=== PATIENT | male | born 1960 | race Caucasian/White ===

== ENCOUNTER → 2016-11-21 | Outpatient (CLI) | payer OTHER ==
[~2016-11-21] MED LIST: EMPA1TAB3 PO; FLV1 PO; GLC500 PO; INSDGIPEN SC; LEVO200T6 PO; LISI-526 PO; LSNP/30 PO; METF1000 PO; MISCCAP80 PO; MULT-506 PO; OMEG10007 PO; ONDA8TAB12 PO; PROM25TA10 PO
== END | disposition home or self-care (01) ==
LOC: C.LAB 16:42
PROVIDERS: ATTEND Internal Medicine Hematology
DX: C91.10 Chronic lymphocytic leukemia of B-cell type not having achieved remission (principal)

== ENCOUNTER 2017-02-02 09:23 | Inpatient (IN) | payer OTHER ==
[2017-02-02] VITALS (16 sets, daily range): BP systolic 101–135; BP diastolic 61–82; PULSE 84–113; TEMP 36.3–38.5; O2SAT 96–100; BMI 39.1
[~2017-02-02] VITALS: Ht 175.3 cm; Wt 121.8 kg
[~2017-02-02 09:23] MED LIST changes: -EMPA1TAB3 PO; -FLV1 PO; -GLC500 PO; -INSDGIPEN SC; -LEVO200T6 PO; -LSNP/30 PO; -MISCCAP80 PO; -MULT-506 PO; -OMEG10007 PO; -ONDA8TAB12 PO; -PROM25TA10 PO
[2017-02-02] MEDS ORDERED: EMPA1TAB3 PO (09:30)
[2017-02-02 10:24] LABS: PROTHROMBIN TIME (PATIENT) 10.2 SECONDS (9.0-12.0)
[2017-02-02] MEDS ORDERED: SODIUM CHLORIDE 0.9% 1000ML 1,000 ML IV STA (10:29)
--- NOTE | 2017-02-02 11:09 | DIAGNOSTIC IMAGING REPORT ---
CHEST ONE VIEW PORTABLE CLINICAL HISTORY: Weakness. Patient on chemotherapy COMPARISON STUDY: 07/13/2016 FINDINGS: The cardiac and mediastinal contours are normal. There is no evidence of focal pulmonary consolidation. There is no evidence of failure. No pleural effusions are visualized.[ IMPRESSION: No active disease in the chest. Electronically signed by: Kael Jameson M.D. 02/02/2017 11:08 AM Dictated Date/Time: 02/02/2017 11:07 AM
[2017-02-02 11:20] LABS: HEMATOCRIT 16.9 % (42-52); MEAN CORPUSCULAR HEMOGLOBIN 28.2 pg (25-34); MEAN CORPUSCULAR HGB CONC 34.3 g/dl (32-36); MEAN PLATELET VOLUME 10.4 fL (7.4-10.4); PLATELET COUNT 64 K/uL (130-400); RED BLOOD COUNT 2.06 M/uL (4.7-6.1); WHITE BLOOD COUNT 0.45 K/uL (4.8-10.8)
[2017-02-02 11:22] LABS: URINE APPEARANCE CLEAR (CLEAR); URINE BILIRUBIN NEG (NEG); URINE COLOR YELLOW; URINE NITRITE NEG (NEG); URINE SPECIFIC GRAVITY 1.032 (1.000-1.030); UROBILINOGEN NEG (NEG)
[2017-02-02 11:30] LABS: BUN/CREATININE RATIO 24.1 (10-20); CALCIUM 8.2 mg/dl (8.5-10.1); CREATININE 1.2 mg/dl (0.60-1.40); POTASSIUM 4.2 mmol/L (3.5-5.1)
[2017-02-02 11:31] LABS: MANUAL MICROSCOPIC REQUIRED? NO; REVIEW REQ? YES
[2017-02-02 11:45] LABS: URINE EPITHELIAL CELL AUTO 0-5 /lpf (0-5)
[2017-02-02 11:46] LABS: BETA-HYDROXYBUTYRATE 18.81 mg/dL (0.2-2.81)
[2017-02-02 11:47] LABS: DOHLE BODIES 1+; MICROCYTOSIS PRESENT; PLT ESTIMATE DECREASED; TOXIC GRANULATION 1+
[2017-02-02 11:49] LABS: ZZUR CULT IF INDIC CLEAN CATCH NO
[2017-02-02 11:51] LABS: COMPLETE YES; LYMPH ABS # 0.15 K/uL (1.2-3.4); LYMPHOCYTE % 32.3 %; NEUTROPHILS % 64.6 %
[2017-02-02] MEDS ORDERED: NovoLIN-R INSULIN PER UNIT CHARGE SC STA (11:56)
--- NOTE | 2017-02-02 12:12 | EMERGENCY ROOM VISIT NOTE ---
History Report prepared by Leana: Stormy Yusuf Under the Supervision of: Dr. Mushtaq Alejandra D.O. First contact with patient: 09:47 Chief Complaint: WEAKNESS Stated Complaint: WEAK-CHEMO PAT., V, FREQ. URINE, HALLUCINATIONS History of Present Illness The patient is a 56 year old male who presents to the Emergency Room with complaints of worsening weakness for the past 6 days. The patient is currently receiving chemotherapy for CLL. He had blood work done as an outpatient 6 days ago and his hemoglobin was 7.4. He has chronic anemia, but was told if he felt like he needed another transfusion to come to the ED. His last blood transfusion was 6 days ago. He received 2 units of blood at that time, and his hemoglobin was 6.4 before that transfusion. The patient is currently feeling lethargic, weak, and tired. He is also experiencing nausea, vomiting, and lack of appetite. Per sister, the patient has been extremely ill for the past few days since his most recent chemotherapy treatments. She also notes that the chemo has been making his BSG run higher. He has been experiencing increased thirst and increased urinary frequency. He was sent to the ED by his oncologist for further evaluation. Source of History: patient, family (sister) Onset: 6 days ago Position: other (global) Symptom Intensity: hemoglobin 7.4 Quality: other (weakness) Timing: worsening Modifying Factors (Worsening): other (chemotherapy for CLL) Associated Symptoms: + nausea, + vomiting, + urinary symptoms (increased frequency), + fatigue Review of Systems See HPI for pertinent positives & negatives. A total of 10 systems reviewed and were otherwise negative. Past Medical & Surgical Medical Problems: (1) Anemia (2) CLL (chronic lymphocytic leukemia) (3) Diabetes (4) HTN (hypertension) Family History Cancer Diabetes mellitus Gallbladder disease Heart disease Hypertension Kidney disease MOTHER Kidney stones Social History Smoking Status: Former Smoker Alcohol Use: none Drug Use: none Marital Status: single Housing Status: lives alone Occupation Status: employed Current/Historical Medications Scheduled Empagliflozin (Jardiance), 25 MG PO DAILY Levothyroxine Sodium (Levothyroxine Sodium), 200 MCG PO DAILY Lisinopril (Prinivil), 30 MG PO QAM Metformin Hcl (Glucophage), 1,000 MG PO BID Allergies Coded Allergies: No Known Allergies (Unverified , 02/02/17) Physical Exam Vital Signs Date Time Temp Pulse Resp B/P (MAP) Pulse Ox O2 Delivery O2 Flow Rate FiO2 02/02/17 11:01 81 16 118/63 98 Room Air 02/02/17 09:30 36.5 93 18 113/74 98 Room Air Physical Exam CONSTITUTIONAL/VITAL SIGNS: Reviewed / noted above. GENERAL: Non-toxic in appearance. INTEGUMENTARY: Warm, dry, and pale in appearance. HEAD: Normocephalic. EYES: without scleral icterus or trauma. ENT/OROPHARYNX: clear and moist. LYMPHADENOPATHY/NECK: Is supple without lymphadenopathy or meningismus. RESPIRATORY: Lungs clear and equal. CARDIOVASCULAR: Regular rate and rhythm. GI/ABDOMEN: Soft and nontender. No organomegaly or pulsatile mass. No rebound or guarding. Normal bowel sounds. EXTREMITIES: Warm and well perfused. BACK: No CVA tenderness. NEUROLOGICAL: Intact without focal deficits. PSYCHIATRIC: normal affect. MUSCULOSKELETAL: Normally developed with good muscle tone. Medical Decision & Procedures ER Provider Diagnostic Interpretation: Radiology results as stated below per my review and radiologist interpretation: CHEST ONE VIEW PORTABLE CLINICAL HISTORY: Weakness. Patient on chemotherapy COMPARISON STUDY: 07/13/2016 FINDINGS: The cardiac and mediastinal contours are normal. There is no evidence of focal pulmonary consolidation. There is no evidence of failure. No pleural effusions are visualized.[ IMPRESSION: No active disease in the chest. Electronically signed by: Kael Jameson M.D. 02/02/2017 11:08 AM Dictated Date/Time: 02/02/2017 11:07 AM Laboratory Results 02/02/17 10:43 Red Blood Count 2.06, Mean Corpuscular Volume 82.0, Mean Corpuscular Hemoglobin 28.2, Mean Corpuscular Hemoglobin Concent 34.3, Mean Platelet Volume 10.4 02/02/17 10:43 Test 02/02/17 00:00 02/02/17 10:00 02/02/17 10:43 Urine Color YELLOW Urine Appearance CLEAR (CLEAR) Urine pH 5.0 (4.5-7.5) Urine Specific [place] 1.032 (1.000-1.030) Urine Protein NEG (NEG) Urine Glucose (UA) 3+ (NEG) Urine Ketones 1+ (NEG) Urine Occult Blood NEG (NEG) Urine Nitrite NEG (NEG) Urine Bilirubin NEG (NEG) Urine Urobilinogen NEG (NEG) Urine Leukocyte Esterase NEG (NEG) Urine WBC (Auto) 0 /hpf (0-5) Urine RBC (Auto) 0-4 /hpf (0-4) Urine Hyaline Casts (Auto) /lpf (0-5) Urine Epithelial Cells (Auto) 0-5 /lpf (0-5) Urine Bacteria (Auto) NEG (NEG) Urine Yeast (Auto) (NONE PRSENT) Prothrombin Time 10.2 SECONDS (9.0-12.0) Prothromb Time International Ratio 1.0 (0.9-1.1) Activated Partial Thromboplast Time 26.4 SECONDS (21.0-31.0) Partial Thromboplastin Ratio 1.0 White Blood Count 0.45 K/uL (4.8-10.8) Red Blood Count 2.06 M/uL (4.7-6.1) Hemoglobin 5.8 g/dL (14.0-18.0) Hematocrit 16.9 % (42-52) Mean Corpuscular Volume 82.0 fL (80-100) Mean Corpuscular Hemoglobin 28.2 pg (25-34) Mean Corpuscular Hemoglobin Concent 34.3 g/dl (32-36) Platelet Count 64 K/uL (130-400) Mean Platelet Volume 10.4 fL (7.4-10.4) RDW Standard Deviation 46.0 fL (36.4-46.3) RDW Coefficient of Variation 15.5 % (11.5-14.5) Nucleated RBC Absolute Count (auto) 0.02 K/uL (0-0) Neutrophils % (Manual) 64.6 % Lymphocytes % (Manual) 32.3 % Monocytes % (Manual) 3.1 % Nucleated Red Blood Cells % 4.2 % Neutrophils # (Manual) 0.29 K/uL (1.4-6.5) Total Absolute Neutrophils 0.29 K/uL (1.4-6.5) Lymphocytes # (Manual) 0.15 K/uL (1.2-3.4) Total Absolute Lymphocytes 0.15 K/uL (1.2-3.4) Monocytes # (Manual) 0.01 K/uL (0.11-0.59) Toxic Granulation 1+ Dohle Bodies 1+ Platelet Estimate DECREASED Microcytosis PRESENT Anion Gap 13.0 mmol/L (3-11) Est Creatinine Clear Calc Drug Dose 88.0 ml/min Estimated GFR () 77.9 Estimated GFR (Non- 67.2 BUN/Creatinine Ratio 24.1 (10-20) Calcium Level 8.2 mg/dl (8.5-10.1) Beta-Hydroxybutyric Acid 18.81 mg/dL (0.2-2.81) Laboratory results as stated above per my review. Medications Administered Medications (Trade) Dose Ordered Sig/Alesha Route Start Time Stop Time Status Last Admin Dose Admin Sodium Chloride 1,000 ml @ 999 mls/hr Q1H1M STAT IV 02/02/17 10:29 02/02/17 11:29 DC 02/02/17 11:00 999 MLS/HR ED Course 09: Previous medical records were reviewed. The patient was evaluated in room B3B. A complete history and physical examination was performed. 1029: NSS 1000 ml @ 999 mls/hr IV 1156: Insulin Human Regular 10 units SC 1157: I spoke with Radha Rouse PA-C. We discussed the patient's results and treatment plan. [facility] 1200: I reassessed the patient at this time. He is resting comfortably. I discussed the results and treatment plan with the patient and his sister. I answered all pertaining questions that they had. They expressed understanding and verbalized agreement. Medical Decision Differential includes acute coronary syndrome, myocardial infarction, CVA, TIA, anemia, infection, pneumonia, UTI, pyelonephritis, poor nutrition, dehydration, electrolyte disturbance, hypoglycemia. This is a 56-year-old male who presents to the ED with a chief complaint of generalized weakness. The patient states that his hemoglobin was 7.4 last Monday. He received his third chemotherapy treatment on . His sister states that he had a rough weekend with nausea and vomiting and weakness and overall not feeling well. The patient did have a blood transfusion 6 days ago. He states that he received 2 units at that time. He states that he has been having frequent urination and thirst over the weekend. He states that his blood sugars have been running high. He is on metformin for diabetes. The patient's sister states that he was hallucinating some [id number] weekend as well. His vital signs are normal. His physical exam reveals paleness of the skin but otherwise no significant findings. His hemoglobin today is 5.8. White blood cell count was 0.45. Glucose is 400. BUN is 29 with 1+ ketones in the urine. The patient received IV fluids normal saline. He received a blood transfusion of 1 unit and also subcutaneous insulin 10 units. The patient will be seen by the hospitalist for further inpatient evaluation and care as well as additional blood administration and hyperglycemia management as necessary. Consults Time Called: 1155 Consulting Physician: Radha Rouse PA-C Returned Call: 1157 I spoke with Radha Rouse PA-C. We discussed the patient's results and treatment plan. The patient will be evaluated by the [facility] for further management. Impression Primary Impression: Anemia Additional Impressions: Hyperglycemia Dehydration Weakness Scribe Attestation The scribe's documentation has been prepared under my direction and personally reviewed by me in its entirety. I confirm that the note above accurately reflects all work, treatment, procedures, and medical decision making performed by me. Departure Information Dispostion Being Evaluated By Hospitalist Referrals Divya Diaz D.O. (PCP) Patient Instructions My [facility] Problem Qualifiers Primary Impression: Anemia Anemia type: unspecified type Qualified Codes: D64.9 - Anemia, unspecified
[2017-02-02] MEDS ORDERED: PHARMACY GLYCEMIC MGMT CONSULT PRN (12:45)
[2017-02-02] MEDS ORDERED: PIPERACILL/TAZOBAC CONSULT ACTIVE PRN (12:47)
[2017-02-02] MEDS ORDERED: PROM25TA10 PO (12:56)
[2017-02-02] MEDS ORDERED: ONDA8TAB12 PO (12:56)
[2017-02-02] MEDS ORDERED: MISCCAP80 PO (12:56)
[2017-02-02] MEDS ORDERED: ONDANSETRON INJ 2 MG/ML 2 ML VIAL IV PRN (13:00)
[2017-02-02] MEDS ORDERED: INSULIN IV INFUSION PROTOCOL STA (13:13)
[2017-02-02] MEDS ORDERED: HHS GOAL RANGE 250-350 mg/dl SCH (13:15)
--- NOTE | 2017-02-02 13:19 | Progress Note ---
Progress Note Date of Service Feb 02, 2017. Progress Note ATTENDING ADDENDUM care coordinated with SAYRA Rouse please refer to her notes for full details, I agree with her notes patient seen and examined, records reviewed by myself as well on exam, patient seen with family at bedside states he feels somewhat better since being admitted noted to have subjective feeling of warmth this morning, diaphoretic has been progressively weak since chemo last week with nausea and vomiting occasional confusion episodes at night denies cough, headache, abdominal pain, dysuria, diarrhea, bleeding no other symptoms VS noted and reviewed oriented x 3 , not in distress, speaks in sentences with no effort nor accessory muscle use normal rate, regular rhythm, no murmurs clear breath sounds bilaterally, no rales/wheezes non distended, soft, nontender no bipedal edema, erythema, warmth no neuro deficits WBC 0.45 Hg 5.8 Plt 64 BSG 392 ASSESSMENT/PLAN> 56 year old male with history of CLL with severe anemia, on Fludarabine, Cyclophosphamide, PRN pRBC transfusion, DM 2, HTN presenting with weakness, nausea/vomiting x few days. WEAKNESS SECONDARY TO SEVERE ANEMIA, DEHYDRATION, HYPERGLYCEMIA -- likely secondary to Chemotherapy -- for severe anemia discussed with Dr. Kinney transfuse 4 units PRBC repeat H&H today after 4th unit, then daily if stable -- for dehydration, likely secondary to nausea/vomiting, poor intake IV fluids PRN Antiemetics -- for Hyperglycemia r/o HHS, history of DM 2 likely from underlying stress, r/o Infection on Metformin, and Jardiance-- hold for now check plasma osm start IV insulin for now PRP q6h Pharmacy consulted PACYTOPENIA secondary to Chemo, CLL -- NEUTROPENIA discussed with Dr. Kinney start Neupogen Neutropenic precautions ff up cultures hold off antibiotics for now, unless patient is febrile -- ANEMIA management of anemia as noted above -- THROMBOCYTOPENIA no signs of bleeding no monitor for now EPISODES OF CONFUSION -- noticed at night within the past week -- likely metabolic encephalopathy -- check CT head to r/o CVA awaiting Dr. Kinney's call back to discuss case other diagnoses and plan of care as per SAYRA Rouse's notes Daniel Rosales MD
[2017-02-02] MEDS ORDERED: MODERATE STRESS LEVEL SCH (13:30)
[2017-02-02] MEDS ORDERED: PIPERACILLIN/TAZOBACTAM 4.5 GM/100ML D5W IV SCH (13:30)
[2017-02-02 13:35] LABS: MAGNESIUM 2.8 mg/dl (1.8-2.4); PHOSPHORUS 3.3 mg/dl (2.5-4.9)
[2017-02-02] MEDS: SODIUM CHLORIDE 0.9% 1000ML 1,000 ML IV SCH ×2 (13:44→19:51)
[2017-02-02] MEDS ORDERED: GLUCOSE 40% GEL 15 GM TUBE PO PRN (13:45)
[2017-02-02] MEDS ORDERED: INSULIN HUMAN REGULAR IV BOLUS 3 UNIT in SYRINGE 0 ML IV SCH (13:45)
[2017-02-02] MEDS ORDERED: GLUCOSE 10 TABS/TUBE PO PRN (13:45)
[2017-02-02] MEDS ORDERED: GLUCAGON FOR INJ 1 MG VIAL SQ PRN (13:45)
[2017-02-02] MEDS ORDERED: DEXTROSE 50% 50 ML SYR IV PRN (13:45)
--- NOTE | 2017-02-02 14:13 | History and Physical ---
History & Physical Date & Time of Service: Feb 02, 2017 at 13:19 Chief Complaint: Weak-Chemo Pat., V, Freq. Urine, Hallucinations Primary Care Physician: Divya Diaz D.O. History of Present Illness Source: patient, clinic records This is a 56 y/o male with PMH of CLL on chemo, chronic anemia, DM type 2, hypertension, and other problems listed below who presents to the ED for fatigue and N/V. Pt follows with Dr. Kinney for oncology. Patient's last chemo ended 1 week ago on 01/26 and he received a blood transfusion on Saturday 01/27. He states since that time has felt generalized weakness, fatigue, N/V, poor food intake. He was able to take some liquids and his meds at home. Was vomiting until last night. Nausea is now resolved. In the ER was able to tolerate a diabetic meal without issues. Patient's sister who was not in the room during my exam told the admitting hospitalist physician that patient was feeling hot and diaphoretic this morning. She additionally noted episodes of confusion occurring at night for past few days. Pt states urinary frequency is increased for past 1 week after starting Jardiance. Pt states home blood sugars were running up to 400s associated with the chemo and improved to 200s after Jardiance was started. Patient denies any fever, chills, BRODY, dizziness, URI symptoms, cough, SOB, chest pain, abdominal pain, diarrhea, dysuria, rash, wounds, abnormal bleeding. No sick contact. 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 Status: Chronic (2) Chemotherapy induced neutropenia Status: Chronic (3) CLL (chronic lymphocytic leukemia) Status: Chronic (4) DM type 2 (diabetes mellitus, type 2) Status: Chronic (5) Dyslipidemia Status: Chronic (6) HTN (hypertension) Status: Chronic (7) Hypothyroidism Status: Chronic (8) Obesity (BMI 30-39.9) Status: Chronic Surgical Problems: (1) H/O colonoscopy with polypectomy Status: Chronic (2) S/p bone marrow aspiration Status: Chronic Family History Cancer Diabetes mellitus Gallbladder disease Heart disease Hypertension Kidney disease MOTHER Kidney stones Social History Smoking Status: Former Smoker Alcohol Use: none Marital Status: single Housing status: lives alone Immunizations History of Influenza Vaccine: No History of Tetanus Vaccine?: No History of Pneumococcal: No History of Hepatitis B Vaccine: No Allergies Coded Allergies: No Known Allergies (Unverified , 02/02/17) Home Medications Scheduled Empagliflozin (Jardiance), 25 MG PO DAILY Fish Oil ([place]-3), 1 CAP PO DAILY Insulin Glargine (Lantus Solostar), 10 UNIT SC HS Levothyroxine Sodium (Levothyroxine Sodium), 200 MCG PO DAILY Lisinopril (Prinivil), 30 MG PO QAM Metformin Hcl (Glucophage), 1,000 MG PO BIDM Multivitamin (Multivitamin), 1 TAB PO DAILY Probiotic Product (Probiotic), 1 CAP PO TIDM Scheduled PRN Ondansetron Hcl (Zofran), 8 MG PO Q8 PRN for Nausea Promethazine HCl (Promethazine HCl), 25 MG PO Q4 PRN for Nausea Review of Systems Ten systems reviewed and negative except as noted in HPI. Physical Exam Vital Signs Date Time Temp Pulse Resp B/P (MAP) Pulse Ox O2 Delivery O2 Flow Rate FiO2 02/02/17 12:55 36.9 89 16 117/69 99 02/02/17 12:45 86 16 118/63 99 Room Air 02/02/17 12:41 36.5 86 16 127/81 99 02/02/17 12:25 36.6 88 16 103/67 98 02/02/17 11:01 81 16 118/63 98 Room Air 02/02/17 09:30 36.5 93 18 113/74 98 Room Air General Appearance: WD/WN, no apparent distress, + pertinent finding (alert 56 year old male, lying in bed, appears comfortable) Head: normocephalic, atraumatic Eyes: normal inspection, PERRL, sclerae normal ENT: hearing grossly normal, pharynx normal Neck: supple, trachea midline Respiratory/Chest: lungs clear, normal breath sounds, no respiratory distress, no accessory muscle use Cardiovascular: regular rate, rhythm, no murmur, normal peripheral pulses Abdomen/GI: normal bowel sounds, non tender, soft Extremities/Musculoskelatal: no calf tenderness, no pedal edema Neurologic/Psych: alert, normal mood/affect, oriented x 3, + pertinent finding (no focal deficit on gross examination) Skin: warm/dry, + pallor Diagnostics Laboratory Results Results Past 24 Hours Test 02/02/17 00:00 02/02/17 10:00 02/02/17 10:43 02/02/17 13:00 Range/Units Urine Color YELLOW Urine Appearance CLEAR CLEAR Urine pH 5.0 4.5-7.5 Urine Specific [place] 1.032 1.000-1.030 Urine Protein NEG NEG Urine Glucose (UA) 3+ NEG Urine Ketones 1+ NEG Urine Occult Blood NEG NEG Urine Nitrite NEG NEG Urine Bilirubin NEG NEG Urine Urobilinogen NEG NEG Urine Leukocyte Esterase NEG NEG Urine WBC (Auto) 0 0-5 /hpf Urine RBC (Auto) 0-4 0-4 /hpf Urine Hyaline Casts (Auto) 0-5 /lpf Urine Epithelial Cells (Auto) 0-5 0-5 /lpf Urine Bacteria (Auto) NEG NEG Urine Yeast (Auto) NONE PRSENT Prothrombin Time 10.2 9.0-12.0 SECONDS Prothromb Time International Ratio 1.0 0.9-1.1 Activated Partial Thromboplast Time 26.4 21.0-31.0 SECONDS Partial Thromboplastin Ratio 1.0 White Blood Count 0.45 4.8-10.8 K/uL Red Blood Count 2.06 4.7-6.1 M/uL Hemoglobin 5.8 14.0-18.0 g/dL Hematocrit 16.9 42-52 % Mean Corpuscular Volume 82.0 80-100 fL Mean Corpuscular Hemoglobin 28.2 25-34 pg Mean Corpuscular Hemoglobin Concent 34.3 32-36 g/dl Platelet Count 64 130-400 K/uL Mean Platelet Volume 10.4 7.4-10.4 fL RDW Standard Deviation 46.0 36.4-46.3 fL RDW Coefficient of Variation 15.5 11.5-14.5 % Nucleated RBC Absolute Count (auto) 0.02 0-0 K/uL Neutrophils % (Manual) 64.6 % Lymphocytes % (Manual) 32.3 % Monocytes % (Manual) 3.1 % Nucleated Red Blood Cells % 4.2 % Neutrophils # (Manual) 0.29 1.4-6.5 K/uL Total Absolute Neutrophils 0.29 1.4-6.5 K/uL Lymphocytes # (Manual) 0.15 1.2-3.4 K/uL Total Absolute Lymphocytes 0.15 1.2-3.4 K/uL Monocytes # (Manual) 0.01 0.11-0.59 K/uL Toxic Granulation 1+ Dohle Bodies 1+ Platelet Estimate DECREASED Microcytosis PRESENT Sodium Level 132 136-145 mmol/L Potassium Level 4.2 3.5-5.1 mmol/L Chloride Level 98 98-107 mmol/L Carbon Dioxide Level 21 21-32 mmol/L Anion Gap 13.0 3-11 mmol/L Blood Urea Nitrogen 29 7-18 mg/dl Creatinine 1.20 0.60-1.40 mg/dl Est Creatinine Clear Calc Drug Dose 88.0 ml/min Estimated GFR () 77.9 Estimated GFR (Non- 67.2 BUN/Creatinine Ratio 24.1 10-20 Random Glucose 400 70-99 mg/dl Calcium Level 8.2 8.5-10.1 mg/dl Beta-Hydroxybutyric Acid 18.81 0.2-2.81 mg/dL Test 02/02/17 13:12 Range/Units Microbiology Results 02/02/17 Blood Culture, Received Pending 02/02/17 Blood Culture, Received Pending Diagnostic Radiology CHEST ONE VIEW PORTABLE CLINICAL HISTORY: Weakness. Patient on chemotherapy COMPARISON STUDY: 07/13/2016 FINDINGS: The cardiac and mediastinal contours are normal. There is no evidence of focal pulmonary consolidation. There is no evidence of failure. No pleural effusions are visualized.[ IMPRESSION: No active disease in the chest. Impression Assessment and Plan SEVERE SYMPTOMATIC ANEMIA, ACUTE ON CHRONIC Has underlying chronic anemia due to CLL, likely worsened due to chemo Hg is 5.8 Transfuse 4 units pRBC Recheck H/H at 6 pm Monitor daily H/H DEHYDRATION Due to N/V and poor PO intake- improved, tolerating diabetic diet in ER IV fluids PRN Zofran PANCYTOPENIA NEUTROPENIA Likely due to chemo and CLL Rule out infection- CXR neg, check blood cultures and urine culture Empiric dose of Zosyn given- will hold off on further antibiotic and f/u culture results Neutropenic precautions No sign of bleeding Monitor CBC Consult hem/ onc- case d/w Dr. Kinney by admitting physician Start Neupogen per Dr. Kinney HYPERGLYCEMIA, POSSIBLE HHS, UNDERLYING DM 2 BSG 400, AG 13, 1+ ketones in urine Possibly due to stress, r/o infection- CXR neg, check blood cultures and urine culture Received 10 units IV insulin in ER- BSG remained high 300s Check serum osmolality Hold metformin and Jardiance Start insulin drip IVFs at 150 mL/ hour Monitor electrolytes Consult pharmacy, appreciate input EPISODIC CONFUSION Sister reported night time episodic confusion past several days Likely due to metabolic encephalopathy Check CT head to r/o intracranial pathology HYPERTENSION BP is stable 100s-120s Continue lisinopril with parameters HYPOTHYROIDISM Continue levothyroxine DVT PROPHYLAXIS SCD's due to severe anemia, thrombocytopenia DISPOSITION Follows with Dr. Diaz for primary care Patient seen in collaboration with Dr. Rosales. Please see his addendum. VTE Prophylaxis VTE Risk Assessment Done? Y/N: Yes Risk Level: High
--- NOTE | 2017-02-02 14:13 | DIAGNOSTIC IMAGING REPORT ---
CT HEAD WITHOUT CONTRAST (CT) CLINICAL HISTORY: confusion WEAKNESS COMPARISON STUDY: No previous studies for comparison. TECHNIQUE: Axial CT of the brain is performed from the vertex to the skull base. IV contrast was not administered for this examination. CT DOSE: 537.48 mGy.cm FINDINGS: No intra or extra-axial mass lesions are visualized. There is no CT evidence of acute cortical infarction. There is no evidence of midline shift. There is no acute hemorrhage. No calvarial fractures are visualized. 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 There is no evidence of pathologic ventricular dilatation. There is a giant cisterna magna There is no evidence of acute sinusitis IMPRESSION: 1. 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 Given the history of a primary malignancy however one might consider an MRI in follow-up to exclude an underlying lesion. Electronically signed by: Kael Jameson M.D. 02/02/2017 2:11 PM Dictated Date/Time: 02/02/2017 2:09 PM
[2017-02-02] MEDS: INSULIN REGULAR 250 UNITS in SODIUM CHLORIDE 0.9% 250ML 250 ML IV SCH (14:23)
--- NOTE | 2017-02-02 14:33 | Pharmacy Progress Note ---
Glycemic Control Intl Consult Date of Service Feb 02, 2017. Scope Glycemic Pharmacist consulted by Miriam Rouse on 02/02/17 for glycemic control and to write orders per [facility] inpatient glycemic control protocol Objective Weight (Kilograms): 120.10 Accuchecks BSG (last 24hrs): Test 02/02/17 10:43 02/02/17 12:54 Random Glucose 400 mg/dl (70-99) Bedside Glucose 392 mg/dl (70-99) Laboratory Data (last 24hrs) Test 02/02/17 10:43 02/02/17 13:23 Anion Gap 13.0 mmol/L BUN/Creatinine Ratio 24.1 Blood Urea Nitrogen 29 mg/dl Creatinine 1.20 mg/dl Potassium Level 4.2 mmol/L Sodium Level 132 mmol/L White Blood Count 0.45 K/uL Red Blood Count 2.06 M/uL Hemoglobin 5.8 g/dL Hematocrit 16.9 % Mean Corpuscular Volume 82.0 fL Mean Corpuscular Hemoglobin 28.2 pg Mean Corpuscular Hemoglobin Concent 34.3 g/dl Platelet Count 64 K/uL Mean Platelet Volume 10.4 fL Recent Pertinent Medications Outpatient Anti-diabetic Regimen: * Jaridance 25 mg po daily + metformin 1000 mg PO BID Risk Factors for Insulin Resistance: * Infection: possible, patient has pancytopenia * Diet: type 2 diabetic diet Assessment & Plan ASSESSMENT: * ADA & AACE recommend a goal blood sugar range 140-180 mg/dl for the majority of critically ill & non-critically ill patients. However, more stringent targets may be selected in individual cases. However, this patient is on an insulin gtt for possible HHS therefore a broader goal fo 250 -350 mg/dL will be selected. Hydration is the mainstay of therapy for this disease state. * Mr Valentin is a 56 y/o M admitted on 02/02/17 with dizziness and weakness. 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 His blood sugars have been elevated since starting chemotherapy, but Jardiance was able to decrease them from 400s to 200s. He has had increased urination since starting Jardiance. Today he presented with fatigue and was diagnosed with anemia and pancytopenia. His blood sugar was also elevated at 400 mg/dL. * Due to the patient's dehydration and elevated blood sugars, an insulin gtt was initiated with moderate intensity and goal fo 250-350 mg/dL. The patient will be monitored closely. PLAN FOR INPATIENT GLYCEMIC CONTROL: * Starting IV insulin infusion per moderate stress protocol * Goal Range 250 - 350 mg/dl * In the critical care setting, continuous IV insulin infusion has been shown to be the best method for achieving glycemic targets. * Holding outpatient oral diabetes medications * Please note that the plan above was derived based on current level of insulin resistance and hospital stress. These recommendations are appropriate for inpatient admission only. Plan of care upon discharge will need to be reassessed to avoid potential outpatient hypo/hyperglycemia. Thank you.
[2017-02-02] MEDS: FILGRASTIM 300 MCG/ML 1 ML VIAL SQ SCH (16:26)
[2017-02-02] MEDS ORDERED: NURSING VERBAL MED ORDER ONE (16:30)
[2017-02-02] MEDS: INSULIN ASPART 100 UNITS/ML 3 ML PEN SC SCH ×2 (17:49→21:00)
[2017-02-02 18:54] LABS: HEMATOCRIT 24.8 % (42-52); MEAN CELL VOLUME 83.5 fL (80-100); MEAN CORPUSCULAR HEMOGLOBIN 27.3 pg (25-34); MEAN CORPUSCULAR HGB CONC 32.7 g/dl (32-36); MEAN PLATELET VOLUME 10.4 fL (7.4-10.4); PLATELET COUNT 69 K/uL (130-400); RED BLOOD COUNT 2.97 M/uL (4.7-6.1); WHITE BLOOD COUNT 0.64 K/uL (4.8-10.8)
[2017-02-02 19:02] LABS: BUN/CREATININE RATIO 21.4 (10-20); CALCIUM 8.1 mg/dl (8.5-10.1); CREATININE 1.2 mg/dl (0.60-1.40); MAGNESIUM 2.7 mg/dl (1.8-2.4); PHOSPHORUS 2.8 mg/dl (2.5-4.9)
[2017-02-02 19:11] LABS: LARGE PLATELETS 1+; PLT ESTIMATE DECREASED
[2017-02-02 19:14] LABS: COMPLETE YES; LYMPH ABS # 0.16 K/uL (1.2-3.4); NEUTROPHILS % 46.6 %; VARIANT LYM ABS # 0.17 K/uL; VARIANT LYMPHOCYTE % 26.7 %
[2017-02-02] MEDS ORDERED: PIPERACILL/TAZOBAC IV 4.5 GM in DEXTROSE 5% 100ML 100 ML IV SCH (20:00)
[2017-02-02] MEDS ORDERED: [UNRECOGNIZED DRUG - OTHER] PRN (22:26)
[2017-02-02] MEDS: PIPERACILL/TAZOBAC IV 4.5 GM in DEXTROSE 5% 100ML 100 ML IV SCH (23:28)
[2017-02-03] VITALS (13 sets, daily range): BP systolic 103–147; BP diastolic 67–83; PULSE 72–93; TEMP 36.3–38.4; O2SAT 94–100; BMI 39.1
[2017-02-03] MEDS: ACETAMINOPHEN 325 MG TAB PO PRN ×2 (00:01→19:49)
[2017-02-03] MEDS: SODIUM CHLORIDE 0.9% 1000ML 1,000 ML IV SCH ×4 (02:17→20:54)
[2017-02-03] MEDS: LEVOTHYROXINE 200 MCG TAB PO SCH (06:36)
[2017-02-03] MEDS: PIPERACILL/TAZOBAC IV 4.5 GM in DEXTROSE 5% 100ML 100 ML IV SCH ×3 (06:36→21:55)
[2017-02-03 06:38] LABS: HEMATOCRIT 25.9 % (42-52); MEAN CELL VOLUME 84.1 fL (80-100); MEAN CORPUSCULAR HEMOGLOBIN 28.2 pg (25-34); MEAN CORPUSCULAR HGB CONC 33.6 g/dl (32-36); MEAN PLATELET VOLUME 10.6 fL (7.4-10.4); PLATELET COUNT 49 K/uL (130-400); RED BLOOD COUNT 3.08 M/uL (4.7-6.1); WHITE BLOOD COUNT 0.75 K/uL (4.8-10.8)
[2017-02-03 06:58] LABS: BUN/CREATININE RATIO 19.1 (10-20); CALCIUM 8.1 mg/dl (8.5-10.1); MAGNESIUM 2.5 mg/dl (1.8-2.4); PHOSPHORUS 3.3 mg/dl (2.5-4.9); POTASSIUM 3.8 mmol/L (3.5-5.1)
[2017-02-03 07:10] LABS: ECHINOCYTES 1+; LARGE PLATELETS 1+; PLT ESTIMATE DECREASED
[2017-02-03 07:13] LABS: COMPLETE YES; LYMPH ABS # 0.36 K/uL (1.2-3.4); LYMPHOCYTE % 48.6 %
[2017-02-03 07:16] LABS: DOHLE BODIES 1+; TOXIC GRANULATION 1+
[2017-02-03] MEDS: LISINOPRIL 10 MG TAB PO SCH (08:09)
[2017-02-03] MEDS: INSULIN ASPART 100 UNITS/ML 3 ML PEN SC SCH ×4 (08:25→21:07)
[2017-02-03] MEDS ORDERED: INSULIN GLARGINE SOLOSTAR 100 UNITS/ML 3 ML PEN SC ONE (10:00)
--- NOTE | 2017-02-03 10:58 | Pharmacy Progress Note ---
Glycemic Control: Progress Nt Date of Service Feb 03, 2017. Scope Glycemic Pharmacist consulted by Miriam Rouse on 02/02/2017 for glycemic control and to write orders per [facility] inpatient glycemic control protocol. Objective Accuchecks BSG (last 24hrs): Test 02/02/17 12:54 02/02/17 15:07 02/02/17 16:27 02/02/17 17:29 Bedside Glucose 392 mg/dl (70-99) 286 mg/dl (70-99) 241 mg/dl (70-99) 248 mg/dl (70-99) Test 02/02/17 18:26 02/02/17 18:35 02/02/17 19:25 02/02/17 20:39 Bedside Glucose 250 mg/dl (70-99) 249 mg/dl (70-99) 209 mg/dl (70-99) Random Glucose 236 mg/dl (70-99) Test 02/02/17 21:40 02/02/17 22:37 02/02/17 23:33 02/03/17 00:27 Bedside Glucose 225 mg/dl (70-99) 208 mg/dl (70-99) 194 mg/dl (70-99) 223 mg/dl (70-99) Test 02/03/17 01:39 02/03/17 02:34 02/03/17 03:38 02/03/17 04:31 Bedside Glucose 228 mg/dl (70-99) 258 mg/dl (70-99) 234 mg/dl (70-99) 224 mg/dl (70-99) Test 02/03/17 05:51 02/03/17 05:52 02/03/17 06:45 02/03/17 08:33 Bedside Glucose 201 mg/dl (70-99) 191 mg/dl (70-99) 268 mg/dl (70-99) Random Glucose 201 mg/dl (70-99) Laboratory Data (last 24hrs) Test 02/02/17 18:35 02/03/17 05:52 Anion Gap 10.0 mmol/L 10.0 mmol/L BUN/Creatinine Ratio 21.4 19.1 Blood Urea Nitrogen 26 mg/dl 19 mg/dl Creatinine 1.20 mg/dl 1.00 mg/dl Potassium Level 4.0 mmol/L 3.8 mmol/L Sodium Level 137 mmol/L 138 mmol/L White Blood Count 0.64 K/uL 0.75 K/uL Red Blood Count 2.97 M/uL 3.08 M/uL Hemoglobin 8.1 g/dL 8.7 g/dL Hematocrit 24.8 % 25.9 % Mean Corpuscular Volume 83.5 fL 84.1 fL Mean Corpuscular Hemoglobin 27.3 pg 28.2 pg Mean Corpuscular Hemoglobin Concent 32.7 g/dl 33.6 g/dl Platelet Count 69 K/uL 49 K/uL Mean Platelet Volume 10.4 fL 10.6 fL Recent Pertinent Medications Outpatient Anti-diabetic Regimen: * Jaridance 25 mg po daily + metformin 1000 mg PO BID Risk Factors for Insulin Resistance: * Infection: possible, patient has pancytopenia * Diet: type 2 diabetic diet Assessment & Plan ASSESSMENT: * ADA & AACE recommend a goal blood sugar range 140-180 mg/dl for the majority of critically ill & non-critically ill patients. However, more stringent targets may be selected in individual cases. Will utilize more stringent goal of 110-140mg/dl based on patient age & comorbidities. Additionally, tighter glycemic control is warranted to facilitate wound/infection healing. * Mr Valentin is a 56 y/o M admitted on 02/02/17 with dizziness and weakness. 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 His blood sugars have been elevated since starting chemotherapy, but Jardiance was able to decrease them from 400s to 200s. He has had increased urination since starting Jardiance. Today he presented with fatigue and was diagnosed with anemia and pancytopenia. His blood sugar was also elevated at 400 mg/dL. He was started on an insulin drip. * The patient's blood sugars decreased well overnight and his goal range was changed to 140-180 mg/dL. This morning his anion gap and bicarbonate were normalized. He was eating. The patient appeared to use approximately 1 unit/hr so his total insulin use would be ~24 units/day. Weight based stress of 2 showed that 20 units of Lantus twice daily is appropriate. Therefore a one time dose of Lantus 20 units (slightly less than the insulin drip) will be given then Lantus 10 units twice daily. Correctional Novolog will be starting based on weight based stress of 2. Overnight Accuchecks will be added to ensure 24 hour coverage. PLAN FOR INPATIENT GLYCEMIC CONTROL: * Lantus 20 units SQ x 1 then Lantus 10 units twice daily starting tomorrow * Novolog correctional insulin ACHS * correction factor 1 unit for every 20 mg/dL above goal * carbohydrate ratio is 1 units for every 6 carbohydrates consumed. * Holding outpatient oral diabetes medications * Please note that the plan above was derived based on current level of insulin resistance and hospital stress. These recommendations are appropriate for inpatient admission only. Plan of care upon discharge will need to be reassessed to avoid potential outpatient hypo/hyperglycemia. Thank you.
--- NOTE | 2017-02-03 11:23 | Progress Note ---
Internal Med Progress Note Date of Service: Feb 03, 2017. Provider Documentation: SUBJECTIVE: The patient was seen and examined Feels a lot better following Blood transfusion Denies any Fever,chills No CP,Palpitation,SOB No abdominal pain,nausea and or vomiting OBJECTIVE: Vital Signs-as noted below Exam: General-no distress at rest Eyes-normal ENT-normal Neck-supple Lungs-clear to ausucltate bilaterally Heart-Regular Abdomen-Benign,no masses,bowel sound present Extremities-NO edema Neuro-AAox3 Lab data as noted below. ASSESSMENT & PLAN: WEAKNESS SECONDARY TO SEVERE ANEMIA, DEHYDRATION Secondary to Chemotherapy The case was discussed with Dr. Kinney by admitting physician Received 4 units PRBC Monitor [id number] on 02/03/17 IV fluids and PRN Antiemetics Hyperglycemia r/o HHS, history of DM 2 Likely from underlying stress, r/o Infection On Metformin, and Jardiance-- hold for now Has been on IV Insulin and Pharmacy managing PANCYTOPENIA secondary to Chemo for CLL NEUTROPENIA and Thrombocytopenia Started on Neupogen Neutropenic precautions Follow up cultures Has been on Zosyn ID Consulted ANEMIA Management of anemia as noted above Received 4 units of PRBC EPISODES OF CONFUSION -- noticed at night within the past week -- likely metabolic encephalopathy -- check CT head to r/o CVA DVT PROPHYLAXIS SCDs-has Thrombocytopenia DISPOSITION Awaited Vital Signs: Date Time Temp Pulse Resp B/P (MAP) Pulse Ox O2 Delivery O2 Flow Rate FiO2 02/03/17 16:00 Room Air 02/03/17 15:25 37.3 84 20 110/67 (81) 100 Room Air 02/03/17 12:00 Room Air 02/03/17 11:28 36.6 81 18 126/76 (93) 98 Room Air 02/03/17 08:00 Room Air 02/03/17 07:36 36.9 93 16 147/83 (104) 94 Room Air 02/03/17 04:48 36.5 72 20 103/72 97 02/03/17 04:00 Room Air 02/03/17 03:48 36.3 78 20 115/76 98 02/03/17 02:48 36.7 82 18 114/74 98 02/03/17 02:18 37.1 88 18 114/78 97 02/03/17 02:03 37.2 88 18 114/74 (87) 97 Room Air 02/03/17 01:19 37.1 02/02/17 23:59 Room Air 02/02/17 23:40 38.5 101 20 115/76 (89) 96 Room Air 02/02/17 22:05 37.8 98 18 126/78 98 02/02/17 21:05 38.2 106 18 115/72 99 02/02/17 20:35 38.2 113 18 133/72 97 02/02/17 20:18 38.2 107 18 123/76 (92) 97 Room Air 02/02/17 20:00 Room Air 02/02/17 19:22 37.3 98 20 122/76 (91) 98 Room Air Lab Results: Results Past 24 Hours Test 02/02/17 18:26 02/02/17 18:35 02/02/17 19:25 02/02/17 20:39 Range/Units Bedside Glucose 250 249 209 70-99 mg/dl White Blood Count 0.64 4.8-10.8 K/uL Red Blood Count 2.97 4.7-6.1 M/uL Hemoglobin 8.1 14.0-18.0 g/dL Hematocrit 24.8 42-52 % Mean Corpuscular Volume 83.5 80-100 fL Mean Corpuscular Hemoglobin 27.3 25-34 pg Mean Corpuscular Hemoglobin Concent 32.7 32-36 g/dl Platelet Count 69 130-400 K/uL Mean Platelet Volume 10.4 7.4-10.4 fL RDW Standard Deviation 45.3 36.4-46.3 fL RDW Coefficient of Variation 15.1 11.5-14.5 % Nucleated RBC Absolute Count (auto) 0.02 0-0 K/uL Neutrophils % (Manual) 46.6 % Lymphocytes % (Manual) 25.0 % Variant Lymphocytes % (manual) 26.7 % Monocytes % (Manual) 1.7 % Nucleated Red Blood Cells % 3.6 % Neutrophils # (Manual) 0.30 1.4-6.5 K/uL Total Absolute Neutrophils 0.30 1.4-6.5 K/uL Lymphocytes # (Manual) 0.16 1.2-3.4 K/uL Absolute Variant Lymphocytes 0.17 K/uL Total Absolute Lymphocytes 0.33 1.2-3.4 K/uL Monocytes # (Manual) 0.01 0.11-0.59 K/uL Platelet Estimate DECREASED Large Platelets 1+ Venous Blood pH 7.39 7.36-7.41 Sodium Level 137 136-145 mmol/L Potassium Level 4.0 3.5-5.1 mmol/L Chloride Level 102 98-107 mmol/L Carbon Dioxide Level 25 21-32 mmol/L Anion Gap 10.0 3-11 mmol/L Blood Urea Nitrogen 26 7-18 mg/dl Creatinine 1.20 0.60-1.40 mg/dl Est Creatinine Clear Calc Drug Dose 88.0 ml/min Estimated GFR () 77.9 Estimated GFR (Non- 67.2 BUN/Creatinine Ratio 21.4 10-20 Random Glucose 236 70-99 mg/dl Calcium Level 8.1 8.5-10.1 mg/dl Phosphorus Level 2.8 2.5-4.9 mg/dl Magnesium Level 2.7 1.8-2.4 mg/dl Test 02/02/17 21:40 02/02/17 22:37 02/02/17 23:33 02/03/17 00:27 Range/Units Bedside Glucose 225 208 194 223 70-99 mg/dl Test 02/03/17 01:39 02/03/17 02:34 02/03/17 03:38 02/03/17 04:31 Range/Units Bedside Glucose 228 258 234 224 70-99 mg/dl Test 02/03/17 05:51 02/03/17 05:52 02/03/17 06:45 02/03/17 08:33 Range/Units Bedside Glucose 201 191 268 70-99 mg/dl White Blood Count 0.75 4.8-10.8 K/uL Red Blood Count 3.08 4.7-6.1 M/uL Hemoglobin 8.7 14.0-18.0 g/dL Hematocrit 25.9 42-52 % Mean Corpuscular Volume 84.1 80-100 fL Mean Corpuscular Hemoglobin 28.2 25-34 pg Mean Corpuscular Hemoglobin Concent 33.6 32-36 g/dl Platelet Count 49 130-400 K/uL Mean Platelet Volume 10.6 7.4-10.4 fL RDW Standard Deviation 45.7 36.4-46.3 fL RDW Coefficient of Variation 15.0 11.5-14.5 % Nucleated RBC Absolute Count (auto) 0.02 0-0 K/uL Neutrophils % (Manual) 48.0 % Lymphocytes % (Manual) 48.6 % Monocytes % (Manual) 3.4 % Nucleated Red Blood Cells % 2.2 % Neutrophils # (Manual) 0.36 1.4-6.5 K/uL Total Absolute Neutrophils 0.36 1.4-6.5 K/uL Lymphocytes # (Manual) 0.36 1.2-3.4 K/uL Total Absolute Lymphocytes 0.36 1.2-3.4 K/uL Monocytes # (Manual) 0.03 0.11-0.59 K/uL Toxic Granulation 1+ Dohle Bodies 1+ Platelet Estimate DECREASED Large Platelets 1+ Echinocytes 1+ Sodium Level 138 136-145 mmol/L Potassium Level 3.8 3.5-5.1 mmol/L Chloride Level 104 98-107 mmol/L Carbon Dioxide Level 24 21-32 mmol/L Anion Gap 10.0 3-11 mmol/L Blood Urea Nitrogen 19 7-18 mg/dl Creatinine 1.00 0.60-1.40 mg/dl Est Creatinine Clear Calc Drug Dose 105.5 ml/min Estimated GFR () 97.1 Estimated GFR (Non- 83.8 BUN/Creatinine Ratio 19.1 10-20 Random Glucose 201 70-99 mg/dl Calcium Level 8.1 8.5-10.1 mg/dl Phosphorus Level 3.3 2.5-4.9 mg/dl Magnesium Level 2.5 1.8-2.4 mg/dl Test 02/03/17 11:22 02/03/17 12:42 02/03/17 16:14 Range/Units Bedside Glucose 299 192 70-99 mg/dl Erythrocyte Sedimentation Rate 43 0-14 mm/hr C-Reactive Protein 15.20 0-0.29 mg/dl Procalcitonin 1.49 0-0.5 ng/ml
[2017-02-03] MEDS: INSULIN REGULAR 250 UNITS in SODIUM CHLORIDE 0.9% 250ML 250 ML IV SCH (11:30)
--- NOTE | 2017-02-03 11:43 | Medical Consult ---
Consultation Date of Consultation: Feb 03, 2017. Attending Physician: Alcon Angelo M.D. Reason for Consultation: neutropenic fever History of Present Illness Patient is a 56 yo male with CLL who recently has been receiving chemotherapy treatments who presented to the ED with worsening weakness. He states that he called his PCP regarding his symptoms and was told to go to the ED for likely blood transfusion. The patient's Hgb on admission was 5.8. He does have chronic anemia, but this was worse than his norm. He had been experiencing nausea, vomiting, and lack of appetite after his chemotherapy treatment, but those symptoms have resolved. He has also been experiencing urinary frequency, but he started a new "diabetic drug" which has caused him to have increased thirst and urinary frequency. He denies fever at home, sweats, dysuria, SOB, cough, chest pain, or diarrhea. WBC count was 0.45 on admission with neutrophil could of 0.29. Creatinine on admission was 1.20. Glucose was elevated to 400. He has noted his glucose has been elevated as outpatient recently. Blood and urine cultures are pending. MRSA nasal swab was negative. UA was negative. CXR was unremarkable. CT of head showed focal hypodensity, likely old infarct but recommended MRI follow up. He is currently on IV Zosyn and feeling great. He states that he feels like he could "run a marathon". He denies exposure to HIV, Hep C, or sick contacts. He does have 2 cats at home but has not traveled recently. He stays indoors a large majority of the time. Past Medical/Surgical History Medical Problems: (1) Anemia (2) Benign neoplasm of colon (3) Chemotherapy induced neutropenia (4) CLL (chronic lymphocytic leukemia) (5) DM type 2 (diabetes mellitus, type 2) (6) Dyslipidemia (7) HTN (hypertension) (8) Hypothyroidism (9) Obesity (BMI 30-39.9) (10) Pancytopenia Surgical Problems: (1) H/O colonoscopy with polypectomy (2) S/p bone marrow aspiration Medical Problems: (1) Dehydration Status: Acute (2) Dyspnea on exertion Status: Acute (3) Hyperglycemia Status: Acute (4) Weakness Status: Acute Family History Cancer Diabetes mellitus Gallbladder disease Heart disease Hypertension Kidney disease MOTHER Kidney stones Noncontributory Social History Smoking Status: Former Smoker Alcohol Use: none Marital Status: single Housing Status: lives alone Allergies Coded Allergies: No Known Allergies (Unverified , 02/02/17) Home Medications Reported Home Medications Medications Dose Route/Sig Max Daily Dose Days Date Category Probiotic (Probiotic Product) 1 Cap Cap 1 Cap PO TIDM 02/02/17 Reported Promethazine HCl 25 Mg Tab 25 Mg PO Q4 PRN 02/02/17 Reported Zofran (Ondansetron Hcl) 8 Mg Tab 8 Mg PO Q8 PRN 02/02/17 Reported [place]-3 (Fish Oil) 1 Ea Cap 1 Cap PO DAILY 02/02/17 Reported Multivitamin (Multivitamins) Tab 1 Tab PO DAILY 02/02/17 Reported Jardiance (Empagliflozin) 25 Mg Tab 25 Mg PO DAILY 02/02/17 Reported Prinivil (Lisinopril) 30 Mg Tab 30 Mg PO QAM 07/29/16 Reported Glucophage (Metformin Hcl) 1,000 Mg Tab 1,000 Mg PO BIDM 05/12/15 Reported Levothyroxine Sodium 200 Mcg Tab 200 Mcg PO DAILY 08/16/14 Reported Current Inpatient Medications Current Inpatient Medications Medications (Trade) Dose Ordered Sig/Alesha Route Start Time Stop Time Status Last Admin Dose Admin Miscellaneous Information (Consult Glycemic Management Pharmacy) 1 ea UD PRN N/A 02/02/17 12:45 03/04/17 12:44 Acetaminophen (Tylenol Tab) 650 mg Q4H PRN PO 02/02/17 13:00 03/04/17 12:59 02/03/17 00:01 650 MG Ondansetron HCl (Zofran Inj) 4 mg Q6H PRN IV 02/02/17 13:00 03/04/17 12:59 Sodium Chloride 1,000 ml @ 150 mls/hr Q6H40M IV 02/02/17 13:00 03/04/17 12:59 02/03/17 08:26 150 MLS/HR Levothyroxine Sodium (Synthroid Tab) 200 mcg DAILYBB PO 02/03/17 06:00 03/05/17 06:59 02/03/17 06:36 200 MCG Lisinopril (Zestril Tab) 30 mg QAM PO 02/03/17 09:00 03/05/17 08:59 02/03/17 08:09 30 MG Filgrastim (Neupogen Sq) 300 mcg Q24H SQ 02/02/17 16:00 03/04/17 15:59 02/02/17 16:26 300 MCG Insulin Human Regular 250 units/ Sodium Chloride 252.5 ml @ 0 mls/hr DAILY@1130 IV 02/02/17 13:45 02/03/17 14:00 02/02/17 14:23 3 MLS/HR Glucose (Glucose 40% Gel) UD PRN PO 02/02/17 13:45 03/04/17 13:44 Glucose (Glucose Chew Tab) 1 tabs UD PRN PO 02/02/17 13:45 03/04/17 13:44 Dextrose (Dextrose 50% 50ML Syringe) 50 ml UD PRN IV 02/02/17 13:45 03/04/17 13:44 Glucagon (Glucagon Inj) 1 mg UD PRN SQ 02/02/17 13:45 03/04/17 13:44 Miscellaneous Information (Pharmacy Consult) 1 ea UD PRN N/A 02/02/17 22:26 03/04/17 22:25 Piperacillin Sod/ Tazobactam Sod 4.5 gm/Dextrose 120 ml @ 30 mls/hr Q8H IV 02/02/17 22:00 02/04/17 21:59 02/03/17 06:36 30 MLS/HR Miscellaneous Information (Dc Iv Insulin Infusion) 1 ea ONE ONCE N/A 02/03/17 14:00 02/03/17 14:01 Insulin Glargine (Lantus Solostar Pen) 10 unit Q12 SC 02/03/17 21:00 03/05/17 20:59 Insulin Aspart (novoLOG ASPART) ACHS SC 02/03/17 11:00 03/05/17 10:59 Review of Systems Constitutional: + 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, + 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), No fever, No sweats Eyes: No worsening of vision ENT: No hearing loss Respiratory: No cough, No shortness of breath Cardiovascular: No chest pain, No palpitations Abdomen: + 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)), + vomiting, No pain Musculoskeletal: No joint pain, No muscle pain Genitourinary - Male: + urinary frequency (from new DM drug), No hematuria, No dysuria, No urinary urgency Integumentary: No rash, No itch, No new/changing skin lesions, No color change Physical Exam Date Time Temp Pulse Resp B/P (MAP) Pulse Ox O2 Delivery O2 Flow Rate FiO2 02/03/17 11:28 36.6 81 18 126/76 (93) 98 Room Air 02/03/17 07:36 36.9 93 16 147/83 (104) 94 Room Air 02/03/17 04:48 36.5 72 20 103/72 97 02/03/17 04:00 Room Air 02/03/17 03:48 36.3 78 20 115/76 98 02/03/17 02:48 36.7 82 18 114/74 98 02/03/17 02:18 37.1 88 18 114/78 97 02/03/17 02:03 37.2 88 18 114/74 (87) 97 Room Air 02/03/17 01:19 37.1 02/02/17 23:59 Room Air 02/02/17 23:40 38.5 101 20 115/76 (89) 96 Room Air 02/02/17 22:05 37.8 98 18 126/78 98 02/02/17 21:05 38.2 106 18 115/72 99 02/02/17 20:35 38.2 113 18 133/72 97 02/02/17 20:18 38.2 107 18 123/76 (92) 97 Room Air 02/02/17 20:00 Room Air 02/02/17 19:22 37.3 98 20 122/76 (91) 98 Room Air 02/02/17 16:00 37.0 84 18 110/73 99 02/02/17 16:00 Room Air 02/02/17 15:00 37.0 94 20 135/82 100 02/02/17 14:45 36.4 85 17 108/62 99 Room Air 02/02/17 14:44 36.4 85 17 108/62 99 02/02/17 14:30 36.4 88 16 116/67 100 02/02/17 14:15 36.4 87 16 118/63 97 Room Air 02/02/17 14:15 36.4 87 16 103/61 97 02/02/17 14:15 36.3 87 16 103/61 96 02/02/17 13:10 36.8 89 16 101/68 98 02/02/17 13:04 Room Air 02/02/17 12:55 36.9 89 16 117/69 99 02/02/17 12:45 86 16 118/63 99 Room Air 02/02/17 12:41 36.5 86 16 127/81 99 02/02/17 12:40 36.6 87 16 127/81 99 02/02/17 12:25 36.6 88 16 103/67 98 General Appearance: no apparent distress, + obese Head: normocephalic, atraumatic Eyes: normal inspection, sclerae normal ENT: hearing grossly normal Neck: supple, trachea midline Respiratory/Chest: chest non-tender, lungs clear, normal breath sounds, no respiratory distress, no accessory muscle use Cardiovascular: regular rate, rhythm, no murmur Abdomen/GI: normal bowel sounds, non tender, soft Back: normal inspection Extremities/Musculoskelatal: normal inspection, normal range of motion Neurologic/Psych: alert, normal mood/affect Skin: normal color, warm/dry, no rash Laboratory Results CHEST ONE VIEW PORTABLE CLINICAL HISTORY: Weakness. Patient on chemotherapy COMPARISON STUDY: 07/13/2016 FINDINGS: The cardiac and mediastinal contours are normal. There is no evidence of focal pulmonary consolidation. There is no evidence of failure. No pleural effusions are visualized.[ IMPRESSION: No active disease in the chest. CT HEAD WITHOUT CONTRAST (CT) CLINICAL HISTORY: confusion WEAKNESS COMPARISON STUDY: No previous studies for comparison. TECHNIQUE: Axial CT of the brain is performed from the vertex to the skull base. IV contrast was not administered for this examination. CT DOSE: 537.48 mGy.cm FINDINGS: No intra or extra-axial mass lesions are visualized. There is no CT evidence of acute cortical infarction. There is no evidence of midline shift. There is no acute hemorrhage. No calvarial fractures are visualized. 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 There is no evidence of pathologic ventricular dilatation. There is a giant cisterna magna There is no evidence of acute sinusitis IMPRESSION: 1. 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 Given the history of a primary malignancy however one might consider an MRI in follow-up to exclude an underlying lesion. Item Value Date Time MRSA DNA Surveillance Screen - Final Complete 02/02/17 1500 Nasal Specimen Negative for MRSA by DNA Probe Blood Culture Received 02/02/17 1312 Blood Pending Blood Culture Received 02/02/17 1042 Blood Pending Urine Culture Received 02/02/17 0000 Urine , Clean Catch Pending Last 24 Hours Test 02/02/17 12:54 02/02/17 13:12 02/02/17 15:07 02/02/17 16:27 Bedside Glucose 392 mg/dl 286 mg/dl 241 mg/dl Osmolality 294 mOsm/kg Test 02/02/17 17:29 02/02/17 18:26 02/02/17 18:35 02/02/17 19:25 Bedside Glucose 248 mg/dl 250 mg/dl 249 mg/dl White Blood Count 0.64 K/uL Red Blood Count 2.97 M/uL Hemoglobin 8.1 g/dL Hematocrit 24.8 % Mean Corpuscular Volume 83.5 fL Mean Corpuscular Hemoglobin 27.3 pg Mean Corpuscular Hemoglobin Concent 32.7 g/dl Platelet Count 69 K/uL Mean Platelet Volume 10.4 fL RDW Standard Deviation 45.3 fL RDW Coefficient of Variation 15.1 % Nucleated RBC Absolute Count (auto) 0.02 K/uL Neutrophils % (Manual) 46.6 % Lymphocytes % (Manual) 25.0 % Variant Lymphocytes % (manual) 26.7 % Monocytes % (Manual) 1.7 % Nucleated Red Blood Cells % 3.6 % Neutrophils # (Manual) 0.30 K/uL Total Absolute Neutrophils 0.30 K/uL Lymphocytes # (Manual) 0.16 K/uL Absolute Variant Lymphocytes 0.17 K/uL Total Absolute Lymphocytes 0.33 K/uL Monocytes # (Manual) 0.01 K/uL Platelet Estimate DECREASED Large Platelets 1+ Venous Blood pH 7.39 Sodium Level 137 mmol/L Potassium Level 4.0 mmol/L Chloride Level 102 mmol/L Carbon Dioxide Level 25 mmol/L Anion Gap 10.0 mmol/L Blood Urea Nitrogen 26 mg/dl Creatinine 1.20 mg/dl Est Creatinine Clear Calc Drug Dose 88.0 ml/min Estimated GFR () 77.9 Estimated GFR (Non- 67.2 BUN/Creatinine Ratio 21.4 Random Glucose 236 mg/dl Calcium Level 8.1 mg/dl Phosphorus Level 2.8 mg/dl Magnesium Level 2.7 mg/dl Test 02/02/17 20:39 02/02/17 21:40 02/02/17 22:37 02/02/17 23:33 Bedside Glucose 209 mg/dl 225 mg/dl 208 mg/dl 194 mg/dl Test 02/03/17 00:27 02/03/17 01:39 02/03/17 02:34 02/03/17 03:38 Bedside Glucose 223 mg/dl 228 mg/dl 258 mg/dl 234 mg/dl Test 02/03/17 04:31 02/03/17 05:51 02/03/17 05:52 02/03/17 06:45 Bedside Glucose 224 mg/dl 201 mg/dl 191 mg/dl White Blood Count 0.75 K/uL Red Blood Count 3.08 M/uL Hemoglobin 8.7 g/dL Hematocrit 25.9 % Mean Corpuscular Volume 84.1 fL Mean Corpuscular Hemoglobin 28.2 pg Mean Corpuscular Hemoglobin Concent 33.6 g/dl Platelet Count 49 K/uL Mean Platelet Volume 10.6 fL RDW Standard Deviation 45.7 fL RDW Coefficient of Variation 15.0 % Nucleated RBC Absolute Count (auto) 0.02 K/uL Neutrophils % (Manual) 48.0 % Lymphocytes % (Manual) 48.6 % Monocytes % (Manual) 3.4 % Nucleated Red Blood Cells % 2.2 % Neutrophils # (Manual) 0.36 K/uL Total Absolute Neutrophils 0.36 K/uL Lymphocytes # (Manual) 0.36 K/uL Total Absolute Lymphocytes 0.36 K/uL Monocytes # (Manual) 0.03 K/uL Toxic Granulation 1+ Dohle Bodies 1+ Platelet Estimate DECREASED Large Platelets 1+ Echinocytes 1+ Sodium Level 138 mmol/L Potassium Level 3.8 mmol/L Chloride Level 104 mmol/L Carbon Dioxide Level 24 mmol/L Anion Gap 10.0 mmol/L Blood Urea Nitrogen 19 mg/dl Creatinine 1.00 mg/dl Est Creatinine Clear Calc Drug Dose 105.5 ml/min Estimated GFR () 97.1 Estimated GFR (Non- 83.8 BUN/Creatinine Ratio 19.1 Random Glucose 201 mg/dl Calcium Level 8.1 mg/dl Phosphorus Level 3.3 mg/dl Magnesium Level 2.5 mg/dl Test 02/03/17 08:33 02/03/17 11:22 Bedside Glucose 268 mg/dl 299 mg/dl Assessment & Plan Patient with Pancytopenia, Neutropenia, and fever in the setting of CLL and recent chemotherapy. Feel that likely most of his symptoms and fever are chemotherapy related, but recommend continuing IV Zosyn pending urine and blood cultures results. If cultures are negative, feel that very likely this patient can discontinue abx therapy. We will follow. Will also check ESR, CRP, and Procalcitonin. Case reviewed and agree with above assessment.
[2017-02-03] MEDS ORDERED: DC IV INSULIN INFUSION ONE (14:00)
[2017-02-03] MEDS: FILGRASTIM 300 MCG/ML 1 ML VIAL SQ SCH (15:41)
[2017-02-03] MEDS ORDERED: INSULIN GLARGINE SOLOSTAR 100 UNITS/ML 3 ML PEN SC SCH (21:00)
[2017-02-04] VITALS (7 sets, daily range): BP systolic 103–130; BP diastolic 60–78; PULSE 65–78; TEMP 36.5–37; O2SAT 96–100
[2017-02-04] MEDS: INSULIN ASPART 100 UNITS/ML 3 ML PEN SC SCH ×6 (00:30→20:41)
[2017-02-04] MEDS: SODIUM CHLORIDE 0.9% 1000ML 1,000 ML IV SCH ×3 (03:52→17:01)
[2017-02-04] MEDS: PIPERACILL/TAZOBAC IV 4.5 GM in DEXTROSE 5% 100ML 100 ML IV SCH ×3 (05:30→22:08)
[2017-02-04] MEDS: LEVOTHYROXINE 200 MCG TAB PO SCH (05:30)
[2017-02-04 06:15] LABS: BUN/CREATININE RATIO 15.1 (10-20); CALCIUM 7.5 mg/dl (8.5-10.1); CREATININE 0.91 mg/dl (0.60-1.40); MAGNESIUM 2.4 mg/dl (1.8-2.4); PHOSPHORUS 3.2 mg/dl (2.5-4.9); POTASSIUM 3.9 mmol/L (3.5-5.1)
[2017-02-04 06:18] LABS: HEMATOCRIT 24.2 % (42-52); MEAN CELL VOLUME 84.9 fL (80-100); MEAN CORPUSCULAR HEMOGLOBIN 28.4 pg (25-34); MEAN CORPUSCULAR HGB CONC 33.5 g/dl (32-36); MEAN PLATELET VOLUME 10.3 fL (7.4-10.4); PLATELET COUNT 33 K/uL (130-400); RED BLOOD COUNT 2.85 M/uL (4.7-6.1); WHITE BLOOD COUNT 0.94 K/uL (4.8-10.8)
[2017-02-04 06:21] LABS: LARGE PLATELETS 2+
[2017-02-04 06:50] LABS: ESTIMATED AVERAGE GLUCOSE 203 mg/dl; HA1C FLAG Normal (Normal)
[2017-02-04 06:52] LABS: COMPLETE YES; LYMPH ABS # 0.66 K/uL (1.2-3.4); LYMPHOCYTE % 70.5 %
[2017-02-04] MEDS: INSULIN GLARGINE SOLOSTAR 100 UNITS/ML 3 ML PEN SC SCH ×2 (08:47→20:42)
[2017-02-04] MEDS: LISINOPRIL 10 MG TAB PO SCH (08:49)
--- NOTE | 2017-02-04 11:37 | Progress Note ---
Internal Med Progress Note Date of Service: Feb 04, 2017. Provider Documentation: SUBJECTIVE: The patient was seen and examined Feels a lot better following Blood transfusion Has had Fever of 38.4 last night No more recurrence since then No CP,Palpitation,SOB No abdominal pain,nausea and or vomiting OBJECTIVE: Vital Signs-as noted below Exam: General-no distress at rest Eyes-normal ENT-normal Neck-supple Lungs-clear to ausucltate bilaterally Heart-Regular Abdomen-Benign,no masses,bowel sound present Extremities-NO edema Neuro-AAox3 Lab data as noted below. ASSESSMENT & PLAN: WEAKNESS SECONDARY TO SEVERE ANEMIA, DEHYDRATION Secondary to Chemotherapy The case was discussed with Dr. Kinney by admitting physician Received 4 units PRBC Monitor H/H-8 .7 on 02/03/17 IV fluids and PRN Antiemetics Hb remains stable Hyperglycemia r/o HHS, history of DM 2 Likely from underlying stress, r/o Infection On Metformin, and Jardiance-- hold for now Has been on IV Insulin and Pharmacy managing PANCYTOPENIA secondary to Chemo for CLL NEUTROPENIA and Thrombocytopenia Started on Neupogen Neutropenic precautions Follow up cultures-negative Has been on Zosyn ID Consulted-appreciate input If cultures are negative ,antibiotic can safely be discontinued Numbers are gradually improving ANEMIA Management of anemia as noted above Received 4 units of PRBC Hb 8.1 on 02/04/17 EPISODES OF CONFUSION -- noticed at night within the past week -- likely metabolic encephalopathy -- check CT head to r/o CVA -no more episode DVT PROPHYLAXIS SCDs-has Thrombocytopenia DISPOSITION Awaited Vital Signs: Date Time Temp Pulse Resp B/P (MAP) Pulse Ox O2 Delivery O2 Flow Rate FiO2 02/04/17 11:18 36.5 75 19 118/78 (91) 96 Room Air 02/04/17 08:00 Room Air 02/04/17 07:24 36.5 73 20 111/72 (85) 98 Room Air 02/04/17 04:00 100 Room Air 02/04/17 03:45 37.0 65 20 111/64 (80) 100 Room Air 02/03/17 23:59 99 Room Air 02/03/17 23:25 36.6 83 18 113/72 (86) 99 Room Air 02/03/17 21:32 36.7 02/03/17 20:00 Room Air 02/03/17 19:39 38.4 93 23 121/72 (88) 98 Room Air 02/03/17 16:00 Room Air 02/03/17 15:25 37.3 84 20 110/67 (81) 100 Room Air 02/03/17 12:00 Room Air Lab Results: Results Past 24 Hours Test 02/03/17 12:42 02/03/17 16:14 02/03/17 20:24 02/04/17 00:04 Range/Units Erythrocyte Sedimentation Rate 43 0-14 mm/hr C-Reactive Protein 15.20 0-0.29 mg/dl Procalcitonin 1.49 0-0.5 ng/ml Bedside Glucose 192 258 194 70-99 mg/dl Test 02/04/17 03:48 02/04/17 05:25 02/04/17 06:26 02/04/17 11:01 Range/Units Bedside Glucose 179 179 247 70-99 mg/dl White Blood Count 0.94 4.8-10.8 K/uL Red Blood Count 2.85 4.7-6.1 M/uL Hemoglobin 8.1 14.0-18.0 g/dL Hematocrit 24.2 42-52 % Mean Corpuscular Volume 84.9 80-100 fL Mean Corpuscular Hemoglobin 28.4 25-34 pg Mean Corpuscular Hemoglobin Concent 33.5 32-36 g/dl Platelet Count 33 130-400 K/uL Mean Platelet Volume 10.3 7.4-10.4 fL RDW Standard Deviation 47.7 36.4-46.3 fL RDW Coefficient of Variation 15.3 11.5-14.5 % Neutrophils % (Manual) 22.0 % Lymphocytes % (Manual) 70.5 % Monocytes % (Manual) 7.5 % Neutrophils # (Manual) 0.21 1.4-6.5 K/uL Total Absolute Neutrophils 0.21 1.4-6.5 K/uL Lymphocytes # (Manual) 0.66 1.2-3.4 K/uL Total Absolute Lymphocytes 0.66 1.2-3.4 K/uL Monocytes # (Manual) 0.07 0.11-0.59 K/uL Large Platelets 2+ Sodium Level 141 136-145 mmol/L Potassium Level 3.9 3.5-5.1 mmol/L Chloride Level 108 98-107 mmol/L Carbon Dioxide Level 25 21-32 mmol/L Anion Gap 8.0 3-11 mmol/L Blood Urea Nitrogen 14 7-18 mg/dl Creatinine 0.91 0.60-1.40 mg/dl Est Creatinine Clear Calc Drug Dose 115.4 ml/min Estimated GFR () 108.8 Estimated GFR (Non- 93.9 BUN/Creatinine Ratio 15.1 10-20 Random Glucose 167 70-99 mg/dl Estimated Average Glucose 203 mg/dl Hemoglobin A1c 8.7 4.5-5.6 % Calcium Level 7.5 8.5-10.1 mg/dl Phosphorus Level 3.2 2.5-4.9 mg/dl Magnesium Level 2.4 1.8-2.4 mg/dl
--- NOTE | 2017-02-04 12:23 | Pharmacy Progress Note ---
Glycemic Control: Progress Nt Date of Service Feb 04, 2017. Scope Glycemic Pharmacist consulted by Richard Rouse on 02/02/17 for glycemic control and to write orders per [facility] inpatient glycemic control protocol. Objective Accuchecks BSG (last 24hrs): Test 02/03/17 16:14 02/03/17 20:24 02/04/17 00:04 02/04/17 03:48 Bedside Glucose 192 mg/dl (70-99) 258 mg/dl (70-99) 194 mg/dl (70-99) 179 mg/dl (70-99) Test 02/04/17 05:25 02/04/17 06:26 02/04/17 11:01 Random Glucose 167 mg/dl (70-99) Bedside Glucose 179 mg/dl (70-99) 247 mg/dl (70-99) Laboratory Data (last 24hrs) Test 02/04/17 05:25 Anion Gap 8.0 mmol/L BUN/Creatinine Ratio 15.1 Blood Urea Nitrogen 14 mg/dl Creatinine 0.91 mg/dl Hemoglobin A1c 8.7 % Potassium Level 3.9 mmol/L Sodium Level 141 mmol/L White Blood Count 0.94 K/uL Red Blood Count 2.85 M/uL Hemoglobin 8.1 g/dL Hematocrit 24.2 % Mean Corpuscular Volume 84.9 fL Mean Corpuscular Hemoglobin 28.4 pg Mean Corpuscular Hemoglobin Concent 33.5 g/dl Platelet Count 33 K/uL Mean Platelet Volume 10.3 fL HbA1c: Test 02/04/17 05:25 Hemoglobin A1c 8.7 % (4.5-5.6) H Recent Pertinent Medications Outpatient Anti-diabetic Regimen: * Jaridance 25 mg po daily + metformin 1000 mg PO BID * A1c = 8.7 % from 02/04/17; This value may be inaccurate. Pt received 4 blood transfusions during admission prior to the A1c being drawn. Risk Factors for Insulin Resistance: * Infection: possible, patient has pancytopenia; Pt receiving Zosyn * Diet: type 2 diabetic diet Assessment & Plan ASSESSMENT: * ADA & AACE recommend a goal blood sugar range 140-180 mg/dl for the majority of critically ill & non-critically ill patients. However, more stringent targets may be selected in individual cases. * 56 yo male admitted with pancytopenia. * Based upon yesterday's TDD of insulin I suspect an increase in Lantus is necessary. * Increase Lantus 12% * Continue current Novolog parameters at this time. PLAN FOR INPATIENT GLYCEMIC CONTROL: * Increase Lantus to 17 units SQ BID * Novolog ACHS * Continue correction factor of 20 mg/dl/unit * Continue carb ratio of 1 unit per 6 grams CHO consumed * Continue goal range Low 110 mg/dL - High 140 mg/dL * Please note that the plan above was derived based on current level of insulin resistance and hospital stress. These recommendations are appropriate for inpatient admission only. Plan of care upon discharge will need to be reassessed to avoid potential outpatient hypo/hyperglycemia. Thank you.
[2017-02-04] MEDS: FILGRASTIM 300 MCG/ML 1 ML VIAL SQ SCH (16:22)
[2017-02-04] MEDS ORDERED: NURSING VERBAL MED ORDER ONE (18:15)
[2017-02-05] VITALS (8 sets, daily range): BP systolic 104–141; BP diastolic 69–84; PULSE 69–88; TEMP 36.4–36.9; O2SAT 97–100
[2017-02-05] MEDS: LEVOTHYROXINE 200 MCG TAB PO SCH (06:13)
[2017-02-05] MEDS: PIPERACILL/TAZOBAC IV 4.5 GM in DEXTROSE 5% 100ML 100 ML IV SCH (06:13)
[2017-02-05 07:24] LABS: PLATELET COUNT 28 K/uL (130-400)
[2017-02-05 07:25] LABS: HEMATOCRIT 25.1 % (42-52); MEAN CELL VOLUME 86.3 fL (80-100); MEAN CORPUSCULAR HEMOGLOBIN 28.9 pg (25-34); MEAN CORPUSCULAR HGB CONC 33.5 g/dl (32-36); MEAN PLATELET VOLUME 11.3 fL (7.4-10.4); RED BLOOD COUNT 2.91 M/uL (4.7-6.1)
[2017-02-05 07:43] LABS: BASO % 1.3 %; BASO ABS # 0.01 K/uL (0-0.2); COMPLETE YES; EOS % 1.3 %; GIANT PLATELETS 2+; LYMPH % 78.8 %; LYMPH ABS # 0.63 K/uL (1.2-3.4); NEUT % 13.6 %
[2017-02-05 07:44] LABS: BUN/CREATININE RATIO 13.2 (10-20); CALCIUM 7.9 mg/dl (8.5-10.1); CREATININE 0.81 mg/dl (0.60-1.40); PHOSPHORUS 3.3 mg/dl (2.5-4.9); POTASSIUM 3.8 mmol/L (3.5-5.1)
[2017-02-05] MEDS: LISINOPRIL 10 MG TAB PO SCH (08:21)
[2017-02-05] MEDS: INSULIN ASPART 100 UNITS/ML 3 ML PEN SC SCH ×4 (08:24→20:33)
[2017-02-05] MEDS: INSULIN GLARGINE SOLOSTAR 100 UNITS/ML 3 ML PEN SC SCH ×2 (08:25→20:32)
--- NOTE | 2017-02-05 12:36 | Pharmacy Progress Note ---
Glycemic Control: Progress Nt Date of Service Feb 05, 2017. Scope Glycemic Pharmacist consulted by Richard Sidhu on 02/02/17 for glycemic control and to write orders per [facility] inpatient glycemic control protocol. Objective Accuchecks BSG (last 24hrs): Test 02/04/17 16:04 02/04/17 20:08 02/05/17 06:43 02/05/17 06:52 Bedside Glucose 186 mg/dl (70-99) 167 mg/dl (70-99) 264 mg/dl (70-99) Random Glucose 258 mg/dl (70-99) Test 02/05/17 10:59 Bedside Glucose 283 mg/dl (70-99) Laboratory Data (last 24hrs) Test 02/05/17 06:52 Anion Gap 9.0 mmol/L BUN/Creatinine Ratio 13.2 Blood Urea Nitrogen 11 mg/dl Creatinine 0.81 mg/dl Potassium Level 3.8 mmol/L Sodium Level 142 mmol/L White Blood Count 0.80 K/uL Red Blood Count 2.91 M/uL Hemoglobin 8.4 g/dL Hematocrit 25.1 % Mean Corpuscular Volume 86.3 fL Mean Corpuscular Hemoglobin 28.9 pg Mean Corpuscular Hemoglobin Concent 33.5 g/dl Platelet Count 28 K/uL Mean Platelet Volume 11.3 fL Neutrophils (%) (Auto) 13.6 % Lymphocytes (%) (Auto) 78.8 % Monocytes (%) (Auto) 5.0 % Eosinophils (%) (Auto) 1.3 % Basophils (%) (Auto) 1.3 % Neutrophils # (Auto) 0.11 K/uL Lymphocytes # (Auto) 0.63 K/uL Monocytes # (Auto) 0.04 K/uL Eosinophils # (Auto) 0.01 K/uL Basophils # (Auto) 0.01 K/uL HbA1c: Test 02/04/17 05:25 Hemoglobin A1c 8.7 % (4.5-5.6) H Recent Pertinent Medications Outpatient Anti-diabetic Regimen: * Jaridance 25 mg po daily + metformin 1000 mg PO BID * A1c = 8.7 % from 02/04/17; This value may be inaccurate. Pt received 4 blood transfusions during admission prior to the A1c being drawn. Risk Factors for Insulin Resistance: * Infection: Zosyn stopped * Diet: type 2 diabetic diet Assessment & Plan ASSESSMENT: * ADA & AACE recommend a goal blood sugar range 140-180 mg/dl for the majority of critically ill & non-critically ill patients. However, more stringent targets may be selected in individual cases. 02/04/17 * 56 yo male admitted with pancytopenia. * Based upon yesterday's TDD of insulin I suspect an increase in Lantus is necessary. * Increase Lantus 12% * Continue current Novolog parameters at this time. 02/05/17 * BSG control has worsened today. FBG this morning was 264 mg/dl. Uncertain provoking factor other than stress from illness alone. * Lantus increased 15%. * Novolog parameters tightened. * Will add overnight Novolog check to improve BSG control. PLAN FOR INPATIENT GLYCEMIC CONTROL: * Increase Lantus to 20 units SQ BID * Novolog ACHS + 02 * Continue correction factor of 15 mg/dl/unit * Continue carb ratio of 1 unit per 5 grams CHO consumed * Continue goal range Low 110 mg/dL - High 140 mg/dL * Please note that the plan above was derived based on current level of insulin resistance and hospital stress. These recommendations are appropriate for inpatient admission only. Plan of care upon discharge will need to be reassessed to avoid potential outpatient hypo/hyperglycemia. Thank you.
--- NOTE | 2017-02-05 15:37 | Progress Note ---
Internal Med Progress Note Date of Service: Feb 05, 2017. Provider Documentation: SUBJECTIVE: The patient was seen and examined Feels a lot better following Blood transfusion Has had Fever of 38.4 last night No more recurrence since then No symptoms reported OBJECTIVE: Vital Signs-as noted below Exam: General-no distress at rest Eyes-normal ENT-normal Neck-supple Lungs-clear to ausucltate bilaterally Heart-Regular Abdomen-Benign,no masses,bowel sound present Extremities-NO edema Neuro-AAox3 Lab data as noted below. ASSESSMENT & PLAN: WEAKNESS SECONDARY TO SEVERE ANEMIA, DEHYDRATION Secondary to Chemotherapy The case was discussed with Dr. Kinney by admitting physician Received 4 units PRBC Monitor H/H-8 .7 on 02/03/17 IV fluids and PRN Antiemetics Hb remains stable Ambulating reasonably Hyperglycemia r/o HHS, history of DM 2 Likely from underlying stress, r/o Infection On Metformin, and Jardiance-- hold for now Has been on IV Insulin and Pharmacy managing PANCYTOPENIA secondary to Chemo for CLL NEUTROPENIA and Thrombocytopenia Started on Neupogen Neutropenic precautions Follow up cultures-negative Has been on Zosyn ID Consulted-appreciate input If cultures are negative ,antibiotic can safely be discontinued Pancytopenis is worse today D/C Antibiotic Recheck in AM ANEMIA Management of anemia as noted above Received 4 units of PRBC Hb 8.1 on 02/04/17 EPISODES OF CONFUSION -- noticed at night within the past week -- likely metabolic encephalopathy -- check CT head to r/o CVA -no more episode DVT PROPHYLAXIS SCDs-has Thrombocytopenia DISPOSITION Likely discharge tomorrow Vital Signs: Date Time Temp Pulse Resp B/P (MAP) Pulse Ox O2 Delivery O2 Flow Rate FiO2 02/05/17 14:20 36.6 76 18 127/84 (98) 98 Room Air 02/05/17 13:48 36.6 70 18 97 02/05/17 12:00 Room Air 02/05/17 11:45 36.6 70 18 104/69 (81) 97 Room Air 02/05/17 08:00 Room Air 02/05/17 07:23 36.6 69 18 105/71 (82) 99 Room Air 02/05/17 04:00 Room Air 02/05/17 03:29 36.9 79 20 128/76 (93) 99 Room Air 02/05/17 00:02 Room Air 02/04/17 23:37 36.6 78 20 103/60 (74) 96 Room Air 02/04/17 20:00 Room Air 02/04/17 19:19 36.8 78 18 123/70 (87) 99 Room Air 02/04/17 16:00 Room Air Lab Results: Results Past 24 Hours Test 02/04/17 16:04 02/04/17 20:08 02/05/17 06:43 02/05/17 06:52 Range/Units Bedside Glucose 186 167 264 70-99 mg/dl White Blood Count 0.80 4.8-10.8 K/uL Red Blood Count 2.91 4.7-6.1 M/uL Hemoglobin 8.4 14.0-18.0 g/dL Hematocrit 25.1 42-52 % Mean Corpuscular Volume 86.3 80-100 fL Mean Corpuscular Hemoglobin 28.9 25-34 pg Mean Corpuscular Hemoglobin Concent 33.5 32-36 g/dl Platelet Count 28 130-400 K/uL Mean Platelet Volume 11.3 7.4-10.4 fL Neutrophils (%) (Auto) 13.6 % Lymphocytes (%) (Auto) 78.8 % Monocytes (%) (Auto) 5.0 % Eosinophils (%) (Auto) 1.3 % Basophils (%) (Auto) 1.3 % Neutrophils # (Auto) 0.11 1.4-6.5 K/uL Lymphocytes # (Auto) 0.63 1.2-3.4 K/uL Monocytes # (Auto) 0.04 0.11-0.59 K/uL Eosinophils # (Auto) 0.01 0-0.5 K/uL Basophils # (Auto) 0.01 0-0.2 K/uL RDW Standard Deviation 48.8 36.4-46.3 fL RDW Coefficient of Variation 15.6 11.5-14.5 % Immature Granulocyte % (Auto) 0.0 % Immature Granulocyte # (Auto) 0.00 0.00-0.02 K/uL Giant Platelets 2+ Sodium Level 142 136-145 mmol/L Potassium Level 3.8 3.5-5.1 mmol/L Chloride Level 106 98-107 mmol/L Carbon Dioxide Level 27 21-32 mmol/L Anion Gap 9.0 3-11 mmol/L Blood Urea Nitrogen 11 7-18 mg/dl Creatinine 0.81 0.60-1.40 mg/dl Est Creatinine Clear Calc Drug Dose 129.7 ml/min Estimated GFR () 115.1 Estimated GFR (Non- 99.4 BUN/Creatinine Ratio 13.2 10-20 Random Glucose 258 70-99 mg/dl Calcium Level 7.9 8.5-10.1 mg/dl Phosphorus Level 3.3 2.5-4.9 mg/dl Magnesium Level 2.0 1.8-2.4 mg/dl Test 02/05/17 10:59 Range/Units Bedside Glucose 283 70-99 mg/dl
[2017-02-05] MEDS: FILGRASTIM 300 MCG/ML 1 ML VIAL SQ SCH (16:12)
[2017-02-06] MEDS ORDERED: INSULIN ASPART 100 UNITS/ML 3 ML PEN SC SCH (02:00)
[2017-02-06 04:31] VITALS: BP 119/78; PULSE 82; TEMP 36.5; O2SAT 100
[2017-02-06] MEDS: LEVOTHYROXINE 200 MCG TAB PO SCH (06:05)
[2017-02-06 06:47] LABS: HEMATOCRIT 26.5 % (42-52); MEAN CELL VOLUME 86.9 fL (80-100); MEAN CORPUSCULAR HEMOGLOBIN 29.5 pg (25-34); PLATELET COUNT 31 K/uL (130-400); RED BLOOD COUNT 3.05 M/uL (4.7-6.1); WHITE BLOOD COUNT 0.87 K/uL (4.8-10.8)
[2017-02-06 07:15] LABS: BUN/CREATININE RATIO 12.1 (10-20); CREATININE 0.9 mg/dl (0.60-1.40); MAGNESIUM 2.1 mg/dl (1.8-2.4); PHOSPHORUS 3.6 mg/dl (2.5-4.9); POTASSIUM 3.9 mmol/L (3.5-5.1)
[2017-02-06 07:35] LABS: BASO ABS # 0.01 K/uL (0-0.2); BASOPHIL % 1.1 % (0-2); DOHLE BODIES 2+; GIANT PLATELETS 3+; LYMPHOCYTE % 80.4 %; TOXIC GRANULATION 1+
[2017-02-06 07:51] VITALS: BP 127/80; PULSE 76; TEMP 36.4; O2SAT 95
[2017-02-06] MEDS: INSULIN ASPART 100 UNITS/ML 3 ML PEN SC SCH ×2 (08:03→13:15)
[2017-02-06] MEDS: INSULIN GLARGINE SOLOSTAR 100 UNITS/ML 3 ML PEN SC SCH (08:03)
[2017-02-06] MEDS: LISINOPRIL 10 MG TAB PO SCH (08:50)
[2017-02-06 09:52] LABS: COMPLETE YES
--- NOTE | 2017-02-06 10:24 | Pharmacy Progress Note ---
Glycemic Control: Progress Nt Date of Service Feb 06, 2017. Scope Glycemic Pharmacist consulted by GUIDO Bowser on 02/02/17 for glycemic control and to write orders per [facility] inpatient glycemic control protocol. Objective Accuchecks BSG (last 24hrs): Test 02/05/17 10:59 02/05/17 16:45 02/05/17 20:07 02/06/17 02:00 Bedside Glucose 283 mg/dl (70-99) 195 mg/dl (70-99) 173 mg/dl (70-99) 103 mg/dl (70-99) Test 02/06/17 06:09 02/06/17 07:46 Random Glucose 275 mg/dl (70-99) Bedside Glucose 257 mg/dl (70-99) Laboratory Data (last 24hrs) Test 02/06/17 06:09 Anion Gap 5.0 mmol/L BUN/Creatinine Ratio 12.1 Blood Urea Nitrogen 11 mg/dl Creatinine 0.90 mg/dl Potassium Level 3.9 mmol/L Sodium Level 140 mmol/L White Blood Count 0.87 K/uL Red Blood Count 3.05 M/uL Hemoglobin 9.0 g/dL Hematocrit 26.5 % Mean Corpuscular Volume 86.9 fL Mean Corpuscular Hemoglobin 29.5 pg Mean Corpuscular Hemoglobin Concent 34.0 g/dl Platelet Count 31 K/uL Mean Platelet Volume 12.0 fL HbA1c: Test 02/04/17 05:25 Hemoglobin A1c 8.7 % (4.5-5.6) H Recent Pertinent Medications Outpatient Anti-diabetic Regimen: * Jardiance 25 mg po daily + metformin 1000 mg PO BID * A1c = 8.7 % from 02/04/17; This value may be inaccurate. Pt received 4 blood transfusions during admission prior to the A1c being drawn. The patient is currently receiving: * Basal insulin: Lantus 20 units every 12 hours * Correctional Insulin: Novolog Correction per scale ACHS + 0200 Goal Range: Low 110 mg/dL - High 140 mg/dL Correction Factor: 15 mg/dL/unit * Prandial insulin: Per carb ratio of 1 unit per 5 grams CHO consumed * Oral Agents: None at this time Risk Factors for Insulin Resistance: * Diet: type 2 diabetes - ave of 50 gm CHO with each meal Assessment & Plan ASSESSMENT: 02/04/17 * 56 yo male admitted with pancytopenia. * Based upon yesterday's TDD of insulin I suspect an increase in Lantus is necessary. * Increase Lantus 12% * Continue current Novolog parameters at this time. 02/05/17 * BSG control has worsened today. FBG this morning was 264 mg/dl. Uncertain provoking factor other than stress from illness alone. * Lantus increased 15%. * Novolog parameters tightened. * Will add overnight Novolog check to improve BSG control. 02/06/17 * Patient is currently receiving an average of 100 units of insulin per day * 40 units of basal insulin * ~60 units of prandial/correctional insulin * BSGs ranging 103-275 over the past 24hrs * It would appear that patient needs more basal insulin, based on fasting BSG; however, I'm cautious about increasing because of the 103 on the 0200 accucheck. The overnight accucheck was added to provide additional coverage but it appears that he goes lower overnight, then experiences yola phenomenon in the AM. * Since the basal was just recently increased, I would like to continue with the current dose and see what BSGs look like today and tomorrow * More prandial can be provided since he has elevated BSGs throughout the day PLAN FOR INPATIENT GLYCEMIC CONTROL: * Continue Lantus 20 units SQ BID * Continue correction factor of 15 mg/dl/unit * Change carb ratio to 1 unit per 4 grams CHO consumed * Continue goal range of Low 110 mg/dL - High 140 mg/dL RECOMMENDATIONS FOR DISCHARGE: * ADD Lantus 10 units once daily at bedtime - per CDE note from 02/03, patient is aware that he may need insulin and was okay with adding basal (prefers the pens); need to confirm with CDE today that this is still the case and patient has been educated on self-administration * Continue metformin 1 gm BID * Continue Jardiance 25 mg daily Thank you.
[2017-02-06 11:32] VITALS: BP 151/88; PULSE 79; TEMP 36.8; O2SAT 99
--- NOTE | 2017-02-06 12:11 | Progress Note ---
Internal Med Progress Note Date of Service: Feb 06, 2017. Provider Documentation: SUBJECTIVE: The patient was seen and examined Feels a lot better following Blood transfusion No more fever ,chills No symptoms reported Ambulating well OBJECTIVE: Vital Signs-as noted below Exam: General-no distress at rest Eyes-normal ENT-normal Neck-supple Lungs-clear to ausucltate bilaterally Heart-Regular Abdomen-Benign,no masses,bowel sound present Extremities-NO edema Neuro-AAox3 Lab data as noted below. ASSESSMENT & PLAN: WEAKNESS SECONDARY TO SEVERE ANEMIA, DEHYDRATION Secondary to Chemotherapy The case was discussed with Dr. Kinney by admitting physician Received 4 units PRBC Monitor H/H-8 .7 on 02/03/17 IV fluids and PRN Antiemetics Hb remains stable and >9,.0 Ambulating reasonably Will discharge home today Hyperglycemia r/o HHS, history of DM 2 Likely from underlying stress, r/o Infection On Metformin, and Jardiance-- hold for now Has been on IV Insulin and Pharmacy managing Will need Insulin to control diabetes PANCYTOPENIA secondary to Chemo for CLL NEUTROPENIA and Thrombocytopenia Started on Neupogen Neutropenic precautions Follow up cultures-negative Has been on Zosyn ID Consulted-appreciate input If cultures are negative ,antibiotic can safely be discontinued Pancytopenis is worse today D/C Antibiotic Continue Neupogen Discussed with Dr Baron ,can be discharged and clinic appointment tomorrow ANEMIA Management of anemia as noted above Received 4 units of PRBC Hb 8.1 on 02/04/17 Hb 9.0 as of 02/06/17 EPISODES OF CONFUSION -- noticed at night within the past week -- likely metabolic encephalopathy -- check CT head to r/o CVA -no more episode DVT PROPHYLAXIS SCDs-has Thrombocytopenia DISPOSITION Discharge today Vital Signs: Date Time Temp Pulse Resp B/P (MAP) Pulse Ox O2 Delivery O2 Flow Rate FiO2 02/06/17 11:32 36.8 79 18 151/88 (109) 99 Room Air 02/06/17 08:00 Room Air 02/06/17 07:51 36.4 76 22 127/80 (96) 95 Room Air 02/06/17 04:31 36.5 82 18 119/78 (92) 100 Room Air 02/06/17 00:10 Room Air 02/05/17 23:33 36.4 73 18 131/82 (98) 98 Room Air 02/05/17 20:15 Room Air 02/05/17 19:22 36.7 88 20 141/84 (103) 99 Room Air 02/05/17 15:48 36.9 79 20 135/84 (101) 100 Room Air 02/05/17 15:36 Room Air 02/05/17 14:20 36.6 76 18 127/84 (98) 98 Room Air 02/05/17 13:48 36.6 70 18 97 Lab Results: Results Past 24 Hours Test 02/05/17 16:45 02/05/17 20:07 02/06/17 02:00 02/06/17 06:09 Range/Units Bedside Glucose 195 173 103 70-99 mg/dl White Blood Count 0.87 4.8-10.8 K/uL Red Blood Count 3.05 4.7-6.1 M/uL Hemoglobin 9.0 14.0-18.0 g/dL Hematocrit 26.5 42-52 % Mean Corpuscular Volume 86.9 80-100 fL Mean Corpuscular Hemoglobin 29.5 25-34 pg Mean Corpuscular Hemoglobin Concent 34.0 32-36 g/dl Platelet Count 31 130-400 K/uL Mean Platelet Volume 12.0 7.4-10.4 fL RDW Standard Deviation 50.2 36.4-46.3 fL RDW Coefficient of Variation 15.6 11.5-14.5 % Neutrophils % (Manual) 12.0 % Lymphocytes % (Manual) 80.4 % Monocytes % (Manual) 6.5 % Basophils % (Manual) 1.1 0-2 % Neutrophils # (Manual) 0.10 1.4-6.5 K/uL Total Absolute Neutrophils 0.10 1.4-6.5 K/uL Lymphocytes # (Manual) 0.70 1.2-3.4 K/uL Total Absolute Lymphocytes 0.70 1.2-3.4 K/uL Monocytes # (Manual) 0.06 0.11-0.59 K/uL Basophils # (Manual) 0.01 0-0.2 K/uL Toxic Granulation 1+ Dohle Bodies 2+ Giant Platelets 3+ Sodium Level 140 136-145 mmol/L Potassium Level 3.9 3.5-5.1 mmol/L Chloride Level 104 98-107 mmol/L Carbon Dioxide Level 31 21-32 mmol/L Anion Gap 5.0 3-11 mmol/L Blood Urea Nitrogen 11 7-18 mg/dl Creatinine 0.90 0.60-1.40 mg/dl Est Creatinine Clear Calc Drug Dose 116.7 ml/min Estimated GFR () 110.3 Estimated GFR (Non- 95.1 BUN/Creatinine Ratio 12.1 10-20 Random Glucose 275 70-99 mg/dl Calcium Level 8.0 8.5-10.1 mg/dl Phosphorus Level 3.6 2.5-4.9 mg/dl Magnesium Level 2.1 1.8-2.4 mg/dl Test 02/06/17 07:46 02/06/17 11:32 Range/Units Bedside Glucose 257 280 70-99 mg/dl
[2017-02-06] MEDS ORDERED: INSDGIPEN SC (12:13)
--- NOTE | 2017-02-06 12:20 | Discharge Instructions ---
Discharge Instructions Date of Service Feb 06, 2017. Admission Reason for Admission: Anemia, Pancytopenia Discharge Discharge Diagnosis / Problem: Pancytopenia,CLL ongoing Chemo Discharge Goals Goal(s): Prevent Disease Progression Activity Recommendations Activity Limitations: resume your previous activity . Instructions / Follow-Up Instructions / Follow-Up Dr Diaz on 02/10/17 at 11:15 AM.Please keep appointment with Oncologist Current Hospital Diet Patient's current hospital diet: Diabetes Type 2 Diet Discharge Diet Recommended Diet: Diabetes Type 2 Diet Pending Studies Studies pending at discharge: no Laboratory Results Hemoglobin A1c Test 02/04/17 05:25 Range/Units Estimated Average Glucose 203 mg/dl Hemoglobin A1c 8.7 H 4.5-5.6 % Medical Emergencies . Who to Call and When: Medical Emergencies: If at any time you feel your situation is an emergency, please call 911 immediately. . Non-Emergent Contact Non-Emergency issues call your: Primary Care Provider . Past History Medical & Surgical History: (1) CLL (chronic lymphocytic leukemia) (2) Pancytopenia (3) Hyperglycemia (4) Chemotherapy induced neutropenia (5) Hypothyroidism (6) S/p bone marrow aspiration (7) H/O colonoscopy with polypectomy . "Provider Documentation" section prepared by Alcon Angelo. . VTE Core Measure Inpt VTE Proph given/why not?: SCD's
[2017-02-06 12:50] VITALS: Ht 175.3 cm; Wt 121.8 kg
[2017-02-06 13:07] VITALS: BP 151/88; PULSE 79; TEMP 36.8; O2SAT 99
--- NOTE | 2017-02-07 09:49 | Discharge Summary ---
Discharge Summary Date of Service Feb 07, 2017. Discharge Summary Admission Date: Feb 02, 2017 at 12:08 Discharge Date: Feb 06, 2017 Principal Diagnosis: Pancytopenia,CLL ongoing Chemo.Diabetes on Insulin Secondary Diagnoses/Problems: Please see H&P and Hospital Progress note Consultations: ID Medication Reconciliation New Medications: Insulin Glargine (Lantus Solostar) 100 Unit/Ml Inj 10 UNIT SC HS for 30 Days, #1 PEN Continued Medications: Empagliflozin (Jardiance) 25 Mg Tab 25 MG PO DAILY, #30 Fish Oil ([place]-3) 1 Ea Cap 1 CAP PO DAILY, CAP Levothyroxine Sodium (Levothyroxine Sodium) 200 Mcg Tab 200 MCG PO DAILY, #30 Lisinopril (Prinivil) 30 Mg Tab 30 MG PO QAM, TAB Metformin Hcl (Glucophage) 1,000 Mg Tab 1000 MG PO BIDM, TAB Multivitamin (Multivitamin) Tab 1 TAB PO DAILY, TAB Ondansetron Hcl (Zofran) 8 Mg Tab 8 MG PO Q8 PRN for Nausea, TAB Probiotic Product (Probiotic) 1 Cap Cap 1 CAP PO TIDM Promethazine HCl (Promethazine HCl) 25 Mg Tab 25 MG PO Q4 PRN for Nausea Admission Information HPI (per Admitting provider): This is a 56 y/o male with PMH of CLL on chemo, chronic anemia, DM type 2, hypertension, and other problems listed below who presents to the ED for fatigue and N/V. Pt follows with Dr. Kinney for oncology. Patient's last chemo ended 1 week ago on 01/26 and he received a blood transfusion on Saturday 01/27. He states since that time has felt generalized weakness, fatigue, N/V, poor food intake. He was able to take some liquids and his meds at home. Was vomiting until last night. Nausea is now resolved. In the ER was able to tolerate a diabetic meal without issues. Patient's sister who was not in the room during my exam told the admitting hospitalist physician that patient was feeling hot and diaphoretic this morning. She additionally noted episodes of confusion occurring at night for past few days. Pt states urinary frequency is increased for past 1 week after starting Jardiance. Pt states home blood sugars were running up to 400s associated with the chemo and improved to 200s after Jardiance was started. Patient denies any fever, chills, BRODY, dizziness, URI symptoms, cough, SOB, chest pain, abdominal pain, diarrhea, dysuria, rash, wounds, abnormal bleeding. No sick contact. 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 Status: Chronic (2) Chemotherapy induced neutropenia Status: Chronic (3) CLL (chronic lymphocytic leukemia) Status: Chronic (4) DM type 2 (diabetes mellitus, type 2) Status: Chronic (5) Dyslipidemia Status: Chronic (6) HTN (hypertension) Status: Chronic (7) Hypothyroidism Status: Chronic (8) Obesity (BMI 30-39.9) Status: Chronic Surgical Problems: (1) H/O colonoscopy with polypectomy Status: Chronic (2) S/p bone marrow aspiration Status: Chronic Family History Cancer Diabetes mellitus Gallbladder disease Heart disease Hypertension Kidney disease MOTHER Kidney stones Social History Smoking Status: Former Smoker Alcohol Use: none Marital Status: single Housing status: lives alone Immunizations History of Influenza Vaccine: No History of Tetanus Vaccine?: No History of Pneumococcal: No History of Hepatitis B Vaccine: No Allergies Coded Allergies: No Known Allergies (Unverified , 02/02/17) Home Medications Scheduled Empagliflozin (Jardiance), 25 MG PO DAILY Fish Oil ([place]spire-3), 1 CAP PO DAILY Levothyroxine Sodium (Levothyroxine Sodium), 200 MCG PO DAILY Lisinopril (Prinivil), 30 MG PO QAM Metformin Hcl (Glucophage), 1,000 MG PO BIDM Multivitamin (Multivitamin), 1 TAB PO DAILY Probiotic Product (Probiotic), 1 CAP PO TIDM Scheduled PRN Ondansetron Hcl (Zofran), 8 MG PO Q8 PRN for Nausea Promethazine HCl (Promethazine HCl), 25 MG PO Q4 PRN for Nausea Review of Systems Ten systems reviewed and negative except as noted in HPI. Physical Ex - H&P Physical Exam Vital Signs Date Time Temp Pulse Resp B/P (MAP) Pulse Ox O2 Delivery O2 Flow Rate FiO2 02/02/17 12:55 36.9 89 16 117/69 99 02/02/17 12:45 86 16 118/63 99 Room Air 02/02/17 12:41 36.5 86 16 127/81 99 02/02/17 12:25 36.6 88 16 103/67 98 02/02/17 11:01 81 16 118/63 98 Room Air 02/02/17 09:30 36.5 93 18 113/74 98 Room Air General Appearance: WD/WN, no apparent distress, + pertinent finding (alert 56 year old male, lying in bed, appears comfortable) Head: normocephalic, atraumatic Eyes: normal inspection, PERRL, sclerae normal ENT: hearing grossly normal, pharynx normal Neck: supple, trachea midline Respiratory/Chest: lungs clear, normal breath sounds, no respiratory distress, no accessory muscle use Cardiovascular: regular rate, rhythm, no murmur, normal peripheral pulses Abdomen/GI: normal bowel sounds, non tender, soft Extremities/Musculoskelatal: no calf tenderness, no pedal edema Neurologic/Psych: alert, normal mood/affect, oriented x 3, + pertinent finding (no focal deficit on gross examination) Skin: warm/dry, + pallor Diagnostics - H&P Diagnostics Laboratory Results Results Past 24 Hours Test 02/02/17 00:00 02/02/17 10:00 02/02/17 10:43 02/02/17 13:00 Range/Units Urine Color YELLOW Urine Appearance CLEAR CLEAR Urine pH 5.0 4.5-7.5 Urine Specific Berry 1.032 1.000-1.030 Urine Protein NEG NEG Urine Glucose (UA) 3+ NEG Urine Ketones 1+ NEG Urine Occult Blood NEG NEG Urine Nitrite NEG NEG Urine Bilirubin NEG NEG Urine Urobilinogen NEG NEG Urine Leukocyte Esterase NEG NEG Urine WBC (Auto) 0 0-5 /hpf Urine RBC (Auto) 0-4 0-4 /hpf Urine Hyaline Casts (Auto) 0-5 /lpf Urine Epithelial Cells (Auto) 0-5 0-5 /lpf Urine Bacteria (Auto) NEG NEG Urine Yeast (Auto) NONE PRSENT Prothrombin Time 10.2 9.0-12.0 SECONDS Prothromb Time International Ratio 1.0 0.9-1.1 Activated Partial Thromboplast Time 26.4 21.0-31.0 SECONDS Partial Thromboplastin Ratio 1.0 White Blood Count 0.45 4.8-10.8 K/uL Red Blood Count 2.06 4.7-6.1 M/uL Hemoglobin 5.8 14.0-18.0 g/dL Hematocrit 16.9 42-52 % Mean Corpuscular Volume 82.0 80-100 fL Mean Corpuscular Hemoglobin 28.2 25-34 pg Mean Corpuscular Hemoglobin Concent 34.3 32-36 g/dl Platelet Count 64 130-400 K/uL Mean Platelet Volume 10.4 7.4-10.4 fL RDW Standard Deviation 46.0 36.4-46.3 fL RDW Coefficient of Variation 15.5 11.5-14.5 % Nucleated RBC Absolute Count (auto) 0.02 0-0 K/uL Neutrophils % (Manual) 64.6 % Lymphocytes % (Manual) 32.3 % Monocytes % (Manual) 3.1 % Nucleated Red Blood Cells % 4.2 % Neutrophils # (Manual) 0.29 1.4-6.5 K/uL Total Absolute Neutrophils 0.29 1.4-6.5 K/uL Lymphocytes # (Manual) 0.15 1.2-3.4 K/uL Total Absolute Lymphocytes 0.15 1.2-3.4 K/uL Monocytes # (Manual) 0.01 0.11-0.59 K/uL Toxic Granulation 1+ Dohle Bodies 1+ Platelet Estimate DECREASED Microcytosis PRESENT Sodium Level 132 136-145 mmol/L Potassium Level 4.2 3.5-5.1 mmol/L Chloride Level 98 98-107 mmol/L Carbon Dioxide Level 21 21-32 mmol/L Anion Gap 13.0 3-11 mmol/L Blood Urea Nitrogen 29 7-18 mg/dl Creatinine 1.20 0.60-1.40 mg/dl Est Creatinine Clear Calc Drug Dose 88.0 ml/min Estimated GFR () 77.9 Estimated GFR (Non- 67.2 BUN/Creatinine Ratio 24.1 10-20 Random Glucose 400 70-99 mg/dl Calcium Level 8.2 8.5-10.1 mg/dl Beta-Hydroxybutyric Acid 18.81 0.2-2.81 mg/dL Test 02/02/17 13:12 Range/Units Microbiology Results 02/02/17 Blood Culture, Received Pending 02/02/17 Blood Culture, Received Pending Diagnostic Radiology CHEST ONE VIEW PORTABLE CLINICAL HISTORY: Weakness. Patient on chemotherapy COMPARISON STUDY: 07/13/2016 FINDINGS: The cardiac and mediastinal contours are normal. There is no evidence of focal pulmonary consolidation. There is no evidence of failure. No pleural effusions are visualized.[ IMPRESSION: No active disease in the chest. Impression - H&P Impression Assessment and Plan SEVERE SYMPTOMATIC ANEMIA, ACUTE ON CHRONIC Has underlying chronic anemia due to CLL, likely worsened due to chemo Hg is 5.8 Transfuse 4 units pRBC Recheck H/H at 6 pm Monitor daily H/H DEHYDRATION Due to N/V and poor PO intake- improved, tolerating diabetic diet in ER IV fluids PRN Zofran PANCYTOPENIA NEUTROPENIA Likely due to chemo and CLL Rule out infection- CXR neg, check blood cultures and urine culture Empiric dose of Zosyn given- will hold off on further antibiotic and f/u culture results Neutropenic precautions No sign of bleeding Monitor CBC Consult hem/ onc- case d/w Dr. Kinney by admitting physician Start Neupogen per Dr. Kinney HYPERGLYCEMIA, POSSIBLE HHS, UNDERLYING DM 2 BSG 400, AG 13, 1+ ketones in urine Possibly due to stress, r/o infection- CXR neg, check blood cultures and urine culture Received 10 units IV insulin in ER- BSG remained high 300s Check serum osmolality Hold metformin and Jardiance Start insulin drip IVFs at 150 mL/ hour Monitor electrolytes Consult pharmacy, appreciate input EPISODIC CONFUSION Sister reported night time episodic confusion past several days Likely due to metabolic encephalopathy Check CT head to r/o intracranial pathology HYPERTENSION BP is stable 100s-120s Continue lisinopril with parameters HYPOTHYROIDISM Continue levothyroxine DVT PROPHYLAXIS SCD's due to severe anemia, thrombocytopenia DISPOSITION Follows with Dr. Diaz for primary care Patient seen in collaboration with Dr. Rosales. Please see his addendum. VTE Prophylaxis VTE Risk Assessment Done? Y/N: Yes Risk Level: High Physical Exam (per Admitting): General Appearance: WD/WN, no apparent distress, + pertinent finding (alert 56 year old male, lying in bed, appears comfortable) Head: normocephalic, atraumatic Eyes: normal inspection, PERRL, sclerae normal ENT: hearing grossly normal, pharynx normal Neck: supple, trachea midline Respiratory/Chest: lungs clear, normal breath sounds, no respiratory distress, no accessory muscle use Cardiovascular: regular rate, rhythm, no murmur, normal peripheral pulses Abdomen/GI: normal bowel sounds, non tender, soft Extremities/Musculoskelatal: no calf tenderness, no pedal edema Neurologic/Psych: alert, normal mood/affect, oriented x 3, + pertinent finding (no focal deficit on gross examination) Skin: warm/dry, + pallor Hospital Course WEAKNESS SECONDARY TO SEVERE ANEMIA, DEHYDRATION Secondary to Chemotherapy The case was discussed with Dr. Kinney by admitting physician Received 4 units PRBC Monitor H/H-8 .7 on 02/03/17 IV fluids and PRN Antiemetics Hb remains stable and >9,.0 Ambulating reasonably Will discharge home today Hyperglycemia r/o HHS, history of DM 2 Likely from underlying stress, r/o Infection On Metformin, and Jardiance-- hold for now Has been on IV Insulin and Pharmacy managing Will need Insulin to control diabetes PANCYTOPENIA secondary to Chemo for CLL NEUTROPENIA and Thrombocytopenia Started on Neupogen Neutropenic precautions Follow up cultures-negative Has been on Zosyn ID Consulted-appreciate input If cultures are negative ,antibiotic can safely be discontinued Pancytopenis is worse today D/C Antibiotic Continue Neupogen Discussed with Dr Baron ,can be discharged and clinic appointment tomorrow ANEMIA Management of anemia as noted above Received 4 units of PRBC Hb 8.1 on 02/04/17 Hb 9.0 as of 02/06/17 EPISODES OF CONFUSION -- noticed at night within the past week -- likely metabolic encephalopathy -- check CT head to r/o CVA -no more episode DVT PROPHYLAXIS SCDs-has Thrombocytopenia DISPOSITION Discharge today Total time spent on discharge = 35 minutes This includes examination of the patient, discharge planning, medication reconciliation, and communication with other providers. Discharge Instructions Date of Service Feb 06, 2017. Admission Reason for Admission: Anemia, Pancytopenia Discharge Discharge Diagnosis / Problem: Pancytopenia,CLL ongoing Chemo Discharge Goals Goal(s): Prevent Disease Progression Activity Recommendations Activity Limitations: resume your previous activity . Instructions / Follow-Up Instructions / Follow-Up Dr Diaz on 02/10/17 at 11:15 AM.Please keep appointment with Oncologist Current Hospital Diet Patient's current hospital diet: Diabetes Type 2 Diet Discharge Diet Recommended Diet: Diabetes Type 2 Diet Pending Studies Studies pending at discharge: no Laboratory Results Hemoglobin A1c Test 02/04/17 05:25 Range/Units Estimated Average Glucose 203 mg/dl Hemoglobin A1c 8.7 H 4.5-5.6 % Medical Emergencies . Who to Call and When: Medical Emergencies: If at any time you feel your situation is an emergency, please call 911 immediately. . Non-Emergent Contact Non-Emergency issues call your: Primary Care Provider . Past History Medical & Surgical History: (1) CLL (chronic lymphocytic leukemia) (2) Pancytopenia (3) Hyperglycemia (4) Chemotherapy induced neutropenia (5) Hypothyroidism (6) S/p bone marrow aspiration (7) H/O colonoscopy with polypectomy . "Provider Documentation" section prepared by Alcon Angelo. . VTE Core Measure Inpt VTE Proph given/why not?: SCD's <Electronically signed by Alcon Angelo M.D.> Additional Copies To Divya Diaz D.O.
[2017-07-10] MEDS ORDERED: LEVO200T6 PO (02:35)
[2017-07-10] MEDS ORDERED: OMEG10007 PO (12:56)
[2017-07-10] MEDS ORDERED: MULT-506 PO (12:56)
[2017-07-10] MEDS ORDERED: GLC500 PO (17:14)
[2017-07-10] MEDS ORDERED: INSDGIPEN SC (17:14)
[2017-07-10] MEDS ORDERED: LSNP/30 PO (17:14)
== END 2017-02-06 13:40 | disposition home or self-care (01) | DRG 808 ==
LOC: C.EDB 09:24 → C.2T 12:08 → ENRESERV 12:48 → C.4E 02-05 14:16
PROVIDERS: ADMIT Internal Medicine; ATTEND Internal Medicine
DX: D61.810 Antineoplastic chemotherapy induced pancytopenia (principal); G93.41 Metabolic encephalopathy; C91.10 Chronic lymphocytic leukemia of B-cell type not having achieved remission; I10 Essential (primary) hypertension; E11.65 Type 2 diabetes mellitus with hyperglycemia; E86.0 Dehydration; D63.0 Anemia in neoplastic disease; E03.9 Hypothyroidism, unspecified; R50.9 Fever, unspecified; T45.1X5A Adverse effect of antineoplastic and immunosuppressive drugs, initial encounter; Z79.84 Long term (current) use of oral hypoglycemic drugs; Z79.899 Other long term (current) drug therapy; Z87.891 Personal history of nicotine dependence

== ENCOUNTER 2017-07-05 16:24 | Inpatient (IN) | payer OTHER ==
[~2017-07-05] VITALS: Ht 175.3 cm; Wt 113.4 kg
[2017-07-05] VITALS (10 sets, daily range): BP systolic 121–147; BP diastolic 66–77; PULSE 68–92; TEMP 36.6–36.7; O2SAT 91–100; Ht 175.3 cm; Wt 113.4 kg
[~2017-07-05 16:24] MED LIST changes: +EMPA1TAB3 PO; +INSDGIPEN SC; +MISCCAP80 PO; +ONDA8TAB12 PO; +PROM25TA10 PO
[2017-07-05] MEDS ORDERED: SODIUM CHLORIDE 0.9% 1000ML 1,000 ML IV STA (16:43)
--- NOTE | 2017-07-05 17:00 | EMERGENCY ROOM VISIT NOTE ---
History First contact with patient: 16:31 Chief Complaint: ABNORMAL LABS Stated Complaint: LOW HEMOGLOBIN- PHYSICIAN REFERRED History of Present Illness The patient is a 56 year old male who presents to the Emergency Room with complaints of abnormal labs. Patient was sent here from his oncologist office with concern for hemoglobin of 5.4, he was previously 10.8 a few weeks ago. Patient has CLL, and states he has been fairly stable for several months, his last transfusion was March of this year. Patient states that he just got back from a trip to [place], states he has been having some cold symptoms for the past 3-4 days, cough and congestion, mild shortness of breath, and feeling a little more tired and run down than usual. He states "I'm feeling pretty good overall." He denies any chest pain, dizziness or passing out, fevers or chills , nausea, vomiting, diarrhea, blood in the stool or black stools, urinary symptoms, or rash. He denies any unusual bleeding or bruising. Review of Systems A complete 10 point review of systems was reviewed with the patient with pertinent positives and negatives as per history of present illness. All else were negative. Past Medical/Surgical History Medical Problems: (1) Anemia (2) Anemia (3) Benign neoplasm of colon (4) Chemotherapy induced neutropenia (5) CLL (chronic lymphocytic leukemia) (6) DM type 2 (diabetes mellitus, type 2) (7) Dyslipidemia (8) HTN (hypertension) (9) Hypothyroidism (10) Obesity (BMI 30-39.9) (11) Pancytopenia Surgical Problems: (1) H/O colonoscopy with polypectomy (2) S/p bone marrow aspiration Family History Cancer Diabetes mellitus Gallbladder disease Heart disease Hypertension Kidney disease MOTHER Kidney stones Social History Smoking Status: Never Smoker Alcohol Use: none Drug Use: none Marital Status: single Housing Status: lives alone Occupation Status: employed Current/Historical Medications Scheduled Fish Oil ([place]-3), 1 CAP PO DAILY Insulin Glargine (Lantus Solostar), 20 UNITS SC QAM Levothyroxine Sodium (Levothyroxine Sodium), 200 MCG PO DAILY Lisinopril (Zestril), 30 MG PO QAM Metformin HCl (Metformin HCl), 1,000 MG PO BID Multivitamin (Multivitamin), 1 TAB PO DAILY Allergies NKA Physical Exam Vital Signs Date Time Temp Pulse Resp B/P (MAP) Pulse Ox O2 Delivery O2 Flow Rate FiO2 07/05/17 17:30 127/69 07/05/17 17:24 91 18 98 07/05/17 17:00 111/73 07/05/17 16:55 119/76 07/05/17 16:54 98 07/05/17 16:54 96 26 98 07/05/17 16:54 97 18 119/76 98 Room Air 07/05/17 16:51 119/76 07/05/17 16:48 98 Room Air 07/05/17 16:27 36.8 101 18 148/78 98 Room Air Physical Exam CONSTITUTIONAL: No acute distress. Pale. Mildly dehydrated, but otherwise well appearing and well nourished. Alert and oriented X 4 with normal affect. HEENT: Normocephalic, atraumatic. Pupils equal, round and reactive to light, EOMI. Pale conjunctiva. TMs normal. Pharynx normal. Tacky mucous membranes. NECK: Supple, full active range of motion without discomfort. RESPIRATORY: Clear to auscultation bilaterally with no wheezing, crackles, rhonchi or stridor. Equal expansion bilaterally. CARDIOVASCULAR: Regular rate and rhythm with no murmurs, rubs or gallops. Normal peripheral perfusion. 1+ pedal edema. GASTROINTESTINAL: Soft, nontender, nondistended, obese. Bowel sounds present in all quadrants. MUSCULOSKELETAL: Full range of motion of all joints without discomfort. INTEGUMENTARY: No rash or other significant dermatologic conditions noted. NEUROLOGIC: Cranial nerves II-XII grossly intact. No focal neurologic deficits noted. Normal strength, normal sensation, normal speech, normal coordination, normal gait. Medical Decision & Procedures ER Provider Diagnostic Interpretation: CHEST 2 VIEWS ROUTINE HISTORY: 56 years-old Male SOB, cough/congestion, r/o pna acute cough with shortness of breath COMPARISON: Chest radiograph 02/02/2017 TECHNIQUE: PA and lateral views of the chest FINDINGS: Cardiomediastinal and hilar silhouettes are within normal limits. There is no pneumothorax, pleural effusion, focal airspace consolidation or overt pulmonary edema. Multilevel endplate spurring of the spine. IMPRESSION: No acute cardiopulmonary process. Laboratory Results Test 07/05/17 16:35 Immature Granulocyte % (Auto) 2.6 % White Blood Count 3.89 K/uL (4.8-10.8) Red Blood Count 1.48 M/uL (4.7-6.1) Hemoglobin 5.6 g/dL (14.0-18.0) Hematocrit 16.9 % (42-52) Mean Corpuscular Volume 114.2 fL (80-100) Mean Corpuscular Hemoglobin 37.8 pg (25-34) Mean Corpuscular Hemoglobin Concent 33.1 g/dl (32-36) Platelet Count 64 K/uL (130-400) Mean Platelet Volume 11.8 fL (7.4-10.4) Neutrophils (%) (Auto) 27.0 % Lymphocytes (%) (Auto) 42.9 % Monocytes (%) (Auto) 27.5 % Eosinophils (%) (Auto) 0.0 % Basophils (%) (Auto) 0.0 % Neutrophils # (Auto) 1.05 K/uL (1.4-6.5) Lymphocytes # (Auto) 1.67 K/uL (1.2-3.4) Monocytes # (Auto) 1.07 K/uL (0.11-0.59) Eosinophils # (Auto) 0.00 K/uL (0-0.5) Basophils # (Auto) 0.00 K/uL (0-0.2) Immature Granulocyte # (Auto) 0.10 K/uL (0.00-0.02) Platelet Estimate DECREASED Polychromasia 1+ Magnesium Level 2.1 mg/dl (1.8-2.4) Total Bilirubin 1.3 mg/dl (0.2-1) Direct Bilirubin 0.3 mg/dl (0-0.2) Aspartate Amino Transf (AST/SGOT) 75 U/L (15-37) Alanine Aminotransferase (ALT/SGPT) 85 U/L (12-78) Alkaline Phosphatase 100 U/L (45-117) Total Protein 6.7 gm/dl (6.4-8.2) Albumin 3.8 gm/dl (3.4-5.0) Medications Administered Medications (Trade) Dose Ordered Sig/Alesha Route Start Time Stop Time Status Last Admin Dose Admin Sodium Chloride 1,000 ml @ 999 mls/hr Q1H1M STAT IV 07/05/17 16:43 07/05/17 17:43 DC 07/05/17 17:04 999 MLS/HR ECG Indication: SOB/dyspnea, weakness Rate (beats per minute): 95 Rhythm: normal sinus Findings: no acute ischemic change, no ectopy Change: no significant change (when compared to previous EKG from 07/13/2016) Medical Decision CC: Patient presenting with complaint of anemia Interpretation of Labs: Leukopenia and neutropenia (at baseline for patient), significant anemia, thrombocytopenia (at baseline for patient), no significant electrolyte abnormalities, normal renal function, normal liver enzymes. Differential Diagnosis: Includes, but not limited to anemia of chronic disease, pneumonia, bronchitis, viral URI, GI bleed, dehydration, among others. Medication Reconciliation: I attest that I have personally reviewed the patient' s current medication list. Vital signs review: I reviewed the patient's vital signs and interpret them as follows: T: Afebrile; BP: Hypertensive; HR: Tachycardic; RR: Within normal limits; Pulse Ox: Within normal limits on room air. Blood pressure screening: The patient was found to have an elevated blood pressure, this was resolved on subsequent checks and was felt to be situational. Summary: Patient was evaluated at bedside, history and physical exam performed. Patient is alert and in no acute distress, nontoxic-appearing, resting comfortably in the stretcher. He does appear mildly dehydrated and pale. Patient denies any history of rectal bleeding, maroon or dark colored stools, or vomiting of blood. I believe his anemia is more likely related to his CLL, as he has history of anemia from this, and also would avoid performing unnecessary rectal exam on immunocompromised patient. Orders were placed at bedside for labs, Type and Crossmatch with plans for possible transfusion, EKG, CXR to evaluate for pneumonia. He does appear mildly dehydrated, IV fluids ordered for hydration. Patient discussed with Dr. Crocker, who agrees with my assessment and plan. Labs reviewed as above, concerning for significant anemia. Type and Cross pending, blood consent being done by Dr. Crocker. EKG shows NSR with no acute changes. CXR is clear. I spoke with Dr. Sandoval, hospitalist, who agrees to admit the patient for blood transfusion. Patient reassessed multiple times throughout ED stay, he remains stable and in no acute distress. He was agreeable to admission. Patient stable at time of admission. Head Trauma GCS Score: 15 Medication Reconcilliation Current Medication List: was personally reviewed by me Impression Primary Impression: Severe anemia Additional Impression: CLL (chronic lymphocytic leukemia) Departure Information Dispostion Admitted as an inpatient Condition FAIR Referrals Divya Diaz D.OMichelle (PCP) Patient Instructions [facility] Problem Qualifiers
--- NOTE | 2017-07-05 17:19 | DIAGNOSTIC IMAGING REPORT ---
CHEST 2 VIEWS ROUTINE HISTORY: 56 years-old Male SOB, cough/congestion, r/o pna acute cough with shortness of breath COMPARISON: Chest radiograph 02/02/2017 TECHNIQUE: PA and lateral views of the chest FINDINGS: Cardiomediastinal and hilar silhouettes are within normal limits. There is no pneumothorax, pleural effusion, focal airspace consolidation or overt pulmonary edema. Multilevel endplate spurring of the spine. IMPRESSION: No acute cardiopulmonary process. The above report was generated using voice recognition software. It may contain grammatical, syntax or spelling errors. Electronically signed by: Joe Galvin M.D. 07/05/2017 5:18 PM Dictated Date/Time: 07/05/2017 5:17 PM
[2017-07-05 17:22] LABS: CALCIUM 8.5 mg/dl (8.5-10.1); CREATININE 0.98 mg/dl (0.60-1.40); MAGNESIUM 2.1 mg/dl (1.8-2.4); POTASSIUM 4.2 mmol/L (3.5-5.1)
[2017-07-05 17:31] LABS: ANISOCYTOSIS PRESENT; COMPLETE YES; DOHLE BODIES 1+; HEMATOCRIT 16.9 % (42-52); IG% 2.6 %; LYMPH % 42.9 %; LYMPH ABS # 1.67 K/uL (1.2-3.4); MEAN CELL VOLUME 114.2 fL (80-100); MEAN CORPUSCULAR HEMOGLOBIN 37.8 pg (25-34); MEAN CORPUSCULAR HGB CONC 33.1 g/dl (32-36); MEAN PLATELET VOLUME 11.8 fL (7.4-10.4); MONO % 27.5 %; PLATELET COUNT 64 K/uL (130-400); PLT ESTIMATE DECREASED; POLYCHROMASIA 1+; RED BLOOD COUNT 1.48 M/uL (4.7-6.1); WHITE BLOOD COUNT 3.89 K/uL (4.8-10.8)
[2017-07-05] MEDS ORDERED: ACETAMINOPHEN 325 MG TAB PO PRN (18:00)
[2017-07-05] MEDS ORDERED: GLUCAGON FOR INJ 1 MG VIAL SQ PRN (18:00)
[2017-07-05] MEDS ORDERED: DEXTROSE 50% 50 ML SYR IV PRN (18:00)
[2017-07-05] MEDS ORDERED: GLUCOSE 10 TABS/TUBE PO PRN (18:00)
[2017-07-05] MEDS ORDERED: GLUCOSE 40% GEL 15 GM TUBE PO PRN (18:00)
[2017-07-05] MEDS ORDERED: ALUMINUM/MAGNESIUM/SIMETH (MAALOX MAX) 30 ML UDC PO PRN (18:00)
[2017-07-05] MEDS ORDERED: MAGNESIUM HYDROXIDE SUSP 30 ML UDC PO PRN (18:00)
--- NOTE | 2017-07-05 18:18 | History and Physical ---
History & Physical Date & Time of Service: Jul 05, 2017 at 18:04 Chief Complaint: Low Hemoglobin- Physician Referred Primary Care Physician: Divya Diaz D.O. History of Present Illness Source: patient, family, clinic records, hospital records This is a 56 year old male with a PMH of CLL (last chemotherapy in February), hx. of chemo-induced neutropenia, HTN, DM2, hypothyroidism, hx. of benign villous adenoma of colon - presents after being sent by Dr. Kinney for anemia. As per patient, he had been doing very well - his numbers were looking good since March - his last blood transfusion was in March. He recently went on a trip to [place] and was doing fine - when he flew back, he started feeling upper respiratory symptoms, nasal congestion, runny nose, etc. He also felt weak and his hands felt pale and cool like when he needed transfusions in the past. Otherwise, no shortness of breath/chest pain/palpitations/nausea/vomiting/ diarrhea/fevers/chills. He saw Dr. Kinney in the office and Hgb noted to be 5.4 and he was sent for blood transfusions. 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 Status: Chronic (2) Chemotherapy induced neutropenia Status: Chronic (3) CLL (chronic lymphocytic leukemia) Status: Chronic (4) DM type 2 (diabetes mellitus, type 2) Status: Chronic (5) Dyslipidemia Status: Chronic (6) HTN (hypertension) Status: Chronic (7) Hypothyroidism Status: Chronic (8) Obesity (BMI 30-39.9) Status: Chronic Surgical Problems: (1) H/O colonoscopy with polypectomy Status: Chronic (2) S/p bone marrow aspiration Status: Chronic Family History Cancer Diabetes mellitus Gallbladder disease Heart disease Hypertension Kidney disease MOTHER Kidney stones Social History Smoking Status: Never Smoker Drug Use: none Marital Status: single Housing status: lives alone Occupational Status: employed Immunizations History of Influenza Vaccine: No History of Tetanus Vaccine?: No History of Pneumococcal: No History of Hepatitis B Vaccine: No Allergies Coded Allergies: No Known Allergies (Unverified , 04/12/17) Home Medications Scheduled Fish Oil ([place]-3), 1 CAP PO DAILY Insulin Glargine (Lantus Solostar), 20 UNITS SC QAM Levothyroxine Sodium (Levothyroxine Sodium), 200 MCG PO DAILY Lisinopril (Zestril), 30 MG PO QAM Metformin HCl (Metformin HCl), 1,000 MG PO BID Multivitamin (Multivitamin), 1 TAB PO DAILY Review of Systems Constitutional: + weakness, + fatigue, No fever, No chills, No sweats ENT: + nasal symptoms Respiratory: No cough, No sputum, No wheezing, No shortness of breath Cardiovascular: No chest pain, No orthopnea, No edema, No palpitations Abdomen: No pain, No nausea, No vomiting, No diarrhea, No constipation, No GI bleeding Musculoskeletal: No joint pain, No muscle pain Genitourinary - Male: No hematuria, No dysuria, No urinary frequency, No urinary urgency Neurologic: No memory loss Psychiatric: No depression symptoms Endocrine: No fatigue Hematologic / Lymphatic: No abnormal bleeding/bruising Integumentary: No rash Allergic / Immunologic: No environmental allergies, No seasonal allergies Physical Exam Vital Signs Date Time Temp Pulse Resp B/P (MAP) Pulse Ox O2 Delivery O2 Flow Rate FiO2 07/05/17 17:30 127/69 07/05/17 17:24 91 18 98 07/05/17 17:00 111/73 07/05/17 16:55 119/76 07/05/17 16:54 98 07/05/17 16:54 96 26 98 07/05/17 16:54 97 18 119/76 98 Room Air 07/05/17 16:51 119/76 07/05/17 16:48 98 Room Air 07/05/17 16:27 36.8 101 18 148/78 98 Room Air General Appearance: no apparent distress, + obese Head: normocephalic, atraumatic ENT: hearing grossly normal Neck: supple Respiratory/Chest: chest non-tender, lungs clear, normal breath sounds, no respiratory distress, no accessory muscle use Cardiovascular: regular rate, rhythm, no edema, no gallop, no JVD, no murmur, normal peripheral pulses Abdomen/GI: normal bowel sounds, non tender, soft Back: no CVA tenderness, no muscle spasm Extremities/Musculoskelatal: normal inspection, no calf tenderness, normal capillary refill, no pedal edema, normal range of motion Neurologic/Psych: manager public II-XII nml as tested, no motor/sensory deficits, alert, normal mood/affect, oriented x 3 Skin: + pertinent finding (cool, pale hands/extremities) Lymphatic: no adenopathy Diagnostics Laboratory Results Results Past 24 Hours Test 07/05/17 16:35 Range/Units White Blood Count 3.89 4.8-10.8 K/uL Red Blood Count 1.48 4.7-6.1 M/uL Hemoglobin 5.6 14.0-18.0 g/dL Hematocrit 16.9 42-52 % Mean Corpuscular Volume 114.2 80-100 fL Mean Corpuscular Hemoglobin 37.8 25-34 pg Mean Corpuscular Hemoglobin Concent 33.1 32-36 g/dl Platelet Count 64 130-400 K/uL Mean Platelet Volume 11.8 7.4-10.4 fL Neutrophils (%) (Auto) 27.0 % Lymphocytes (%) (Auto) 42.9 % Monocytes (%) (Auto) 27.5 % Eosinophils (%) (Auto) 0.0 % Basophils (%) (Auto) 0.0 % Neutrophils # (Auto) 1.05 1.4-6.5 K/uL Lymphocytes # (Auto) 1.67 1.2-3.4 K/uL Monocytes # (Auto) 1.07 0.11-0.59 K/uL Eosinophils # (Auto) 0.00 0-0.5 K/uL Basophils # (Auto) 0.00 0-0.2 K/uL RDW Standard Deviation 80.3 36.4-46.3 fL RDW Coefficient of Variation 19.4 11.5-14.5 % Immature Granulocyte % (Auto) 2.6 % Immature Granulocyte # (Auto) 0.10 0.00-0.02 K/uL Dohle Bodies 1+ Platelet Estimate DECREASED Polychromasia 1+ Anisocytosis PRESENT Macrocytosis PRESENT Sodium Level 136 136-145 mmol/L Potassium Level 4.2 3.5-5.1 mmol/L Chloride Level 101 98-107 mmol/L Carbon Dioxide Level 27 21-32 mmol/L Anion Gap 8.0 3-11 mmol/L Blood Urea Nitrogen 21 7-18 mg/dl Creatinine 0.98 0.60-1.40 mg/dl Est Creatinine Clear Calc Drug Dose 105.3 ml/min Estimated GFR () 99.5 Estimated GFR (Non- 85.8 BUN/Creatinine Ratio 21.0 10-20 Random Glucose 140 70-99 mg/dl Calcium Level 8.5 8.5-10.1 mg/dl Magnesium Level 2.1 1.8-2.4 mg/dl Total Bilirubin 1.3 0.2-1 mg/dl Direct Bilirubin 0.3 0-0.2 mg/dl Aspartate Amino Transf (AST/SGOT) 75 15-37 U/L Alanine Aminotransferase (ALT/SGPT) 85 12-78 U/L Alkaline Phosphatase 100 45-117 U/L Total Protein 6.7 6.4-8.2 gm/dl Albumin 3.8 3.4-5.0 gm/dl Diagnostic Radiology CHEST 2 VIEWS ROUTINE HISTORY: 56 years-old Male SOB, cough/congestion, r/o pna acute cough with shortness of breath COMPARISON: Chest radiograph 02/02/2017 TECHNIQUE: PA and lateral views of the chest FINDINGS: Cardiomediastinal and hilar silhouettes are within normal limits. There is no pneumothorax, pleural effusion, focal airspace consolidation or overt pulmonary edema. Multilevel endplate spurring of the spine. IMPRESSION: No acute cardiopulmonary process. EKG Normal sinus rhythm Low voltage QRS Borderline ECG Impression Assessment and Plan This is a 56 year old male with a PMH of CLL (last chemotherapy in February), hx. of chemo-induced neutropenia, HTN, DM2, hypothyroidism, hx. of benign villous adenoma of colon - presents after being sent by Dr. Kinney for anemia. Anemia in the setting of CLL patient sent from hem/onc office presented with weakness, nasal congestion, URI symptoms Hgb noted to be 5.6 on arrival two units of pRBCs type and crossed and we will transfuse recheck H/H in AM Hem/onc consulted hold fish oils patient is also due for a colonoscopy and should get this done as an outpatient Pancytopenia chronic pancytopenia in the setting of CLL WBC, platelets stable - monitor in AM HTN continue Lisinopril DM2 check Ha1c in AM hold metformin Lantus 10 units BID sliding scale HLD hold fish oils, restart on discharge Hypothyroidism continue Synthroid DVT ppx SCDs FULL CODE VTE Prophylaxis VTE Risk Assessment Done? Y/N: Yes Risk Level: Moderate
[2017-07-05] MEDS: SODIUM CHLORIDE 0.9% 1000ML 1,000 ML IV SCH (19:48)
[2017-07-05] MEDS: INSULIN ASPART 100 UNITS/ML 3 ML PEN SC SCH (20:24)
[2017-07-05] MEDS: INSULIN GLARGINE SOLOSTAR 100 UNITS/ML 3 ML PEN SC SCH (22:10)
[2017-07-06] VITALS (20 sets, daily range): BP systolic 110–144; BP diastolic 66–84; PULSE 72–93; TEMP 36.6–37.2; O2SAT 94–99
[2017-07-06] MEDS ORDERED: LEVOTHYROXINE 200 MCG TAB PO SCH (06:00)
[2017-07-06 08:09] LABS: HEMATOCRIT 19.7 % (42-52); MEAN CORPUSCULAR HEMOGLOBIN 35.4 pg (25-34); MEAN PLATELET VOLUME 11.6 fL (7.4-10.4); PLATELET COUNT 51 K/uL (130-400); RED BLOOD COUNT 1.95 M/uL (4.7-6.1); WHITE BLOOD COUNT 2.59 K/uL (4.8-10.8)
[2017-07-06 08:16] LABS: ANISOCYTOSIS PRESENT; COMPLETE YES; DOHLE BODIES 1+; HYPERSEGMENTED POLYS 1+; LYMPH ABS # 0.84 K/uL (1.2-3.4); LYMPHOCYTE % 32.5 %; NEUTROPHILS % 48.2 %
[2017-07-06 08:17] LABS: BUN/CREATININE RATIO 19.9 (10-20); CALCIUM 8.4 mg/dl (8.5-10.1); CREATININE 0.89 mg/dl (0.60-1.40); POTASSIUM 4.4 mmol/L (3.5-5.1)
[2017-07-06 08:41] LABS: ESTIMATED AVERAGE GLUCOSE 120 mg/dl; HA1C FLAG Normal (Normal)
[2017-07-06] MEDS ORDERED: LISINOPRIL 20 MG TAB PO SCH (09:00)
[2017-07-06] MEDS ORDERED: MULTIVITAMIN TAB PO SCH (09:00)
[2017-07-06] MEDS: INSULIN ASPART 100 UNITS/ML 3 ML PEN SC SCH ×3 (09:37→17:45)
[2017-07-06] MEDS: INSULIN GLARGINE SOLOSTAR 100 UNITS/ML 3 ML PEN SC SCH (09:37)
--- NOTE | 2017-07-06 10:53 | Progress Note ---
Subjective Date of Service: Jul 06, 2017. Subjective Pt evaluation today including: conversation w/ patient, physical exam, lab review, review of studies, review of inpatient medication list Saw/examined the patient in room 219 No problems/issues to note today Seated in a chair, denies chest pain/shortness of breath Denies weakness Problem List Medical Problems: (1) CLL (chronic lymphocytic leukemia) Status: Chronic (2) Dehydration Status: Acute (3) Dyspnea on exertion Status: Acute (4) Hyperglycemia Status: Acute (5) Severe anemia Status: Acute (6) Weakness Status: Acute Review of Systems Constitutional: No weakness Respiratory: No cough, No sputum, No wheezing, No shortness of breath, No dyspnea on exertion Cardiac: No chest pain, No edema, No palpitations Medications Current Inpatient Medications Medications (Trade) Dose Ordered Sig/Alesha Route Start Time Stop Time Status Last Admin Dose Admin Sodium Chloride 1,000 ml @ 80 mls/hr [id number] IV 07/05/17 19:30 08/04/17 19:29 07/05/17 19:48 80 MLS/HR Acetaminophen (Tylenol Tab) 650 mg Q4H PRN PO 07/05/17 18:00 08/04/17 17:59 Al Hydrox/Mg Hydrox/Simethicone (Maalox Max Susp) 15 ml Q4H PRN PO 07/05/17 18:00 08/04/17 17:59 Magnesium Hydroxide (Milk Of Magnesia Susp) 30 ml Q12H PRN PO 07/05/17 18:00 08/04/17 17:59 Insulin Glargine (Lantus Solostar Pen) 10 units Q12 SC 07/05/17 21:00 08/04/17 20:59 07/06/17 09:37 10 UNITS Insulin Aspart (novoLOG ASPART) SLIDING SCALE If C... ACHS SC 07/05/17 21:00 08/04/17 20:59 07/06/17 09:37 5 UNITS Glucose (Glucose 40% Gel) 15-30 GRAMS 15 GRAMS... UD PRN PO 07/05/17 18:00 08/04/17 17:59 Glucose (Glucose Chew Tab) 4-8 Tablets 4 Tabl... UD PRN PO 07/05/17 18:00 12/15/17 17:59 Dextrose (Dextrose 50% 50ML Syringe) 25-50ML OF 50% DW IV FOR... UD PRN IV 07/05/17 18:00 08/04/17 17:59 Glucagon (Glucagon Inj) 1 mg UD PRN SQ 07/05/17 18:00 08/04/17 17:59 Levothyroxine Sodium (Synthroid Tab) 200 mcg DAILYBB PO 07/06/17 06:00 08/05/17 06:59 07/06/17 05:58 200 MCG Lisinopril (Zestril Tab) 30 mg QAM PO 07/06/17 09:00 08/05/17 08:59 07/06/17 09:33 30 MG Multivitamins (Multivitamin Tab) 1 tab DAILY PO 07/06/17 09:00 08/05/17 08:59 07/06/17 09:32 1 TAB Objective Vital Signs Date Time Temp Pulse Resp B/P (MAP) Pulse Ox O2 Delivery O2 Flow Rate FiO2 07/06/17 10:42 36.8 76 18 144/84 96 07/06/17 09:18 Room Air 07/06/17 08:33 37.2 89 15 115/71 (86) 95 07/06/17 08:00 Room Air 07/06/17 04:21 37.0 80 20 128/81 (97) 98 CPAP 07/06/17 04:00 Room Air 07/06/17 03:05 36.6 88 18 117/77 07/06/17 02:05 36.7 93 18 116/68 95 07/06/17 01:05 36.6 88 18 128/80 96 07/06/17 00:35 36.8 86 18 126/74 95 07/06/17 00:13 36.8 85 18 112/70 95 07/06/17 00:00 Room Air 07/05/17 23:54 36.7 89 18 123/77 96 07/05/17 23:17 36.6 68 18 147/76 (99) 97 Room Air 07/05/17 22:54 36.6 68 18 147/76 97 07/05/17 22:11 36.7 92 20 121/66 (84) 98 Room Air 07/05/17 21:54 36.7 92 20 124/66 100 07/05/17 21:21 36.7 92 18 121/67 100 07/05/17 21:06 36.7 91 16 121/74 91 07/05/17 20:00 100 Room Air 07/05/17 19:14 36.6 83 18 122/76 100 Room Air 07/05/17 19:11 36.6 83 18 122/76 (91) 100 Room Air 07/05/17 18:35 36.8 92 17 130/79 98 07/05/17 18:05 92 17 98 07/05/17 18:00 130/79 07/05/17 17:30 127/69 07/05/17 17:24 91 18 98 07/05/17 17:00 111/73 07/05/17 16:55 119/76 07/05/17 16:54 98 07/05/17 16:54 96 26 98 07/05/17 16:54 97 18 119/76 98 Room Air 07/05/17 16:51 119/76 07/05/17 16:48 98 Room Air 07/05/17 16:27 36.8 101 18 148/78 98 Room Air Physical Exam General Appearance: no apparent distress Respiratory/Chest: chest non-tender, lungs clear, normal breath sounds, no respiratory distress, no accessory muscle use Cardiovascular: regular rate, rhythm, no edema, no gallop, no JVD, no murmur Extremities: normal inspection, no pedal edema Neurologic/Psychiatric: no motor/sensory deficits, alert, normal mood/affect Laboratory Results Last 24 Hours Test 07/05/17 16:35 07/05/17 19:59 07/06/17 07:00 07/06/17 07:10 White Blood Count 3.89 K/uL 2.59 K/uL Red Blood Count 1.48 M/uL 1.95 M/uL Hemoglobin 5.6 g/dL 6.9 g/dL Hematocrit 16.9 % 19.7 % Mean Corpuscular Volume 114.2 fL 101.0 fL Mean Corpuscular Hemoglobin 37.8 pg 35.4 pg Mean Corpuscular Hemoglobin Concent 33.1 g/dl 35.0 g/dl Platelet Count 64 K/uL 51 K/uL Mean Platelet Volume 11.8 fL 11.6 fL Neutrophils (%) (Auto) 27.0 % Lymphocytes (%) (Auto) 42.9 % Monocytes (%) (Auto) 27.5 % Eosinophils (%) (Auto) 0.0 % Basophils (%) (Auto) 0.0 % Neutrophils # (Auto) 1.05 K/uL Lymphocytes # (Auto) 1.67 K/uL Monocytes # (Auto) 1.07 K/uL Eosinophils # (Auto) 0.00 K/uL Basophils # (Auto) 0.00 K/uL RDW Standard Deviation 80.3 fL 88.3 fL RDW Coefficient of Variation 19.4 % 25.3 % Immature Granulocyte % (Auto) 2.6 % Immature Granulocyte # (Auto) 0.10 K/uL Dohle Bodies 1+ 1+ Platelet Estimate DECREASED Polychromasia 1+ Anisocytosis PRESENT PRESENT Macrocytosis PRESENT PRESENT Sodium Level 136 mmol/L 138 mmol/L Potassium Level 4.2 mmol/L 4.4 mmol/L Chloride Level 101 mmol/L 103 mmol/L Carbon Dioxide Level 27 mmol/L 28 mmol/L Anion Gap 8.0 mmol/L 7.0 mmol/L Blood Urea Nitrogen 21 mg/dl 18 mg/dl Creatinine 0.98 mg/dl 0.89 mg/dl Est Creatinine Clear Calc Drug Dose 105.3 ml/min 115.1 ml/min Estimated GFR () 99.5 110.8 Estimated GFR (Non- 85.8 95.6 BUN/Creatinine Ratio 21.0 19.9 Random Glucose 140 mg/dl 163 mg/dl Calcium Level 8.5 mg/dl 8.4 mg/dl Magnesium Level 2.1 mg/dl Total Bilirubin 1.3 mg/dl Direct Bilirubin 0.3 mg/dl Aspartate Amino Transf (AST/SGOT) 75 U/L Alanine Aminotransferase (ALT/SGPT) 85 U/L Alkaline Phosphatase 100 U/L Total Protein 6.7 gm/dl Albumin 3.8 gm/dl Bedside Glucose 171 mg/dl 183 mg/dl Neutrophils % (Manual) 48.2 % Lymphocytes % (Manual) 32.5 % Monocytes % (Manual) 19.3 % Neutrophils # (Manual) 1.25 K/uL Total Absolute Neutrophils 1.25 K/uL Lymphocytes # (Manual) 0.84 K/uL Total Absolute Lymphocytes 0.84 K/uL Monocytes # (Manual) 0.50 K/uL Hypersegmented Polys 1+ Estimated Average Glucose 120 mg/dl Hemoglobin A1c 5.8 % Assessment and Plan This is a 56 year old male with a PMH of CLL (last chemotherapy in February), hx. of chemo-induced neutropenia, HTN, DM2, hypothyroidism, hx. of benign villous adenoma of colon - presents after being sent by Dr. Kinney for anemia. Anemia in the setting of CLL 07/06 s/p two units pRBCs Hgb up to 6.9 will transfuse two more units check H/H four hours after transfusion hem/onc consulted for further input 07/05 patient sent from hem/onc office presented with weakness, nasal congestion, URI symptoms Hgb noted to be 5.6 on arrival two units of pRBCs type and crossed and we will transfuse recheck H/H in AM Hem/onc consulted hold fish oils patient is also due for a colonoscopy and should get this done as an outpatient Pancytopenia chronic pancytopenia in the setting of CLL WBC, platelets stable - monitor in AM HTN continue Lisinopril DM2 Ha1c = 5.8% hold metformin Lantus 10 units BID sliding scale HLD hold fish oils, restart on discharge Hypothyroidism continue Synthroid DVT ppx SCDs FULL CODE
[2017-07-06 17:31] LABS: HEMATOCRIT 23.8 % (42-52)
[2017-07-06] MEDS: SODIUM CHLORIDE 0.9% 1000ML 1,000 ML IV SCH (17:42)
--- NOTE | 2017-07-06 17:58 | Discharge Instructions ---
Discharge Instructions Date of Service Jul 06, 2017. Admission Reason for Admission: Anemia Discharge Discharge Diagnosis / Problem: CLL, anemia Discharge Goals Goal(s): Decrease discomfort, Improve function, Diagnostic testing, Therapeutic intervention Activity Recommendations Activity Limitations: resume your previous activity . Instructions / Follow-Up Instructions / Follow-Up Please follow-up with Dr. Kinney, oncology, in 2-3 days Current Hospital Diet Patient's current hospital diet: Diabetes Type 2 Diet Discharge Diet Recommended Diet: Diabetes Type 2 Diet Pending Studies Studies pending at discharge: no Laboratory Results Hemoglobin A1c Test 07/06/17 07:10 Range/Units Estimated Average Glucose 120 mg/dl Hemoglobin A1c 5.8 H 4.5-5.6 % Medical Emergencies . Who to Call and When: Medical Emergencies: If at any time you feel your situation is an emergency, please call 911 immediately. . Non-Emergent Contact Non-Emergency issues call your: Primary Care Provider, Oncologist . . "Provider Documentation" section prepared by Wan Sandoval. . VTE Core Measure Inpt VTE Proph given/why not?: SCD's
--- NOTE | 2017-07-06 18:00 | Discharge Summary ---
Discharge Summary Date of Service Jul 06, 2017. Discharge Summary Admission Date: Jul 05, 2017 at 17:56 Discharge Date: Jul 06, 2017 Discharge Disposition: Home Principal Diagnosis: CLL Anemia Pancytopenia HTN DM2 Medication Reconciliation Continued Medications: Fish Oil ([place]-3) 1 Ea Cap 1 CAP PO DAILY, CAP Insulin Glargine (Lantus Solostar) 100 Unit/Ml Inj 20 UNITS SC QAM, PEN Levothyroxine Sodium (Levothyroxine Sodium) 200 Mcg Tab 200 MCG PO DAILY Lisinopril (Zestril) 30 Mg Tab 30 MG PO QAM Metformin HCl (Metformin HCl) 500 Mg Tab 1000 MG PO BID Multivitamin (Multivitamin) Tab 1 TAB PO DAILY, TAB Admission Information HPI (per Admitting provider): This is a 56 year old male with a PMH of CLL (last chemotherapy in February), hx. of chemo-induced neutropenia, HTN, DM2, hypothyroidism, hx. of benign villous adenoma of colon - presents after being sent by Dr. Kinney for anemia. As per patient, he had been doing very well - his numbers were looking good since March - his last blood transfusion was in March. He recently went on a trip to [place] and was doing fine - when he flew back, he started feeling upper respiratory symptoms, nasal congestion, runny nose, etc. He also felt weak and his hands felt pale and cool like when he needed transfusions in the past. Otherwise, no shortness of breath/chest pain/palpitations/nausea/vomiting/ diarrhea/fevers/chills. He saw Dr. Kinney in the office and Hgb noted to be 5.4 and he was sent for blood transfusions. Physical Exam (per Admitting): General Appearance: no apparent distress, + obese Head: normocephalic, atraumatic ENT: hearing grossly normal Neck: supple Respiratory/Chest: chest non-tender, lungs clear, normal breath sounds, no respiratory distress, no accessory muscle use Cardiovascular: regular rate, rhythm, no edema, no gallop, no JVD, no murmur , normal peripheral pulses Abdomen/GI: normal bowel sounds, non tender, soft Back: no CVA tenderness, no muscle spasm Extremities/Musculoskelatal: normal inspection, no calf tenderness, normal capillary refill, no pedal edema, normal range of motion Neurologic/Psych: automatic seamer II-XII nml as tested, no motor/sensory deficits, alert , normal mood/affect, oriented x 3 Skin: + pertinent finding (cool, pale hands/extremities) Lymphatic: no adenopathy Hospital Course This is a 56 year old male with a PMH of CLL (last chemotherapy in February), hx. of chemo-induced neutropenia, HTN, DM2, hypothyroidism, hx. of benign villous adenoma of colon - presents after being sent by Dr. Kinney for anemia. Anemia in the setting of CLL 07/06 s/p two units pRBCs Hgb up to 6.9 will transfuse two more units check H/H four hours after transfusion hem/onc consulted for further input 07/05 patient sent from hem/onc office presented with weakness, nasal congestion, URI symptoms Hgb noted to be 5.6 on arrival two units of pRBCs type and crossed and we will transfuse recheck H/H in AM Hem/onc consulted hold fish oils patient is also due for a colonoscopy and should get this done as an outpatient Pancytopenia chronic pancytopenia in the setting of CLL WBC, platelets stable - monitor in AM HTN continue Lisinopril DM2 Ha1c = 5.8% hold metformin Lantus 10 units BID sliding scale HLD hold fish oils, restart on discharge Hypothyroidism continue Synthroid DVT ppx SCDs FULL CODE Total time spent on discharge = 20 minutes This includes examination of the patient, discharge planning, medication reconciliation, and communication with other providers. Discharge Instructions Please follow-up with Dr. Kinney, oncology, in 2-3 days
--- NOTE | 2017-07-06 19:00 | Medical Consult ---
Consultation Note Date of Service Jul 06, 2017. Consultation Note I came to see patient for heme consult - 56 year old male with CLL, with pancytopenia, admitted for severe anemia Patient in his room resting in bed, he states he feels better after blood transfusion He refused heme consult at this time - states he plans to follow up with Dr Kinney in the office I discussed with him that we can check some additional labs such as direct bill haptoglobin and retic count b12 folate ldh smear but he states that he refuses any further blood test at this time and that he feels better and plans to follow up in the office with Dr Kinney regarding his CLL and pancytopenia I paged Dr Sandoval but no answer so I sent him a tiger text that patient refuses heme consult Dr Sandoval answered back tiger text and is aware that patient refuse consult and plans to follow up with Dr Kinney Recommend patient that he have patient follow up with Dr Kinney sooner to have further evaluation regarding CLL and pancytopenia
[2017-07-10] MEDS ORDERED: LEVO200T6 PO (02:35)
[2017-07-10] MEDS ORDERED: OMEG10007 PO (12:56)
[2017-07-10] MEDS ORDERED: MULT-506 PO (12:56)
[2017-07-10] MEDS ORDERED: GLC500 PO (17:14)
[2017-07-10] MEDS ORDERED: INSDGIPEN SC (17:14)
[2017-07-10] MEDS ORDERED: LSNP/30 PO (17:14)
== END 2017-07-06 19:00 | disposition home or self-care (01) | DRG 841 ==
LOC: C.EDB 16:26 → C.2T 17:56 → ENRESERV 18:10
PROVIDERS: ADMIT Family Medicine; ATTEND Family Medicine
DX: C91.10 Chronic lymphocytic leukemia of B-cell type not having achieved remission (principal); D61.818 Other pancytopenia; E78.5 Hyperlipidemia, unspecified; E03.9 Hypothyroidism, unspecified; I10 Essential (primary) hypertension; E11.9 Type 2 diabetes mellitus without complications; E66.9 Obesity, unspecified; Z79.899 Other long term (current) drug therapy; Z79.4 Long term (current) use of insulin; Z92.21 Personal history of antineoplastic chemotherapy; Z68.36 Body mass index [BMI] 36.0-36.9, adult; Z83.3 Family history of diabetes mellitus; Z82.49 Family history of ischemic heart disease and other diseases of the circulatory system; Z84.1 Family history of disorders of kidney and ureter

== ENCOUNTER 2017-07-10 19:08 | Observation (INO) | payer OTHER ==
[~2017-07-10] VITALS: Ht 175.3 cm; Wt 113.9 kg
[~2017-07-10 19:08] MED LIST changes: -EMPA1TAB3 PO; +GLC500 PO; +LEVO200T6 PO; -LISI-526 PO; +LSNP/30 PO; -METF1000 PO; -MISCCAP80 PO; +MULT-506 PO; +OMEG10007 PO; -ONDA8TAB12 PO; -PROM25TA10 PO
--- NOTE | 2017-07-10 19:32 | EMERGENCY ROOM VISIT NOTE ---
History Report prepared by Leana: Surjit Zavala Under the Supervision of: Dr. Luis Alberto Crocker M.D. First contact with patient: 19:15 Chief Complaint: ABNORMAL LABS Stated Complaint: BLOOD-REFERRED History of Present Illness The patient is a 56 year old male who presents to the Emergency Room with complaints of abnormal laboratory results that were recorded today. He has a past medical history of leukemia. He states that he only received partial treatment for the leukemia but stopped because his levels had normalized. He was treated at our facility on the through the for a low hemoglobin. He received 4 units of irradiated blood and was discharged afterward. While receiving his routine blood work at his PCP's office today, they found his hemoglobin level was 6.3 and his ANC level was 0.9. They referred him to the ER to receive blood. The patient states that he is currently asymptomatic. He states that when his levels drop lower than they are currently, his legs get weak. He denies any fevers, chills, chest pain, shortness of breath, lightheadedness, dizziness, nausea, vomiting, hematochezia, melena, weakness, or numbness. He is not on any blood thinners. Source of History: patient Onset: recorded recently Position: other (Global) Symptom Intensity: Hemoglobin of 6.3 Quality: other (Low hemoglobin) Timing: constant Associated Symptoms: No fevers, No chills, No chest pain, No SOB, No nausea , No vomiting, No melena, No hematochezia, No weakness, No numbness Note: His ANC level is 0.9. Review of Systems See HPI for pertinent positives & negatives. A total of 10 systems reviewed and were otherwise negative. Past Medical & Surgical Medical Problems: (1) Anemia (2) Anemia (3) Benign neoplasm of colon (4) Chemotherapy induced neutropenia (5) CLL (chronic lymphocytic leukemia) (6) DM type 2 (diabetes mellitus, type 2) (7) Dyslipidemia (8) HTN (hypertension) (9) Hypothyroidism (10) Obesity (BMI 30-39.9) (11) Pancytopenia Surgical Problems: (1) H/O colonoscopy with polypectomy (2) S/p bone marrow aspiration Family History Cancer Diabetes mellitus Gallbladder disease Heart disease Hypertension Kidney disease MOTHER Kidney stones Social History Smoking Status: Former Smoker Alcohol Use: none Drug Use: none Marital Status: single Housing Status: lives alone Occupation Status: employed Current/Historical Medications Scheduled Fish Oil ([place]-3), 1 CAP PO DAILY Insulin Glargine (Lantus Solostar), 20 UNITS SC QAM Levothyroxine Sodium (Levothyroxine Sodium), 200 MCG PO DAILY Lisinopril (Zestril), 30 MG PO QAM Metformin HCl (Metformin HCl), 1,000 MG PO BID Multivitamin (Multivitamin), 1 TAB PO DAILY Allergies Coded Allergies: No Known Allergies (Unverified , 04/12/17) Physical Exam Vital Signs Date Time Temp Pulse Resp B/P (MAP) Pulse Ox O2 Delivery O2 Flow Rate FiO2 07/10/17 19:11 36.9 101 18 131/70 97 Room Air Physical Exam GENERAL: Patient is in no acute distress. HEENT: No acute trauma, normocephalic atraumatic, mucous membranes moist, no nasal congestion, no scleral icterus. NECK: No stridor, no adenopathy, no meningismus, trachea is midline. LUNGS: Clear to auscultation bilaterally, no wheeze, no rhonchi, breath sounds equal. HEART: There is a 2/6 systolic murmur with a regular rate and rhythm. ABDOMEN: Soft, nontender, bowel sounds positive, no hernias, no peritonitis. EXTREMITIES: No cyanosis or edema, full range of motion of all the joints without pain or difficulty, no signs for acute trauma. NEUROLOGIC: Oriented x 3, no acute motor or sensory deficits, no focal weakness. SKIN: Pale. No rash, no jaundice, no diaphoresis. Medical Decision & Procedures Laboratory Results 07/10/17 19:51 Red Blood Count 1.68, Mean Corpuscular Volume 103.0, Mean Corpuscular Hemoglobin 34.5, Mean Corpuscular Hemoglobin Concent 33.5, Mean Platelet Volume 11.3 07/10/17 19:51 Test 07/10/17 19:51 White Blood Count 2.57 K/uL (4.8-10.8) Red Blood Count 1.68 M/uL (4.7-6.1) Hemoglobin 5.8 g/dL (14.0-18.0) Hematocrit 17.3 % (42-52) Mean Corpuscular Volume 103.0 fL (80-100) Mean Corpuscular Hemoglobin 34.5 pg (25-34) Mean Corpuscular Hemoglobin Concent 33.5 g/dl (32-36) Platelet Count 42 K/uL (130-400) Mean Platelet Volume 11.3 fL (7.4-10.4) RDW Standard Deviation 79.6 fL (36.4-46.3) RDW Coefficient of Variation 21.6 % (11.5-14.5) Neutrophils % (Manual) 47.3 % Lymphocytes % (Manual) 39.5 % Monocytes % (Manual) 13.2 % Neutrophils # (Manual) 1.22 K/uL (1.4-6.5) Total Absolute Neutrophils 1.22 K/uL (1.4-6.5) Lymphocytes # (Manual) 1.02 K/uL (1.2-3.4) Total Absolute Lymphocytes 1.02 K/uL (1.2-3.4) Monocytes # (Manual) 0.34 K/uL (0.11-0.59) Platelet Estimate DECREASED Anisocytosis PRESENT Tear Drop Cells OCCASIONAL Anion Gap 8.0 mmol/L (3-11) Est Creatinine Clear Calc Drug Dose 93.0 ml/min Estimated GFR () 85.6 Estimated GFR (Non- 73.8 BUN/Creatinine Ratio 22.2 (10-20) Calcium Level 8.3 mg/dl (8.5-10.1) Total Bilirubin 1.2 mg/dl (0.2-1) Aspartate Amino Transf (AST/SGOT) 58 U/L (15-37) Alanine Aminotransferase (ALT/SGPT) 73 U/L (12-78) Alkaline Phosphatase 97 U/L (45-117) Total Protein 5.5 gm/dl (6.4-8.2) Albumin 3.2 gm/dl (3.4-5.0) Globulin 2.3 gm/dl (2.5-4.0) Albumin/Globulin Ratio 1.4 (0.9-2) Laboratory results reviewed by me. ED Course 191: The patient was evaluated in room C8. A complete history and physical exam was performed. 193: Upon reexamination the patient is resting. I discussed results and treatment plan with the patient. He verbalizes agreement and understanding. I [place] [facility] discussed the patient's results and findings. The patient will be evaluated by him for further management. 2004: Upon reevaluation, the patient is signing his blood consent forms. He will be taken upstairs soon. Medical Decision Differential diagnosis includes but is not limited to anemia, leukemia, thrombocytopenia, neutropenia, coagulopathy, and bleeding. The patient's white count, hemoglobin and platelet count are all low. Hemoglobin is 5.8. No significant electrolyte abnormality requiring correction. There were a few scattered liver enzyme elevations. On exam, the patient looked pale, he was not short of breath, he had no complaints really. He was not toxic or febrile. The patient presents for a low hemoglobin. The low hemoglobin value was confirmed. He was ordered for blood for transfusion, the consent was signed. The blood is not yet ready to be given. The patient will be hospitalized for his transfusions. I spoke to the patient and the complex case manager. The on-call hospitalist was consulted. Medication Reconcilliation Current Medication List: was personally reviewed by me Blood Pressure Screening Patient's blood pressure: Elevated blood pressure Blood pressure disposition: Elevated BP felt to be situational Consults Time Called: 1929 Consulting Physician: Dr. Jaime Pineda [facility] Returned Call: 1932 Discussed the patient's case. The patient will be evaluated for further management. Impression Primary Impression: Anemia Additional Impression: CLL (chronic lymphocytic leukemia) Scribe Attestation The scribe's documentation has been prepared under my direction and personally reviewed by me in its entirety. I confirm that the note above accurately reflects all work, treatment, procedures, and medical decision making performed by me. Departure Information Dispostion Being Evaluated By Hospitalist Referrals Divya Diaz D.O. (PCP) Patient Instructions [facility] Problem Qualifiers Primary Impression: Anemia
[2017-07-10] MEDS: SODIUM CHLORIDE 0.9% 1000ML 1,000 ML IV SCH (19:44)
[2017-07-10] MEDS ORDERED: GLUCAGON FOR INJ 1 MG VIAL SQ PRN (19:45)
[2017-07-10] MEDS ORDERED: ONDANSETRON INJ 2 MG/ML 2 ML VIAL IV PRN (19:45)
[2017-07-10] MEDS ORDERED: DEXTROSE 50% 50 ML SYR IV PRN (19:45)
[2017-07-10] MEDS ORDERED: GLUCOSE 40% GEL 15 GM TUBE PO PRN (19:45)
[2017-07-10] MEDS ORDERED: GLUCOSE 10 TABS/TUBE PO PRN (19:45)
[2017-07-10 20:30] VITALS: BP 148/76; PULSE 96; TEMP 36.6; O2SAT 97; Ht 175.3 cm; Wt 113.9 kg
[2017-07-10 20:34] LABS: HEMATOCRIT 17.3 % (42-52); MEAN CORPUSCULAR HEMOGLOBIN 34.5 pg (25-34); MEAN CORPUSCULAR HGB CONC 33.5 g/dl (32-36); RED BLOOD COUNT 1.68 M/uL (4.7-6.1); WHITE BLOOD COUNT 2.57 K/uL (4.8-10.8)
[2017-07-10 20:36] LABS: ALB/GLOB RATIO 1.4 (0.9-2); BUN/CREATININE RATIO 22.2 (10-20); CALCIUM 8.3 mg/dl (8.5-10.1); CREATININE 1.11 mg/dl (0.60-1.40); POTASSIUM 4.5 mmol/L (3.5-5.1)
[2017-07-10 20:38] LABS: ANISOCYTOSIS PRESENT; COMPLETE YES; LYMPH ABS # 1.02 K/uL (1.2-3.4); LYMPHOCYTE % 39.5 %; MEAN PLATELET VOLUME 11.3 fL (7.4-10.4); NEUTROPHILS % 47.3 %; PLATELET COUNT 42 K/uL (130-400); PLT ESTIMATE DECREASED; TEAR DROP CELLS OCCASIONAL
--- NOTE | 2017-07-10 21:01 | History and Physical ---
History & Physical Date & Time of Service: Jul 10, 2017 at 19:41 Chief Complaint: Blood-Referred Primary Care Physician: Divya Diaz D.O. History of Present Illness Source: patient, clinic records, hospital records This is a 56 year old male with a PMH of CLL (last chemotherapy in February), hx. of chemo-induced neutropenia, HTN, DM2, hypothyroidism, hx. of benign villous adenoma of colon - recently admitted for blood transfusion and received 4 units of PRBCs and discharged on 07/06 - returned due to outpatient Hgb being 6.3. Denies any symptoms. No chest pain/no shortness of breath, no weakness, no illness. Denies any bleeding, no hematuria, no melena or hematochezia. No bruising. 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 Status: Chronic (2) Chemotherapy induced neutropenia Status: Chronic (3) CLL (chronic lymphocytic leukemia) Status: Chronic (4) DM type 2 (diabetes mellitus, type 2) Status: Chronic (5) Dyslipidemia Status: Chronic (6) HTN (hypertension) Status: Chronic (7) Hypothyroidism Status: Chronic (8) Obesity (BMI 30-39.9) Status: Chronic Surgical Problems: (1) H/O colonoscopy with polypectomy Status: Chronic (2) S/p bone marrow aspiration Status: Chronic Family History Cancer Diabetes mellitus Gallbladder disease Heart disease Hypertension Kidney disease MOTHER Kidney stones Social History Smoking Status: Former Smoker Drug Use: none Marital Status: single Housing status: lives alone Occupational Status: employed Immunizations History of Influenza Vaccine: No History of Tetanus Vaccine?: No History of Pneumococcal: No History of Hepatitis B Vaccine: No Allergies Coded Allergies: No Known Allergies (Unverified , 04/12/17) Home Medications Scheduled Fish Oil ([place]-3), 1 CAP PO DAILY Insulin Glargine (Lantus Solostar), 20 UNITS SC QAM Levothyroxine Sodium (Levothyroxine Sodium), 200 MCG PO DAILY Lisinopril (Zestril), 30 MG PO QAM Metformin HCl (Metformin HCl), 1,000 MG PO BID Multivitamin (Multivitamin), 1 TAB PO DAILY Review of Systems Constitutional: No fever, No chills, No sweats, No weight loss, No weakness, No fatigue Eyes: No worsening of vision Respiratory: No cough, No sputum, No wheezing, No shortness of breath, No dyspnea on exertion Abdomen: No pain, No nausea, No vomiting, No diarrhea, No constipation, No GI bleeding Musculoskeletal: No joint pain, No muscle pain Genitourinary - Male: No hematuria, No dysuria, No urinary frequency, No urinary urgency Neurologic: No weakness, No numbness/tingling, No vertigo, No balance problems Psychiatric: No depression symptoms, No anxiety, No insomnia Endocrine: No fatigue Hematologic / Lymphatic: No abnormal bleeding/bruising, No swollen lymph nodes Integumentary: No rash Allergic / Immunologic: No environmental allergies, No seasonal allergies Physical Exam Vital Signs Date Time Temp Pulse Resp B/P (MAP) Pulse Ox O2 Delivery O2 Flow Rate FiO2 07/10/17 19:11 36.9 101 18 131/70 97 Room Air General Appearance: no apparent distress, + obese Head: normocephalic, atraumatic Eyes: normal inspection Respiratory/Chest: chest non-tender, lungs clear, normal breath sounds, no respiratory distress, no accessory muscle use Cardiovascular: regular rate, rhythm, no edema, no murmur Abdomen/GI: normal bowel sounds, non tender, soft Extremities/Musculoskelatal: normal inspection, no calf tenderness, normal capillary refill, no pedal edema, normal range of motion Neurologic/Psych: district resource officer II-XII nml as tested, no motor/sensory deficits, alert, normal mood/affect, oriented x 3 Skin: normal color Lymphatic: no adenopathy Diagnostics Laboratory Results Results Past 24 Hours Test 07/10/17 19:20 Range/Units Impression Assessment and Plan This is a 56 year old male with a PMH of CLL (last chemotherapy in February), hx. of chemo-induced neutropenia, HTN, DM2, hypothyroidism, hx. of benign villous adenoma of colon - recently admitted for blood transfusion and received 4 units of PRBCs and discharged on 07/06 - returned due to outpatient Hgb being 6.3 Anemia in the setting of CLL patient sent from outpatient due to low Hgb (6.3 as outpatient); 5.8 on inpatient labs no clinical symptoms three units of pRBCs type and crossed and we will transfuse recheck H/H in AM Hem/onc consulted hold fish oils patient is also due for a colonoscopy and should get this done as an outpatient Pancytopenia chronic pancytopenia in the setting of CLL WBC, platelets are trending slightly down from previous admission, but stable hem/onc consulted for further input HTN continue Lisinopril DM2 Ha1c = 5.8% hold metformin Lantus 10 units BID sliding scale HLD hold fish oils, restart on discharge Hypothyroidism continue Synthroid DVT ppx SCDs FULL CODE
[2017-07-10] MEDS ORDERED: IV FLUIDS COMPLETED PRN (21:30)
[2017-07-10] MEDS: INSULIN GLARGINE SOLOSTAR 100 UNITS/ML 3 ML PEN SC SCH (21:36)
[2017-07-10] MEDS: INSULIN ASPART 100 UNITS/ML 3 ML PEN SC SCH (21:37)
[2017-07-10 21:56] VITALS: BP 103/66; PULSE 85; TEMP 36.8; O2SAT 97
[2017-07-10 22:16] VITALS: BP_SYST 102; BP_SYST 110; BP_DIAS 67; PULSE 86; PULSE 88; TEMP 36.7; O2SAT 97; O2SAT 98
[2017-07-10 23:03] VITALS: BP 104/68; PULSE 90; TEMP 37; O2SAT 99
[2017-07-11] VITALS (15 sets, daily range): BP systolic 94–146; BP diastolic 55–84; PULSE 72–87; TEMP 36.7–37.1; O2SAT 95–100
[2017-07-11] MEDS ORDERED: LEVOTHYROXINE 200 MCG TAB PO SCH (06:00)
[2017-07-11] MEDS: SODIUM CHLORIDE 0.9% 1000ML 1,000 ML IV SCH (06:40)
[2017-07-11 07:15] LABS: BUN/CREATININE RATIO 21.1 (10-20); CALCIUM 8.2 mg/dl (8.5-10.1); CREATININE 0.95 mg/dl (0.60-1.40); POTASSIUM 4.3 mmol/L (3.5-5.1)
[2017-07-11 07:44] LABS: ANISOCYTOSIS PRESENT; COMPLETE YES; DOHLE BODIES 2+; HEMATOCRIT 24.5 % (42-52); LARGE PLATELETS 2+; LYMPH ABS # 1.37 K/uL (1.2-3.4); LYMPHOCYTE % 41.2 %; MEAN CELL VOLUME 97.2 fL (80-100); MEAN CORPUSCULAR HEMOGLOBIN 33.3 pg (25-34); MEAN CORPUSCULAR HGB CONC 34.3 g/dl (32-36); MEAN PLATELET VOLUME 11.4 fL (7.4-10.4); NEUTROPHILS % 45.6 %; PLATELET COUNT 41 K/uL (130-400); POIKILOCYTOSIS PRESENT; RED BLOOD COUNT 2.52 M/uL (4.7-6.1); WHITE BLOOD COUNT 3.32 K/uL (4.8-10.8)
[2017-07-11] MEDS: INSULIN ASPART 100 UNITS/ML 3 ML PEN SC SCH ×3 (08:07→16:59)
[2017-07-11] MEDS: INSULIN GLARGINE SOLOSTAR 100 UNITS/ML 3 ML PEN SC SCH (08:08)
[2017-07-11] MEDS ORDERED: LISINOPRIL 10 MG TAB PO SCH (09:00)
[2017-07-11] MEDS ORDERED: MULTIVITAMIN TAB PO SCH (09:00)
--- NOTE | 2017-07-11 09:52 | Medical Consult ---
Consultation Date of Consultation: Jul 11, 2017. Attending Physician: Uyen Capellan M.D. 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 PREVIOUS TREATMENT: - Rituxan weekly x 4 between 07/28/2016-08/18/2016. - FCR x3 between 11/29/2016-January,. Last dose of fludarabine received on 01/26. DIAGNOSTIC WORKUP: - At the time of the diagnosis of B-cell CLL in July,, white blood cell count was around 13,000, H&H of 11.7/38, Platelet count of 229,000. -In June, white blood cell count increased to around 40,000-50,000, absolute lymphocyte count was around 35,000-48,000. Hemoglobin level dropped down to around 6.2 g/dL, platelet count has remained in the normal range around 160,000-200,000. He received blood transfusion support. Since early 2016 his hemoglobin level has remained quite low, received several units of PRBC. He had significant reticulocytopenia. He received Rituxan every weekly between 07/28/2016-08/18/2016 x4. With Rituxan chemotherapy, white blood cell count dropped down to the normal range, hemoglobin level stayed on the lower side, platelet count also stayed in the normal range. Received FCR (fludarabine, cyclophosphamide, Rituxan) x3 between November,- January,, following that chemotherapy, his white blood cell count dropped down significantlt between [id number], hemoglobin stayed quite low between 6.5- 10 g/dL requiring blood transfusion support, platelet count also dropped down to around 13,000 in February and so decided not to continue with any kind of chemotherapy at that time. Blood transfusion history: * 06/25-07/06/2017--> 4 units. * 03/2017--> 4 units * Before March, in 2017--> 35 units. * In 2016 (June,-July,)--> 8 units . PATHOLOGY: Bone marrow exam done on 10/27/2016--> B-cell CLL. Hyper cellular bone marrow, > 90%. Sheets of atypical small lymphocytes diffusely replace the marrow with interstitial and solid patterns. In a relatively uninvolved area, normal trilineage hematopoiesis is present. CLL FISH: POSITIVE FOR DELETION OF 13q14 Normal results seen for the 6, 11, 11;14, 12, 13q34 and 17 probes. OTHER IMPORTANT HISTORY: -diabetes mellitus. Obesity. Hyperlipidemia Medications: Please review his chart for detailed list of medications. INTERVAL HISTORY: Now once again he is admitted at [facility] for symptomatic anemia, recently he received 4 units of PRBC about 4 days back and now once again he has persistent anemia, now he has in fact pancytopenia. No new infectious complications. Last 24 hour he received total 3 units of PRBC. He denies any leg swelling, no increasing nausea or vomiting. No fever, no increasing night sweats. REVIEW OF SYSTEMS: Constitutional: weight loss present, his weight was around 285 earlier this year, current weight is around 255 lb feeling weak and tired which has improved after the blood transfusion, no fever, no chills. Head: No new headache, no dizziness Eyes: no recent change in the vision, no diplopia ENT: no hearing loss, no earache.No epistaxis, No nasal discharge or stuffiness Resp: No cough, No shortness of breath, no hemoptysis, no chest pain, No wheezing. Cardiac: no anginal chest pain, no dyspnea on exertion and no edema GI: no abdominal pain, no heartburn, no diarrhea, no constipation, no blood/ melena, no nausea, no vomiting Musculoskeletal: no significant joint or muscle pain and no swelling : no nocturia and no frequency, no hematuria. Neuro: no memory loss, no weakness, no falling, no numbness or tingling and no vertigo Psych: Spirits good. No depression. No anxiety. No psychosis Heme: No bleeding, no swollen nodes Endo: no thyroid disease; Skin: No rash, no itching. no bruising. Legs: no leg edema. On exam: - Alert and oriented x3, well built slightly obese man, not in any distress. - HEENT: no icterus, pallor present, Throat: Normal. - Neck: No palpable cervical lymphadenopathy. - Chest: clear to auscultation. - Abdomen: soft, nontender, no hepatomegaly, no splenomegaly. - No focal neuro deficit. - Extremities: no finger clubbing, no leg edema. - No palpable lymphadenopathy noted in the neck or in the axilla. IMAGING: - MRI of the abdomen done on 07/02/2015 at 611--> mild splenomegaly measuring 19.7 cm. Mildly enlarged liver measuring 17.9 cm. Intra-abdominal lymphadenopathy involving the celiac region, portacaval, finesse hepatis, left para-aortic region. -CT scan of the chest, abdomen pelvis done on 09/05/2016--> intra-abdominal and pelvic lymphadenopathy, splenomegaly measuring about 17.9 cm. -CT scan of the chest, abdomen pelvis done on 03/28/2017--> no lymphadenopathy noted in the chest, some patchy airspace changes noted in the right upper lobe dot [id number] splenomegaly measuring about 17 cm. Interval decrease in the intra-abdominal lymphadenopathy noted. No bone lesions noted. LABORATORY DATA: -Absolute reticulocyte count--> 10,800 (September,) -LDH--> 181 (September,). -Uric acid--> 7.8 (04/04/2017) -BUN/Creat: 23/1.1, calcium 9.2, AST 58, ALT 181, Total bilirubin: 0.3, alkaline phosphatase 106 (04/11/2017) Blood workup done on 07/05/2017: -WBC 3800, H&H of 5.4/16.8, MCV 119, Platelet count of 55,000. ANC 1000. (He received 4 units of PRBC) Blood workup done on 07/10/2017: -WBC 2800, H&H of 6.3/19, MCV 106, Platelet count of 42,000, ANC 0.9. -Absolute reticulocyte count--> 9700 which is significantly on the lower side. -Haptoglobin--> less than 10 -Direct Judit test--> negative. -LDH 1597 ASSESSMENT AND PLAN: 56-year-old male, a case of B-cell CLL diagnosed in late 2014, he had splenomegaly and intra-abdominal lymphadenopathy at that time the diagnosis, he remained under observation for about 1 year or so he but then had significant anemia in late 2015, also noticed to have significant reticulocytopenia, Judit test was negative at that time, at the same time noticed to have increasing lymphocyte count, he received 4 cycles of weekly Rituxan in July, with improvement of the white blood cell count and lymphocyte count but his hemoglobin level has remained quite low, in the last 1 year he received approximately 54 units of PRBC. He also received 3 cycles of chemotherapy with FCR between November, - early January,. His treatment was complicated by significant pancytopenia and so decided to discontinue chemotherapy. Earlier he was treated and followed by Dr. Kinney. I am covering Dr. Kinney this week. I saw him in the hospital. Now once again he is admitted at [facility] for symptomatic anemia, I reviewed his blood workup. Once again direct Judit test is negative , he had a normal LDH earlier in September,, now LDH is around 1500. Persistent reticulocytopenia noted. Last imaging study done in March, showed some partial response following FCR chemotherapy, has persistent splenomegaly measuring about 17 cm. He denies any bleeding from in the sites. 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 He will need a bone marrow for further evaluation. Hemolysis would be possible but direct and indirect Judit test is negative. Splenomegaly may be causing further drop in the blood count in his case. I would consider for transfer at [facility] for further evaluation management. Meanwhile will continue supportive treatment with blood transfusion as needed. Thanks for the consultation. Dr. Ephraim Baron Hem/Onc (This note was completed using the dictation program Fluency Direct. As such, there may be misspellings, word substitutions, or other variations that should not change the essence of the clinical content of this encounter note. If there is need for further clarification, please direct questions to the provider listed above.) Past Medical/Surgical History Medical Problems: (1) CLL (chronic lymphocytic leukemia) Status: Chronic (2) Dehydration Status: Acute (3) Dyspnea on exertion Status: Acute (4) Hyperglycemia Status: Acute (5) Weakness Status: Acute Family History Cancer Diabetes mellitus Gallbladder disease Heart disease Hypertension Kidney disease MOTHER Kidney stones Social History Smoking Status: Former Smoker Drug Use: none Marital Status: single Housing Status: lives alone Occupation Status: employed Allergies Coded Allergies: No Known Allergies (Unverified , 04/12/17) Current Inpatient Medications Current Inpatient Medications Medications (Trade) Dose Ordered Sig/Alesha Route Start Time Stop Time Status Last Admin Dose Admin Sodium Chloride 1,000 ml @ 80 mls/hr [id number] IV 07/10/17 19:44 08/09/17 19:43 07/11/17 06:40 80 MLS/HR Ondansetron HCl (Zofran Inj) 4 mg Q6H PRN IV 07/10/17 19:45 08/09/17 19:44 Insulin Glargine (Lantus Solostar Pen) 10 units Q12 SC 07/10/17 21:00 08/09/17 20:59 07/11/17 08:08 10 UNITS Insulin Aspart (novoLOG ASPART) SLIDING SCALE If C... ACHS SC 07/10/17 21:00 08/09/17 20:59 07/11/17 08:07 5 UNITS Glucose (Glucose 40% Gel) 15-30 GRAMS 15 GRAMS... UD PRN PO 07/10/17 19:45 08/09/17 19:44 Glucose (Glucose Chew Tab) 4-8 Tablets 4 Tabl... UD PRN PO 07/10/17 19:45 08/09/17 19:44 Dextrose (Dextrose 50% 50ML Syringe) 25-50ML OF 50% DW IV FOR... UD PRN IV 07/10/17 19:45 08/09/17 19:44 Glucagon (Glucagon Inj) 1 mg UD PRN SQ 07/10/17 19:45 08/09/17 19:44 Levothyroxine Sodium (Synthroid Tab) 200 mcg DAILYBB PO 07/11/17 06:00 08/10/17 05:59 07/11/17 05:52 200 MCG Lisinopril (Zestril Tab) 30 mg QAM PO 07/11/17 09:00 08/10/17 08:59 07/11/17 08:08 30 MG Multivitamins (Multivitamin Tab) 1 tab DAILY PO 07/11/17 09:00 08/10/17 08:59 07/11/17 08:09 1 TAB Miscellaneous (Iv Fluids Completed) 1 ea PRN PRN N/A 07/10/17 21:30 07/10/18 21:29 Physical Exam Date Time Temp Pulse Resp B/P (MAP) Pulse Ox O2 Delivery O2 Flow Rate FiO2 11/21/17 08:00 Room Air 07/11/17 07:11 36.7 77 20 115/74 (88) 97 Room Air 07/11/17 05:02 37.1 80 20 105/68 97 07/11/17 04:22 37.1 79 18 112/69 97 07/11/17 04:05 37.0 85 97/63 95 07/11/17 04:02 Room Air 07/11/17 03:50 36.9 81 20 101/66 96 07/11/17 02:45 36.9 83 18 116/74 99 07/11/17 01:43 36.9 79 19 109/64 100 07/11/17 01:17 37.0 87 18 94/55 98 07/11/17 00:09 36.9 86 19 123/83 98 07/11/17 00:00 Room Air 07/10/17 23:03 37.0 90 18 104/68 99 07/10/17 22:16 36.7 86 20 110/67 98 07/10/17 22:16 36.7 88 20 102/67 97 07/10/17 21:56 36.8 85 18 103/66 97 07/10/17 20:30 Room Air 07/10/17 20:30 93 18 122/63 97 07/10/17 20:30 36.6 96 20 148/76 97 Room Air 07/10/17 19:11 36.9 101 18 131/70 97 Room Air Laboratory Results Last 24 Hours Test 07/10/17 19:51 07/10/17 21:31 07/11/17 06:22 07/11/17 06:37 White Blood Count 2.57 K/uL 3.32 K/uL Red Blood Count 1.68 M/uL 2.52 M/uL Hemoglobin 5.8 g/dL 8.4 g/dL Hematocrit 17.3 % 24.5 % Mean Corpuscular Volume 103.0 fL 97.2 fL Mean Corpuscular Hemoglobin 34.5 pg 33.3 pg Mean Corpuscular Hemoglobin Concent 33.5 g/dl 34.3 g/dl Platelet Count 42 K/uL 41 K/uL Mean Platelet Volume 11.3 fL 11.4 fL RDW Standard Deviation 79.6 fL 68.3 fL RDW Coefficient of Variation 21.6 % 19.7 % Neutrophils % (Manual) 47.3 % 45.6 % Lymphocytes % (Manual) 39.5 % 41.2 % Monocytes % (Manual) 13.2 % 13.2 % Neutrophils # (Manual) 1.22 K/uL 1.51 K/uL Total Absolute Neutrophils 1.22 K/uL 1.51 K/uL Lymphocytes # (Manual) 1.02 K/uL 1.37 K/uL Total Absolute Lymphocytes 1.02 K/uL 1.37 K/uL Monocytes # (Manual) 0.34 K/uL 0.44 K/uL Platelet Estimate DECREASED Anisocytosis PRESENT PRESENT Tear Drop Cells OCCASIONAL Sodium Level 138 mmol/L 139 mmol/L Potassium Level 4.5 mmol/L 4.3 mmol/L Chloride Level 102 mmol/L 103 mmol/L Carbon Dioxide Level 28 mmol/L 28 mmol/L Anion Gap 8.0 mmol/L 8.0 mmol/L Blood Urea Nitrogen 25 mg/dl 20 mg/dl Creatinine 1.11 mg/dl 0.95 mg/dl Est Creatinine Clear Calc Drug Dose 93.0 ml/min 108.1 ml/min Estimated GFR () 85.6 103.3 Estimated GFR (Non- 73.8 89.1 BUN/Creatinine Ratio 22.2 21.1 Random Glucose 199 mg/dl 151 mg/dl Calcium Level 8.3 mg/dl 8.2 mg/dl Total Bilirubin 1.2 mg/dl Aspartate Amino Transf (AST/SGOT) 58 U/L Alanine Aminotransferase (ALT/SGPT) 73 U/L Alkaline Phosphatase 97 U/L Total Protein 5.5 gm/dl Albumin 3.2 gm/dl Globulin 2.3 gm/dl Albumin/Globulin Ratio 1.4 Bedside Glucose 237 mg/dl 160 mg/dl Dohle Bodies 2+ Large Platelets 2+ Poikilocytosis PRESENT
--- NOTE | 2017-07-11 12:15 | Progress Note ---
Medicine Progress Note Date & Time of Visit: Jul 11, 2017 at 11:58. Subjective Pt was seen and examined Sitting in bed with no distress Pt said that he feels fine I talked to oncology dr. Baron that recommended to transfer pt to [facility] for bone marrow biopsy He would like to be discharged and his sister will drive him to [facility] Pt is concerned about the insurance will not cover for the transport Pt denies any chest pain palpitation, dizziness and SOB Objective Last 8 Hrs Date Time Temp Pulse Resp B/P (MAP) Pulse Ox O2 Delivery O2 Flow Rate FiO2 07/11/17 08:00 Room Air 07/11/17 07:11 36.7 77 20 115/74 (88) 97 Room Air 07/11/17 05:02 37.1 80 20 105/68 97 07/11/17 04:22 37.1 79 18 112/69 97 07/11/17 04:05 37.0 85 97/63 95 07/11/17 04:02 Room Air Physical Exam: General- No acute distress Head- atraumatic Eyes- PERRL, EOMI ENT- oropharynx clear Neck- supple, no JVD Lungs- clear to auscultation Heart- regular rhythm; no murmur Abdomen- normal bowel sounds, soft, nontender Extremities- no calf tenderness Neuro- alert, oriented x 3; PERRL, EOMI; no facial palsy Skin- warm & dry Laboratory Results: Last 24 Hours Test 07/10/17 19:51 07/10/17 21:31 07/11/17 06:22 07/11/17 06:37 White Blood Count 2.57 K/uL 3.32 K/uL Red Blood Count 1.68 M/uL 2.52 M/uL Hemoglobin 5.8 g/dL 8.4 g/dL Hematocrit 17.3 % 24.5 % Mean Corpuscular Volume 103.0 fL 97.2 fL Mean Corpuscular Hemoglobin 34.5 pg 33.3 pg Mean Corpuscular Hemoglobin Concent 33.5 g/dl 34.3 g/dl Platelet Count 42 K/uL 41 K/uL Mean Platelet Volume 11.3 fL 11.4 fL RDW Standard Deviation 79.6 fL 68.3 fL RDW Coefficient of Variation 21.6 % 19.7 % Neutrophils % (Manual) 47.3 % 45.6 % Lymphocytes % (Manual) 39.5 % 41.2 % Monocytes % (Manual) 13.2 % 13.2 % Neutrophils # (Manual) 1.22 K/uL 1.51 K/uL Total Absolute Neutrophils 1.22 K/uL 1.51 K/uL Lymphocytes # (Manual) 1.02 K/uL 1.37 K/uL Total Absolute Lymphocytes 1.02 K/uL 1.37 K/uL Monocytes # (Manual) 0.34 K/uL 0.44 K/uL Platelet Estimate DECREASED Anisocytosis PRESENT PRESENT Tear Drop Cells OCCASIONAL Sodium Level 138 mmol/L 139 mmol/L Potassium Level 4.5 mmol/L 4.3 mmol/L Chloride Level 102 mmol/L 103 mmol/L Carbon Dioxide Level 28 mmol/L 28 mmol/L Anion Gap 8.0 mmol/L 8.0 mmol/L Blood Urea Nitrogen 25 mg/dl 20 mg/dl Creatinine 1.11 mg/dl 0.95 mg/dl Est Creatinine Clear Calc Drug Dose 93.0 ml/min 108.1 ml/min Estimated GFR () 85.6 103.3 Estimated GFR (Non- 73.8 89.1 BUN/Creatinine Ratio 22.2 21.1 Random Glucose 199 mg/dl 151 mg/dl Calcium Level 8.3 mg/dl 8.2 mg/dl Total Bilirubin 1.2 mg/dl Aspartate Amino Transf (AST/SGOT) 58 U/L Alanine Aminotransferase (ALT/SGPT) 73 U/L Alkaline Phosphatase 97 U/L Total Protein 5.5 gm/dl Albumin 3.2 gm/dl Globulin 2.3 gm/dl Albumin/Globulin Ratio 1.4 Bedside Glucose 237 mg/dl 160 mg/dl Dohle Bodies 2+ Large Platelets 2+ Poikilocytosis PRESENT Assessment & Plan Anemia in the setting of CLL Was sent from clinic for low hgb Received 4 units PRBC on 07/06 Asymptomatic Hbg on admission 5.8 Received 3 units PRBC during this hospitalization so far Hbg today 8.4 Direct Judit test is negative No active bleeding Case discussed with Dr. Baron recommended to transfer pt to [place] for bone marrow Continue monitor H/H, and transfuse if H/H drops below 7 Blood transfusion history: * 06/25-07/06/2017--> 4 units. * 03/2017--> 4 units * Before March, in 2017--> 35 units. * In 2016 (June,-July,)--> 8 units . 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 - FCR x3 between 11/29/2016-January,. Last dose of fludarabine received on 01/26. Has been required blood transfusion Case discussed with Dr. 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 Case discussed with Hematology Dr. Elliott that accepted the patient Pancytopenia chronic pancytopenia in the setting of CLL plt 41, wbc 3.3 stable HTN continue Lisinopril BP stable DM2 Ha1c = 5.8% hold metformin Lantus 10 units BID sliding scale HLD hold fish oils, restart on discharge Hypothyroidism continue Synthroid DVT ppx SCDs FULL CODE DISPOSITION Will transfer to [facility] Dr. Elliott Hematology accepted the patient Continue monitor CBC Consultants: Hem/Oncology Current Inpatient Medications: Current Inpatient Medications Medications (Trade) Dose Ordered Sig/Alesha Route Start Time Stop Time Status Last Admin Dose Admin Sodium Chloride 1,000 ml @ 80 mls/hr [id number] IV 07/10/17 19:44 08/09/17 19:43 07/11/17 06:40 80 MLS/HR Ondansetron HCl (Zofran Inj) 4 mg Q6H PRN IV 07/10/17 19:45 08/09/17 19:44 Insulin Glargine (Lantus Solostar Pen) 10 units Q12 SC 07/10/17 21:00 08/09/17 20:59 07/11/17 08:08 10 UNITS Insulin Aspart (novoLOG ASPART) SLIDING SCALE If C... ACHS SC 07/10/17 21:00 08/09/17 20:59 07/11/17 08:07 5 UNITS Glucose (Glucose 40% Gel) 15-30 GRAMS 15 GRAMS... UD PRN PO 07/10/17 19:45 08/09/17 19:44 Glucose (Glucose Chew Tab) 4-8 Tablets 4 Tabl... UD PRN PO 07/10/17 19:45 08/09/17 19:44 Dextrose (Dextrose 50% 50ML Syringe) 25-50ML OF 50% DW IV FOR... UD PRN IV 07/10/17 19:45 08/09/17 19:44 Glucagon (Glucagon Inj) 1 mg UD PRN SQ 07/10/17 19:45 08/09/17 19:44 Levothyroxine Sodium (Synthroid Tab) 200 mcg DAILYBB PO 07/11/17 06:00 08/10/17 05:59 07/11/17 05:52 200 MCG Lisinopril (Zestril Tab) 30 mg QAM PO 07/11/17 09:00 08/10/17 08:59 07/11/17 08:08 30 MG Multivitamins (Multivitamin Tab) 1 tab DAILY PO 07/11/17 09:00 08/10/17 08:59 07/11/17 08:09 1 TAB Miscellaneous (Iv Fluids Completed) 1 ea PRN PRN N/A 07/10/17 21:30 07/10/18 21:29
[2017-07-11] MEDS ORDERED: NURSING DECISION MEDICATION ORDER SCH (15:00)
[2017-07-11] MEDS ORDERED: NURSING VERBAL MED ORDER ONE (15:15)
--- NOTE | 2017-07-11 15:47 | Discharge Instructions ---
Discharge Instructions Date of Service Jul 11, 2017. Admission Reason for Admission: Anemia, Cll Discharge Discharge Diagnosis / Problem: Anemia, CLL Discharge Goals Goal(s): Decrease discomfort, Improve function, Improve disease control Activity Recommendations Activity Limitations: resume your previous activity (as tolerated) . Instructions / Follow-Up Instructions / Follow-Up Pt will be transferred to [facility] Dr. Elliott hematology accepted the patient Continue monitor H/H Current Hospital Diet Patient's current hospital diet: Diabetes Type 2 Diet Discharge Diet Recommended Diet: Diabetes Type 2 Diet Pending Studies Studies pending at discharge: no Laboratory Results Hemoglobin A1c Test 07/06/17 07:10 Range/Units Estimated Average Glucose 120 mg/dl Hemoglobin A1c 5.8 H 4.5-5.6 % Medical Emergencies . Who to Call and When: Medical Emergencies: If at any time you feel your situation is an emergency, please call 911 immediately. . Non-Emergent Contact Non-Emergency issues call your: Primary Care Provider Call Non-Emergent contact if: you have any medication questions . . "Provider Documentation" section prepared by Uyen Capellan. . VTE Core Measure Inpt VTE Proph given/why not?: SCD's
--- NOTE | 2017-07-11 15:52 | Discharge Summary ---
Discharge Summary Date of Service Jul 11, 2017. Discharge Summary Admission Date: Jul 10, 2017 at 19:56 Discharge Date: Jul 11, 2017 Discharge Disposition: Acute care facility Principal Diagnosis: Anemia Secondary Diagnoses/Problems: CLL DM type 2 Pancytopenia HTN Consultations: Hem/Oncology Medication Reconciliation Continued Medications: Fish Oil ([place]-3) 1 Ea Cap 1 CAP PO DAILY, CAP Insulin Glargine (Lantus Solostar) 100 Unit/Ml Inj 20 UNITS SC QAM, PEN Levothyroxine Sodium (Levothyroxine Sodium) 200 Mcg Tab 200 MCG PO DAILY Lisinopril (Zestril) 30 Mg Tab 30 MG PO QAM Metformin HCl (Metformin HCl) 500 Mg Tab 1000 MG PO BID Multivitamin (Multivitamin) Tab 1 TAB PO DAILY, TAB Admission Information HPI (per Admitting provider): This is a 56 year old male with a PMH of CLL (last chemotherapy in February), hx. of chemo-induced neutropenia, HTN, DM2, hypothyroidism, hx. of benign villous adenoma of colon - recently admitted for blood transfusion and received 4 units of PRBCs and discharged on 07/06 - returned due to outpatient Hgb being 6.3. Denies any symptoms. No chest pain/no shortness of breath, no weakness, no illness. Denies any bleeding, no hematuria, no melena or hematochezia. No bruising. Physical Exam (per Admitting): General Appearance: no apparent distress, + obese Head: normocephalic, atraumatic Eyes: normal inspection Respiratory/Chest: chest non-tender, lungs clear, normal breath sounds, no respiratory distress, no accessory muscle use Cardiovascular: regular rate, rhythm, no edema, no murmur Abdomen/GI: normal bowel sounds, non tender, soft Extremities/Musculoskelatal: normal inspection, no calf tenderness, normal capillary refill, no pedal edema, normal range of motion Neurologic/Psych: bag valver II-XII nml as tested, no motor/sensory deficits, alert , normal mood/affect, oriented x 3 Skin: normal color Lymphatic: no adenopathy Hospital Course Anemia in the setting of CLL Was sent from clinic for low hgb Received 4 units PRBC on 07/06 Asymptomatic Hbg on admission 5.8 Received 3 units PRBC during this hospitalization so far Hbg today 8.4 Direct Judit test is negative No active bleeding Case discussed with Dr. Baron recommended to transfer pt to [place] for bone marrow Continue monitor H/H, and transfuse if H/H drops below 7 Blood transfusion history: * 06/25-07/06/2017--> 4 units. * 03/2017--> 4 units * Before March, in 2017--> 35 units. * In 2016 (June,-July,)--> 8 units . 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 - FCR x3 between 11/29/2016-January,. Last dose of fludarabine received on 01/26. Has been required blood transfusion Case discussed with Dr. 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 Case discussed with Hematology Dr. Elliott that accepted the patient Pancytopenia chronic pancytopenia in the setting of CLL plt 41, wbc 3.3 stable HTN continue Lisinopril BP stable DM2 Ha1c = 5.8% hold metformin Lantus 10 units BID sliding scale HLD hold fish oils, restart on discharge Hypothyroidism continue Synthroid DVT ppx SCDs FULL CODE DISPOSITION Will transfer to [facility] Dr. Elliott Hematology accepted the patient Continue monitor CBC Total time spent on discharge = 45 minutes This includes examination of the patient, discharge planning, medication reconciliation, and communication with other providers. Discharge Instructions Transferred to [facility] Accepting physician waitstaff Dr. Elliott Continue monitor H/H
== END 2017-07-11 21:12 | disposition short-term general hospital (02) ==
LOC: C.EDB 19:09 → C.2T 19:56 → ENRESERV 20:04
PROVIDERS: ADMIT Family Medicine; ATTEND Internal Medicine
DX: D64.9 Anemia, unspecified (principal); C91.10 Chronic lymphocytic leukemia of B-cell type not having achieved remission; D70.1 Agranulocytosis secondary to cancer chemotherapy; I10 Essential (primary) hypertension; E78.5 Hyperlipidemia, unspecified; E11.9 Type 2 diabetes mellitus without complications; E03.9 Hypothyroidism, unspecified; D61.818 Other pancytopenia; E66.9 Obesity, unspecified; Z87.891 Personal history of nicotine dependence; Z79.4 Long term (current) use of insulin; Z79.899 Other long term (current) drug therapy

== ENCOUNTER 2017-07-22 00:02 | Emergency (ER) | payer OTHER ==
[~2017-07-22] VITALS: Ht 175.3 cm; Wt 116.8 kg
[~2017-07-22 00:02] MED LIST changes: -OMEG10007 PO
[2017-07-22 00:11] VITALS: TEMP 36.9; Ht 175.3 cm; Wt 116.8 kg
--- NOTE | 2017-07-22 00:48 | EMERGENCY ROOM VISIT NOTE ---
History Report prepared by Leana: Shital Sanabria Under the Supervision of: Dr. Vitor Ambriz D.O. First contact with patient: 00:25 Chief Complaint: REFERRED BY DOCTOR Stated Complaint: DOC REFER History of Present Illness The patient is a 56 year old male who presents to the Emergency Room with complaints of an episode of abnormal lab work today. The patient received a message on his phone from his doctor telling him that his blood work today was critical and that he needed to go to the ED. The message did not mention which lab was critical. He is unsure why he is being sent to the ED. The patient has a history of CLL. He is scheduled for a splenectomy in 2 days. The patient's hemoglobin typically has been running low. His hemoglobin today was 6.7. He states this is improved from before. He states that he is feeling relatively well today. He notes that he has not had this much color in recent days. He does not have any complaints. He is here only because he was told to come. Source of History: patient, family Onset: today Position: other (global) Quality: other (abnormal lab work) Timing: other (episodic) Note: Pt has no complaints. Review of Systems See HPI for pertinent positives and negatives. A total of ten systems were reviewed and were otherwise negative. Past Medical & Surgical Medical Problems: (1) Anemia (2) Anemia (3) Benign neoplasm of colon (4) Chemotherapy induced neutropenia (5) CLL (chronic lymphocytic leukemia) (6) DM type 2 (diabetes mellitus, type 2) (7) Dyslipidemia (8) HTN (hypertension) (9) Hypothyroidism (10) Obesity (BMI 30-39.9) (11) Pancytopenia Surgical Problems: (1) H/O colonoscopy with polypectomy (2) S/p bone marrow aspiration Family History Cancer Diabetes mellitus Gallbladder disease Heart disease Hypertension Kidney disease MOTHER Kidney stones Social History Smoking Status: Never Smoker Alcohol Use: none Drug Use: none Marital Status: single Housing Status: lives alone Occupation Status: employed Current/Historical Medications Scheduled Folic Acid (Folic Acid), 2 MG PO DAILY Insulin Glargine (Lantus Solostar), 20 UNITS SC QAM Levothyroxine Sodium (Levothyroxine Sodium), 200 MCG PO DAILY Lisinopril (Zestril), 30 MG PO QAM Metformin HCl (Metformin HCl), 1,000 MG PO BID Multivitamin (Multivitamin), 1 TAB PO DAILY Allergies Coded Allergies: No Known Allergies (Unverified , 07/22/17) Physical Exam Vital Signs Date Time Temp Pulse Resp B/P (MAP) Pulse Ox O2 Delivery O2 Flow Rate FiO2 07/22/17 02:10 87 22 98 07/22/17 02:00 119/66 07/22/17 01:10 83 19 98 07/22/17 01:07 85 18 102/61 98 Room Air 07/22/17 01:06 98 Room Air 07/22/17 01:04 86 07/22/17 00:11 36.9 86 18 125/76 99 Room Air Physical Exam GENERAL: Awake, alert, well-appearing, in no distress HENT: Normocephalic, atraumatic. Oropharynx unremarkable. EYES: Normal conjunctiva. Sclera non-icteric. NECK: Supple. No nuchal rigidity. FROM. No JVD. RESPIRATORY: Clear to auscultation. CARDIAC: Regular rate, normal rhythm. Extremities warm and well perfused. Pulses equal. ABDOMEN: Soft, non-distended. No tenderness to palpation. No rebound or guarding. No masses. RECTAL: Deferred. MUSCULOSKELETAL: Chest examination reveals no tenderness. The back is symmetrical on inspection without obvious abnormality. There is no CVA tenderness to palpation. No joint edema. LOWER EXTREMITIES: Calves are equal size bilaterally and non-tender. No edema. No discoloration. NEURO: Normal sensorium. No sensory or motor deficits noted. SKIN: Pale. Bruising all over body. Medical Decision & Procedures Laboratory Results 07/22/17 01:03 Red Blood Count 2.13, Mean Corpuscular Volume 94.4, Mean Corpuscular Hemoglobin 31.9, Mean Corpuscular Hemoglobin Concent 33.8, Mean Platelet Volume 12.4 Test 07/22/17 01:03 White Blood Count 1.53 K/uL (4.8-10.8) Red Blood Count 2.13 M/uL (4.7-6.1) Hemoglobin 6.8 g/dL (14.0-18.0) Hematocrit 20.1 % (42-52) Mean Corpuscular Volume 94.4 fL (80-100) Mean Corpuscular Hemoglobin 31.9 pg (25-34) Mean Corpuscular Hemoglobin Concent 33.8 g/dl (32-36) Platelet Count 35 K/uL (130-400) Mean Platelet Volume 12.4 fL (7.4-10.4) RDW Standard Deviation 65.9 fL (36.4-46.3) RDW Coefficient of Variation 19.0 % (11.5-14.5) Neutrophils % (Manual) 51.3 % Lymphocytes % (Manual) 35.7 % Monocytes % (Manual) 13.0 % Neutrophils # (Manual) 0.78 K/uL (1.4-6.5) Total Absolute Neutrophils 0.78 K/uL (1.4-6.5) Lymphocytes # (Manual) 0.55 K/uL (1.2-3.4) Total Absolute Lymphocytes 0.55 K/uL (1.2-3.4) Monocytes # (Manual) 0.20 K/uL (0.11-0.59) Hyposegmented Neutrophils 1+ Dohle Bodies 1+ Laboratory results reviewed by me ED Course 0029: The patient was evaluated in room A9B. A complete history and physical exam was performed. 0228: I reevaluated the patient. Discussed results and discharge instructions: He verbalized understanding and agreement. The patient is ready for discharge. Medical Decision Differential diagnoses include but are not limited to; anemia, leukocytosis, thrombocytopenia. Patient is scheduled for splenectomy on Monday. Patient's hemoglobin is typically around 6.7. Patient has no complaints of fever or infection. Patient actually states that he feels much improved today. Patient's hemoglobin this evening was 6.8 with a platelet count of 35 which she states typically his platelets around 30. Patient does have a low white blood cell count but no clinical evidence currently of severe infection or neutropenic fever; I discussed evaluation with the patient patient's family he will follow- up on Monday for splenectomy Medication Reconcilliation Current Medication List: was personally reviewed by me Blood Pressure Screening Patient's blood pressure: Normal blood pressure Blood pressure disposition: Did not require urgent referral Impression Primary Impression: Severe anemia Additional Impression: Pancytopenia Scribe Attestation The scribe's documentation has been prepared under my direction and personally reviewed by me in its entirety. I confirm that the note above accurately reflects all work, treatment, procedures, and medical decision making performed by me. Departure Information Dispostion Home / Self-Care Referrals Divya Diaz D.O. (PCP) Patient Instructions Anemia, My [facility] Additional Instructions Follow-up with your surgeon as scheduled on Monday. Return for any further symptoms fever or any concerns Problem Qualifiers
[2017-07-22 01:06] VITALS: O2SAT 98
[2017-07-22] MEDS ORDERED: FLV1 PO (01:38)
[2017-07-22 02:11] LABS: HEMATOCRIT 20.1 % (42-52); MEAN CELL VOLUME 94.4 fL (80-100); MEAN CORPUSCULAR HEMOGLOBIN 31.9 pg (25-34); MEAN CORPUSCULAR HGB CONC 33.8 g/dl (32-36); MEAN PLATELET VOLUME 12.4 fL (7.4-10.4); PLATELET COUNT 35 K/uL (130-400); RED BLOOD COUNT 2.13 M/uL (4.7-6.1); WHITE BLOOD COUNT 1.53 K/uL (4.8-10.8)
[2017-07-22 02:24] LABS: DOHLE BODIES 1+; HYPOSEGMENTED POLYS 1+
[2017-07-22 02:25] LABS: COMPLETE YES; LYMPH ABS # 0.55 K/uL (1.2-3.4); LYMPHOCYTE % 35.7 %; NEUTROPHILS % 51.3 %
[2017-07-22 02:45] VITALS: BP 106/67; PULSE 82; O2SAT 97
== END 2017-07-22 02:50 | disposition home or self-care (01) ==
LOC: C.EDB 00:04 → C.EDA 02:50
DX: D64.9 Anemia, unspecified (principal); D61.818 Other pancytopenia; I10 Essential (primary) hypertension; E78.5 Hyperlipidemia, unspecified; E11.9 Type 2 diabetes mellitus without complications; E03.9 Hypothyroidism, unspecified; Z85.6 Personal history of leukemia; Z86.010 Personal history of colon polyps; Z79.4 Long term (current) use of insulin; Z79.84 Long term (current) use of oral hypoglycemic drugs; Z79.899 Other long term (current) drug therapy; Z80.9 Family history of malignant neoplasm, unspecified; Z83.3 Family history of diabetes mellitus; Z83.79 Family history of other diseases of the digestive system; Z82.49 Family history of ischemic heart disease and other diseases of the circulatory system; Z84.1 Family history of disorders of kidney and ureter

== ENCOUNTER 2017-07-23 21:09 | Emergency (ER) | payer OTHER ==
[~2017-07-23] VITALS: Ht 175.3 cm; Wt 117.0 kg
[~2017-07-23 21:09] MED LIST changes: +FLV1 PO
[2017-07-23 21:12] VITALS: Ht 175.3 cm; Wt 117.0 kg
[2017-07-23] MEDS ORDERED: SODIUM CHLORIDE 0.9% 1000ML 1,000 ML IV STA (21:27)
--- NOTE | 2017-07-23 21:52 | EMERGENCY ROOM VISIT NOTE ---
History First contact with patient: 21:19 Chief Complaint: WEAKNESS Stated Complaint: PALE,WEAK,ANEMIC Nursing Triage Summary: just here monday has chronic low h and h. to have a spleenectomy at [facility] tomorrow. feels weak. states "i think i might just be anxious." History of Present Illness The patient is a 56 year old male who presents to the Emergency Room with complaints of feeling weak, fatigued, and anxious. He also states some slight shortness of breath. Patient states that he has chronic anemia, and was just seen here Monday night for low hemoglobin, but did not have a transfusion at that time and was discharged home feeling well. Patient states that he has a history of CLL, however he states this is fully in remission. He does report that he has a problem with his spleen that causes his anemia and need for transfusions, and states he is scheduled to have a splenectomy to manage this problem tomorrow in [place] at [facility] by Dr. Diggs (surg-onc). He states that he has been worried about this surgery, and feels that his symptoms may just be from anxiety, but he wanted to make sure that his hemoglobin was not worsening and he did not need to have a transfusion. His family members with him state that he looks more pale than usual today. He denies any symptoms of confusion, dizziness, syncope, palpitations, fevers or chills, chest pain, abdominal pain, back pain, blood in his stool, urinary symptoms, or rash. He denies any unusual bruising or bleeding. He states his hemoglobin on Monday was 6.8, and he states his last transfusion was 4 days ago, he received 2 units of packed red blood cells at that time. Review of Systems A complete 10 point review of systems was reviewed with the patient with pertinent positives and negatives as per history of present illness. All else were negative. Past Medical/Surgical History Medical Problems: (1) Anemia (2) Anemia (3) Benign neoplasm of colon (4) Chemotherapy induced neutropenia (5) CLL (chronic lymphocytic leukemia) (6) DM type 2 (diabetes mellitus, type 2) (7) Dyslipidemia (8) HTN (hypertension) (9) Hypothyroidism (10) Obesity (BMI 30-39.9) (11) Pancytopenia Surgical Problems: (1) H/O colonoscopy with polypectomy (2) S/p bone marrow aspiration Family History Cancer Diabetes mellitus Gallbladder disease Heart disease Hypertension Kidney disease MOTHER Kidney stones Social History Smoking Status: Former Smoker Alcohol Use: none Drug Use: none Marital Status: single Housing Status: lives alone Occupation Status: employed Current/Historical Medications Scheduled Folic Acid (Folic Acid), 2 MG PO DAILY Insulin Glargine (Lantus Solostar), 20 UNITS SC QAM Levothyroxine Sodium (Levothyroxine Sodium), 200 MCG PO DAILY Lisinopril (Zestril), 30 MG PO QAM Metformin HCl (Metformin HCl), 1,000 MG PO BID Multivitamin (Multivitamin), 1 TAB PO DAILY Allergies NKA Physical Exam Vital Signs Date Time Temp Pulse Resp B/P (MAP) Pulse Ox O2 Delivery O2 Flow Rate FiO2 07/23/17 22:41 94 18 118/66 99 Room Air 07/23/17 21:53 88 07/23/17 21:40 98 Room Air 07/23/17 21:40 90 20 120/72 99 Room Air 07/23/17 21:12 36.6 107 20 131/82 97 Room Air Physical Exam CONSTITUTIONAL: No acute distress, nontoxic appearing. Pale and mildly dehydrated. Alert and oriented X 4. Anxious. HEENT: Normocephalic, atraumatic. Pupils equal, round and reactive to light, EOMI, pale conjunctiva. TMs normal. Pharynx normal. Tacky mucous membranes. NECK: Supple, full active range of motion without discomfort. RESPIRATORY: Clear to auscultation bilaterally with no wheezing, crackles, rhonchi or stridor. Equal expansion bilaterally. CARDIOVASCULAR: Regular rate and rhythm with no murmurs, rubs or gallops. Normal peripheral perfusion. No edema. GASTROINTESTINAL: Soft, nontender, nondistended. Bowel sounds present in all quadrants. MUSCULOSKELETAL: Full range of motion of all joints without discomfort. INTEGUMENTARY: No rash or other significant dermatologic conditions noted. NEUROLOGIC: Cranial nerves II-XII grossly intact. No focal neurologic deficits noted. Normal strength and sensation in all 4 extremities, normal gait, normal balance, normal speech. Medical Decision & Procedures Laboratory Results 07/23/17 21:42 Red Blood Count 1.69, Mean Corpuscular Volume 94.7, Mean Corpuscular Hemoglobin 32.0, Mean Corpuscular Hemoglobin Concent 33.8, Mean Platelet Volume 11.4 07/23/17 21:42 Test 07/23/17 21:42 White Blood Count 1.65 K/uL (4.8-10.8) Red Blood Count 1.69 M/uL (4.7-6.1) Hemoglobin 5.4 g/dL (14.0-18.0) Hematocrit 16.0 % (42-52) Mean Corpuscular Volume 94.7 fL (80-100) Mean Corpuscular Hemoglobin 32.0 pg (25-34) Mean Corpuscular Hemoglobin Concent 33.8 g/dl (32-36) Platelet Count 39 K/uL (130-400) Mean Platelet Volume 11.4 fL (7.4-10.4) RDW Standard Deviation 63.8 fL (36.4-46.3) RDW Coefficient of Variation 18.4 % (11.5-14.5) Prothrombin Time 10.7 SECONDS (9.0-12.0) Prothromb Time International Ratio 1.0 (0.9-1.1) Activated Partial Thromboplast Time 28.7 SECONDS (21.0-31.0) Partial Thromboplastin Ratio 1.1 Anion Gap 6.0 mmol/L (3-11) Est Creatinine Clear Calc Drug Dose 80.1 ml/min Estimated GFR () 70.7 Estimated GFR (Non- 61.0 BUN/Creatinine Ratio 16.4 (10-20) Calcium Level 8.2 mg/dl (8.5-10.1) Total Bilirubin 0.5 mg/dl (0.2-1) Direct Bilirubin 0.2 mg/dl (0-0.2) Aspartate Amino Transf (AST/SGOT) 31 U/L (15-37) Alanine Aminotransferase (ALT/SGPT) 89 U/L (12-78) Alkaline Phosphatase 117 U/L (45-117) Total Protein 5.6 gm/dl (6.4-8.2) Albumin 3.4 gm/dl (3.4-5.0) Medications Administered Medications (Trade) Dose Ordered Sig/Alesha Route Start Time Stop Time Status Last Admin Dose Admin Sodium Chloride 1,000 ml @ 999 mls/hr Q1H1M STAT IV 07/23/17 21:27 07/23/17 22:27 DC 07/23/17 21:27 999 MLS/HR Acetaminophen (Tylenol Tab) 650 mg NOW ONCE PO 07/23/17 22:30 07/23/17 22:36 DC 07/23/17 22:45 650 MG ECG Indication: weakness Rate (beats per minute): 92 Rhythm: normal sinus Findings: no acute ischemic change, no ectopy Change: no significant change (when compared to EKG from 07/11/2017) Medical Decision CC: Patient presenting with complaint of weakness, fatigue Interpretation of Labs: Leukopenia with neutropenia (relatively unchanged from baseline), significant anemia (down 1.4 points from 2 days ago), thrombocytopenia (unchanged from baseline), hyperglycemia, no other significant electrolyte abnormalities, renal function upper limits of normal (not significantly changed from baseline), normal liver enzymes. Coagulation factors within normal limits. Differential Diagnosis: Includes, but not limited to anemia, dehydration, electrolyte abnormality, anxiety, among others. Medication Reconciliation: I attest that I have personally reviewed the patient' s current medication list. Vital signs review: I reviewed the patient's vital signs and interpret them as follows: T: Afebrile; BP: Normotensive; HR: Tachycardic; RR: Within normal limits; Pulse Ox: Within normal limits on room air. Blood pressure screening: The patient was found to have normal blood pressure on screening and does not require follow-up for repeat blood pressure check. Summary: Patient was evaluated at bedside, history and physical exam performed. Patient is alert and oriented, in no acute distress but does seem somewhat anxious, resting in the stretcher. He does appear to be pale on exam. Orders were placed at bedside for labs, type and screen, IV fluids, EKG to evaluate for tachycardia. Patient declined chest x-ray, stating he had a chest CT done one week ago and does not want more radiation. Patient discussed with Dr. Quiroga, who agrees with my assessment and plan. EKG shows NSR with no acute changes. Labs reviewed as above, concerning for significant drop in hemoglobin when compared to labs from 2 days ago, otherwise no acute abnormalities. I spoke on the phone with Dr. Araiza, surgical oncology at [facility] , I discussed the patient's labs and plan for transfusion here in the ED. She was agreeable with this plan and patient will remain scheduled for his surgery tomorrow. Patient reassessed multiple times throughout ED stay, he remained stable. His tachycardia is improving. The patient was consented for blood transfusion by Dr. Quiroga, and 2 units of irradiated packed red blood cells were ordered. Patient was signed out to Keon Tavares PA-C, at change of shift, with the plan for blood transfusion and probably discharge the patient home in the morning. Patient was stable at time of sign out. Head Trauma GCS Score: 15 Medication Reconcilliation Current Medication List: was personally reviewed by me Blood Pressure Screening Patient's blood pressure: Normal blood pressure Impression Primary Impression: Severe anemia Departure Information Dispostion Still a Patient Condition GOOD Referrals Divya Diaz D.O. (PCP) Patient Instructions My [facility]
[2017-07-23 22:13] LABS: PARTIAL THROMBOPLASTIN RATIO 1.1; PROTHROMBIN TIME (PATIENT) 10.7 SECONDS (9.0-12.0)
[2017-07-23 22:16] LABS: MEAN CELL VOLUME 94.7 fL (80-100); MEAN CORPUSCULAR HGB CONC 33.8 g/dl (32-36); MEAN PLATELET VOLUME 11.4 fL (7.4-10.4); PLATELET COUNT 39 K/uL (130-400); RED BLOOD COUNT 1.69 M/uL (4.7-6.1); WHITE BLOOD COUNT 1.65 K/uL (4.8-10.8)
[2017-07-23 22:20] LABS: BUN/CREATININE RATIO 16.4 (10-20); CALCIUM 8.2 mg/dl (8.5-10.1); CREATININE 1.3 mg/dl (0.60-1.40); POTASSIUM 4.2 mmol/L (3.5-5.1)
[2017-07-23] MEDS ORDERED: ACETAMINOPHEN 325 MG TAB PO ONE (22:30)
[2017-07-23 22:51] LABS: ANISOCYTOSIS PRESENT
[2017-07-23 22:54] LABS: COMPLETE YES; LYMPH ABS # 0.67 K/uL (1.2-3.4); LYMPHOCYTE % 40.9 %; NEUTROPHILS % 47.8 %
[2017-07-24] VITALS (15 sets, daily range): BP systolic 93–130; BP diastolic 47–83; PULSE 64–97; TEMP 36.5–37; O2SAT 97–100
[2017-07-24 06:30] LABS: HEMATOCRIT 18.4 % (42-52)
--- NOTE | 2017-07-24 06:39 | EMERGENCY ROOM VISIT NOTE ---
ED Visit Note First contact with patient: 23:51 Patient care was assumed from Sheri Cruz PA-C, at the time of shift change. Please see Ms Anthony dictation for full history of present illness and Emergency Department course outside of this note. In short, the patient has profound anemia that is felt to be from splenic sequestration. He was found to be anemic at 5.4, and has an appointment at [facility] [address] in [place] around 6 hours from now for splenectomy. The patient was transfused 2 units, and this did increase his hemoglobin to 6.1. Clinically the patient felt better, and seems well for discharge. He seems safe for personal vehicle transport. The patient was invited back to the ER with any worsening symptoms, and was given discharge instructions as below. Problem List Medical Problems: (1) Benign neoplasm of colon Permanent Comment: villous Status: Chronic (2) Chemotherapy induced neutropenia Status: Chronic (3) CLL (chronic lymphocytic leukemia) Status: Chronic (4) DM type 2 (diabetes mellitus, type 2) Status: Chronic (5) Dyslipidemia Status: Chronic (6) HTN (hypertension) Status: Chronic (7) Hypothyroidism Status: Chronic (8) Obesity (BMI 30-39.9) Status: Chronic Surgical Problems: (1) H/O colonoscopy with polypectomy Status: Chronic (2) S/p bone marrow aspiration Status: Chronic Current/Historical Medications Scheduled Folic Acid (Folic Acid), 2 MG PO DAILY Insulin Glargine (Lantus Solostar), 20 UNITS SC QAM Levothyroxine Sodium (Levothyroxine Sodium), 200 MCG PO DAILY Lisinopril (Zestril), 30 MG PO QAM Metformin HCl (Metformin HCl), 1,000 MG PO BID Multivitamin (Multivitamin), 1 TAB PO DAILY Allergies Coded Allergies: No Known Allergies (Unverified , 07/23/17) Vital Signs Date Time Temp Pulse Resp B/P (MAP) Pulse Ox O2 Delivery O2 Flow Rate FiO2 07/24/17 05:45 74 20 97 07/24/17 05:30 111/64 07/24/17 05:15 71 13 98 07/24/17 05:07 79 07/24/17 05:00 117/72 07/24/17 04:45 72 18 125/83 99 Room Air 07/24/17 04:45 81 24 98 07/24/17 04:40 36.6 75 18 125/83 99 07/24/17 04:10 36.8 68 16 126/72 98 07/24/17 03:51 36.7 72 18 115/68 99 Room Air 07/24/17 03:40 36.7 72 18 115/68 99 07/24/17 03:10 36.7 71 18 112/68 100 07/24/17 03:10 36.7 71 18 112/68 100 07/24/17 02:55 36.6 69 18 107/68 98 07/24/17 02:40 36.6 68 18 116/69 98 07/24/17 02:25 36.7 64 18 127/73 99 07/24/17 02:15 36.6 80 18 126/71 97 07/24/17 02:13 80 16 126/71 99 Room Air 07/24/17 01:45 36.6 79 18 100/56 97 07/24/17 01:45 36.6 79 18 100/56 97 Room Air 07/24/17 01:20 76 07/24/17 01:18 36.7 79 20 105/58 98 07/24/17 01:01 37.0 71 18 97/65 97 07/24/17 00:44 36.5 97 18 102/62 99 07/24/17 00:29 36.9 81 18 97/55 98 07/24/17 00:10 36.9 87 18 93/47 97 07/23/17 23:40 86 18 94/52 98 Room Air 07/23/17 22:41 94 18 118/66 99 Room Air 07/23/17 21:53 88 07/23/17 21:40 98 Room Air 07/23/17 21:40 90 20 120/72 99 Room Air 07/23/17 21:12 36.6 107 20 131/82 97 Room Air Laboratory Results 07/23/17 21:42 Red Blood Count 1.69, Mean Corpuscular Volume 94.7, Mean Corpuscular Hemoglobin 32.0, Mean Corpuscular Hemoglobin Concent 33.8, Mean Platelet Volume 11.4 07/24/17 05:48 07/23/17 21:42 Test 07/23/17 21:42 White Blood Count 1.65 K/uL (4.8-10.8) Red Blood Count 1.69 M/uL (4.7-6.1) Hemoglobin 5.4 g/dL (14.0-18.0) Hematocrit 16.0 % (42-52) Mean Corpuscular Volume 94.7 fL (80-100) Mean Corpuscular Hemoglobin 32.0 pg (25-34) Mean Corpuscular Hemoglobin Concent 33.8 g/dl (32-36) Platelet Count 39 K/uL (130-400) Mean Platelet Volume 11.4 fL (7.4-10.4) RDW Standard Deviation 63.8 fL (36.4-46.3) RDW Coefficient of Variation 18.4 % (11.5-14.5) Neutrophils % (Manual) 47.8 % Lymphocytes % (Manual) 40.9 % Monocytes % (Manual) 11.3 % Neutrophils # (Manual) 0.79 K/uL (1.4-6.5) Total Absolute Neutrophils 0.79 K/uL (1.4-6.5) Lymphocytes # (Manual) 0.67 K/uL (1.2-3.4) Total Absolute Lymphocytes 0.67 K/uL (1.2-3.4) Monocytes # (Manual) 0.19 K/uL (0.11-0.59) Anisocytosis PRESENT Prothrombin Time 10.7 SECONDS (9.0-12.0) Prothromb Time International Ratio 1.0 (0.9-1.1) Activated Partial Thromboplast Time 28.7 SECONDS (21.0-31.0) Partial Thromboplastin Ratio 1.1 Anion Gap 6.0 mmol/L (3-11) Est Creatinine Clear Calc Drug Dose 80.1 ml/min Estimated GFR () 70.7 Estimated GFR (Non- 61.0 BUN/Creatinine Ratio 16.4 (10-20) Calcium Level 8.2 mg/dl (8.5-10.1) Total Bilirubin 0.5 mg/dl (0.2-1) Direct Bilirubin 0.2 mg/dl (0-0.2) Aspartate Amino Transf (AST/SGOT) 31 U/L (15-37) Alanine Aminotransferase (ALT/SGPT) 89 U/L (12-78) Alkaline Phosphatase 117 U/L (45-117) Total Protein 5.6 gm/dl (6.4-8.2) Albumin 3.4 gm/dl (3.4-5.0) Medications Administered Medications (Trade) Dose Ordered Sig/Alesha Route Start Time Stop Time Status Last Admin Dose Admin Sodium Chloride 1,000 ml @ 999 mls/hr Q1H1M STAT IV 07/23/17 21:27 07/23/17 22:27 DC 07/23/17 21:27 999 MLS/HR Acetaminophen (Tylenol Tab) 650 mg NOW ONCE PO 07/23/17 22:30 07/23/17 22:36 DC 07/23/17 22:45 650 MG Departure Information Impression Primary Impression: Severe anemia Dispostion Still a Patient Condition GOOD Referrals Divya Diaz D.O. (PCP) Forms HOME CARE DOCUMENTATION FORM, IMPORTANT VISIT INFORMATION Patient Instructions My [facility] Additional Instructions You were seen in the emergency Department today for your anemia and he received 2 units of packed blood cells transfusion to treat this. Your hemoglobin went from 5.4 to 6.1. Please keep your scheduled appointment in [place] at [facility] [address] for your surgery today. They should be aware of your visit to our department today. Please seek immediate medical attention for any symptoms of chest pain, shortness of breath, severe dizziness or passing out, fevers or chills, persistent vomiting.
== END 2017-07-24 07:04 | disposition home or self-care (01) ==
LOC: C.EDB 21:10
DX: D64.9 Anemia, unspecified (principal); D70.8 Other neutropenia; C91.11 Chronic lymphocytic leukemia of B-cell type in remission; E11.9 Type 2 diabetes mellitus without complications; E78.5 Hyperlipidemia, unspecified; I10 Essential (primary) hypertension; E03.9 Hypothyroidism, unspecified; Z79.4 Long term (current) use of insulin; Z79.84 Long term (current) use of oral hypoglycemic drugs; Z87.891 Personal history of nicotine dependence; Z80.9 Family history of malignant neoplasm, unspecified; Z83.3 Family history of diabetes mellitus; Z83.79 Family history of other diseases of the digestive system; Z82.49 Family history of ischemic heart disease and other diseases of the circulatory system; Z84.1 Family history of disorders of kidney and ureter

== ENCOUNTER 2017-07-31 08:26 | Emergency (ER) | payer OTHER ==
[~2017-07-31] VITALS: Ht 175.3 cm; Wt 110.9 kg
[2017-07-31 08:33] VITALS: TEMP 36.8; Ht 175.3 cm; Wt 110.9 kg
[2017-07-31 09:48] LABS: HEMATOCRIT 25.8 % (42-52); MEAN CELL VOLUME 92.1 fL (80-100); MEAN CORPUSCULAR HEMOGLOBIN 30.4 pg (25-34); MEAN CORPUSCULAR HGB CONC 32.9 g/dl (32-36); MEAN PLATELET VOLUME 10.7 fL (7.4-10.4); PLATELET COUNT 171 K/uL (130-400); WHITE BLOOD COUNT 11.91 K/uL (4.8-10.8)
--- NOTE | 2017-07-31 09:56 | DIAGNOSTIC IMAGING REPORT ---
CHEST ONE VIEW PORTABLE CLINICAL HISTORY: Atypical chest pain and cough COMPARISON STUDY: 07/05/2017 FINDINGS: The cardiac and mediastinal contours are normal. There is no evidence of focal pulmonary consolidation. There is no evidence of failure. No pleural effusions are visualized.[ IMPRESSION: No active disease in the chest. Electronically signed by: Kael Jameson M.D. 07/31/2017 9:55 AM Dictated Date/Time: 07/31/2017 9:54 AM
[2017-07-31 10:02] LABS: PARTIAL THROMBOPLASTIN RATIO 1.1; PROTHROMBIN TIME (PATIENT) 10.6 SECONDS (9.0-12.0)
[2017-07-31 10:06] LABS: BUN/CREATININE RATIO 17.1 (10-20); CALCIUM 9.3 mg/dl (8.5-10.1); CREATININE 0.9 mg/dl (0.60-1.40); POTASSIUM 3.9 mmol/L (3.5-5.1)
[2017-07-31 10:09] LABS: ALB/GLOB RATIO 1.2 (0.9-2)
[2017-07-31 10:14] LABS: COMPLETE YES; DOHLE BODIES 1+; GIANT PLATELETS 2+; HYPOCHROMIA PRESENT; LYMPH ABS # 1.36 K/uL (1.2-3.4); LYMPHOCYTE % 11.4 %; NEUTROPHILS % 65.8 %
[2017-07-31] MEDS ORDERED: SODIUM CHLORIDE 0.9% 1000ML 500 ML IV STA (11:30)
[2017-07-31 11:44] VITALS: O2SAT 95
--- NOTE | 2017-07-31 12:30 | DIAGNOSTIC IMAGING REPORT ---
(CHEST) THORAX WITHOUT CLINICAL HISTORY: Atypical chest pain. History of recent splenectomy. COMPARISON STUDY: Chest x-ray dated 07/31/2017 CT DOSE: 745.36 mGycm TECHNIQUE: CT of the thorax was performed from the thoracic inlet to the lung bases. Images are reviewed in the axial, sagittal, and coronal planes. IV contrast was not administered for this examination. A dose lowering technique was utilized adhering to the principles of ALARA. FINDINGS: Thyroid: Imaged portions of the thyroid gland are normal in appearance. Thoracic aorta: The thoracic aorta is normal in course and caliber, noting standard 3 vessel arch anatomy. Heart: The heart is normal in size and configuration, without pericardial effusion. Lungs and pleural spaces: No pleural effusions are visualized. There are dependent atelectatic changes present. There is no focal pulmonary consolidation. Mediastinum: There is no pathologic mediastinal adenopathy. Bárbara: There is no evidence of pathologic hilar adenopathy given the limitations of a noncontrast study Axilla: There is no pathologic axillary lymphadenopathy Upper abdomen: There is extraluminal gas within the left upper quadrant, likely secondary to recent surgery. There is an ill-defined 3.5 cm mass adjacent to the pancreatic tail and left kidney, likely representing a postsurgical hematoma. Skeletal structures: There are no lytic or blastic osseous lesions. IMPRESSION: 1. No acute intrathoracic findings 2. 3.5 cm ill-defined mass adjacent to the pancreatic tail left kidney, likely are presenting a postsurgical hematoma in this patient with a recent history of splenectomy 3. Extraluminal gas bubbles within the left upper abdomen, likely postsurgical Electronically signed by: Kael Jameson M.D. 07/31/2017 12:29 PM Dictated Date/Time: 07/31/2017 12:24 PM
--- NOTE | 2017-07-31 13:27 | DIAGNOSTIC IMAGING REPORT ---
CT ANGIOGRAM OF THE CHEST CLINICAL HISTORY: Atypical chest pain. Recent splenectomy. Possible acute pulmonary embolism. COMPARISON STUDY: Noncontrast chest CT performed the same day TECHNIQUE: Following the IV administration of 94 mL of Optiray-320, CT angiogram of the thorax was performed from the thoracic inlet to the lung bases utilizing the pulmonary embolus protocol. Images are reviewed in the axial, sagittal, and coronal planes. IV contrast was administered without complication. MIP imaging was performed. A dose lowering technique was utilized adhering to the principles of ALARA. CT DOSE: 588.83 mGy.cm FINDINGS: No pathologically enlarged axillary mediastinal or hilar lymph nodes were visualized. There was no evidence of thoracic aortic dilatation. There were no pulmonary artery filling defects to indicate acute pulmonary embolism. No pleural effusions are visualized. There are dependent atelectatic changes present. There is no focal pulmonary consolidation. There are presumed postsurgical changes within the left upper quadrant, status post colectomy. There are extraluminal gas bubbles present, likely postsurgical. Clinical follow-up is advocated. IMPRESSION: No acute intrathoracic findings. No evidence of acute pulmonary embolism. Electronically signed by: Kael Jameson M.D. 07/31/2017 1:25 PM Dictated Date/Time: 07/31/2017 1:22 PM
[2017-07-31 13:53] VITALS: PULSE 70
--- NOTE | 2017-07-31 13:58 | EMERGENCY ROOM VISIT NOTE ---
History First contact with patient: 08:44 Chief Complaint: CHEST PAIN Stated Complaint: CHEST PAIN COUGH RIGHT FOOT SWELLING Nursing Triage Summary: Chest pain that started last night, "Straight acrossed the chest," per the patient. Patient also notes his toes on his right foot are swollen. Pt recently had a spleenectomy at [facility] (07/24). PMH: Frequent blood transfusions this year History of Present Illness Patient is a 56-year-old white male with past medical history significant for hypertension, diabetes, hypothyroidism, CLL in remission, history of anemia felt to be related to a splenic sequestration, who is postop day #7 status post laparoscopic splenectomy who presents to emergency department accompanied by his sister for evaluation of chest pain. Patient underwent laparoscopic splenectomy in [place] one week ago. He reports postoperative course was unremarkable, he apparently did require transfusion of platelets and packed red blood cells intraoperatively, but was discharged from the hospital on postop day #2, last Monday. He reports that he has been feeling well otherwise, he is not needed any oxycodone for pain, he has been eating and drinking normally, urinating well and moving his bowels. He states that last evening, while sitting watching television, he developed a mild pressure or tightness that went straight across his upper chest. He describes it as a sense of having " gas under his ribs." He states that the pain was better with belching, and it hurt worse to lay flat. He reports that the pain was intermittent, he describes it as "annoying" and rated it a 3/10 at its worst. He does note that he felt slightly short of breath with the pain. He has had a cough that has been productive of some clear sputum-he had this before surgery. He denies any palpitations. Pain is not pleuritic. There is no radiation through to his back , neck or shoulders.. He denies any abdominal pain, no nausea, vomiting or diarrhea. He did also note last evening that the toes on his right foot were swollen. He denies any numbness, tingling or weakness into the lower extremities or calf pain. He is concerned that the chest pain could be an indication that he is anemic and he is concerned that he eats another transfusion. Patient took his insulins only this morning, and eat toast for breakfast. Review of Systems Review of systems as per HPI. All other systems reviewed were negative. 10 systems reviewed. Past Medical/Surgical History Medical Problems: (1) Anemia (2) Anemia (3) Benign neoplasm of colon (4) Chemotherapy induced neutropenia (5) CLL (chronic lymphocytic leukemia) (6) DM type 2 (diabetes mellitus, type 2) (7) Dyslipidemia (8) HTN (hypertension) (9) Hypothyroidism (10) Obesity (BMI 30-39.9) (11) Pancytopenia Surgical Problems: (1) H/O colonoscopy with polypectomy (2) S/p bone marrow aspiration Electronic medical records are reviewed and summarized as above/below. See Problem List. Family History Cancer Diabetes mellitus Gallbladder disease Heart disease Hypertension Kidney disease MOTHER Kidney stones Social History Smoking Status: Former Smoker Alcohol Use: none Drug Use: none Marital Status: single Housing Status: lives alone Occupation Status: employed Current/Historical Medications Scheduled Folic Acid (Folic Acid), 2 MG PO DAILY Insulin Glargine (Lantus Solostar), 20 UNITS SC QAM Levothyroxine Sodium (Levothyroxine Sodium), 200 MCG PO DAILY Lisinopril (Zestril), 30 MG PO QAM Metformin HCl (Metformin HCl), 1,000 MG PO BID Multivitamin (Multivitamin), 1 TAB PO DAILY Physical Exam Vital Signs Date Time Temp Pulse Resp B/P (MAP) Pulse Ox O2 Delivery O2 Flow Rate FiO2 07/31/17 14:37 115/73 07/31/17 13:53 70 07/31/17 11:44 91 18 115/73 95 Room Air 07/31/17 08:51 109 07/31/17 08:33 36.8 114 20 143/83 96 Room Air Physical Exam CONSTITUTIONAL: Patient is a pleasant, well-appearing 56-year-old white male who is awake and alert and in no acute distress. He is noted to be mildly tachycardic, otherwise vital signs are stable. He is afebrile. EYES: Pupils equal, round, reactive to light and accommodation. EOMs intact without nystagmus. Sclera are anicteric. ENT: Tympanic membranes intact, with normal landmarks. External canals are clear. Conjunctiva are pale. Oral and nasopharynx are clear. Mucous membranes are moist, no lesions, tongue and gums appear normal. NECK: No bruits auscultated. Supple without lymphadenopathy. No thyromegaly. No meningeal signs. Full active range of motion without discomfort. CARDIOVASCULAR: Regular rate and rhythm, with normal S1 and S2, no murmur or gallop or rub is heard. No carotid bruits auscultated. No JVD. Peripheral pulses easy to palpable. RESPIRATORY: Breath sounds equal and clear to auscultation without wheezes, rales, or rhonchi heard. Full and equal chest expansion without accessory muscle use or retractions. GI: Bowel sounds are present. Well-healed left upper quadrant laparoscopic surgical incisions, without signs of erythema or infection. Abdomen is soft, nontender, nondistended. No organomegaly. No pulsatile masses. No guarding or rebound. MUSCULOSKELETAL: Full range of motion of extremities x 4 with good strength. No cyanosis, edema, joint tenderness or swelling. No deformity. INTEGUMENTARY: No lesions or rash, normal skin turgor. NEUROLOGICAL: Alert, oriented, and cooperative. Cranial nerves, sensation and strength grossly intact. Pupils round, equal, and react to light, EOMs are full. LYMPH: No lymphadenopathy. Medical Decision & Procedures ER Provider Diagnostic Interpretation: (CHEST) THORAX WITHOUT CLINICAL HISTORY: Atypical chest pain. History of recent splenectomy. COMPARISON STUDY: Chest x-ray dated 07/31/2017 CT DOSE: 745.36 mGycm TECHNIQUE: CT of the thorax was performed from the thoracic inlet to the lung bases. Images are reviewed in the axial, sagittal, and coronal planes. IV contrast was not administered for this examination. A dose lowering technique was utilized adhering to the principles of ALARA. FINDINGS: Thyroid: Imaged portions of the thyroid gland are normal in appearance. Thoracic aorta: The thoracic aorta is normal in course and caliber, noting standard 3 vessel arch anatomy. Heart: The heart is normal in size and configuration, without pericardial effusion. Lungs and pleural spaces: No pleural effusions are visualized. There are dependent atelectatic changes present. There is no focal pulmonary consolidation. Mediastinum: There is no pathologic mediastinal adenopathy. Bárbara: There is no evidence of pathologic hilar adenopathy given the limitations of a noncontrast study Axilla: There is no pathologic axillary lymphadenopathy Upper abdomen: There is extraluminal gas within the left upper quadrant, likely secondary to recent surgery. There is an ill-defined 3.5 cm mass adjacent to the pancreatic tail and left kidney, likely representing a postsurgical hematoma. Skeletal structures: There are no lytic or blastic osseous lesions. IMPRESSION: 1. No acute intrathoracic findings 2. 3.5 cm ill-defined mass adjacent to the pancreatic tail left kidney, likely are presenting a postsurgical hematoma in this patient with a recent history of splenectomy 3. Extraluminal gas bubbles within the left upper abdomen, likely postsurgical CT ANGIOGRAM OF THE CHEST CLINICAL HISTORY: Atypical chest pain. Recent splenectomy. Possible acute pulmonary embolism. COMPARISON STUDY: Noncontrast chest CT performed the same day TECHNIQUE: Following the IV administration of 94 mL of Optiray-320, CT angiogram of the thorax was performed from the thoracic inlet to the lung bases utilizing the pulmonary embolus protocol. Images are reviewed in the axial, sagittal, and coronal planes. IV contrast was administered without complication. MIP imaging was performed. A dose lowering technique was utilized adhering to the principles of ALARA. CT DOSE: 588.83 mGy.cm FINDINGS: No pathologically enlarged axillary mediastinal or hilar lymph nodes were visualized. There was no evidence of thoracic aortic dilatation. There were no pulmonary artery filling defects to indicate acute pulmonary embolism. No pleural effusions are visualized. There are dependent atelectatic changes present. There is no focal pulmonary consolidation. There are presumed postsurgical changes within the left upper quadrant, status post colectomy. There are extraluminal gas bubbles present, likely postsurgical. Clinical follow-up is advocated. IMPRESSION: No acute intrathoracic findings. No evidence of acute pulmonary embolism. CHEST ONE VIEW PORTABLE CLINICAL HISTORY: Atypical chest pain and cough COMPARISON STUDY: 07/05/2017 FINDINGS: The cardiac and mediastinal contours are normal. There is no evidence of focal pulmonary consolidation. There is no evidence of failure. No pleural effusions are visualized. IMPRESSION: No active disease in the chest. Laboratory Results 07/31/17 09:33 Red Blood Count 2.80, Mean Corpuscular Volume 92.1, Mean Corpuscular Hemoglobin 30.4, Mean Corpuscular Hemoglobin Concent 32.9, Mean Platelet Volume 10.7 07/31/17 09:33 Test 07/31/17 09:33 White Blood Count 11.91 K/uL (4.8-10.8) Red Blood Count 2.80 M/uL (4.7-6.1) Hemoglobin 8.5 g/dL (14.0-18.0) Hematocrit 25.8 % (42-52) Mean Corpuscular Volume 92.1 fL (80-100) Mean Corpuscular Hemoglobin 30.4 pg (25-34) Mean Corpuscular Hemoglobin Concent 32.9 g/dl (32-36) Platelet Count 171 K/uL (130-400) Mean Platelet Volume 10.7 fL (7.4-10.4) RDW Standard Deviation 53.7 fL (36.4-46.3) RDW Coefficient of Variation 16.1 % (11.5-14.5) Neutrophils % (Manual) 65.8 % Lymphocytes % (Manual) 11.4 % Monocytes % (Manual) 22.8 % Neutrophils # (Manual) 7.84 K/uL (1.4-6.5) Total Absolute Neutrophils 7.84 K/uL (1.4-6.5) Lymphocytes # (Manual) 1.36 K/uL (1.2-3.4) Total Absolute Lymphocytes 1.36 K/uL (1.2-3.4) Monocytes # (Manual) 2.72 K/uL (0.11-0.59) Dohle Bodies 1+ Giant Platelets 2+ Hypochromasia PRESENT Prothrombin Time 10.6 SECONDS (9.0-12.0) Prothromb Time International Ratio 1.0 (0.9-1.1) Activated Partial Thromboplast Time 28.5 SECONDS (21.0-31.0) Partial Thromboplastin Ratio 1.1 Anion Gap 5.0 mmol/L (3-11) Est Creatinine Clear Calc Drug Dose 112.5 ml/min Estimated GFR () 110.3 Estimated GFR (Non- 95.1 BUN/Creatinine Ratio 17.1 (10-20) Calcium Level 9.3 mg/dl (8.5-10.1) Total Bilirubin 0.4 mg/dl (0.2-1) Aspartate Amino Transf (AST/SGOT) 35 U/L (15-37) Alanine Aminotransferase (ALT/SGPT) 99 U/L (12-78) Alkaline Phosphatase 121 U/L (45-117) Total Creatine Kinase 16 U/L (39-308) Creatine Kinase MB < 0.5 ng/ml (0.5-3.6) Creatine Kinase MB Ratio (0-3.0) Troponin I < 0.015 ng/ml (0-0.045) Total Protein 6.2 gm/dl (6.4-8.2) Albumin 3.4 gm/dl (3.4-5.0) Globulin 2.8 gm/dl (2.5-4.0) Albumin/Globulin Ratio 1.2 (0.9-2) Lipase 222 U/L (73-393) Medications Administered Medications (Trade) Dose Ordered Sig/Alesha Route Start Time Stop Time Status Last Admin Dose Admin Sodium Chloride 500 ml @ 999 mls/hr Q31M STAT IV 07/31/17 11:30 07/31/17 12:00 DC 07/31/17 11:30 999 MLS/HR ECG Indication: chest pain Rate (beats per minute): 109 Rhythm: sinus tachycardia Findings: no acute ischemic change Change: no significant change ED Course The patient was seen and assessed as above. His old records were reviewed, including his ED visits from last week at which point he did received 2 units of irradiated PRBCs. In the interim, he has undergone laparoscopic splenectomy. His postoperative course was unremarkable until he developed some upper chest discomfort last evening. He is completely asymptomatic at this time. IV lock was initiated, EKG was performed and he was placed on manager monitoring. He was offered, but declined any medication for his symptoms. Laboratory studies were collected including CBC with differential, coags, CMP, lipase, cardiac enzymes, and he was typed and crossed for 2 units. He was hydrated gently with normal saline solution. Portable chest x-ray was obtained and was unremarkable. Laboratory studies noted a white count of 11,900, H&H is 8.5 and 25.8, platelet count is 171,000. His H&H one week ago after transfusion was 6.1. Coags are unremarkable. Electrolytes are without significant abnormality. Renal function is normal. He has very slight elevation of his ALT and alkaline phosphatase, which has been noted before, and appears stable. Remainder of his liver functions are normal. Lipase is not elevated. Cardiac markers are negative 1 with symptoms greater than [address] scan of the chest was negative for PE. There was some extraluminal gas in the left upper quadrant, likely postsurgical, and an ill-defined 3.5 cm mass adjacent to the pancreatic tail and left kidney, likely representing a postsurgical hematoma. All laboratory and diagnostic imaging studies were reviewed with attending physician, and discussed with the patient at length. His primary concern was that he was anemic, as he has had symptoms like this previously and has required a transfusion. He has been told by his surgical oncologist, and his report clerk/oncologist that he will need to be monitored closely after the splenectomy to monitor his H&H and platelet counts. Certainly today his numbers are better than they have been in several months, and he does not require transfusion today. Differential diagnosis includes acute myocardial infarction, acute coronary syndrome, myocarditis, pericarditis, pericardial effusions /tamponade, esophageal perforation, pulmonary embolism, pneumonia, pneumothorax, cardiomyopathy, congestive heart failure, anemia, COPD/asthma exacerbation, musculoskeletal, anxiety, costochondritis, among others. He remained hemodynamically stable while in the emergency department, and tachycardia improved with the IV hydration. Conservative care measures were discussed. He has a follow-up appointment with Dr. Cheney tomorrow, and an appointment with a surgeon next week. He was encouraged to keep those appointments, but can certainly return to the emergency department at any point for worsening symptoms. He is discharged home with his sister in table condition. He rated his discomfort a 0/10 at that time. Medical Decision See Emergency Department course. Medication Reconcilliation Current Medication List: was personally reviewed by me Blood Pressure Screening Patient's blood pressure: Elevated blood pressure Blood pressure disposition: Elevated BP felt to be situational Impression Primary Impression: Non-cardiac chest pain Departure Information Referrals Divya Diaz D.O. (PCP) Patient Instructions My [facility] Additional Instructions Acetaminophen(Tylenol) may be used for fever or pain. Use 1000mg every six hours as needed. Avoid using more than 3000mg in a 24 hour period. Rest and drink plenty of fluids as tolerated. Continue current medications. Avoid strenuous activities and anything that worsens your pain. Resume normal activities once your symptoms resolve. Return to the ER immediately for worsening or persistent chest pain, abdominal pain, vomiting, fevers, chest pains, difficulty breathing, worsening of your condition, or as needed. Follow up with your primary physician in 2-3 days for a recheck of your current condition.
[2017-07-31 14:37] VITALS: BP 115/73
== END 2017-07-31 14:38 | disposition home or self-care (01) ==
LOC: C.EDB 08:27
DX: R07.89 Other chest pain (principal); Z90.81 Acquired absence of spleen; I10 Essential (primary) hypertension; E11.9 Type 2 diabetes mellitus without complications; E03.9 Hypothyroidism, unspecified; C91.11 Chronic lymphocytic leukemia of B-cell type in remission; E78.5 Hyperlipidemia, unspecified; Z79.4 Long term (current) use of insulin; Z86.2 Personal history of diseases of the blood and blood-forming organs and certain disorders involving the immune mechanism; Z87.891 Personal history of nicotine dependence; Z80.9 Family history of malignant neoplasm, unspecified; Z83.3 Family history of diabetes mellitus; Z83.79 Family history of other diseases of the digestive system; Z82.49 Family history of ischemic heart disease and other diseases of the circulatory system; Z84.1 Family history of disorders of kidney and ureter

== ENCOUNTER → 2017-08-09 | Day surgery (SDC) | payer OTHER ==
[~2017-08-09] VITALS: Ht 175.3 cm; Wt 125.0 kg
[2017-08-09] VITALS (11 sets, daily range): BP systolic 99–115; BP diastolic 62–70; PULSE 68–91; TEMP 36.6–37.5; O2SAT 95–98; Ht 175.3 cm; Wt 125.0 kg
[~2017-08-09] MED LIST changes: +ACETAMINOPHEN 325 MG TAB ONE; +COLCPOW6
== END ==
LOC: C.MTU 07:00 → EDSTATUS 07:00 → C.MTU 07:05
PROVIDERS: ATTEND Internal Medicine Hematology
DX: C91.10 Chronic lymphocytic leukemia of B-cell type not having achieved remission (principal); D64.9 Anemia, unspecified

== ENCOUNTER 2017-08-14 12:37 | Inpatient (IN) | payer OTHER ==
[~2017-08-14] VITALS: Ht 175.3 cm; Wt 120.4 kg
[~2017-08-14 12:37] MED LIST changes: -ACETAMINOPHEN 325 MG TAB ONE; -COLCPOW6
--- NOTE | 2017-08-14 13:11 | EMERGENCY ROOM VISIT NOTE ---
History Report prepared by Lakiaibe: Diane Cortez Under the Supervision of: Dr. Olaf Lino M.D. First contact with patient: 12:59 Chief Complaint: SHORTNESS OF BREATH Stated Complaint: PAIN AND SHORTNESS OF BREATH Nursing Triage Summary: patient c/o constant 3/10 pain to mid back that radiated to bilateral shoulders and SOB. patient states pain has increased since last night. unable to sleep last night. patient also c/o abodminal bloating and gassy/belching denies n/v. bone marrow biopsy "right after thanksgiving." patient states had spleen taken out on the History of Present Illness The patient is a 56 year old male who presents to the Emergency Room with complaints of worsening shortness of breath since last night. He is accompanied by his [id number]. Laying down flat worsens his shortness of breath. He has a productive cough with yellow mucous. He also complains of mid-back pain that radiates to his bilateral shoulders, rating his discomfort as a 3/10 in severity. He has been unable to sleep because of the pain and also complains of chest pain "if I lie down". He states he feels "bloated everywhere" and complains of feeling "gassy". He denies any melena or hematochezia. He has not been nauseous and has not vomited. The patient his spleen removed on July 24. He has a history of leukemia that was treated with chemotherapy and states he is in remission. He is also anemic and was last transfused on August 09. Source of History: patient Onset: last night Position: chest Timing: worsening Modifying Factors (Worsening): other (laying flat) Associated Symptoms: + cough, + chest pain, + nausea, + back pain, + fatigue , No vomiting, No hematochezia Review of Systems All systems have been listed, reviewed, and are negative other than those previously mentioned. Please see Additional Medical History Sheet. Past Medical & Surgical Medical Problems: (1) Anemia (2) Anemia (3) Benign neoplasm of colon (4) Chemotherapy induced neutropenia (5) CLL (chronic lymphocytic leukemia) (6) DM type 2 (diabetes mellitus, type 2) (7) Dyslipidemia (8) HTN (hypertension) (9) Hypothyroidism (10) Obesity (BMI 30-39.9) (11) Pancytopenia (12) Pericarditis Surgical Problems: (1) H/O colonoscopy with polypectomy (2) S/p bone marrow aspiration Family History Cancer Diabetes mellitus Gallbladder disease Heart disease Hypertension Kidney disease MOTHER Kidney stones Social History Smoking Status: Former Smoker Alcohol Use: none Drug Use: none Marital Status: single Housing Status: lives alone Occupation Status: employed Current/Historical Medications Scheduled Folic Acid (Folic Acid), 2 MG PO DAILY Insulin Glargine (Lantus Solostar), 20 UNITS SC QAM Levothyroxine Sodium (Levothyroxine Sodium), 200 MCG PO DAILY Lisinopril (Zestril), 30 MG PO QAM Metformin HCl (Metformin HCl), 1,000 MG PO BID Multivitamin (Multivitamin), 1 TAB PO DAILY Allergies Coded Allergies: No Known Allergies (Unverified , 08/14/17) Physical Exam Vital Signs Date Time Temp Pulse Resp B/P (MAP) Pulse Ox O2 Delivery O2 Flow Rate FiO2 08/14/17 16:28 94 22 89/57 97 Room Air 08/14/17 15:11 101 25 108/56 98 Room Air 08/14/17 14:25 102 22 94/64 98 08/14/17 13:37 107 28 98 08/14/17 13:32 102 08/14/17 13:29 101/66 08/14/17 13:27 97 Room Air 08/14/17 13:27 101/66 08/14/17 12:50 36.3 104 22 91/65 96 Physical Exam GENERAL: Patient awake, alert, oriented x 3. Patient appears somewhat anxious. Patient follows commands. Patient does not appear toxic. Patient is adequately hydrated and well-nourished. SKIN: No erythema, pallor, cyanosis or rash HEENT: Normal head, pupils equal, reactive to light and accommodation. Ears normal. Oral cavity and posterior pharynx appear normal. Neck: Without adenopathy, no neck vein distention. LUNGS: Clear to auscultation. No wheezes, no rales, no rhonchi. HEART: No murmurs. No gallops. No rubs ABDOMEN: Generalized left sided abdominal pain. Healing scars from previous laparoscopic splenectomy. No masses, no rebound, no hepatomegaly or splenomegaly. EXTREMITIES: No signs of trauma. 1+ non-pitting pedal and pretibial edema. No calf or thigh tenderness. SKIN: Patient has a moser tint to skin. NEUROLOGIC: Cranial nerves II-XII within normal limits. No gross motor sensory function deficits. Medical Decision & Procedures ER Provider Diagnostic Interpretation: Radiology results as stated below per my review and radiologist interpretation: CHEST 2 VIEWS ROUTINE CLINICAL HISTORY: 56 years-old Male presenting with SOB. TECHNIQUE: PA and lateral views of the chest were obtained. COMPARISON: 07/31/2017. FINDINGS: Cardiac silhouette top normal in size. Mildly low lung volumes with bibasilar opacities and trace bilateral pleural effusions. No pneumothorax. Degenerative changes of the thoracic spine. Upper abdomen normal. IMPRESSION: 1. Suspected bibasilar atelectasis and trace bilateral pleural effusions. No evidence of significant volume overload or pulmonary edema. Electronically signed by: Logan Henry M.D. 08/14/2017 2:36 PM Laboratory Results 08/14/17 13:45 Red Blood Count 2.80, Mean Corpuscular Volume 91.8, Mean Corpuscular Hemoglobin 30.0, Mean Corpuscular Hemoglobin Concent 32.7, Mean Platelet Volume 11.9 08/14/17 13:45 Test 08/14/17 13:45 White Blood Count 11.29 K/uL (4.8-10.8) Red Blood Count 2.80 M/uL (4.7-6.1) Hemoglobin 8.4 g/dL (14.0-18.0) Hematocrit 25.7 % (42-52) Mean Corpuscular Volume 91.8 fL (80-100) Mean Corpuscular Hemoglobin 30.0 pg (25-34) Mean Corpuscular Hemoglobin Concent 32.7 g/dl (32-36) Platelet Count 162 K/uL (130-400) Mean Platelet Volume 11.9 fL (7.4-10.4) RDW Standard Deviation 54.8 fL (36.4-46.3) RDW Coefficient of Variation 16.3 % (11.5-14.5) Neutrophils % (Manual) 75.7 % Lymphocytes % (Manual) 4.5 % Monocytes % (Manual) 19.8 % Neutrophils # (Manual) 8.55 K/uL (1.4-6.5) Total Absolute Neutrophils 8.55 K/uL (1.4-6.5) Lymphocytes # (Manual) 0.51 K/uL (1.2-3.4) Total Absolute Lymphocytes 0.51 K/uL (1.2-3.4) Monocytes # (Manual) 2.24 K/uL (0.11-0.59) Dohle Bodies 1+ Giant Platelets 1+ Erythrocyte Sedimentation Rate 23 mm/hr (0-14) Anion Gap 7.0 mmol/L (3-11) Est Creatinine Clear Calc Drug Dose 63.8 ml/min Estimated GFR () 52.6 Estimated GFR (Non- 45.4 BUN/Creatinine Ratio 24.2 (10-20) Calcium Level 8.7 mg/dl (8.5-10.1) Total Bilirubin 0.6 mg/dl (0.2-1) Aspartate Amino Transf (AST/SGOT) 55 U/L (15-37) Alanine Aminotransferase (ALT/SGPT) 145 U/L (12-78) Alkaline Phosphatase 132 U/L (45-117) Troponin I < 0.015 ng/ml (0-0.045) Total Protein 6.2 gm/dl (6.4-8.2) Albumin 3.3 gm/dl (3.4-5.0) Globulin 2.9 gm/dl (2.5-4.0) Albumin/Globulin Ratio 1.1 (0.9-2) Beta-Hydroxybutyric Acid 2.98 mg/dL (0.2-2.81) Laboratory results as stated above per my review. ECG Indication: SOB/dyspnea Rate (beats per minute): 102 Rhythm: sinus tachycardia Findings: ST elevation (in lead 2, 3, AVF, V3, V4, V5, V6) ED Course 1257: Past medical records reviewed. The patient was evaluated in room B7. A complete history and physical examination was performed. 1615: I reevaluated the patient. I discussed his results and my recommendation he remain in the hospital for further evaluation and management and he verbalized complete understanding and agreement. 1622: I discussed the patients case with the [facility] Hospitalist. The patient will be further evaluated. Medical Decision The differential diagnoses considered include anemia, leukemia, PE, Bronchitis , pneumonia and metabolic disorder. The patient is here complaining of shortness of breath. Pulse ox is is not low. Multiple labs, EKG and imaging were obtained. Please see above. The patient's sodium is low. His liver enzymes are all slightly elevated. He remains chronically anemic. BUN and creatinine are elevated. EKG reveals slight ST elevation in multiple leads. His sedimentation rate is slightly elevated. The patient could have pericarditis but this does not match up with his current symptoms. An echocardiogram was ordered but will not be completed immediately. In the meantime, the patient will require further evaluation in the hospital. I discussed care with the [facility] Hospitalist. Medication Reconcilliation Current Medication List: was personally reviewed by me Blood Pressure Screening Patient's blood pressure: Normal blood pressure Blood pressure disposition: Did not require urgent referral Consults Time Called: 1620 Consulting Physician: [facility] Returned Call: 1622 [facility] The patient will be further evaluated. Impression Primary Impression: Hyponatremia Additional Impressions: Diabetes mellitus out of control Anemia Elevated liver enzymes Scribe Attestation The scribe's documentation has been prepared under my direction and personally reviewed by me in its entirety. I confirm that the note above accurately reflects all work, treatment, procedures, and medical decision making performed by me. Departure Information Dispostion Being Evaluated By Hospitalist Referrals Divya Diaz D.O. (PCP) Patient Instructions My [facility] Problem Qualifiers
[2017-08-14 14:06] LABS: HEMATOCRIT 25.7 % (42-52); MEAN CELL VOLUME 91.8 fL (80-100); MEAN CORPUSCULAR HGB CONC 32.7 g/dl (32-36); MEAN PLATELET VOLUME 11.9 fL (7.4-10.4); PLATELET COUNT 162 K/uL (130-400); WHITE BLOOD COUNT 11.29 K/uL (4.8-10.8)
[2017-08-14 14:14] LABS: ALT/SGPT 145 U/L (12-78); AST/SGOT 55 U/L (15-37); BLOOD UREA NITROGEN 40 mg/dl (7-18); BUN/CREATININE RATIO 24.2 (10-20); CALCIUM 8.7 mg/dl (8.5-10.1); CARBON DIOXIDE 23 mmol/L (21-32); CHLORIDE 96 mmol/L (98-107); CREATININE 1.66 mg/dl (0.60-1.40); GLUCOSE 303 mg/dl (70-99); POTASSIUM 5.4 mmol/L (3.5-5.1); SODIUM 126 mmol/L (136-145)
[2017-08-14 14:16] LABS: ALB/GLOB RATIO 1.1 (0.9-2)
[2017-08-14 14:23] LABS: ALKALINE PHOSPHATASE 132 U/L (45-117); BETA-HYDROXYBUTYRATE 2.98 mg/dL (0.2-2.81)
[2017-08-14 14:32] LABS: COMPLETE YES; DOHLE BODIES 1+; GIANT PLATELETS 1+; LYMPH ABS # 0.51 K/uL (1.2-3.4); LYMPHOCYTE % 4.5 %; NEUTROPHILS % 75.7 %
--- NOTE | 2017-08-14 14:37 | DIAGNOSTIC IMAGING REPORT ---
CHEST 2 VIEWS ROUTINE CLINICAL HISTORY: 56 years-old Male presenting with SOB. TECHNIQUE: PA and lateral views of the chest were obtained. COMPARISON: 07/31/2017. FINDINGS: Cardiac silhouette top normal in size. Mildly low lung volumes with bibasilar opacities and trace bilateral pleural effusions. No pneumothorax. Degenerative changes of the thoracic spine. Upper abdomen normal. IMPRESSION: 1. Suspected bibasilar atelectasis and trace bilateral pleural effusions. No evidence of significant volume overload or pulmonary edema. Electronically signed by: Logan Henry M.D. 08/14/2017 2:36 PM Dictated Date/Time: 08/14/2017 2:34 PM
--- NOTE | 2017-08-14 16:32 | History and Physical ---
History & Physical Date & Time of Service: Aug 14, 2017 at 16:32 Chief Complaint: Pain And Shortness Of Breath Primary Care Physician: Divya Diaz D.O. History of Present Illness Source: patient Patient is a 56 yr male with PMH of CLL S/P chemotherapy and splenectomy, DM II , Hypothyroidism, Benign villous adenoma of colon, former smoker and other problems presents with history of Intermittent interscapular back pain and band like epigastric pain since 10 days duration. Reports associated SOB on exertion. He states Pain is aching type, intermittent, non radiating, which increases on lying down and improves staying upright. Also reports intermittent cough with clear expectoration. He reports epigastric pain is associated with burping, bloated and so has been drinking lot of 7up despite being a diabetic. Reports having one episode of vomiting this morning after taking his pills. Currently denies any nausea. Also reports he drinks a lot of water everyday since many years. Denies any history of dizziness, diaphoresis, fever, chills, diarrhea, change in appetite, dysuria, recent travel, calf pain, recent change in medications. 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 He states his last chemotherapy was in February 2017. 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 Status: Chronic (2) Chemotherapy induced neutropenia Status: Chronic (3) CLL (chronic lymphocytic leukemia) Status: Chronic (4) DM type 2 (diabetes mellitus, type 2) Status: Chronic (5) Dyslipidemia Status: Chronic (6) HTN (hypertension) Status: Chronic (7) Hypothyroidism Status: Chronic (8) Obesity (BMI 30-39.9) Status: Chronic Surgical Problems: (1) H/O colonoscopy with polypectomy Status: Chronic (2) S/p bone marrow aspiration Status: Chronic Family History Cancer Diabetes mellitus Gallbladder disease Heart disease Hypertension Kidney disease MOTHER Kidney stones Father:colon cancer Social History Smoking Status: Former Smoker Alcohol Use: none Drug Use: none Marital Status: single Housing status: lives alone Occupational Status: employed Immunizations History of Influenza Vaccine: No History of Tetanus Vaccine?: No History of Pneumococcal: No History of Hepatitis B Vaccine: No Allergies Coded Allergies: No Known Allergies (Unverified , 08/14/17) Home Medications Scheduled Folic Acid (Folic Acid), 2 MG PO DAILY Insulin Glargine (Lantus Solostar), 20 UNITS SC QAM Levothyroxine Sodium (Levothyroxine Sodium), 200 MCG PO DAILY Lisinopril (Zestril), 30 MG PO QAM Metformin HCl (Metformin HCl), 1,000 MG PO BID Multivitamin (Multivitamin), 1 TAB PO DAILY Review of Systems See HPI for pertinent positives & negatives. A total of 10 systems reviewed and were otherwise negative. Physical Exam Vital Signs Date Time Temp Pulse Resp B/P (MAP) Pulse Ox O2 Delivery O2 Flow Rate FiO2 08/14/17 16:28 94 22 89/57 97 Room Air 08/14/17 15:11 101 25 108/56 98 Room Air 08/14/17 14:25 102 22 94/64 98 08/14/17 13:37 107 28 98 08/14/17 13:32 102 08/14/17 13:29 101/66 08/14/17 13:27 97 Room Air 08/14/17 13:27 101/66 08/14/17 12:50 36.3 104 22 91/65 96 General Appearance: WD/WN, no apparent distress, + obese Head: normocephalic, atraumatic Eyes: normal inspection, PERRL, EOMI, sclerae normal ENT: normal ENT inspection, hearing grossly normal Neck: supple, trachea midline Respiratory/Chest: chest non-tender, lungs clear, normal breath sounds, no respiratory distress, no accessory muscle use Cardiovascular: regular rate, rhythm, no murmur, + tachycardia, + pertinent finding (Trace pedal edema) Abdomen/GI: normal bowel sounds, non tender, soft Back: normal inspection Extremities/Musculoskelatal: normal inspection, + pedal edema (Trace) Neurologic/Psych: mirror painter II-XII nml as tested, no motor/sensory deficits, alert, normal mood/affect, oriented x 3 Skin: normal color, warm/dry Diagnostics Laboratory Results Results Past 24 Hours Test 08/14/17 13:45 Range/Units White Blood Count 11.29 4.8-10.8 K/uL Red Blood Count 2.80 4.7-6.1 M/uL Hemoglobin 8.4 14.0-18.0 g/dL Hematocrit 25.7 42-52 % Mean Corpuscular Volume 91.8 80-100 fL Mean Corpuscular Hemoglobin 30.0 25-34 pg Mean Corpuscular Hemoglobin Concent 32.7 32-36 g/dl Platelet Count 162 130-400 K/uL Mean Platelet Volume 11.9 7.4-10.4 fL RDW Standard Deviation 54.8 36.4-46.3 fL RDW Coefficient of Variation 16.3 11.5-14.5 % Neutrophils % (Manual) 75.7 % Lymphocytes % (Manual) 4.5 % Monocytes % (Manual) 19.8 % Neutrophils # (Manual) 8.55 1.4-6.5 K/uL Total Absolute Neutrophils 8.55 1.4-6.5 K/uL Lymphocytes # (Manual) 0.51 1.2-3.4 K/uL Total Absolute Lymphocytes 0.51 1.2-3.4 K/uL Monocytes # (Manual) 2.24 0.11-0.59 K/uL Dohle Bodies 1+ Giant Platelets 1+ Erythrocyte Sedimentation Rate 23 0-14 mm/hr Sodium Level 126 136-145 mmol/L Potassium Level 5.4 3.5-5.1 mmol/L Chloride Level 96 98-107 mmol/L Carbon Dioxide Level 23 21-32 mmol/L Anion Gap 7.0 3-11 mmol/L Blood Urea Nitrogen 40 7-18 mg/dl Creatinine 1.66 0.60-1.40 mg/dl Est Creatinine Clear Calc Drug Dose 63.8 ml/min Estimated GFR () 52.6 Estimated GFR (Non- 45.4 BUN/Creatinine Ratio 24.2 10-20 Random Glucose 303 70-99 mg/dl Calcium Level 8.7 8.5-10.1 mg/dl Total Bilirubin 0.6 0.2-1 mg/dl Aspartate Amino Transf (AST/SGOT) 55 15-37 U/L Alanine Aminotransferase (ALT/SGPT) 145 12-78 U/L Alkaline Phosphatase 132 45-117 U/L Troponin I < 0.015 0-0.045 ng/ml Total Protein 6.2 6.4-8.2 gm/dl Albumin 3.3 3.4-5.0 gm/dl Globulin 2.9 2.5-4.0 gm/dl Albumin/Globulin Ratio 1.1 0.9-2 Beta-Hydroxybutyric Acid 2.98 0.2-2.81 mg/dL Diagnostic Radiology CXR: Suspected bibasilar atelectasis and trace bilateral pleural effusions. No evidence of significant volume overload or pulmonary edema. EKG EKG: Sinus Tachycardia, ST elevation in lead 2, 3, AVF, V3, V4, V5, V6 Impression Assessment and Plan Acute Pericarditis: Presents with Interscapular and epigastric band like pain which increases with lying down CXR:Trace trace bilateral pleural effusions EKG:Sinus Tachy, ST elevation in multiple leads ESR:23 Troponin: 1st set negative Trend cardiac enzymes Check ECHO Start on colchicine 0.6mg BID Avoid prednisone/Ibuprofen given GI symptoms repeat EKG in AM Discussed with Cardiology. Appreciate Input Check Flu screen Mild leukocytosis. 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 Baron as outpatient Recently transferred to [place] for possible CLL converting into Cobos 's transformation. S/P Splenectomy on Jul 24, 2017 Oncology consulted Mild Transaminitis Monitor LFTs Will check Abdominal USD Anemia of Chronic disease: Hb at baseline DM II: last A1C: 5.8 in Jun 2017 Currently hyperglycemic likely secondary to Soda ISS, Lantus Update A1C Monitor Blood sugar levels Hypothyroidism: Continue levothyroxine Check TSH DVT Px: Heparin SQ Code Status: Full Code on my discussion with patient Disposition: Monitor in Tele Expect to discharge home when stable.
[2017-08-14] MEDS ORDERED: ACETAMINOPHEN 325 MG TAB PO PRN (17:15)
[2017-08-14] MEDS ORDERED: DEXTROSE 50% 50 ML SYR IV PRN (17:15)
[2017-08-14] MEDS ORDERED: GLUCAGON FOR INJ 1 MG VIAL SQ PRN (17:15)
[2017-08-14] MEDS ORDERED: FAMOTIDINE IV INJ 20 MG in DEXTROSE 5% 100ML 100 ML IV SCH (17:15)
[2017-08-14] MEDS ORDERED: GLUCOSE 10 TABS/TUBE PO PRN (17:15)
[2017-08-14] MEDS ORDERED: GLUCOSE 40% GEL 15 GM TUBE PO PRN (17:15)
[2017-08-14] MEDS ORDERED: NITROGLYCERIN 0.4 MG SL PER TAB CHARGE SL PRN (17:15)
[2017-08-14] MEDS ORDERED: PROMETHAZINE HCL INJ 12.5 MG in SODIUM CHLORIDE 0.9% 50ML 50 ML IV PRN (17:45)
[2017-08-14 17:58] VITALS: Ht 175.3 cm; Wt 120.4 kg
[2017-08-14 18:46] VITALS: O2SAT 97
[2017-08-14 19:20] VITALS: BP 103/66; PULSE 102; TEMP 36.9; O2SAT 97
[2017-08-14 19:48] LABS: BLOOD UREA NITROGEN 48 mg/dl (7-18); BUN/CREATININE RATIO 24.8 (10-20); CALCIUM 8.7 mg/dl (8.5-10.1); CARBON DIOXIDE 23 mmol/L (21-32); CHLORIDE 94 mmol/L (98-107); CREATININE 1.94 mg/dl (0.60-1.40); GLUCOSE 276 mg/dl (70-99); POTASSIUM 5.3 mmol/L (3.5-5.1); SODIUM 127 mmol/L (136-145)
[2017-08-14] MEDS: FAMOTIDINE IV INJ 20 MG in SYRINGE 3 ML IV SCH (19:59)
[2017-08-14] MEDS: SODIUM CHLORIDE 0.9% 1000ML 1,000 ML IV SCH (19:59)
--- NOTE | 2017-08-14 20:06 | DIAGNOSTIC IMAGING REPORT ---
ABDOMEN COMPLETE (US) CLINICAL HISTORY: 56 years-old Male presenting with Epigastric pain, Bloating, Transaminitis . TECHNIQUE: Real-time grayscale and limited color Doppler ultrasound imaging of the abdomen was performed. COMPARISON: CT from 05/12/2015 and ultrasound from 2012. FINDINGS: Pancreas: Visualized portions of the pancreatic head and body normal. Liver: Moderately hyperechogenic parenchyma with partial obscuration of the right hemidiaphragm, likely indicating moderate steatosis. The liver measures 19.6 cm in maximal sagittal dimension. No sonographic evidence of hepatic mass. Main portal vein patent with normal directional flow. Biliary: No intrahepatic biliary ductal dilatation. Common bile duct measures up to 4 mm in diameter. Gallbladder: No evidence of gallstones, gallbladder wall thickening, gallbladder distention, or pericholecystic fluid or inflammatory change. Ringdown artifact noted at the gallbladder fundus indicating adenomyomatosis. Spleen: Surgically absent. Kidneys: Normal in size and echogenicity. Right kidney measures 11.2 cm, and left kidney measures 10.4 cm. No hydronephrosis. Vasculature: Visualized portions of the IVC and abdominal aorta normal. Ascites: Right pleural effusion. Small amount of ascites in the left upper quadrant. IMPRESSION: 1. Hepatic steatosis and hepatomegaly. 2. No cholelithiasis or biliary ductal dilatation. 3. Splenectomy. 4. Right pleural effusion. Electronically signed by: Logan Henry M.D. 08/14/2017 8:05 PM Dictated Date/Time: 08/14/2017 8:01 PM
[2017-08-14] MEDS: COLCHICINE 0.6 MG TAB PO SCH ×2 (20:48→20:50)
[2017-08-14] MEDS: INSULIN ASPART 100 UNITS/ML 3 ML PEN SC SCH (20:49)
[2017-08-14] MEDS: HEPARIN SOD 5000 UNIT/0.5 ML CARP SQ SCH (20:49)
[2017-08-14] MEDS ORDERED: COLCHICINE 0.6 MG TAB PO SCH (21:00)
[2017-08-14] MEDS ORDERED: HEPARIN SOD 5000 UNIT/0.5 ML CARP SQ SCH (22:00)
[2017-08-14 23:47] VITALS: BP 97/66; PULSE 103; TEMP 36.8; O2SAT 99
[2017-08-15 00:36] LABS: INFLUENZA A PCR Neg for Influ A (NEG); INFLUENZA B PCR Neg for Influ B (NEG)
[2017-08-15] MEDS ORDERED: ZOLPIDEM TARTRATE 5 MG TAB PO PRN (00:45)
[2017-08-15 04:09] VITALS: BP 85/60; PULSE 103; TEMP 36.5; O2SAT 95
[2017-08-15] MEDS ORDERED: LEVOTHYROXINE 200 MCG TAB PO SCH (06:30)
[2017-08-15 07:07] LABS: MEAN CELL VOLUME 90.2 fL (80-100); MEAN CORPUSCULAR HEMOGLOBIN 30.7 pg (25-34); MEAN CORPUSCULAR HGB CONC 34.1 g/dl (32-36); MEAN PLATELET VOLUME 10.9 fL (7.4-10.4); PLATELET COUNT 130 K/uL (130-400); RED BLOOD COUNT 2.44 M/uL (4.7-6.1); WHITE BLOOD COUNT 12.04 K/uL (4.8-10.8)
[2017-08-15 07:31] LABS: ANISOCYTOSIS PRESENT; COMPLETE YES; LARGE PLATELETS 1+; LYMPH ABS # 1.35 K/uL (1.2-3.4); LYMPHOCYTE % 11.2 %; NEUTROPHILS % 75.9 %
[2017-08-15 07:46] LABS: ALT/SGPT 227 U/L (12-78); BLOOD UREA NITROGEN 53 mg/dl (7-18); BUN/CREATININE RATIO 22.9 (10-20); CALCIUM 8.6 mg/dl (8.5-10.1); CARBON DIOXIDE 22 mmol/L (21-32); CHLORIDE 96 mmol/L (98-107); CREATININE 2.33 mg/dl (0.60-1.40); GLUCOSE 216 mg/dl (70-99); MAGNESIUM 2.2 mg/dl (1.8-2.4); SODIUM 127 mmol/L (136-145)
[2017-08-15 07:52] LABS: ESTIMATED AVERAGE GLUCOSE 180 mg/dl; HA1C FLAG Normal (Normal)
[2017-08-15 07:57] LABS: ALB/GLOB RATIO 1.1 (0.9-2); ALKALINE PHOSPHATASE 105 U/L (45-117); AST/SGOT 83 U/L (15-37)
[2017-08-15 07:59] VITALS: BP 93/58; PULSE 101; TEMP 36.7; O2SAT 93
[2017-08-15] MEDS: SODIUM CHLORIDE 0.9% 1000ML 1,000 ML IV SCH (08:21)
[2017-08-15] MEDS: COLCHICINE 0.6 MG TAB PO SCH (08:21)
[2017-08-15] MEDS: INSULIN ASPART 100 UNITS/ML 3 ML PEN SC SCH ×2 (08:30→12:47)
[2017-08-15] MEDS: HEPARIN SOD 5000 UNIT/0.5 ML CARP SQ SCH (08:31)
--- NOTE | 2017-08-15 08:46 | ECHOCARDIOGRAM REPORT ---
*NOTICE TO RECEIVING DEMOCRAT AGENCY This information is strictly Confidential and protected under [place] law. [place] law prohibits you from making any further disclosure of this information unless further disclosure is expressly permitted by the written consent of the person to whom it pertains or is authorized by law. A general authorization for the release of medical or other information is not sufficient for this purpose. Hospital accepts no responsibility if the information is made available to any other person, INCLUDING THE PATIENT. Interpretation Summary * Name: ELISSA ARANDA Study Date: 08/15/2017 06:52 AM BP: 85/60 mmHg * Patient Location: [facility] HR: 103 * : 1960 (M/d/yyyy) Gender: Male Height: 69 in * Age: 56 yrs Ethnicity: CA Weight: 266 lb * Ordering Physician: Matthieu Santiago * Referring Physician: Self, Referred * Performed By: Dina Duval RDCS * * Reason For Study: Pericarditis * BSA: 2.3 m2 * -- Conclusions -- * Moderate size pericardial effusion. * There is no diastolic compression of the right ventricle to suggest cardiac tamponade. * There are no echocardiographic indications of cardiac tamponade. * There is mild concentric left ventricular hypertrophy. * Ejection Fraction = 60-65%. * The right ventricular systolic function is normal. * The left atrial size is normal. * Right atrial size is normal. * No significant valvular pathiology. Procedure Details * A complete two-dimensional transthoracic echocardiogram was performed (2D, M-mode, Doppler and color flow Doppler). Left Ventricle * The left ventricle is normal in size. * There is mild concentric left ventricular hypertrophy. * Ejection Fraction = 60-65%. * The left ventricular wall motion is normal. Right Ventricle * The right ventricular cavity size is normal (basal dimension <4.2 cm in right ventricular apical 4-chamber view). * The right ventricular systolic function is normal. Atria * The left atrial size is normal. * Right atrial size is normal. * The interatrial septum is intact with no evidence for an atrial septal defect. Mitral Valve * The mitral valve is normal in structure and function. Tricuspid Valve * The tricuspid valve is normal in structure and function. Aortic Valve * The aortic valve is normal in structure and function. Pulmonic Valve * The pulmonic valve is not well seen, but is grossly normal. * There is no significant pulmonary regurgitation. Pericardium/Pleural * Moderate size pericardial effusion. * There is no diastolic compression of the right ventricle to suggest cardiac tamponade. * There are no echocardiographic indications of cardiac tamponade. MMode 2D Measurements and Calculations IVSd 1.2 cm IVSs 1.5 cm LVIDd 3.6 cm LVIDs 2.2 cm LVPWd 1.3 cm LVPWs 1.4 cm IVS/LVPW 0.95 FS 38.7 % EDV(Teich) 55.7 ml ESV(Teich) 16.7 ml EF(Teich) 70.0 % EDV(cubed) 48.0 ml ESV(cubed) 11.0 ml EF(cubed) 77.0 % % IVS thick 23.9 % % LVPW thick 6.5 % LV mass(C)d 154.1 grams LV mass(C)dI 66.1 grams/m\S\2 LV mass(C)s 103.0 grams LV mass(C)sI 44.2 grams/m\S\2 SV(Teich) 39.0 ml SI(Teich) 16.7 ml/m\S\2 SV(cubed) 37.0 ml SI(cubed) 15.9 ml/m\S\2 Ao root diam 2.9 cm Ao root area 6.7 cm\S\2 ACS 2.0 cm LA dimension 2.3 cm LA/Ao 0.79 LVAd ap4 21.4 cm\S\2 LVLd ap4 7.1 cm EDV(MOD-sp4) 55.3 ml EDV(sp4-el) 54.5 ml LVAs ap4 11.0 cm\S\2 LVLs ap4 5.5 cm ESV(MOD-sp4) 20.6 ml ESV(sp4-el) 18.4 ml EF(MOD-sp4) 62.7 % EF(sp4-el) 66.2 % LVAd ap2 20.4 cm\S\2 LVLd ap2 6.5 cm EDV(MOD-sp2) 58.1 ml EDV(sp2-el) 54.6 ml LVAs ap2 10.3 cm\S\2 LVLs ap2 5.3 cm ESV(MOD-sp2) 18.0 ml ESV(sp2-el) 16.9 ml EF(MOD-sp2) 69.0 % EF(sp2-el) 69.0 % LVLd %diff -9.96 % EDV(MOD-bp) 59.2 ml LVLs %diff -4.65 % ESV(MOD-bp) 19.6 ml EF(MOD-bp) 66.9 % SV(MOD-sp4) 34.6 ml SI(MOD-sp4) 14.9 ml/m\S\2 SV(MOD-sp2) 40.1 ml SI(MOD-sp2) 17.2 ml/m\S\2 SV(MOD-bp) 39.6 ml SI(MOD-bp) 17.0 ml/m\S\2 SV(sp4-el) 36.1 ml SI(sp4-el) 15.5 ml/m\S\2 SV(sp2-el) 37.7 ml SI(sp2-el) 16.1 ml/m\S\2 Doppler Measurements and Calculations MV E max leigha 90.3 cm/sec MV A max leigha 58.9 cm/sec MV E/A 1.5 MV dec time 0.18 sec Ao V2 max 130.3 cm/sec Ao max PG 6.8 mmHg Ao max PG (full) 3.8 mmHg LV V1 max PG 3.0 mmHg LV V1 max 86.7 cm/sec PA V2 max 118.2 cm/sec PA max PG 5.6 mmHg
[2017-08-15] MEDS: FAMOTIDINE IV INJ 20 MG in SYRINGE 3 ML IV SCH (08:56)
[2017-08-15] MEDS ORDERED: INSULIN GLARGINE SOLOSTAR 100 UNITS/ML 3 ML PEN SC SCH (09:00)
--- NOTE | 2017-08-15 10:39 | Nephrology Consultation ---
Nephrology Consultation Date of Consultation: Aug 15, 2017. Attending Physician: Dr Boyer Requesting Physician: Dr Boyer Reason for Consultation: Hyponatremia History of Present Illness I was consulted on this pt admitted for pericarditis for help managing hyponatremia and acute kidney injury. He is for [place] [facility] [place] need for cardiology procedures. Consult cancelled by Dr. Parkinson. Past Medical/Surgical History Medical Problems: (1) Dehydration Status: Acute (2) Diabetes mellitus out of control Status: Acute (3) Dyspnea on exertion Status: Acute (4) Elevated liver enzymes Status: Acute (5) Hyperglycemia Status: Acute (6) Hyponatremia Status: Acute (7) Non-cardiac chest pain Status: Acute (8) Weakness Status: Acute Family History Cancer Diabetes mellitus Gallbladder disease Heart disease Hypertension Kidney disease MOTHER Kidney stones Social History Smoking Status: Former Smoker Alcohol Use: none Drug Use: none Marital Status: single Housing Status: lives alone Occupation Status: employed Allergies Coded Allergies: No Known Allergies (Unverified , 08/14/17) Medications Current Inpatient Medications Medications (Trade) Dose Ordered Sig/Alesha Route Start Time Stop Time Status Last Admin Dose Admin Sodium Chloride 1,000 ml @ 80 mls/hr [id number] IV 08/14/17 19:30 09/13/17 19:29 08/15/17 08:21 80 MLS/HR Nitroglycerin (Nitrostat Tab) 0.4 mg UD PRN SL 08/14/17 17:15 09/13/17 17:14 Insulin Aspart (novoLOG ASPART) SLIDING SCALE If C... ACHS SC 08/14/17 21:00 09/13/17 20:59 08/15/17 08:30 3 UNITS Glucose (Glucose 40% Gel) 15-30 GRAMS 15 GRAMS... UD PRN PO 08/14/17 17:15 09/13/17 17:14 Glucose (Glucose Chew Tab) 4-8 Tablets 4 Tabl... UD PRN PO 08/14/17 17:15 09/13/17 17:14 Dextrose (Dextrose 50% 50ML Syringe) 25-50ML OF 50% DW IV FOR... UD PRN IV 08/14/17 17:15 09/13/17 17:14 Glucagon (Glucagon Inj) 1 mg UD PRN SQ 08/14/17 17:15 09/13/17 17:14 Folic Acid (Folvite Tab) 2 mg DAILY PO 08/15/17 09:00 09/14/17 08:59 08/15/17 08:21 2 MG Insulin Glargine (Lantus Solostar Pen) 20 units QAM SC 08/15/17 09:00 09/14/17 08:59 08/15/17 08:31 20 UNITS Levothyroxine Sodium (Synthroid Tab) 200 mcg DAILYBB PO 08/15/17 06:30 09/14/17 06:29 08/15/17 05:31 200 MCG Promethazine HCl 12.5 mg/Sodium Chloride 50.5 ml @ 204 mls/hr Q6H PRN IV 08/14/17 17:45 09/13/17 17:44 08/14/17 22:07 204 MLS/HR Colchicine (Colchicine Tab) 0.6 mg BID PO 08/14/17 19:00 09/13/17 20:59 08/15/17 08:21 0.6 MG Heparin Sodium (Porcine) (Heparin Sq 5000 Unit/0.5ml) 5,000 unit Q12 SQ 08/14/17 21:00 09/13/17 21:59 08/15/17 08:31 5,000 UNIT Famotidine 20 mg/ Syringe 5 ml @ 2.5 mls/min Q12H IV 08/14/17 20:00 09/13/17 19:59 08/15/17 08:56 2.5 MLS/MIN Zolpidem Tartrate (Ambien Tab) 5 mg HS PRN PO 08/15/17 00:45 09/14/17 00:44 08/15/17 01:42 5 MG Ibuprofen (Advil Tab) 400 mg TID PO 08/15/17 14:00 09/14/17 13:59 Home Meds and Scripts Medications Dose Route/Sig Max Daily Dose Days Date Category Folic Acid 1 Mg Tab 2 Mg PO DAILY 07/22/17 Reported Lantus Solostar (Insulin Glargine) 100 Unit/Ml Inj 20 Units SC QAM 07/05/17 Reported Zestril (Lisinopril) 30 Mg Tab 30 Mg PO QAM 07/05/17 Reported Metformin HCl 500 Mg Tab 1,000 Mg PO BID 07/05/17 Reported Multivitamin (Multivitamins) Tab 1 Tab PO DAILY 02/02/17 Reported Levothyroxine Sodium 200 Mcg Tab 200 Mcg PO DAILY 08/16/14 Reported Physical Exam Date Time Temp Pulse Resp B/P (MAP) Pulse Ox O2 Delivery O2 Flow Rate FiO2 08/15/17 07:59 36.7 101 20 93/58 (70) 93 Room Air 08/15/17 04:09 36.5 103 18 85/60 (68) 95 08/15/17 04:04 Room Air 08/15/17 00:00 Room Air 08/14/17 23:47 36.8 103 20 97/66 (76) 99 Room Air 08/14/17 20:00 Room Air 08/14/17 19:20 36.9 102 20 103/66 (78) 97 Room Air 08/14/17 18:46 100 22 94/60 97 08/14/17 18:43 100 22 94/60 97 Room Air 08/14/17 17:33 95 08/14/17 17:30 94 20 94/64 97 Room Air 08/14/17 16:28 94 22 89/57 97 Room Air 08/14/17 15:11 101 25 108/56 98 Room Air 08/14/17 14:25 102 22 94/64 98 08/14/17 13:37 107 28 98 08/14/17 13:32 102 08/14/17 13:29 101/66 08/14/17 13:27 97 Room Air 08/14/17 13:27 101/66 08/14/17 12:50 36.3 104 22 91/65 96 Diagnostics Last 24 Hours Test 08/14/17 13:45 08/14/17 19:00 08/14/17 19:17 08/14/17 20:21 White Blood Count 11.29 K/uL Red Blood Count 2.80 M/uL Hemoglobin 8.4 g/dL Hematocrit 25.7 % Mean Corpuscular Volume 91.8 fL Mean Corpuscular Hemoglobin 30.0 pg Mean Corpuscular Hemoglobin Concent 32.7 g/dl Platelet Count 162 K/uL Mean Platelet Volume 11.9 fL RDW Standard Deviation 54.8 fL RDW Coefficient of Variation 16.3 % Neutrophils % (Manual) 75.7 % Lymphocytes % (Manual) 4.5 % Monocytes % (Manual) 19.8 % Neutrophils # (Manual) 8.55 K/uL Total Absolute Neutrophils 8.55 K/uL Lymphocytes # (Manual) 0.51 K/uL Total Absolute Lymphocytes 0.51 K/uL Monocytes # (Manual) 2.24 K/uL Dohle Bodies 1+ Giant Platelets 1+ Erythrocyte Sedimentation Rate 23 mm/hr Sodium Level 126 mmol/L 127 mmol/L Potassium Level 5.4 mmol/L 5.3 mmol/L Chloride Level 96 mmol/L 94 mmol/L Carbon Dioxide Level 23 mmol/L 23 mmol/L Anion Gap 7.0 mmol/L 10.0 mmol/L Blood Urea Nitrogen 40 mg/dl 48 mg/dl Creatinine 1.66 mg/dl 1.94 mg/dl Est Creatinine Clear Calc Drug Dose 63.8 ml/min 54.6 ml/min Estimated GFR () 52.6 43.6 Estimated GFR (Non- 45.4 37.6 BUN/Creatinine Ratio 24.2 24.8 Random Glucose 303 mg/dl 276 mg/dl Calcium Level 8.7 mg/dl 8.7 mg/dl Total Bilirubin 0.6 mg/dl Aspartate Amino Transf (AST/SGOT) 55 U/L Alanine Aminotransferase (ALT/SGPT) 145 U/L Alkaline Phosphatase 132 U/L Troponin I < 0.015 ng/ml < 0.015 ng/ml Total Protein 6.2 gm/dl Albumin 3.3 gm/dl Globulin 2.9 gm/dl Albumin/Globulin Ratio 1.1 Beta-Hydroxybutyric Acid 2.98 mg/dL Creatine Kinase MB Ratio Osmolality 286 mOsm/kg Creatine Kinase MB < 0.5 ng/ml Procalcitonin 0.50 ng/ml Bedside Glucose 312 mg/dl Test 08/14/17 23:30 08/15/17 00:30 08/15/17 01:45 08/15/17 06:51 Influenza Type A (RT-PCR) Neg for Influ A Influenza Type A Antigen Neg for Influ A Influenza Type B Antigen Neg for Influ B Influenza Type B (RT-PCR) Neg for Influ B Creatine Kinase MB 0.7 ng/ml < 0.5 ng/ml Creatine Kinase MB Ratio Troponin I < 0.015 ng/ml < 0.015 ng/ml Urine Osmolality 417 mOms/kg Urine Random Sodium 14 mEq/L White Blood Count 12.04 K/uL Red Blood Count 2.44 M/uL Hemoglobin 7.5 g/dL Hematocrit 22.0 % Mean Corpuscular Volume 90.2 fL Mean Corpuscular Hemoglobin 30.7 pg Mean Corpuscular Hemoglobin Concent 34.1 g/dl Platelet Count 130 K/uL Mean Platelet Volume 10.9 fL RDW Standard Deviation 53.0 fL RDW Coefficient of Variation 16.3 % Neutrophils % (Manual) 75.9 % Lymphocytes % (Manual) 11.2 % Monocytes % (Manual) 12.9 % Neutrophils # (Manual) 9.14 K/uL Total Absolute Neutrophils 9.14 K/uL Lymphocytes # (Manual) 1.35 K/uL Total Absolute Lymphocytes 1.35 K/uL Monocytes # (Manual) 1.55 K/uL Large Platelets 1+ Anisocytosis PRESENT Sodium Level 127 mmol/L Potassium Level 5.0 mmol/L Chloride Level 96 mmol/L Carbon Dioxide Level 22 mmol/L Anion Gap 10.0 mmol/L Blood Urea Nitrogen 53 mg/dl Creatinine 2.33 mg/dl Est Creatinine Clear Calc Drug Dose 45.4 ml/min Estimated GFR () 34.9 Estimated GFR (Non- 30.1 BUN/Creatinine Ratio 22.9 Random Glucose 216 mg/dl Estimated Average Glucose 180 mg/dl Hemoglobin A1c 7.9 % Calcium Level 8.6 mg/dl Magnesium Level 2.2 mg/dl Total Bilirubin 0.5 mg/dl Aspartate Amino Transf (AST/SGOT) 83 U/L Alanine Aminotransferase (ALT/SGPT) 227 U/L Alkaline Phosphatase 105 U/L Total Protein 5.5 gm/dl Albumin 2.9 gm/dl Globulin 2.6 gm/dl Albumin/Globulin Ratio 1.1 Thyroid Stimulating Hormone (TSH) 5.440 uIu/ml Test 08/15/17 07:33 Bedside Glucose 235 mg/dl Diagnostic Radiology: cxr trace BL pl effusions; no vol OL/plm edema abd u/s > enlarged/fatty liver; R pl effusion; 11 cm R and 10 cm L kidney w/o hydronephrosis or other lesin EKG: TTE (draft) 08/14 * Moderate size pericardial effusion. * There is no diastolic compression of the right ventricle to suggest cardiac tamponade. * There are no echocardiographic indications of cardiac tamponade. * There is mild concentric left ventricular hypertrophy. * Ejection Fraction = 60-65%. * The right ventricular systolic function is normal. * The left atrial size is normal. * Right atrial size is normal. * No significant valvular pathiology. ECG yesterday > acute pericarditis Assessment & Plan
--- NOTE | 2017-08-15 10:48 | CARDIOLOGY CONSULTATION ---
DATE OF CONSULTATION: 08/15/2017 [facility] REASON FOR CONSULTATION: Pericardial effusion. 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 He is status post chemotherapy and earlier this month, had a splenectomy completed at [facility]. His last dose of chemotherapy was in February 2017. After his recent splenectomy, he has had upper back and scapular discomfort. He has also had some epigastric discomfort with chronic belching. His discomfort seemed to worsen over the weekend and he decided to present to the Emergency Department. He has several problems including a moderate-sized pericardial effusion on echocardiography without echocardiographic evidence of tamponade. He has hyponatremia, worsening renal function, and an anemia with a hemoglobin of 7.5. On my evaluation today, he is resting comfortably and is denying shortness of breath. He has no pleuritic chest discomfort. He denies orthopnea. He has no prior history of heart disease. ALLERGIES: No known medical allergies. PAST MEDICAL HISTORY: The patient as outlined above, has chronic lymphocytic leukemia with Cobos's transformation and has received chemotherapy and more recently a splenectomy. He is a type 2 diabetic with a history of hypertension and treated hypothyroidism. He has no prior history of coronary artery disease or valvular heart disease. He denies strokes or previous kidney disease. FAMILY MEDICAL HISTORY: Significant for diabetes and hypertension. SOCIAL HISTORY: The patient is a reformed cigarette smoker. He lives alone and is single. REVIEW OF SYSTEMS: A 10-point review of systems is negative except for the history of chief complaint. One note is that he does run a low blood pressure. In questioning him, he states that his blood pressure usually is in the 90s even as an outpatient. PHYSICAL EXAMINATION: GENERAL: He is alert and oriented in no acute distress. VITAL SIGNS: Blood pressure is 95/60. There is no pulsus paradoxus, pulse is regular at 95 beats per minute. He is afebrile. HEENT: He is normocephalic. Pupils are equal and reactive to light. Mucous membranes are moist. NECK: The neck veins are distended. There is no respiratory variation with the neck distention. Carotids have good upstrokes bilaterally. Thyroid is nonpalpable. RESPIRATORY: Breath sounds equal bilaterally and clear to auscultation. CARDIOVASCULAR: Heart has a regular rhythm. Normal S1, S2. No S3, S4. GASTROINTESTINAL: Abdomen is soft, nontender without organomegaly. EXTREMITIES: Free of edema, digit clubbing, or cyanosis. NEUROLOGIC: Grossly intact. SKIN: Warm to touch. LYMPH NODES: Negative to palpation. LABORATORY DATA: EKG has a sinus rhythm with diffuse nonspecific ST and T-wave changes, which may be consistent with pericarditis. Hemoglobin is 7.5. WBC count is 12, platelet count is 130, creatinine is 2.33. Sodium is 127, potassium is 5.0. TSH is 5.44. IMPRESSION: 1. Moderate-sized pericardial effusion without echocardiographic or clinical evidence of cardiac tamponade. 2. Chronic lymphocytic leukemia with Cobos's transformation. 3. Status post splenectomy. 4. [id number] renal failure. 5. Anemia 6. Hyponatremia. RECOMMENDATIONS: I will place the patient on colchicine; however, the pericardial effusion may not be due to an inflammatory response. NSAID may not be the best due to his worsening renal function. We will have to monitor him and provide treatment based on his clinical course. He has multiple metabolic problems including [id number] renal failure and hyponatremia. I believe he should have a nephrology consult. He is also profoundly anemic. There is a consultation for his oncologist and we will let them make the determination if he should have a blood transfusion. ANGI
[2017-08-15 11:19] VITALS: BP_SYST 88; BP_SYST 90; BP_DIAS 61; BP_DIAS 63; PULSE 96; TEMP 36.8; O2SAT 95
--- NOTE | 2017-08-15 13:35 | Medical Consult ---
Consultation Date of Consultation: Aug 15, 2017. Attending Physician: Deanna Boyer D.O. History of Present Illness Hematology consult: Evaluation and management of known case of CLL, recently underwent splenectomy. Date of consultation: 08/15/2017. HPI: 56-year-old male, who is admitted at [facility] on 08/14/2017 for atypical chest pain , he says that he started having chest pain retrosternal region as well as in the upper back region for the last one week duration, has some mild shortness of breath, denies any bleeding from any sites, feeling tired and a week, no increasing fever, no night sweats, further workup showed evidence of pericarditis, echocardiogram showed evidence of pleural effusion. I saw him at bedside, he was sitting comfortably, blood pressure is slightly on the lower side, somewhat tired, no fever, intermittent chest pain which he has improved, no increasing nausea, no vomiting, no leg edema, denies any bleeding from any sites. 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 Diggs on 07/24/2017, final path showed spleen size measuring 540 g, focal capsular fibrosis/subcapsular necrosis. No evidence of lymphoma or leukemia noted. CURRENT TREATMENT: Presently he is not on a specific treatment for underlying B-cell CLL. Last chemotherapy received in January 2017 (FCR) ~ PREVIOUS TREATMENT: - Rituxan weekly x4 between 07/28/2016-08/18/2016. - FCR x3 between 11/29/2016-January,. ~Last dose of fludarabine received on 01/26. ~ DIAGNOSTIC WORKUP of CLL: - At the time of the diagnosis of B-cell CLL in July,, white blood cell count was around 13,000, H&H of 11.7/38, Platelet count of 229,000. ~ -in June, white blood cell count increased to around 40,000-50,000, absolute lymphocyte count was around 35,000-48,000. ~Hemoglobin level dropped down to around 6.2 g/dL, platelet count has remained in the normal range around 160,000-200,000. ~He received blood transfusion support. ~ Since early 2016 his hemoglobin level has remained quite low, received several units of PRBC. ~ He had significant reticulocytopenia. ~ He received Rituxan every weekly between 07/28/2016-08/18/2016 x4. ~ With Rituxan chemotherapy, white blood cell count dropped down to the normal range, hemoglobin level stayed on the lower side, platelet count also stayed in the normal range. ~ Received FCR (fludarabine, cyclophosphamide, Rituxan) x3 between November,- January,, following that chemotherapy, his white blood cell count dropped down significantlt between [id number], hemoglobin stayed quite low between 6.5- 10 g/dL requiring blood transfusion support, platelet count also dropped down to around 13,000 in February and so decided not to continue with any kind of chemotherapy at that time. ~ Blood transfusion history: ~ * 06/25-07/06/2017--> 4 * 03/2017--> 4 * Before March, in 2016--> 35 units. * In 2015 (June,-July,)--> 8 units . ~ PATHOLOGY: Bone marrow exam~done on 10/27/2016-->~B-cell CLL. ~Hyper cellular bone marrow, >~ 90%. Sheets of atypical small lymphocytes diffusely replace the marrow with interstitial and solid patterns. In a relatively uninvolved area, normal trilineage hematopoiesis is present. ~ CLL FISH: POSITIVE FOR DELETION OF 13q14 Normal results seen for the 6, 11, 11;14, 12, 13q34 and 17 probes. ~ OTHER IMPORTANT HISTORY: -Diabetes mellitus. ~Obesity. ~Hyperlipidemia - S/P splenectomy in early July 2017. REVIEW OF SYSTEMS: no significant change in the weight, retrosternal discomfort present, no nausea, no vomiting, no new GI symptoms, no bleeding from any sites , no increasing headache, some dizziness present, no focal neurological symptoms , otherwise is described above. SOCIAL HISTORY: history of smoking in the past. Denies any alcohol abuse. FAMILY HISTORY: not significant. MEDICATIONS: please review his chart for detailed list of medications. On exam: - Alert and oriented x3, well built slightly obese man, not in any distress. - HEENT: no icterus, mild pallor noted, Throat: Normal. - Neck: No palpable cervical lymphadenopathy. Permanent jugular venous distention noted. - Chest: clear to auscultation. - Abdomen: soft, nontender, no hepatomegaly, no splenomegaly. - No focal neuro deficit. - Extremities: no finger clubbing, no leg edema. - No palpable lymphadenopathy in the axilla. LABS: Last blood transmission was done on 08/09/2017 x 2. - WBC 11,200, H&H of 8.4/25.7, Platelet count of 160,000. ANC 8500, Absolute Lymphocyte count 0.5 (08/14/2017) - WBC 12,000, H&H of 7.5/22, Platelet count of 130,000 (08/15/2017) - BUN/creatinine: 40/1.6, AST 55, ALT 145, plan phosphate is 132, sodium 126, potassium 5.4 (08/14/2017) - BUN/creatinine: 53/2.3, AST 83, ALT 227, alkaline phosphatase 105, Total bilirubin: 0.5 (08/15/2017) - Stool for occult blood negative - Influenza testing --> Negative. IMAGING: - CT scan of the chest done on 07/31/2017 for atypical chest pain --> No evidence of pulmonary embolism, no pathologically enlarged axillary, mediastinal or hilar lymphadenopathy noted. Post surgical changes noted in the left upper quadrant. - Ultrasound of the abdomen done on 08/14/2017 showed hepatic steatosis, hepatomegaly, no gallstones, S/P splenectomy noted. Right pleural effusion noted. - Chest x-ray done on 08/14/2017 showed bibasilar atelectasis, trace bilateral pleural effusion. No evidence of volume overload noted. - Echocardiogram done on 08/15/2017 showed moderate peripheral effusion, no echocardiographic signs of cardiac tamponade, ejection fraction is 60 smoking 65 %. 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 ~ He also received 3 cycles of chemotherapy with FCR between November, - early January,. His treatment was complicated by significant pancytopenia and so decided to discontinue chemotherapy. ~Earlier he was treated and followed by Dr. Kinney. He required blood transfusion support during the whole year, found to have significant enlarged spleen, elevated LDH, Judit test negative, he recently underwent splenectomy, also had a bone marrow examination, no evidence of lymphoma noted in the spleen or in the bone marrow, recent imaging study (2016) in the form of CT scan of the chest also showed another enlarged lymph nodes in the axilla or in the mediastinum or hilar region. Now he's admitted for pericarditis, echocardiogram shows evidence of peripheral effusion, no clear evidence of cardiac tamponade, his blood pressure is on the lower side, has permanent jugular veins noted, also has worsening kidney function test, he does not have any clear evidence of leukemia or lymphoma anywhere else at this time other than presence of anemia which may require periodic blood pressure support at this time. I spoke with hr business partner consultant Dr. Mckeon about his case, planning to transfer him at [facility] for further evaluation management of pericardial tamponade. Will see him in the office once he is discharged from the hospital. Thanks for the consultation. Ephraim Baron MD Hem/Onc Past Medical/Surgical History Medical Problems: (1) Dehydration Status: Acute (2) Diabetes mellitus out of control Status: Acute (3) Dyspnea on exertion Status: Acute (4) Elevated liver enzymes Status: Acute (5) Hyperglycemia Status: Acute (6) Hyponatremia Status: Acute (7) Non-cardiac chest pain Status: Acute (8) Weakness Status: Acute Family History Cancer Diabetes mellitus Gallbladder disease Heart disease Hypertension Kidney disease MOTHER Kidney stones Social History Smoking Status: Former Smoker Alcohol Use: none Drug Use: none Marital Status: single Housing Status: lives alone Occupation Status: employed Allergies Coded Allergies: No Known Allergies (Unverified , 08/14/17) Current Inpatient Medications Current Inpatient Medications Medications (Trade) Dose Ordered Sig/Alesha Route Start Time Stop Time Status Last Admin Dose Admin Sodium Chloride 1,000 ml @ 80 mls/hr [id number] IV 08/14/17 19:30 09/13/17 19:29 08/15/17 08:21 80 MLS/HR Nitroglycerin (Nitrostat Tab) 0.4 mg UD PRN SL 08/14/17 17:15 09/13/17 17:14 Insulin Aspart (novoLOG ASPART) SLIDING SCALE If C... ACHS SC 08/14/17 21:00 09/13/17 20:59 08/15/17 12:47 6 UNITS Glucose (Glucose 40% Gel) 15-30 GRAMS 15 GRAMS... UD PRN PO 08/14/17 17:15 09/13/17 17:14 Glucose (Glucose Chew Tab) 4-8 Tablets 4 Tabl... UD PRN PO 08/14/17 17:15 09/13/17 17:14 Dextrose (Dextrose 50% 50ML Syringe) 25-50ML OF 50% DW IV FOR... UD PRN IV 08/14/17 17:15 09/13/17 17:14 Glucagon (Glucagon Inj) 1 mg UD PRN SQ 08/14/17 17:15 09/13/17 17:14 Folic Acid (Folvite Tab) 2 mg DAILY PO 08/15/17 09:00 09/14/17 08:59 08/15/17 08:21 2 MG Insulin Glargine (Lantus Solostar Pen) 20 units QAM SC 08/15/17 09:00 09/14/17 08:59 08/15/17 08:31 20 UNITS Levothyroxine Sodium (Synthroid Tab) 200 mcg DAILYBB PO 08/15/17 06:30 09/14/17 06:29 08/15/17 05:31 200 MCG Promethazine HCl 12.5 mg/Sodium Chloride 50.5 ml @ 204 mls/hr Q6H PRN IV 08/14/17 17:45 09/13/17 17:44 08/14/17 22:07 204 MLS/HR Colchicine (Colchicine Tab) 0.6 mg BID PO 08/14/17 19:00 09/13/17 20:59 08/15/17 08:21 0.6 MG Heparin Sodium (Porcine) (Heparin Sq 5000 Unit/0.5ml) 5,000 unit Q12 SQ 08/14/17 21:00 09/13/17 21:59 08/15/17 08:31 5,000 UNIT Famotidine 20 mg/ Syringe 5 ml @ 2.5 mls/min Q12H IV 08/14/17 20:00 09/13/17 19:59 08/15/17 08:56 2.5 MLS/MIN Zolpidem Tartrate (Ambien Tab) 5 mg HS PRN PO 08/15/17 00:45 09/14/17 00:44 08/15/17 01:42 5 MG Physical Exam Date Time Temp Pulse Resp B/P (MAP) Pulse Ox O2 Delivery O2 Flow Rate FiO2 08/15/17 11:19 36.8 96 16 88/61 (70) 95 Room Air 90/63 (72) 08/15/17 08:00 Room Air 08/15/17 07:59 36.7 101 20 93/58 (70) 93 Room Air 08/15/17 04:09 36.5 103 18 85/60 (68) 95 08/15/17 04:04 Room Air 08/15/17 00:00 Room Air 08/14/17 23:47 36.8 103 20 97/66 (76) 99 Room Air 08/14/17 20:00 Room Air 08/14/17 19:20 36.9 102 20 103/66 (78) 97 Room Air 08/14/17 18:46 100 22 94/60 97 08/14/17 18:43 100 22 94/60 97 Room Air 08/14/17 17:33 95 08/14/17 17:30 94 20 94/64 97 Room Air 08/14/17 16:28 94 22 89/57 97 Room Air 08/14/17 15:11 101 25 108/56 98 Room Air 08/14/17 14:25 102 22 94/64 98 08/14/17 13:37 107 28 98 Laboratory Results Last 24 Hours Test 08/14/17 13:45 08/14/17 19:00 08/14/17 19:17 08/14/17 20:21 White Blood Count 11.29 K/uL Red Blood Count 2.80 M/uL Hemoglobin 8.4 g/dL Hematocrit 25.7 % Mean Corpuscular Volume 91.8 fL Mean Corpuscular Hemoglobin 30.0 pg Mean Corpuscular Hemoglobin Concent 32.7 g/dl Platelet Count 162 K/uL Mean Platelet Volume 11.9 fL RDW Standard Deviation 54.8 fL RDW Coefficient of Variation 16.3 % Neutrophils % (Manual) 75.7 % Lymphocytes % (Manual) 4.5 % Monocytes % (Manual) 19.8 % Neutrophils # (Manual) 8.55 K/uL Total Absolute Neutrophils 8.55 K/uL Lymphocytes # (Manual) 0.51 K/uL Total Absolute Lymphocytes 0.51 K/uL Monocytes # (Manual) 2.24 K/uL Dohle Bodies 1+ Giant Platelets 1+ Erythrocyte Sedimentation Rate 23 mm/hr Sodium Level 126 mmol/L 127 mmol/L Potassium Level 5.4 mmol/L 5.3 mmol/L Chloride Level 96 mmol/L 94 mmol/L Carbon Dioxide Level 23 mmol/L 23 mmol/L Anion Gap 7.0 mmol/L 10.0 mmol/L Blood Urea Nitrogen 40 mg/dl 48 mg/dl Creatinine 1.66 mg/dl 1.94 mg/dl Est Creatinine Clear Calc Drug Dose 63.8 ml/min 54.6 ml/min Estimated GFR () 52.6 43.6 Estimated GFR (Non- 45.4 37.6 BUN/Creatinine Ratio 24.2 24.8 Random Glucose 303 mg/dl 276 mg/dl Calcium Level 8.7 mg/dl 8.7 mg/dl Total Bilirubin 0.6 mg/dl Aspartate Amino Transf (AST/SGOT) 55 U/L Alanine Aminotransferase (ALT/SGPT) 145 U/L Alkaline Phosphatase 132 U/L Troponin I < 0.015 ng/ml < 0.015 ng/ml Total Protein 6.2 gm/dl Albumin 3.3 gm/dl Globulin 2.9 gm/dl Albumin/Globulin Ratio 1.1 Beta-Hydroxybutyric Acid 2.98 mg/dL Creatine Kinase MB Ratio Osmolality 286 mOsm/kg Creatine Kinase MB < 0.5 ng/ml Procalcitonin 0.50 ng/ml Bedside Glucose 312 mg/dl Test 08/14/17 23:30 08/15/17 00:30 08/15/17 01:45 08/15/17 06:51 Influenza Type A (RT-PCR) Neg for Influ A Influenza Type A Antigen Neg for Influ A Influenza Type B Antigen Neg for Influ B Influenza Type B (RT-PCR) Neg for Influ B Creatine Kinase MB 0.7 ng/ml < 0.5 ng/ml Creatine Kinase MB Ratio Troponin I < 0.015 ng/ml < 0.015 ng/ml Urine Osmolality 417 mOms/kg Urine Random Sodium 14 mEq/L White Blood Count 12.04 K/uL Red Blood Count 2.44 M/uL Hemoglobin 7.5 g/dL Hematocrit 22.0 % Mean Corpuscular Volume 90.2 fL Mean Corpuscular Hemoglobin 30.7 pg Mean Corpuscular Hemoglobin Concent 34.1 g/dl Platelet Count 130 K/uL Mean Platelet Volume 10.9 fL RDW Standard Deviation 53.0 fL RDW Coefficient of Variation 16.3 % Neutrophils % (Manual) 75.9 % Lymphocytes % (Manual) 11.2 % Monocytes % (Manual) 12.9 % Neutrophils # (Manual) 9.14 K/uL Total Absolute Neutrophils 9.14 K/uL Lymphocytes # (Manual) 1.35 K/uL Total Absolute Lymphocytes 1.35 K/uL Monocytes # (Manual) 1.55 K/uL Large Platelets 1+ Anisocytosis PRESENT Sodium Level 127 mmol/L Potassium Level 5.0 mmol/L Chloride Level 96 mmol/L Carbon Dioxide Level 22 mmol/L Anion Gap 10.0 mmol/L Blood Urea Nitrogen 53 mg/dl Creatinine 2.33 mg/dl Est Creatinine Clear Calc Drug Dose 45.4 ml/min Estimated GFR () 34.9 Estimated GFR (Non- 30.1 BUN/Creatinine Ratio 22.9 Random Glucose 216 mg/dl Estimated Average Glucose 180 mg/dl Hemoglobin A1c 7.9 % Calcium Level 8.6 mg/dl Magnesium Level 2.2 mg/dl Total Bilirubin 0.5 mg/dl Aspartate Amino Transf (AST/SGOT) 83 U/L Alanine Aminotransferase (ALT/SGPT) 227 U/L Alkaline Phosphatase 105 U/L Total Protein 5.5 gm/dl Albumin 2.9 gm/dl Globulin 2.6 gm/dl Albumin/Globulin Ratio 1.1 Thyroid Stimulating Hormone (TSH) 5.440 uIu/ml Test 08/15/17 07:33 08/15/17 10:10 08/15/17 11:34 Bedside Glucose 235 mg/dl 256 mg/dl Stool Occult Blood NEGATIVE
[2017-08-15] MEDS ORDERED: IBUPROFEN 200 MG TAB PO SCH (14:00)
[2017-08-15 14:27] VITALS: BP 90/63; PULSE 96; TEMP 36.8; O2SAT 95
--- NOTE | 2017-08-15 14:34 | Discharge Summary ---
Discharge Summary Date of Service Aug 15, 2017. Discharge Summary Admission Date: Aug 14, 2017 at 17:09 Discharge Disposition: Acute care facility Principal Diagnosis: Pericardial effusion, acute pericarditis, anemia, acute renal failure, hyponatremia Admission Information HPI (per Admitting provider): Patient is a 56 yr male with PMH of CLL S/P chemotherapy and splenectomy, DM II , Hypothyroidism, Benign villous adenoma of colon, former smoker and other problems presents with history of Intermittent interscapular back pain and band like epigastric pain since 10 days duration. Reports associated SOB on exertion. He states Pain is aching type, intermittent, non radiating, which increases on lying down and improves staying upright. Also reports intermittent cough with clear expectoration. He reports epigastric pain is associated with burping, bloated and so has been drinking lot of 7up despite being a diabetic. Reports having one episode of vomiting this morning after taking his pills. Currently denies any nausea. Also reports he drinks a lot of water everyday since many years. Denies any history of dizziness, diaphoresis, fever, chills, diarrhea, change in appetite, dysuria, recent travel, calf pain, recent change in medications. He was transferred from [facility] [place] to [facility] on JUL 11 on recommendations from his Oncologist for management of Cobos's transformation of CLL where he underwent splenectomy on Jul 24, 2017. He states his last chemotherapy was in February 2017. Physical Exam (per Admitting): General Appearance: WD/WN, no apparent distress, + obese Head: normocephalic, atraumatic Eyes: normal inspection, PERRL, EOMI, sclerae normal ENT: normal ENT inspection, hearing grossly normal Neck: supple, trachea midline Respiratory/Chest: chest non-tender, lungs clear, normal breath sounds, no respiratory distress, no accessory muscle use Cardiovascular: regular rate, rhythm, no murmur, + tachycardia, + pertinent finding (Trace pedal edema) Abdomen/GI: normal bowel sounds, non tender, soft Back: normal inspection Extremities/Musculoskelatal: normal inspection, + pedal edema (Trace) Neurologic/Psych: digital strategist senior manager II-XII nml as tested, no motor/sensory deficits, alert , normal mood/affect, oriented x 3 Skin: normal color, warm/dry Hospital Course ACUTE PERICARDITIS/PERICARDIAL EFFUSION: -presented with interscapular and epigastric band like pain which increases with lying down -CXR: trace bilateral pleural effusions -EKG:Sinus Tachy, ST elevation in multiple leads (anterior), low voltage -ESR:23 -serial CM negative x3 -Cardiology consulted, appreciate recs, advised starting colchicine -TTE: -avoiding prednisone/Ibuprofen given GI symptoms -Flu screen negative -Mild leukocytosis, procalcitonin 0.5 -not started on antibiotics, but infectious etiology is certainly part of the differential, recent splenectomy, needs blood and sputum cultures -continued on gentle IV fluids HYPONATREMIA: -patient reports drinking lot of water since many years -hyperglycemia possibly contributing (Has been drinking lot of 7up secondary to bloating) -remains relatively unchanged on IV fluids -clinically appears euvolemic -126-->127 -check serum osmolality (286), urine osmolality (417), urine sodium (14) IZABELLA/Hyperkalemia: worsening -continued on IV fluids -hold lisinopril, avoid nephrotoxins -possibly related to above pericardial effusion -renal function has been worsening since admission, Cr 1.6-->2.33 HTN: -has been hypotensive -hold lisinopril -continue IV fluids CLL: -Chronic lymphoid leukemia,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 Baron as outpatient -recently transferred to [place] for possible CLL converting into Cobos 's transformation, S/P Splenectomy on Jul 24, 2017 -Oncology consulted, recommend transfer to tertiary care facility MILD TRANSAMINITIS: -monitor LFTs -Abdominal US shows absent spleen and hepatic steatosis, no other issues noted ANEMIA OF CHRONIC DISEASE: -Hb at baseline has been 8-9, today is down to 7.5 -check FOBT -check peripheral smear DM TYPE II: -last A1C: 5.8 in Jun 2017, repeat is 7.9% -has been hyperglycemic since admission -ISS, Lantus HYPOTHYROIDISM: -Continue levothyroxine -TSH elevated, check free T4 PHYSICAL EXAM ON DAY OF DISCHARGE: GENERAL: Patient is in no acute distress. HEENT: No acute trauma, normocephalic, mucous membranes moist, no nasal congestion, no scleral icterus. NECK: No stridor, trachea is midline. LUNGS: Crackles in bases bilaterally, no wheeze, no rhonchi, breath sounds equal. HEART: Without murmurs gallops or rubs, regular rate and rhythm. ABDOMEN: Soft, nontender, bowel sounds positive, no hepatomegaly EXTREMITIES: No cyanosis or edema, full range of motion of all the joints without pain or difficulty, no signs for acute trauma. NEUROLOGIC: Oriented x 3, no acute motor or sensory deficits, no focal weakness. SKIN: No rash, no jaundice, no diaphoresis. Total time spent on discharge = 43 This includes examination of the patient, discharge planning, medication reconciliation, and communication with other providers. Discharge Instructions 08/15/17 06:51 Red Blood Count 2.44, Mean Corpuscular Volume 90.2, Mean Corpuscular Hemoglobin 30.7, Mean Corpuscular Hemoglobin Concent 34.1, Mean Platelet Volume 10.9 08/15/17 06:51 Test 08/14/17 19:17 08/14/17 23:30 08/15/17 01:45 08/15/17 06:51 Osmolality 286 mOsm/kg (280-300) Procalcitonin 0.50 ng/ml (0-0.5) Influenza Type A (RT-PCR) Neg for Influ A (NEG) Influenza Type A Antigen Neg for Influ A (NEG) Influenza Type B Antigen Neg for Influ B (NEG) Influenza Type B (RT-PCR) Neg for Influ B (NEG) Urine Osmolality 417 mOms/kg (500-800) Urine Random Sodium 14 mEq/L White Blood Count 12.04 K/uL (4.8-10.8) Red Blood Count 2.44 M/uL (4.7-6.1) Hemoglobin 7.5 g/dL (14.0-18.0) Hematocrit 22.0 % (42-52) Mean Corpuscular Volume 90.2 fL (80-100) Mean Corpuscular Hemoglobin 30.7 pg (25-34) Mean Corpuscular Hemoglobin Concent 34.1 g/dl (32-36) Platelet Count 130 K/uL (130-400) Mean Platelet Volume 10.9 fL (7.4-10.4) RDW Standard Deviation 53.0 fL (36.4-46.3) RDW Coefficient of Variation 16.3 % (11.5-14.5) Neutrophils % (Manual) 75.9 % Lymphocytes % (Manual) 11.2 % Monocytes % (Manual) 12.9 % Neutrophils # (Manual) 9.14 K/uL (1.4-6.5) Total Absolute Neutrophils 9.14 K/uL (1.4-6.5) Lymphocytes # (Manual) 1.35 K/uL (1.2-3.4) Total Absolute Lymphocytes 1.35 K/uL (1.2-3.4) Monocytes # (Manual) 1.55 K/uL (0.11-0.59) Large Platelets 1+ Anisocytosis PRESENT Anion Gap 10.0 mmol/L (3-11) Est Creatinine Clear Calc Drug Dose 45.4 ml/min Estimated GFR () 34.9 Estimated GFR (Non- 30.1 BUN/Creatinine Ratio 22.9 (10-20) Estimated Average Glucose 180 mg/dl Hemoglobin A1c 7.9 % (4.5-5.6) Calcium Level 8.6 mg/dl (8.5-10.1) Magnesium Level 2.2 mg/dl (1.8-2.4) Total Bilirubin 0.5 mg/dl (0.2-1) Aspartate Amino Transf (AST/SGOT) 83 U/L (15-37) Alanine Aminotransferase (ALT/SGPT) 227 U/L (12-78) Alkaline Phosphatase 105 U/L (45-117) Creatine Kinase MB < 0.5 ng/ml (0.5-3.6) Creatine Kinase MB Ratio (0-3.0) Troponin I < 0.015 ng/ml (0-0.045) Total Protein 5.5 gm/dl (6.4-8.2) Albumin 2.9 gm/dl (3.4-5.0) Globulin 2.6 gm/dl (2.5-4.0) Albumin/Globulin Ratio 1.1 (0.9-2) Thyroid Stimulating Hormone (TSH) 5.440 uIu/ml (0.300-4.500) Test 08/15/17 10:10 08/15/17 11:34 Stool Occult Blood NEGATIVE (NEGATIVE) Bedside Glucose 256 mg/dl (70-99)
[2017-08-23] MEDS ORDERED: COLCPOW6 (11:07)
== END 2017-08-15 15:15 | disposition short-term general hospital (02) | DRG 315 ==
LOC: C.EDB 12:38 → C.MED 17:09 → ENRESERV 17:42
PROVIDERS: ADMIT Internal Medicine; ATTEND Internal Medicine
DX: I30.9 Acute pericarditis, unspecified (principal); N17.9 Acute kidney failure, unspecified; C91.10 Chronic lymphocytic leukemia of B-cell type not having achieved remission; E87.1 Hypo-osmolality and hyponatremia; E11.65 Type 2 diabetes mellitus with hyperglycemia; E78.5 Hyperlipidemia, unspecified; I10 Essential (primary) hypertension; E03.9 Hypothyroidism, unspecified; E66.9 Obesity, unspecified; Z68.30 Body mass index [BMI] 30.0-30.9, adult; Z87.891 Personal history of nicotine dependence; Z79.84 Long term (current) use of oral hypoglycemic drugs; Z90.81 Acquired absence of spleen; Z86.010 Personal history of colon polyps; E87.5 Hyperkalemia; D64.9 Anemia, unspecified

== ENCOUNTER → 2017-11-14 | Day surgery (SDC) | payer OTHER ==
[2017-11-07 15:14] VITALS: BMI 36.0
[~2017-11-14] VITALS: Ht 175.3 cm; Wt 111.4 kg
[~2017-11-14] MED LIST changes: +ACET-1311 PO; +COLC0.6T54 PO; +EMPA1TAB PO; +EpHEDrine SULFATE 50MG/5ML SYR ONE; +LIDOCAINE HCL 2% 2 ML VIAL (20MG/ML) ONE; -MULT-506 PO; +PHENYLEPHRINE 100MCG/ML 5ML SYR ONE; +PRLSR20 PO; +PROPOFOL IV EMULSION 10 MG/ML 20 ML VIAL IV ONE; +SODIUM CHLORIDE 0.9% 500ML 500 ML IV ONE; +[UNRECOGNIZED DRUG - CODE] PO
[2017-11-14 08:10] VITALS: Ht 175.3 cm; Wt 111.4 kg
--- NOTE | 2017-11-14 08:24 | Endo History and Physical ---
History & Physical Date of Service: Nov 14, 2017. Chief Complaint: Referring Physician: History of Present Illness Hx of Barrette's esophagus and Adenomatous colon polyps, due for surveillance Past Medical History High Cholesterol, Hypertension, Thyroid Disease Past Surgical History Hx Cardiac Surgery: No Hx Internal Defibrillator: No Hx Pacemaker: No Hx Abdominal Surgery: Yes (SPLEENECTOMY) Hx of Implantable Prosthesis: No Hx Post-Op Nausea and Vomiting: No Hx Cancer Surgery: No Hx Thoracic Surgery: No Hx Orthopedic: No Hx Urinary Tract Surgery: No Family History Colon CA, Polyp Social History Smoking Status: Former Smoker Hx Substance Use: No Hx Alcohol Use: No Allergies Coded Allergies: No Known Allergies (Unverified , 11/14/17) Current Medications Reported Home Medications Medications Dose Route/Sig Max Daily Dose Days Date Category Dose Instructions Jardiance (Empagliflozin) 10 Mg Tab 1 Tab PO QAM 11/07/17 Reported Jadenu (Deferasirox) 360 Mg Tab 4 Tabs PO QAM 11/07/17 Reported Colchicine 0.6 Mg Tab 0.6 Mg PO BID 11/07/17 Reported "FOR FLUID ON HEART" WILL BE COMPLETED AT END OF MONTH Prilosec (Omeprazole) 20 Mg Capcr 20 Mg PO QAM 11/07/17 Reported Tylenol (Acetaminophen) 325 Mg Tab 2 Tabs PO Q6H PRN 11/07/17 Reported Folic Acid 1 Mg Tab 2 Mg PO QAM 07/22/17 Reported Lantus Solostar (Insulin Glargine) 100 Unit/Ml Inj 20 Units SC QAM 07/05/17 Reported Zestril (Lisinopril) 30 Mg Tab 30 Mg PO QAM 07/05/17 Reported Metformin HCl 500 Mg Tab 1,000 Mg PO BID 07/05/17 Reported Levothyroxine Sodium 200 Mcg Tab 200 Mcg PO QAM 08/16/14 Reported Vital Signs Weight (Kilograms): 111.36 Height (Feet): 5 Height (Inches): 9 Physical Exam General Appearance: no apparent distress Respiratory/Chest: Auscultation: breath sounds normal Cardiovascular: Heart Auscultation: RRR Abdomen: Inspection & Palpation: soft Liver: non-tender Assessment and Plan Stable for EGD and colonoscopy.
--- NOTE | 2017-11-14 09:51 | Discharge Instructions ---
Endoscopy Patient Instructions Date / Procedure(s) Performed Nov 14, 2017. Colonoscopy, EGD Allergy Information Coded Allergies: No Known Allergies (Unverified , 11/14/17) Discharge Date / Findings Nov 14, 2017. Barrette's esophagus. Normal stomach and duodenum. Few colon polyps removed. Diverticulosis and Hemorrhoids. Provider Instructions Activity Restrictions - No exercising or heavy lifting for 24 hours. - Do not drink alcohol the day of the procedure. - Do not drive a car or operate machinery until the day after the procedure. - Do not make any important decisions or sign important papers in 24 hours after the procedure. Following Day: - Return to full activity which may include returning to work/school. Diet Start your diet with liquids and light foods (jello, soup, juice, toast). Then eat your usual diet if not nauseated. Treatment For Common After Affects For mild abdominal pain, bloating, or excessive gas: - Rest - Eat lightly - Lie on right side Follow-Up Information Follow-up with LILIANA (NURY) as scheduled Anesthesia Information What You Should Know You have had a procedure that required some medicine to reduce anxiety and discomfort. This treatment is called moderate sedation. After receiving the treatment, you may be sleepy, but you will be able to breathe on your own. The effects of the treatment may last for several hours. Follow these instructions along with Activity/Diet recommendations noted above: * Do NOT do anything where dizziness or clumsiness would be dangerous. * Rest quietly at home today, then you can be up and about tomorrow. * Have a responsible person stay with you the rest of today. * You may have had an I.V. today. If so, you may take the dressing off later today. Recommendations Call your doctor if: * Trouble breathing * Continuous vomiting for more than 24 hours * Temperature above 101 degrees * Severe abdominal pain or bloating * Pain not relieved by pain medicine ordered * There is increased drainage or redness from any incision * A large amount of rectal bleeding greater than 2-3 tablespoons. (If you had a polyp/s removed or have hemorrhoids, a small amount of blood - from the rectum is to be expected.) * You have any unanswered questions or concerns. IN THE EVENT OF A SERIOUS EMERGENCY, GO TO THE NEAREST EMERGENCY ROOM Your discharge instructions were prepared by provider Miley Chavez. Patient Instructions Signature Page Mario Valentin Patient (or Guardian) Signature/Date: I have read and understand the instructions given to me by my caregivers. Caregiver/RN/Doctor Signature/Date: The above-named patient and/or guardian has received patient instructions on this date. + Original Patient Signature Page (only) stays with chart. Please make copy for patient.
--- NOTE | 2017-11-14 09:58 | GI REPORT ---
Procedure Date: 11/14/2017 9:00 AM Procedure: Upper GI endoscopy Indications: Surveillance for malignancy due to personal history of Arora's esophagus Medicines: Monitored Anesthesia Care Complications: No immediate complications. Estimated Blood Loss: Estimated blood loss: none. Procedure: Pre-Anesthesia Assessment: - Prior to the procedure, a History and Physical was performed, and patient medications and allergies were reviewed. The patient is competent. The risks and benefits of the procedure and the sedation options and risks were discussed with the patient. All questions were answered and informed consent was obtained. Patient identification and proposed procedure were verified by the physician and the nurse in the procedure room. Mental Status Examination: alert and oriented. Airway Examination: normal oropharyngeal airway and neck mobility. Respiratory Examination: clear to auscultation. CV Examination: normal. ASA Grade Assessment: III - A patient with severe systemic disease. After reviewing the risks and benefits, the patient was deemed in satisfactory condition to undergo the procedure. The anesthesia plan was to use monitored anesthesia care (MAC). Immediately prior to administration of medications, the patient was re-assessed for adequacy to receive sedatives. The heart rate, respiratory rate, oxygen saturations, blood pressure, adequacy of pulmonary ventilation, and response to care were monitored throughout the procedure. The physical status of the patient was re-assessed after the procedure. After obtaining informed consent, the endoscope was passed under direct vision. Throughout the procedure, the patient's blood pressure, pulse, and oxygen saturations were monitored continuously. The On-site loaner was introduced through the mouth, and advanced to the second part of duodenum. The upper GI endoscopy was accomplished without difficulty. The patient tolerated the procedure well. Findings: There were esophageal mucosal changes classified as Arora's stage C1-M2 per [place] criteria present in the lower third of the esophagus. The maximum longitudinal extent of these mucosal changes was 2 cm in length. Mucosa was biopsied with a cold forceps for histology in 4 quadrants and randomly. Verification of patient identification for the specimen was done by the physician and nurse using the patient's name and date. A few small sessile polyps with no stigmata of recent bleeding were found in the gastric body. The polyp was removed with a cold biopsy forceps. Resection and retrieval were complete. The duodenal bulb and second portion of the duodenum were normal. Impression: - Esophageal mucosal changes classified as Arora's stage C1-M2 per [place] criteria. Biopsied. - A few gastric polyps. Resected and retrieved. - Normal duodenal bulb and second portion of the duodenum. Recommendation: - Await pathology results. - Repeat upper endoscopy for surveillance based on pathology results. - Follow an antireflux regimen. - Use a proton pump inhibitor PO daily indefinitely. Miley Chavez MD 11/14/2017 9:58:02 AM This report has been signed electronically. Note Initiated On: 11/14/2017 9:00 AM I attest to the content of the Intraoperative Record and orders documented therein, exceptions below
--- NOTE | 2017-11-14 10:01 | GI REPORT ---
Procedure Date: 11/14/2017 9:06 AM Procedure: Colonoscopy Indications: High risk colon cancer surveillance: Personal history of colonic polyps Medicines: Monitored Anesthesia Care Complications: No immediate complications. Estimated Blood Loss: Estimated blood loss: none. Procedure: Pre-Anesthesia Assessment: - Prior to the procedure, a History and Physical was performed, and patient medications and allergies were reviewed. The patient is competent. The risks and benefits of the procedure and the sedation options and risks were discussed with the patient. All questions were answered and informed consent was obtained. Patient identification and proposed procedure were verified by the physician and the nurse in the procedure room. Mental Status Examination: alert and oriented. Airway Examination: normal oropharyngeal airway and neck mobility. Respiratory Examination: clear to auscultation. CV Examination: normal. ASA Grade Assessment: III - A patient with severe systemic disease. After reviewing the risks and benefits, the patient was deemed in satisfactory condition to undergo the procedure. The anesthesia plan was to use monitored anesthesia care (MAC). Immediately prior to administration of medications, the patient was re-assessed for adequacy to receive sedatives. The heart rate, respiratory rate, oxygen saturations, blood pressure, adequacy of pulmonary ventilation, and response to care were monitored throughout the procedure. The physical status of the patient was re-assessed after the procedure. After I obtained informed consent, the scope was passed under direct vision. Throughout the procedure, the patient's blood pressure, pulse, and oxygen saturations were monitored continuously. The scope was introduced through the anus and advanced to the terminal ileum. The colonoscopy was performed without difficulty. The patient tolerated the procedure well. The quality of the bowel preparation was good. The terminal ileum, ileocecal valve, appendiceal orifice, and rectum were photographed. Findings: The perianal and digital rectal examinations were normal. The terminal ileum appeared normal. Three sessile polyps were found in the transverse colon. The polyps were 5 mm in size. These polyps were removed with a cold snare. Resection and retrieval were complete. Verification of patient identification for the specimen was done by the physician and nurse using the patient's name and date. Multiple small and large-mouthed diverticula were found in the entire colon. Non-bleeding internal hemorrhoids were found during retroflexion. The hemorrhoids were small. Impression: - The examined portion of the ileum was normal. - Three 5 mm polyps in the transverse colon, removed with a cold snare. Resected and retrieved. - Diverticulosis in the entire examined colon. - Non-bleeding internal hemorrhoids. Recommendation: - Discharge patient to home. - Await pathology results. - Repeat colonoscopy for surveillance based on pathology results. - Return to referring physician. Miley Chavez MD 11/14/2017 10:01:02 AM This report has been signed electronically. Note Initiated On: 11/14/2017 9:06 AM I attest to the content of the Intraoperative Record and orders documented therein, exceptions below
[2017-11-14 10:25] VITALS: BP 122/59; PULSE 61; O2SAT 100
--- NOTE | 2017-11-14 10:28 | Anesthesiology Progress Note ---
Anesthesia Post Op Note Date & Time Nov 14, 2017 at 10:28 Vital Signs Pain Intensity: 0 Vital Signs Past 12 Hours Date Time Temp Pulse Resp B/P (MAP) Pulse Ox O2 Delivery O2 Flow Rate FiO2 11/14/17 10:25 61 18 122/59 (80) 100 Room Air 11/14/17 10:10 60 18 112/77 (89) 100 Room Air 11/14/17 09:55 73 18 122/59 (80) 100 Room Air 11/14/17 08:27 36.8 81 18 122/69 (86) 99 Room Air Notes Mental Status: alert / awake / arousable, participated in evaluation Pt Amnestic to Procedure: Yes Nausea / Vomiting: adequately controlled Pain: adequately controlled Airway Patency, RR, SpO2: stable & adequate BP & HR: stable & adequate Hydration State: stable & adequate Anesthetic Complications: no major complications apparent
== END | disposition home or self-care (01) ==
LOC: C.GI 07:52
PROVIDERS: ATTEND Student in an Organized Health Care Education/Training Program
DX: Z12.11 Encounter for screening for malignant neoplasm of colon (principal); K22.70 Barrett's esophagus without dysplasia; K31.7 Polyp of stomach and duodenum; D12.3 Benign neoplasm of transverse colon; K64.8 Other hemorrhoids; K57.30 Diverticulosis of large intestine without perforation or abscess without bleeding; E78.00 Pure hypercholesterolemia, unspecified; I10 Essential (primary) hypertension; Z86.010 Personal history of colon polyps; Z80.0 Family history of malignant neoplasm of digestive organs; Z87.891 Personal history of nicotine dependence; Z79.4 Long term (current) use of insulin; Z79.899 Other long term (current) drug therapy

== ENCOUNTER 2023-12-15 01:12 | Inpatient (IN) ==
[2023-12-15 02:38] LABS: Hematocrit (blood only) 26.4 % (42.0-52.0); Mean Corpuscular Hemoglobin 35.3 pg (25.0-34.0); Mean Corpuscular Hgb Conc 34.1 g/dL (32.0-36.0); Mean Corpuscular Volume 103.5 fL (80.0-100.0); Mean Platelet Volume 9.7 fL (9.4-12.4); Platelet Count 593 K/uL (130-400); RDW Standard Deviation 60.5 fL (36.4-46.3); Red Blood Count 2.55 M/uL (4.70-6.10); White Blood Count 21.47 K/ul (4.8-10.8)
[2023-12-15] MEDS: SODIUM CHLORIDE 0.9% 1,000 ML IV SCH ×4 (02:41→08:40)
[2023-12-15] MEDS ORDERED: VANCOMYCIN CONSULT ACTIVE PRN (03:19)
--- NOTE | 2023-12-15 03:22 | Emergency Department Note ---
Impression & Plan Acute pain of left foot, Abscess of left foot, Hypomagnesemia, Anemia ED Provider Note ED Provider Note NAME: ELISSA ARANDA AGE:63 SEX: Male : 1960 ARRIVES VIA: Private vehicle INFORMANT: Patient ED PROVIDER(s): Rhonda Muñoz DO CHIEF COMPLAINT: Left foot pain and swelling HPI: This is a 63-year-old male who presents emergency department due to concern for worsening left foot swelling and pain. Patient states symptoms began on Monday evening but he thought it was because he had worked all day and was on his feet the whole time. He states swelling did not improve even with elevating the leg. He states he was concerned for possible infection given the persistence of the swelling and the tenderness on the bottom of the foot. He denies any wounds or feeling as though he stepped on something that could have caused any injury. Family member who looked at the foot so they are concerned he has an infection there. Patient is a diabetic. He states back in June after a repair of an Achilles tendon performed at [facility] he did have subsequent osteomyelitis and was treated with many weeks of IV antibiotics. He states all of the symptoms had resolved and improved and he had no further issues with the foot until Monday evening. PAST MEDICAL HISTORY:See Below PAST SURGICAL HISTORY:See Below FAMILY HISTORY:See Below SOCIAL HISTORY:See Below HOME MEDICATIONS:See Below ALLERGIES:See Below VITALS:See Below PHYSICAL EXAMINATION: GENERAL: alert, well appearing, well nourished, no distress, non-toxic EYE EXAM: normal conjunctiva, PERRL and EOM's grossly intact OROPHARYNX: no exudate, no erythema, lips, buccal mucosa, and tongue normal and mucous membranes are moist NECK: supple, no nuchal rigidity, no adenopathy, non-tender LUNGS: Clear to auscultation. Normal chest wall mechanics, no w/r/r HEART: no murmurs, S1 normal and S2 normal ABDOMEN: abdomen soft, non-tender, normo-active bowel sounds, no masses, no rebound or guarding. BACK: Back is symmetrical on inspection and there is no deformity, no midline tenderness, no CVA tenderness. SKIN: no rashes, petechiae, orbruising UPPER EXTREMITIES: upper extremities are grossly normal. FROM, nml pulses b/l. LOWER EXTREMITIES: No pitting edema. FROM, nml pulses b/l. Marked edema noted at the left ankle and foot with mild accompanying erythema, 2 cm circumferential area on the plantar aspect in the area of the midfoot that has a mild appearance of a ring of ecchymosis with a central area of fluctuance and possible evolving infection; no bony tenderness with palpation over the ankles or foot, chronically decreased sensation due to peripheral neuropathy NEURO EXAM: Normal sensorium, cranial nerves II-XII grossly intact, normal speech, no facial droop,nogross weakness of arms, no gross weakness of legs. Gross sensation intact. No ataxia. Vital Signs: reviewed and remarkable Differential Diagnosis: Sepsis, abscess, osteomyelitis, peripheral neuropathy, dehydration, IZABELLA, UTI, viral syndrome, URI, pneumonia, DKA, as well as others were considered MEDICAL DECISION MAKING: This is a 63-year-old male who presents due to concern for increased left foot and ankle pain and swelling. Patient is a diabetic and has previously had osteomyelitis as well as surgery of this left foot. He was afebrile vital signs stable. Labs drawn and sent, IV established, EKG and chest ray performed bedside interpreted me and patient monitored on telemetry. He was sent for CT of the foot due to concern for occult abscess, deep space infection, or osteomyelitis. Cultures drawn and sent additionally. Patient started on broad- spectrum IV antibiotics due to concern for possible osteomyelitis. Patient had elevated infectious numbers suggestive of evolving infection or possible early sepsis. Patient did receive IV fluids here to a total of 30 mL/KG based on ideal body weight. Patient and family bedside updated several times. They verbalized understanding of the results and plan and need for additional inpatient evaluation and management. Patient also noted to have worsening anemia compared to prior levels several months ago at the end of last year. Unclear etiology at this time. Patient denies noting any blood from any source. Denies any history of GI bleed. Case discussed with the hospitalist team. Consultation(s): 0430: Discussed with Dr. Davidson, [facility] hospitalist team, for additional evaluation and management ER Treatment Provided: See below Diagnostics Interpreted By Me: -ECG: nsr at 100, nml axis, nml intervals, no acute ST/T wave changes -Cardiac Monitoring: An order was placed for continuous cardiac monitoring. The monitor shows a rate of 70 with normal sinus rhythm. -Laboratory studies: As stated above and show below. -Imaging studies: X-ray Chest: A single view study of the chest was reviewed and was negative for cardiomegaly, focal infiltrate, effusion, pulmonary edema, or wide mediastinum. Triage Nursing Note Reviewed Prior/Outside Records Reviewed -prior discharge summary reviewed Past Med/Surg History Medical History CKD (chronic kidney disease) per records Osteomyelitis PICC (peripherally inserted central catheter) in place Diabetic ulcer of left foot PAD (peripheral artery disease) Successful angioplasty of proximal/mid left SFA with 2 drug-eluting balloons on 05/07/21- recommend DAPT with ASA and Plavix x 1 month History of anesthesia reaction combative, "i come out of it mean." DM type 2 (diabetes mellitus, type 2) Hypothyroidism CLL (chronic lymphocytic leukemia) Dx'ed 2014; chemo, sx Peripheral neuropathy Anemia HTN (hypertension) Dyslipidemia Surgical History History of angiography 05/07/21 [facility] - angioplasty of proximal/mid left SFA with 2 drug-eluting balloons (6 x 60 mm, 6 x 150 mm Lutonix). 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- no leukemia or lymphoma noted Family History Other No family history of adverse response to anesthesia Social History Smoking Status: Never smoker Second Hand Exposure: No; Do You Dip or Chew Tobacco: No; Tobacco Cessation Education Requested by Patient: No Hx Alcohol Use: No Hx Substance Use: No Preferred Language: Luxembourgish Communication Ability: Effective Network Support Manager Required: No Beliefs That Will Affect Care: None marital status: Single Current Living Situation: Alone current occupational status: employed current occupation: [email or web address] How many Children do You have: 0 Other Information That Helps Us Care for You: No Feels Safe at Home: Yes Safety Concerns: Feels Safe At This Time Diet: regular caffeine: Yes (pot of coffee every AM) during the past year weight has: decreased > 10 lbs Dental Care, Regularly: No Physical Activity Frequency: 1-2 Times per Week Seatbelt Use: always Assistive Devices: None Allergies Allergies Allergy/AdvReac Type Severity Reaction Status Date / Time No Known Allergies Allergy Verified 05/24/22 07:51 Home Meds Home Medications Medication Instructions Recorded Confirmed allopurinol 100 mg tablet 100 mg PO DAILY 12/15/23 12/15/23 aspirin 81 mg tablet,delayed 81 mg PO DAILY 12/15/23 12/15/23 release dulaglutide 0.75 mg/0.5 mL 0.75 mg subcut WK 12/15/23 12/15/23 subcutaneous [facility] ezetimibe 10 mg tablet 10 mg PO DAILY 12/15/23 12/15/23 folic acid 1 mg tablet 1 mg PO DAILY 12/15/23 12/15/23 gabapentin 300 mg capsule 300 mg PO TID 12/15/23 12/15/23 hydrochlorothiazide 12.5 mg capsule 12.5 mg PO DAILY 12/15/23 12/15/23 levothyroxine 150 mcg tablet 150 mcg PO DAILY 12/15/23 12/15/23 lisinopril 30 mg tablet 30 mg PO DAILY 12/15/23 12/15/23 metformin 500 mg tablet 1,000 mg PO BID 12/15/23 12/15/23 valacyclovir 1 gram tablet 1,000 mg PO DAILY 12/15/23 12/15/23 Results & Data (ED) Vital Signs Vital Signs - 24 hr 12/15/23 06:52 12/15/23 06:53 Temperature 38.7 C H Temperature Source Oral Pulse Rate 112 H Pulse Rhythm Regular Respiratory Rate 18 Pulse Oximetry 98 Oxygen Delivery Method Room Air Laboratory Data 12/15/23 12:44 12/15/23 01:52 Lab Results 12/15/23 12/15/23 Range/Units 01:52 02:53 WBC 21.47 H (4.8-10.8) K/ul RBC 2.55 L (4.70-6.10) M/uL Hgb 9.0 L (14.0-18.0) g/dl Hct 26.4 L (42.0-52.0) % MCV 103.5 H (80.0-100.0) fL MCH 35.3 H (25.0-34.0) pg MCHC 34.1 (32.0-36.0) g/dL RDW Std Deviation 60.5 H (36.4-46.3) fL RDW Coeff of Luis Alfredo 16.0 H (11.5-14.5) % Plt Count 593 H (130-400) K/uL MPV 9.7 (9.4-12.4) fL Immature Gran % (Auto) 0.8 % Neut % (Auto) 54.5 % Lymph % (Auto) 33.4 % Sevier % (Auto) 10.9 % Eos % (Auto) 0.0 % Baso % (Auto) 0.4 % Neut # (Auto) 11.69 H (1.40-6.50) K/uL Lymph # (Auto) 7.17 H (1.20-3.40) K/uL Sevier # (Auto) 2.34 H (0.11-0.59) K/uL Eos # (Auto) 0.01 (0.00-0.50) K/uL Baso # (Auto) 0.08 (0.00-0.20) K/uL Immature Gran # (Auto) 0.18 (0.01-0.20) K/uL Dohle Bodies 1+ Sodium 132 L (136-145) mmol/L Potassium 4.1 (3.5-5.1) mmol/L Chloride 100 (98-107) mmol/L Carbon Dioxide 22 (21-32) mmol/L Anion Gap 10 (3-11) BUN 33 H (6-23) mg/dl Creatinine 1.56 H (0.6-1.4) mg/dl Est Cr Clr Drug Dosing 61.0 ml/min Est GFR ( Amer) 54.0 ml/min Est GFR (Non-Af Amer) 46.6 ml/min BUN/Creatinine Ratio 21.2 H (10-20) Glucose 280 H (70-99(Fasting)) mg/dl Lactate 1.3 (0.4-2.0) mmol/L Calcium 8.6 (8.6-10.3) mg/dl Magnesium 1.6 L (1.7-2.4) mg/dl Iron 88 (35-175) mcg/dl TIBC 225 L (250-450) mcg/dl Unsaturated IBC 137 L (155-355) mcg/dl Transferrin % Sat 39 (20-50) % Total Bilirubin 0.5 (0.2-1.0) mg/dl Direct Bilirubin 0.1 (0-0.2) mg/dl AST 11 L (13-39) U/L ALT 12 (7-52) U/L Alkaline Phosphatase 84 (34-104) U/L Troponin I High Sens 7.9 (0-20) pg/ml Total Protein 6.0 (6.0-8.3) gm/dl Albumin 3.7 (3.4-5.0) gm/dl Vitamin B12 158 L (180-914) pg/ml Folate > 22.30 (>5.38) ng/ml Procalcitonin 1.07 H (0-0.5) ng/ml Administered Medications Acetaminophen (Acetaminophen 325 Mg Tab) 650 mg PO Q4H PRN PRN Reason: Pain or Fever Stop: 01/14/24 07:42 Last Admin: 12/15/23 18:55 Dose: 650 mg Documented By: Admin: 12/15/23 14:34 Dose: 650 mg Documented By: SARAI Allopurinol (Allopurinol 100 Mg Tab) 100 mg PO DAILY [facility] Stop: 01/14/24 08:59 Last Admin: 12/15/23 10:41 Dose: 100 mg Documented By: SARAI Aspirin (Aspirin 81 Mg Ectab) 81 mg PO DAILY [facility] Stop: 01/14/24 08:59 Last Admin: 12/15/23 10:40 Dose: 81 mg Documented By: SARAI Ezetimibe (Ezetimibe 10 Mg Tab) 10 mg PO DAILY [facility] Stop: 01/14/24 08:59 Last Admin: 12/15/23 10:40 Dose: 10 mg Documented By: SARAI Folic Acid (Folic Acid 1 Mg Tab) 1 mg PO DAILY [facility] Stop: 01/14/24 08:59 Last Admin: 12/15/23 10:40 Dose: 1 mg Documented By: SARAI Gabapentin (Gabapentin 300 Mg Cap) 300 mg PO TID [facility] Stop: 01/14/24 08:59 Last Admin: 12/15/23 21:49 Dose: 300 mg Documented By: Admin: 12/15/23 13:58 Dose: 300 mg Documented By: Admin: 12/15/23 10:39 Dose: 300 mg Documented By: SARAI Cefepime HCl 2,000 mg/ Syringe 20 mls @ 5 mls/min IV Q8H [facility]; Protocol Stop: 12/22/23 09:59 Last Admin: 12/15/23 21:49 Dose: 5 mls/min Documented By: MARIA INES Admin: 12/15/23 10:39 Dose: 5 mls/min Documented By: SARAI Daptomycin 350 mg/ Syringe 7 mls @ 3.5 mls/min IV Q24H [facility]; Protocol Stop: 12/22/23 11:59 Last Admin: 12/15/23 13:58 Dose: 3.5 mls/min Documented By: SHIVANI Insulin Aspart (Insulin Aspart Per Unit Charge) 0 units SC ACHS [facility]EL Stop: 01/14/24 07:42 Last Admin: 12/15/23 21:26 Dose: 1 units Documented By: MARIA INES Co-signed By: BRAYAN Admin: 12/15/23 20:07 Dose: Not Given Documented By: MARIA INES Admin: 12/15/23 13:00 Dose: Not Given Documented By: Admin: 12/15/23 10:37 Dose: 5 units Documented By: SARAI Co-signed By: KWABENA Levothyroxine Sodium (Levothyroxine Sodium 150 Mcg Tablet) 150 mcg PO DAILYBB [facility] Stop: 01/14/24 08:59 Last Admin: 12/15/23 10:39 Dose: 150 mcg Documented By: SARAI Valacyclovir HCl (Valacyclovir Hcl 500 Mg Tablet) 1,000 mg PO DAILY [facility] Stop: 01/14/24 08:59 Last Admin: 12/15/23 10:39 Dose: 1,000 mg Documented By: SARAI Discontinued Medications Bupivacaine HCl (Bupivacaine 0.5 % 5 Mg/1 Ml Mpf 30ml Vial) Confirm Administered Dose 30 ml .ROUTE .STK-MED ONE Stop: 12/15/23 17:32 Last Admin: 12/15/23 18:04 Dose: 20 ml Documented By: [id number] Sodium Chloride (Nss) 1,000 mls @ 999 mls/hr IV .Q1H1M [facility] Stop: 12/15/23 03:15 Last Infusion: 12/15/23 05:17 Dose: Infused Documented By: Admin: 12/15/23 02:41 Dose: 999 mls/hr Documented By: ODETTE Vancomycin HCl 2,250 mg/ (Sodium Chloride) 545 mls @ 200 mls/hr IV NOW ONE Stop: 12/15/23 06:02 Last Infusion: 12/15/23 07:02 Dose: Infused Documented By: [facility] Admin: 12/15/23 04:11 Dose: 200 mls/hr Documented By: [facility] Ceftriaxone Sodium (Rocephin) 2,000 mg in 50 mls @ 100 mls/hr IV NOW STA Stop: 12/15/23 03:48 Last Infusion: 12/15/23 05:42 Dose: Infused Documented By: [facility] Admin: 12/15/23 03:46 Dose: 100 mls/hr Documented By: [facility] Sodium Chloride (Nss) 1,000 mls @ 999 mls/hr IV .Q1H1M [facility] Stop: 12/15/23 04:22 Last Infusion: 12/15/23 07:03 Dose: Infused Documented By: [facility] Admin: 12/15/23 05:46 Dose: 999 mls/hr Documented By: [facility] Magnesium Sulfate/Dextrose (Magnesium Sulfate / D5w) 1 gm in 100 mls @ 100 mls/hr IV NOW STA Stop: 12/15/23 05:15 Last Infusion: 12/15/23 08:30 Dose: Infused Documented By: [facility] Admin: 12/15/23 07:04 Dose: 100 mls/hr Documented By: [facility] Sodium Chloride (Nss) 1,000 mls @ 200 mls/hr IV .Q5H [facility] Stop: 01/14/24 06:44 Last Infusion: 12/16/23 02:00 Dose: Infused Documented By: SNJohny Infusion: 12/15/23 08:38 Dose: 0 mls/hr Documented By: Admin: 12/15/23 07:06 Dose: 200 mls/hr Documented By: AMS Sodium Chloride (Nss) 1,000 mls @ 150 mls/hr IV .Q6H40M [facility] Stop: 12/16/23 03:42 Last Infusion: 12/16/23 02:48 Dose: Infused Documented By: Admin: 12/15/23 20:02 Dose: 150 mls/hr Documented By: Infusion: 12/15/23 20:02 Dose: Infused Documented By: Admin: 12/15/23 14:24 Dose: 150 mls/hr Documented By: Infusion: 12/15/23 14:23 Dose: Infused Documented By: Admin: 12/15/23 08:40 Dose: 150 mls/hr Documented By: SARAI Magnesium Sulfate/Dextrose (Magnesium Sulfate / D5w) 1 gm in 100 mls @ 50 mls/hr IV ONE ONE Stop: 12/15/23 09:42 Last Infusion: 12/15/23 13:00 Dose: Infused Documented By: Admin: 12/15/23 10:38 Dose: 50 mls/hr Documented By: SARAI Ioversol (Optiray 320 100ml) 92 ml IV ONCE ONE Stop: 12/15/23 04:07 Last Admin: 12/15/23 04:06 Dose: 92 ml Documented By: GE Discharge Plan Visit Data Chief Complaint: Infection, Wound Stated Complaint: FOOT INFECTION AFTER SURGERY ED Provider: Rhonda Muñoz Discharge Problem: Acute pain of left foot, Abscess of left foot, Hypomagnesemia, Anemia Patient Disposition: Admitted As Inpatient Discharge Instructions Interventions: ED Discharge Assessment Last Done: 12/15/23 07:43
[2023-12-15 03:25] LABS: Basophils # (auto) 0.08 K/uL (0.00-0.20); Basophils % (auto) 0.4 %; Dohle Bodies 1+; Eosinophils # (auto) 0.01 K/uL (0.00-0.50); Immature Granulocytes # (auto) 0.18 K/uL (0.01-0.20); Immature Granulocytes % (auto) 0.8 %; Lymphocytes # (auto) 7.17 K/uL (1.20-3.40); Lymphocytes % (auto) 33.4 %; Monocytes # (auto) 2.34 K/uL (0.11-0.59); Monocytes % (auto) 10.9 %; Neutrophils # (auto) 11.69 K/uL (1.40-6.50); Neutrophils % (auto) 54.5 %
[2023-12-15 03:28] LABS: Albumin Level 3.7 gm/dl (3.4-5.0); BUN Creatinine Ratio 21.2 (10-20); Bilirubin,Total 0.5 mg/dl (0.2-1.0); Calcium 8.6 mg/dl (8.6-10.3); Est GFR (Non-African American) 46.6 ml/min; Magnesium 1.6 mg/dl (1.7-2.4); Troponin I High Sensitivity 7.9 pg/ml (0-20)
[2023-12-15 03:39] LABS: Bilirubin Direct 0.1 mg/dl (0-0.2); Potassium 4.1 mmol/L (3.5-5.1)
[2023-12-15] MEDS: cefTRIAXone SODIUM 2,000 MG/50 ML BAG IV STA (03:46)
[2023-12-15] MEDS: OPTIRAY 320 100ml IV ONE (04:06)
[2023-12-15] MEDS: VANCOMYCIN HCL 2,250 MG in SODIUM CHLORIDE 0.9% 500 ML IV ONE (04:11)
--- NOTE | 2023-12-15 05:17 | CT Scan Report ---
Exam(s): CT LEFT FOOT With Contrast IV Amt: 92 cc opti 320 EXAM: CT Left Lower Extremity With Intravenous Contrast, Foot CLINICAL HISTORY: Reason for exam: edema, plantar abscess. TECHNIQUE: Axial computed tomography images of the left foot with intravenous contrast. CTDI is 25 mGy and DLP is 565 mGy-cm. Automated exposure control was utilized for the study. A dose lowering technique was utilized adhering to the principles of ALARA. CONTRAST: Patient received 92 cc opti 320 of IV contrast COMPARISON: No relevant prior studies available. FINDINGS: The bones are osteopenic. No acute fracture or dislocation. There appears to have been previous resection of the posterior tuberosity of the calcaneus. There is a small area of erosion of the inferior aspect of the calcaneus. There is an abnormal soft tissue fluid collection in the region of the heel. This measures up to 10.0 x 2.6 x 4.0 cm. This is likely represents an abscess. This appears to extend to the skin surface inferiorly. No foreign body. No soft tissue gas. IMPRESSION: Large abscess in the region of the heel. Electronically signed by: Arley Holden MD 12/15/23 05:16 AM
[2023-12-15] MEDS: MAGNESIUM SULFATE / D5W 1 GM/100 ML BAG IV STA (07:04)
--- NOTE | 2023-12-15 07:10 | XRay Report ---
XR chest 1V portable HISTORY: Sepsis COMPARISON: Chest 06/16/2021. FINDINGS: The cardiac silhouette is mildly enlarged. There are calcifications within the aortic knob. No pneumothorax. No pleural effusions. No evidence for pulmonary edema. The right lung is clear. Sma ll focal density within the left lateral lung base. IMPRESSION: 1. Mild cardiomegaly. 2. Small focal density within the left lateral lung base. This may represent atelectasis. A small foc us of inflammatory/infectious change is not excluded. ACT 112: Negative or not required by law. Electronically signed by: Kavon Jordan M.D. 12/15/2023 7:09 AM
[2023-12-15] MEDS ORDERED: CARBOHYDRATES FOR HYPOGLYCEMIA PO PRN (07:43)
[2023-12-15] MEDS ORDERED: GLUCAGON FOR INJ 1 MG VIAL SQ PRN (07:43)
[2023-12-15] MEDS ORDERED: GLUCOSE 10 TAB/TUBE PO PRN (07:43)
[2023-12-15] MEDS ORDERED: GLUCOSE 40% GEL 15 GM TUBE PO PRN (07:43)
[2023-12-15] MEDS ORDERED: DEXTROSE 50% 50 ML SYRINGE IV PRN (07:43)
[2023-12-15] MEDS ORDERED: POLYETHYLENE (MIRALAX) 17 GM PACK PO PRN (07:43)
[2023-12-15] MEDS ORDERED: NITROGLYCERIN SL 0.4 MG/TAB TAB SL PRN (07:43)
[2023-12-15 08:35] LABS: Iron 88 mcg/dl (35-175); Total Iron Binding Cap Calc 225 mcg/dl (250-450); Transferrin (FE) Percent Satur 39 % (20-50); Unsaturated Iron Binding Cap 137 mcg/dl (155-355)
--- NOTE | 2023-12-15 09:02 | Communication Note ---
Date of Service: December 15, 2023 Evaluated Mr. Ruiz at bedside in ED. Reports subjective improvement in swelling and symptoms. States that he is eager to have this fixed and denies any acute concerns at this time. Exam notable for left lower extremity with swelling predominantly around heel/sole of foot with area off purulence noted on sole of foot #Sepsis 2/2 LLE cellulitis/abscess #Left lower extremity infection #s/p left partial calcanectomy #Chronic osteomyelitis c/b MSSA and pseudomonas surgery was 06/26/23 and treated with IV abx, until 08/07 (cefepime therapy) Podiatry evaluated, will pain for I&D and bone biopsy as needed, deep cultures to be obtained -Will ensure follow up with physicians in [place] for further management upon stabilization -continue NPO Continue Dapto/Cefepime -If MRSA nare negative will d/c dapto Blood cultures pending #Diabetic polyneuropathy associated with type 2 diabetes mellitus Hold metformin and trulicity Continue gabapentin Insulin SSI #sinus tachycardia iso infection, CTM on telemetry Treat underlying cause #PAD s/p angiogram with revascularization by 2020 (left leg done in 06/2021 and right leg done in 09/2020); no OP report available 1 yr DUSTIN and LLE arterial duplex or sooner prn Continue aspirin 81 mg daily for atherosclerosis Statin intolerant #Gout Continue allopurinol #Acute on chronic macrocytic anemia #CLL s/p splenectomy diagnosed in July,, underwent splenectomy in July, Significant reticulocytopenia in July, 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 History of thrombocytosis - no evidence of PNH noted in the flow cytometry. -lymphocytosis noted With absolute lymphocyte count around 4000 - 5000 range. Continue folic acid #History of herpes zoster involving left leg, has post herpetic neuralgia, Continue Neurontin, continue valacyclovir prophylaxis. Rest of plan per [facility]
--- NOTE | 2023-12-15 09:40 | History & Physical Report ---
Date of Service December 15, 2023 Assessment & Plan (1) Foot abscess, left: Plan: 63-year-old male with past medical history significant for type 2 diabetes, hypothyroidism, hyperlipidemia, diabetic retinopathy, diabetic foot ulcer, peripheral artery disease, chronic constrictive idiopathic pericarditis, pericardial effusion without cardiac tamponade, hypertension, history of osteomyelitis of the left ankle, cellulitis of left lower leg, calcaneal costochondritis, history of CLL, history of chemotherapy induced neutropenia, history of hemolytic anemia, history of splenomegaly, s/p splenectomy, history of secondary polycythemia, history of MSSA infection, history of Pseudomonas infection, presents with left foot infection. Patient states since last Monday noticed some pain in the left foot. Also noted some swelling. And got progressively worse. He is not able to put any weight on the leg. He denies any fevers. But having chills. Later in the ER had temp spike. Denies any headache. No dizziness. No runny nose or sore throat. No cough. No chest pain or shortness of breath. No nausea or vomiting. No abdominal pain. Normal bowel and bladder movements. Left foot abscess Possible sepsis with temp spike, tachycardia and leukocytosis Lactic acid is 1.3 Received Rocephin and Vanco in the ER Will continue with IV Vanco and IV cefepime and IV fluids and close monitor hemodynamics History of osteomyelitis and surgery on the left foot in the past Podiatry consulted and notified Diabetes Hold metformin Sliding scale Will monitor History of CLL S/p splenectomy S/p Rituxan and 3 cycles of chemo FCR Currently under observation with heme-onc Hyperlipidemia On Zetia Hypothyroidism On Synthyroid Hypertension Holding hydrochlorothiazide and lisinopril for possible sepsis Close monitor DVT prophylaxis SCDs for now in anticipation of procedure Disposition Telemetry Full code Admission and Anticipated Discharge Date Admission Date: December 15, 2023 History of Present Illness Chief Complaint: Left foot abscess Primary Care Provider: Nara Baron MD 63-year-old male with past medical history significant for type 2 diabetes, hypothyroidism, hyperlipidemia, diabetic retinopathy, diabetic foot ulcer, peripheral artery disease, chronic constrictive idiopathic pericarditis, pericardial effusion without cardiac tamponade, hypertension, history of osteomyelitis of the left ankle, cellulitis of left lower leg, calcaneal costochondritis, history of CLL, history of chemotherapy induced neutropenia, history of hemolytic anemia, history of splenomegaly, s/p splenectomy, history of secondary polycythemia, history of MSSA infection, history of Pseudomonas infection, presents with left foot infection. Patient states since last Monday noticed some pain in the left foot. Also noted some swelling. And got progressively worse. He is not able to put any weight on the leg. He denies any fevers. But having chills. Later in the ER had temp spike. Denies any headache. No dizziness. No runny nose or sore throat. No cough. No chest pain or shortness of breath. No nausea or vomiting. No abdominal pain. Normal bowel and bladder movements. Past medical history. As mentioned above Past surgical history. Bilateral bone marrow aspiration. Colonoscopy. EGD. Femoropopliteal artery revascularization with stent and angioplasty. Laparoscopic splenectomy. Incisional drainage of the left foot. Social history. Quit smoking 2005. Smoked half pack a day for 25 years. No alcohol use. No drug use. Family history. Father had colon cancer. Diabetes. Mother had heart disorder. Brother had thyroid disorder. Allergies Allergy/AdvReac Type Severity Reaction Status Date / Time No Known Allergies Allergy Verified 05/24/22 07:51 Home Medications Medication Instructions Recorded Confirmed Type allopurinol 100 mg tablet 100 mg PO DAILY 12/15/23 12/15/23 History aspirin 81 mg tablet,delayed 81 mg PO DAILY 12/15/23 12/15/23 History release dulaglutide 0.75 mg/0.5 mL 0.75 mg subcut WK 12/15/23 12/15/23 History subcutaneous pen injector (Trulicity) ezetimibe 10 mg tablet 10 mg PO DAILY 12/15/23 12/15/23 History folic acid 1 mg tablet 1 mg PO DAILY 12/15/23 12/15/23 History gabapentin 300 mg capsule 300 mg PO TID 12/15/23 12/15/23 History hydrochlorothiazide 12.5 mg capsule 12.5 mg PO DAILY 12/15/23 12/15/23 History levothyroxine 150 mcg tablet 150 mcg PO DAILY 12/15/23 12/15/23 History lisinopril 30 mg tablet 30 mg PO DAILY 12/15/23 12/15/23 History metformin 500 mg tablet 1,000 mg PO BID 12/15/23 12/15/23 History valacyclovir 1 gram tablet 1,000 mg PO DAILY 12/15/23 12/15/23 History Past Med/Surg History Medical History Anemia CKD (chronic kidney disease) per records CLL (chronic lymphocytic leukemia) Dx'ed 2014; chemo, sx Diabetic ulcer of left foot DM type 2 (diabetes mellitus, type 2) Dyslipidemia History of anesthesia reaction combative, "i come out of it mean." HTN (hypertension) Hypothyroidism Osteomyelitis PAD (peripheral artery disease) Successful angioplasty of proximal/mid left SFA with 2 drug-eluting balloons on 05/07/21- recommend DAPT with ASA and Plavix x 1 month Peripheral neuropathy PICC (peripherally inserted central catheter) in place Surgical History History of angiography 05/07/21 [facility] - angioplasty of proximal/mid left SFA with 2 drug-eluting balloons (6 x 60 mm, 6 x 150 mm Lutonix). History of colonoscopy History of esophagogastroduodenoscopy (EGD) Hx of splenectomy Secondary to splenomegaly- no leukemia or lymphoma noted Family History Other No family history of adverse response to anesthesia Social History Smoking Status: Former smoker Second Hand Exposure: No; Do You Dip or Chew Tobacco: No; Hx Alcohol Use: No Hx Substance Use: No Preferred Language: [place] Communication Ability: Effective Teacher Associate Required: No Beliefs That Will Affect Care: None marital status: Single Current Living Situation: Alone current occupational status: employed current occupation: [employer] How many Children do You have: 0 Feels Safe at Home: Yes Diet: regular caffeine: Yes (pot of coffee every AM) during the past year weight has: decreased > 10 lbs Dental Care, Regularly: No Physical Activity Frequency: 1-2 Times per Week Seatbelt Use: always Assistive Devices: Cane Review of Systems Review of Systems: All systems reviewed & are unremarkable except as noted in HPI & below Physical Exam Physical Exam: General- Not in distress Head- atraumatic Eyes- PERRL. ENT- oropharynx clear Neck- supple, no JVD. Lungs- clear to auscultation no wheezing o crackles. Heart- regular rhythm; no murmur, no gallop. Abdomen- normal bowel sounds, soft, nontender, no distension Extremities- [place] is edematous and erythematous and tender Neuro- alert, oriented PERRL, no facial palsy; no dysarthria; moves extremitie s. Results & Data Results & Data Vital Signs (Past 12 Hours) Vital Signs Temp Pulse Pulse Resp BP BP Pulse Ox 12/15/23 08:00 112 H 18 98/57 L 95 12/15/23 06:53 38.7 C H 12/15/23 06:52 112 H 18 98 12/15/23 05:43 106 H 12/15/23 01:41 110 H 12/15/23 01:15 37.7 C H 112 H 18 107/69 95 O2 Del Method 12/15/23 08:00 Room Air 12/15/23 06:53 12/15/23 06:52 Room Air 12/15/23 05:43 12/15/23 01:41 12/15/23 01:15 Room Air Diagnostic Findings Laboratory Results WBC 21.47 K/ul (4.8-10.8) H 12/15/23 01:52 RBC 2.55 M/uL (4.70-6.10) L 12/15/23 01:52 Hgb 9.0 g/dl (14.0-18.0) L 12/15/23 01:52 Hct 26.4 % (42.0-52.0) L 12/15/23 01:52 MCV 103.5 fL (80.0-100.0) H 12/15/23 01:52 MCH 35.3 pg (25.0-34.0) H 12/15/23 01:52 MCHC 34.1 g/dL (32.0-36.0) 12/15/23 01:52 RDW Std Deviation 60.5 fL (36.4-46.3) H 12/15/23 01:52 RDW Coeff of Luis Alfredo 16.0 % (11.5-14.5) H 12/15/23 01:52 Plt Count 593 K/uL (130-400) H 12/15/23 01:52 MPV 9.7 fL (9.4-12.4) 12/15/23 01:52 Immature Gran % (Auto) 0.8 % 12/15/23 01:52 Neut % (Auto) 54.5 % 12/15/23 01:52 Lymph % (Auto) 33.4 % 12/15/23 01:52 [place] % (Auto) 10.9 % 12/15/23 01:52 Eos % (Auto) 0.0 % 12/15/23 01:52 Baso % (Auto) 0.4 % 12/15/23 01:52 Neut # (Auto) 11.69 K/uL (1.40-6.50) H 12/15/23 01:52 Lymph # (Auto) 7.17 K/uL (1.20-3.40) H 12/15/23 01:52 [place] # (Auto) 2.34 K/uL (0.11-0.59) H 12/15/23 01:52 Eos # (Auto) 0.01 K/uL (0.00-0.50) 12/15/23 01:52 Baso # (Auto) 0.08 K/uL (0.00-0.20) 12/15/23 01:52 Immature Gran # (Auto) 0.18 K/uL (0.01-0.20) 12/15/23 01:52 Dohle Bodies 1+ 12/15/23 01:52 Sodium 132 mmol/L (136-145) L 12/15/23 01:52 Potassium 4.1 mmol/L (3.5-5.1) 12/15/23 01:52 Chloride 100 mmol/L (98-107) 12/15/23 01:52 Carbon Dioxide 22 mmol/L (21-32) 12/15/23 01:52 Anion Gap 10 (3-11) 12/15/23 01:52 BUN 33 mg/dl (6-23) H 12/15/23 01:52 Creatinine 1.56 mg/dl (0.6-1.4) H 12/15/23 01:52 Est Cr Clr Drug Dosing 61.0 ml/min 12/15/23 01:52 Est GFR ( Amer) 54.0 ml/min 12/15/23 01:52 Est GFR (Non-Af Amer) 46.6 ml/min 12/15/23 01:52 BUN/Creatinine Ratio 21.2 (10-20) H 12/15/23 01:52 Glucose 280 mg/dl (70-99(Fasting)) H 12/15/23 01:52 POC Glucose 253 mg/dl (70-99) H 12/15/23 08:55 Lactate 1.3 mmol/L (0.4-2.0) 12/15/23 02:53 Calcium 8.6 mg/dl (8.6-10.3) 12/15/23 01:52 Magnesium 1.6 mg/dl (1.7-2.4) L 12/15/23 01:52 Iron 88 mcg/dl (35-175) 12/15/23 02:53 TIBC 225 mcg/dl (250-450) L 12/15/23 02:53 Unsaturated IBC 137 mcg/dl (155-355) L 12/15/23 02:53 Transferrin % Sat 39 % (20-50) 12/15/23 02:53 Total Bilirubin 0.5 mg/dl (0.2-1.0) 12/15/23 01:52 Direct Bilirubin 0.1 mg/dl (0-0.2) 12/15/23 01:52 AST 11 U/L (13-39) L 12/15/23 01:52 ALT 12 U/L (7-52) 12/15/23 01:52 Alkaline Phosphatase 84 U/L (34-104) 12/15/23 01:52 Troponin I High Sens 7.9 pg/ml (0-20) 12/15/23 01:52 Total Protein 6.0 gm/dl (6.0-8.3) 12/15/23 01:52 Albumin 3.7 gm/dl (3.4-5.0) 12/15/23 01:52 Procalcitonin 1.07 ng/ml (0-0.5) H 12/15/23 01:52 Impressions Chest X-Ray 12/15/23 02:11 XR chest 1V portable HISTORY: Sepsis COMPARISON: Chest 06/16/2021. FINDINGS: The cardiac silhouette is mildly enlarged. There are calcifications within the aortic knob. No pneumothorax. No pleural effusions. No evidence for pulmonary edema. The right lung is clear. Small focal density within the left lateral lung base. IMPRESSION: 1. Mild cardiomegaly. 2. Small focal density within the left lateral lung base. This may represent atelectasis. A small focus of inflammatory/infectious change is not excluded. ACT 112: Negative or not required by law. Electronically signed by: Kavon Jordan M.D. 12/15/2023 7:[address] 12/15/23 02:11 Exam(s): CT LEFT FOOT With Contrast IV Amt: 92 cc opti 320 EXAM: CT Left Lower Extremity With Intravenous Contrast, Foot CLINICAL HISTORY: Reason for exam: edema, plantar abscess. TECHNIQUE: Axial computed tomography images of the left foot with intravenous contrast. CTDI is 25 mGy and DLP is 565 mGy-cm. Automated exposure control was utilized for the study. A dose lowering technique was utilized adhering to the principles of ALARA. CONTRAST: Patient received 92 cc opti 320 of IV contrast COMPARISON: No relevant prior studies available. FINDINGS: The bones are osteopenic. No acute fracture or dislocation. There appears to have been previous resection of the posterior tuberosity of the calcaneus. There is a small area of erosion of the inferior aspect of the calcaneus. There is an abnormal soft tissue fluid collection in the region of the heel. This measures up to 10.0 x 2.6 x 4.0 cm. This is likely represents an abscess. This appears to extend to the skin surface inferiorly. No foreign body. No soft tissue gas. IMPRESSION: Large abscess in the region of the heel. Electronically signed by: Arley Holden MD 12/15/23 05:16 AM ECG Additional Comments: ECG. Normal sinus rhythm rate of 100. No acute ST changes seen. Code Status & VTE Plan VTE Prophylaxis Plan VTE Prophylaxis will be ordered: Yes
[2023-12-15] MEDS: INSULIN ASPART PER UNIT CHARGE SC SCH (10:37)
[2023-12-15] MEDS: MAGNESIUM SULFATE / D5W 1 GM/100 ML BAG IV ONE (10:38)
[2023-12-15] MEDS: GABAPENTIN 300 MG CAP PO SCH (10:39)
[2023-12-15] MEDS: CEFEPIME 2,000 MG in SYRINGE 0 ML IV SCH (10:39)
[2023-12-15] MEDS: valACYclovir HCL 500 MG TABLET PO SCH (10:39)
[2023-12-15] MEDS: LEVOTHYROXINE SODIUM 150 MCG TABLET PO SCH (10:39)
[2023-12-15] MEDS: FOLIC ACID 1 MG TAB PO SCH (10:40)
[2023-12-15] MEDS: ASPIRIN 81 MG ECTAB PO SCH (10:40)
[2023-12-15] MEDS: EZETIMIBE 10 MG TAB PO SCH (10:40)
[2023-12-15] MEDS: allopurinoL 100 MG TAB PO SCH (10:41)
--- NOTE | 2023-12-15 12:57 | Electrocardiogram Report ---
Test Reason : Blood Pressure : / mmHG Vent. Rate : 100 BPM Atrial Rate : 100 BPM P-R Int : 158 ms QRS Dur : 074 ms QT Int : 330 ms P-R-T Axes : 075 067 042 degrees QTc Int : 425 ms Normal sinus rhythm Low voltage QRS Borderline ECG When compared with ECG of 15-AUG-2017 07:39, ST no longer elevated in Inferior leads ST no longer elevated in Anterior leads Confirmed by Ferny Cedillo ([id number]) on 12/15/2023 12:56:50 PM Referred By: REFERRED SELF Confirmed By:Ferny Cedillo
[2023-12-15 13:44] LABS: Hematocrit (blood only) 25.2 % (42.0-52.0); Hemoglobin 8.6 g/dl (14.0-18.0)
--- NOTE | 2023-12-15 13:51 | Podiatry Consultation ---
Date of Consultation December 15, 2023 Assessment & Plan (1) Foot abscess, left: (2) Diabetic foot ulcer with osteomyelitis: (3) Chronic osteomyelitis of left foot: (4) PAD (peripheral artery disease): (5) Diabetic ulcer of left foot: Diabetic foot ulcer location: heel Diabetes mellitus type: type 2 Non-pressure ulcer stage: unspecified non-pressure ulcer stage Qualified Code(s): E11.621 - Type 2 diabetes mellitus with foot ulcer; L97.429 - Non- pressure chronic ulcer of left heel and midfoot with unspecified severity Plan Patient examined and evaluated. We discussed at length etiology and treatment of his left heel infection. We did discuss that this is likely a direct result of the prior calcanectomy, though could have been made worse with some isolated trauma. It is entirely possible this is still a sequela of infection that was not completely resolved, even though it is many months later. If there was remaining bacteria in the calcaneus, it can have developed an abscess since finishing his IV and oral antibiotics. Now, he would benefit from incision and drainage with potential bone biopsy, as needed. Deep cultures would be obtained to help determine long-term antibiosis. At the very least this incision and drainage would allow him to seek care with his prior physicians in [place], by stabilizing the foot and decrease in infectious burden. I will work on adding this on for later this afternoon. He should be kept nothing by mouth until then. The surgery itself will be performed by myself or my , Dr. Tayla Saez. This plan was discussed with the patient is amenable to this at this time. Thank you for the consult, we look forward to helping Soniamegan Valentin with this acute problem. History of Present Illness Reason for Consultation: Left heel abscess/osteomyelitis Attending Physician: Stephanie Jolley MD History of Present Illness Patient presents emergency department with acute onset of left heel pain and swelling. He has a complex history of a wound and bone infection to the calcaneus. He states that in June of last year he had a partial calcanectomy and 2 months of IV antibiotics. This did heal uneventfully with drastic improvement in his symptoms over that time. Since then, he has not had any new concerns until this weekend. He states that very acutely on Monday, he developed severe pain. He has been wearing a boot on this foot and thinks that maybe he had a rock in his boot that led to this drastic increase in pain. Otherwise, he is relatively neuropathic and has not had symptoms of pain until this inciting event. He presented to the emergency room for treatment of this acute concern. We were consulted after he obtains his CT exam overnight. He does deny any systemic signs or symptoms of infection and feels relatively well overall, other than this Left heel pain and infection. Allergies Allergy/AdvReac Type Severity Reaction Status Date / Time No Known Allergies Allergy Verified 05/24/22 07:51 Home Medications Medication Instructions Recorded Confirmed Type allopurinol 100 mg tablet 100 mg PO DAILY 12/15/23 12/15/23 History aspirin 81 mg tablet,delayed 81 mg PO DAILY 12/15/23 12/15/23 History release dulaglutide 0.75 mg/0.5 mL 0.75 mg subcut WK 12/15/23 12/15/23 History subcutaneous pen injector (Trulicity) ezetimibe 10 mg tablet 10 mg PO DAILY 12/15/23 12/15/23 History folic acid 1 mg tablet 1 mg PO DAILY 12/15/23 12/15/23 History gabapentin 300 mg capsule 300 mg PO TID 12/15/23 12/15/23 History hydrochlorothiazide 12.5 mg capsule 12.5 mg PO DAILY 12/15/23 12/15/23 History levothyroxine 150 mcg tablet 150 mcg PO DAILY 12/15/23 12/15/23 History lisinopril 30 mg tablet 30 mg PO DAILY 12/15/23 12/15/23 History metformin 500 mg tablet 1,000 mg PO BID 12/15/23 12/15/23 History valacyclovir 1 gram tablet 1,000 mg PO DAILY 12/15/23 12/15/23 History Patient History Medical History CKD (chronic kidney disease) per records Osteomyelitis PICC (peripherally inserted central catheter) in place Diabetic ulcer of left foot PAD (peripheral artery disease) Successful angioplasty of proximal/mid left SFA with 2 drug-eluting balloons on 05/07/21- recommend DAPT with ASA and Plavix x 1 month History of anesthesia reaction combative, "i come out of it mean." DM type 2 (diabetes mellitus, type 2) Hypothyroidism CLL (chronic lymphocytic leukemia) Dx'ed 2014; chemo, sx Peripheral neuropathy Anemia HTN (hypertension) Dyslipidemia Surgical History History of angiography 05/07/21 [facility] - angioplasty of proximal/mid left SFA with 2 drug-eluting balloons (6 x 60 mm, 6 x 150 mm Lutonix). 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: No Beliefs That Will Affect Care: None marital status: Single Current Living Situation: Alone current occupational status: employed current occupation: [employer] How many Children do You have: 0 Feels Safe at Home: Yes Diet: regular caffeine: Yes (pot of coffee every AM) during the past year weight has: decreased > 10 lbs Dental Care, Regularly: No Physical Activity Frequency: 1-2 Times per Week Seatbelt Use: always Assistive Devices: Cane Review of Systems Review of Systems: All systems reviewed & are unremarkable except as noted in HPI & below Constitutional: no fever, no chills and no fatigue Eyes: no problem reported Ear, Nose, Mouth, Throat: no problem reported Respiratory: no problem reported Cardiovascular: + edema; no problem reported Gastrointestinal: no nausea, no vomiting and no problem reported Musculoskeletal: no problem reported Integumentary: + skin ulcer, + wounds and + erythema Neurologic: + loss of sensation, + numbness and + pa resthesia; no generalized weakness Psychiatric: no problem reported Physical Exam Physical Exam: Left lower extremity physical exam: DP/PT pulses nonpalpable, potentially secondary to left lower extremity edema. Skin is atrophic with no hair growth noted to the distal lower extremity. Advance cooling is noted to the toes, though there is increased warmth noted to the left heel and ankle. There is local erythema and edema, consistent with underlying infectious process. Pain is noted on palpation and range of motion of the left foot and ankle. There is a small plantar ulceration, though this is confined to the skin. This could be the result of acute trauma, such as stepping on a stone, though could also be a sinus tract leading to the calcaneus. Protective sensation is absent to the foot and ankle otherwise. CFT is brisk to the digits. Left heel does appear chronically edematous or swollen in general, consistent with the level of surgical intervention previously. Constitutional: WD/WN, vitals as above + ill appearing and + obese Eyes: PERRL, conjunctivae normal, anicteric sclerae ENMT: external ear and nose normal, oropharynx normal Neck: trachea midline, no thyromegaly normal visual inspection Respiratory: normal respiratory effort; no respiratory distress Cardiovascular: Rate/Rhythm: regular rate and regular rhythm Extremities: normal capillary refill, + pedal edema and + edema; no calf tenderness Chest (Breasts): Chest: normal inspection of chest Gastrointestinal (Abdomen): Inspection/Auscultation: abdomen normal to inspection Percussion/Palpation: + abdomen tender and abdomen soft Musculoskeletal: no cyanosis or clubbing, extremities motor strength 5/5 He ad/Neck/Chest: normocephalic and head atraumatic Extremities: extremities normal to inspection and + foot abnormality (Prior partial calcanectomy noted) Left Skin: + ulcer (Preulcerative skin lesion to pl nazia left heel), + erythema, + hair abnormality and + nails dystrophic Neurologic: awake; + abnormal sensation to monofilament and no focal motor deficits Psychiatric: A+Ox3, euthymic affect Results & Data Vital Signs (Past 12 Hours) Vital Signs Temp Pulse Pulse Resp BP Pulse Ox O2 Del Method 12/15/23 09:36 37.8 C H 110 H 17 112/62 95 Room Air 12/15/23 08:00 112 H 18 98/57 L 95 Room Air 12/15/23 06:53 38.7 C H 12/15/23 06:52 112 H 18 98 Room Air 12/15/23 05:43 106 H 12/15/23 01:[address] scan reviews underlying abscess to the plantar left calcaneus. This is consistent with his clinical exam findings. The CT also reveals the prior partial calcanectomy with no new changes to the bone at this point. No active purulence or drainage is noted from the plantar heel ulcer, though this could extend to this abscess collection.
[2023-12-15] MEDS: DAPTOmycin 350 MG in SYRINGE 0 ML IV SCH (13:58)
[2023-12-15] MEDS: ACETAMINOPHEN 325 MG TAB PO PRN (14:34)
[2023-12-15 15:04] LABS: Folate (Folic Acid),Ser orPlas > 22.30 ng/ml (>5.38)
--- NOTE | 2023-12-15 15:11 | Anesthesiology Consultation ---
Date of Service December 15, 2023 Assessment & Plan (1) Encounter for pre-operative examination: Chart Review Chart Review: Acceptable Risk for Surgery History Surgery Operation Date: 12/15/23 10:05 Proposed Procedures p Left Heel Incision and Drainage - Brian Saez DPM Height/Weight Height: 5 ft 9 in Weight: 116.3 kg Allergies Allergy/AdvReac Type Severity Reaction Status Date / Time No Known Allergies Allergy Verified 05/24/22 07:51 Medications Home Medications Medication Instructions Recorded Confirmed Last Taken allopurinol 100 mg tablet 100 mg PO DAILY 12/15/23 12/15/23 Unknown aspirin 81 mg tablet,delayed 81 mg PO DAILY 12/15/23 12/15/23 Unknown release dulaglutide 0.75 mg/0.5 mL 0.75 mg subcut WK 12/15/23 12/15/23 Unknown subcutaneous pen injector (Trulicity) ezetimibe 10 mg tablet 10 mg PO DAILY 12/15/23 12/15/23 Unknown folic acid 1 mg tablet 1 mg PO DAILY 12/15/23 12/15/23 Unknown gabapentin 300 mg capsule 300 mg PO TID 12/15/23 12/15/23 Unknown hydrochlorothiazide 12.5 mg capsule 12.5 mg PO DAILY 12/15/23 12/15/23 Unknown levothyroxine 150 mcg tablet 150 mcg PO DAILY 12/15/23 12/15/23 Unknown lisinopril 30 mg tablet 30 mg PO DAILY 12/15/23 12/15/23 Unknown metformin 500 mg tablet 1,000 mg PO BID 12/15/23 12/15/23 Unknown valacyclovir 1 gram tablet 1,000 mg PO DAILY 12/15/23 12/15/23 Unknown Active Medications Generic Name Dose Route Start Last Admin Trade Name Freq PRN Reason Stop Dose Admin Acetaminophen 650 mg 12/15/23 07:43 12/15/23 14:34 Acetaminophen 325 Mg Tab PO 01/14/24 07:42 650 mg Q4H PRN Administration Pain or Fever Allopurinol 100 mg 12/15/23 09:00 12/15/23 10:41 Allopurinol 100 Mg Tab PO 01/14/24 08:59 100 mg DAILY REBEL Administration Aspirin 81 mg 12/15/23 09:00 12/15/23 10:40 Aspirin 81 Mg Ectab PO 01/14/24 08:59 81 mg DAILY REBEL Administration Ezetimibe 10 mg 12/15/23 09:00 12/15/23 10:40 Ezetimibe 10 Mg Tab PO 01/14/24 08:59 10 mg DAILY REBEL Administration Folic Acid 1 mg 12/15/23 09:00 12/15/23 10:40 Folic Acid 1 Mg Tab PO 01/14/24 08:59 1 mg DAILY REBEL Administration Gabapentin 300 mg 12/15/23 09:00 12/15/23 13:58 Gabapentin 300 Mg Cap PO 01/14/24 08:59 300 mg TID REBEL Administration Sodium Chloride 1,000 mls @ 150 mls/hr 12/15/23 07:43 12/15/23 14:24 Nss IV 12/16/23 03:42 150 mls/hr .Q6H40M REBEL Administration Cefepime HCl 2,000 mg/ Syringe 20 mls @ 5 mls/min 12/15/23 10:00 12/15/23 10:39 IV 12/22/23 09:59 5 mls/min Q8H REBEL Administration Protocol Daptomycin 350 mg/ Syringe 7 mls @ 3.5 mls/min 12/15/23 12:00 12/15/23 13:58 IV 12/22/23 11:59 3.5 mls/min Q24H REBEL Administration Protocol Insulin Aspart 0 units 12/15/23 07:43 12/15/23 13:00 Insulin Aspart Per Unit Charge SC 01/14/24 07:42 Not Given ACHS REBEL Levothyroxine Sodium 150 mcg 12/15/23 09:00 12/15/23 10:39 Levothyroxine Sodium 150 Mcg Tablet PO 01/14/24 08:59 150 mcg DAILYBB REBEL Administration Valacyclovir HCl 1,000 mg 12/15/23 09:00 12/15/23 10:39 Valacyclovir Hcl 500 Mg Tablet PO 01/14/24 08:59 1,000 mg DAILY REBEL Administration Past Medical History Medical History CKD (chronic kidney disease) per records Osteomyelitis PICC (peripherally inserted central catheter) in place Diabetic ulcer of left foot PAD (peripheral artery disease) Successful angioplasty of proximal/mid left SFA with 2 drug-eluting balloons on 05/07/21- recommend DAPT with ASA and Plavix x 1 month History of anesthesia reaction combative, "i come out of it mean." DM type 2 (diabetes mellitus, type 2) Hypothyroidism CLL (chronic lymphocytic leukemia) Dx'ed 2014; chemo, sx Peripheral neuropathy Anemia HTN (hypertension) Dyslipidemia Past Family History Family History Other No family history of adverse response to anesthesia Past Surgical History Surgical History History of angiography 05/07/21 [facility] - angioplasty of proximal/mid left SFA with 2 drug-eluting balloons (6 x 60 mm, 6 x 150 mm Lutonix). 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- no leukemia or lymphoma noted Social History Smoking Status: Former smoker Do You Dip or Chew Tobacco: No Hx Alcohol Use: No Hx Substance Use: No substance use type: does not use Physical Exam Vital Signs Last Vital Signs Temp 37.8 C H 12/15/23 09:36 Pulse 114 H 12/15/23 14:59 Resp 17 12/15/23 09:36 BP 112/62 12/15/23 09:36 Pulse Ox 95 12/15/23 09:36 O2 Del Method Room Air 12/15/23 09:36 Testing Laboratory Results 12/15/23 12:44 12/15/23 01:52 12/15/23 12/15/23 13:12 08:55 POC Glucose 169 H 253 H Electrocardiogram Date: 12/15/23 Findings: + ST @ (100) Echocardiogram Date: 06/16/21 EF: 60-65% Valvular Disease: + no significant valvular disease
[2023-12-15 15:42] LABS: Vitamin B12 158 pg/ml (180-914)
--- NOTE | 2023-12-15 17:24 | History & Physical Bridge Note ---
Date of Service December 15, 2023 History & Physical Bridge Note I have examined the patient, reviewed the History & Physical and in the interval since the performance of the History & Physical I have noted the following changes of clinical significance: no changes noted
[2023-12-15] MEDS ORDERED: MIDAZOLAM HCL 1 MG/ML 2ML VIAL ONE (17:29)
[2023-12-15] MEDS ORDERED: LIDOCAINE 2% 2 ML VIAL/AMP(20MG/ML) INFIL ONE (17:29)
[2023-12-15] MEDS ORDERED: fentaNYL citrate PF 100 MCG/2 ML VIAL ONE (17:29)
[2023-12-15] MEDS ORDERED: PROPOFOL IV EMULSION 10 MG/ML 20 ML VIAL IV ONE ×2 (17:29→17:59)
[2023-12-15] MEDS: BUPIVACAINE 0.5 % 5 MG/1 ML MPF 30ML VIAL ONE (18:04)
--- NOTE | 2023-12-15 18:28 | Post Operative Brief Note ---
Immediate Post Op Note v1 Date of Surgery December 15, 2023 Pre & Post Diagnosis Operation Date: 12/15/23 10:05 Pre-Op Diagnosis: Left heel abscess Post-Op Diagnosis: Left heel abscess I identified the patient and participated in the time-out.: Yes Procedure Operation Date: 12/15/23 10:05 Actual Procedures p Left Heel Incision and Drainage(Left) - Brian Saez DPM Surgeon Tayla Saez DPM Operations Business Partner none Estimated Blood Loss 50 Findings See Below excessive purulent exudate expressed from left heel abscess Specimens swab culture left heel abscess deep soft tissue left heel wound sent for aerobic and anaerobic cultures left calcaneus sent to pathology Anesthesia Type MAC Complications none Disposition Accompanied Patient To Recovery: Yes
--- OUTSIDE RECORDS SUMMARY | 2023-12-16 05:21 | External Medical Summary | Summary of Care ---
Author Name Unknown Organization [facility] Address [address] [place] [address] Phone [phone] Care Team Providers Care Food Production Associate Name Role Phone Nara Baron MD Primary Care Provider + Reason for Visit * Reason Onset Date Comments Brace Screw Supervisor 12/07/2023 Encounter Details Date Type Department Care Team (Late st Contact Info) Description 12/07/2023 Telephone Orthotics, [place] [address] [place] [address] Joe Tobar, [place] [address] [place] [address] Brace Screw Supervisor Allergies Active Allergy Reactions Criticality Noted Date Comments Statins Muscle pain 06/06/2023 Have tried every statin documented as of this encounter (statuses as of 12/07/2023) Medications Medication Sig Dispensed Refills Start Date End Date Status Aspirin 81 MG Tablet Take 1 Tablet by mouth in the morning. 0 Active omeprazole (PRILOSEC) 20 MG CPDR take 1 capsule by mouth once daily 30 Cap 0 02/27/2019 Active ONETOUCH DELICA LANCETS 33G MISC Use to test blood sugar 2-3 times per day and as needed. 300 Each 3 04/01/2019 Active LORazepam 1 MG Oral Tablet (Ativan) take 1 tablet by mouth if needed 30 MINUTES PRIOR TO TREATMENT 0 07/12/2021 Active OneTouch Verio In Vitro Strip (Glucose Blood)Indications: Type 2 diabetes mellitus with hemoglobin A1c goal of less than 7.0% ([facility]) TEST 3 TIMES DAILY AND IF NEEDED 300 Strip 3 11/09/2022 Active metFORMIN HCl 500 MG Oral Tablet (Glucophage)Indica tions:Type 2 diabetes mellitus with hemoglobin A1c goal of less than 7.0% ([facility]) take 2 tablets by mouth twice a day with MORNING AND EVENING MEALS 360 Tablet 3 02/22/2023 Active Lisinopril 30 MG Oral Tablet take 1 tablet by mouth daily 90 Tablet 1 05/30/2023 Active Levothyroxine Sodium 150 MCG Oral Tablet (Levoxyl) take 1 tablet by mouth daily FIRST THING IN THE MORNING (AT LEAST 30 MINUTES PRIOR TO BREAKFAST OR OTHER MEDICATIONS) 90 Tablet 1 06/12/2023 Active Folic Acid 1 MG Oral TabletIndications: CLL (chronic lymphocytic leukemia) ([facility]),Splenomegaly ,Acquired hemolytic anemia ([facility]) take 2 tablets by mouth once daily 180 Tablet 3 06/19/2023 Active oxyCODONE HCl 5 MG Oral Tablet (Oxy IR) Take 1 Tablet by mouth every 4 hours as needed for moderate or severe pain 20 Tablet 0 06/26/2023 Active Gabapentin 300 MG Oral Capsule (Neurontin)Indicat ions:CLL (chronic lymphocytic leukemia) (HCC),S/P splenectomy Take 1 Capsule by mouth in the morning and 1 Capsule at noon and 1 Capsule before bedtime. 270 Capsule 3 07/28/2023 Active valACYclovir HCl 1 GM Oral Tablet (Valtrex)Indicatio ns:CLL (chronic lymphocytic leukemia) ([facility]) Take 1 Tablet by mouth in the morning. 90 Tablet 3 07/28/2023 Active Ezetimibe 10 MG Oral Tablet (Zetia) TAKE 1 TABLET BY MOUTH EVERY MORNING 90 Tablet 1 09/12/2023 Active Trulicity 0.75 MG/0.5ML Subcutaneous Solution Pen-injector (Dulaglutide)Indic ations:Type 2 diabetes mellitus with hemoglobin A1c goal of less than 7.0% ([facility]) INJECT 0.5 MILLILITERS ( 0.75 MILLIGRAMS ) SUBCUTANEOUSLY EVERY 7 DAYS IN THE ABDOMEN THIGHS OR OUTER AREA OF UPPER ARM ROTATE INJECTION SITES 2 mL 5 10/02/2023 Active Allopurinol 100 MG Oral Tablet (Zyloprim)Indicati ons:CLL (chronic lymphocytic leukemia) (HCC),Erythrocytos is,Elevated uric acid in blood TAKE 1 TABLET BY MOUTH ONCE DAILY 30 Tablet 5 10/02/2023 Active hydroCHLOROthiazid e 12.5 MG Oral Capsule (Hydrodiuril)Indic ations:HTN, goal below 140/90 TAKE 1 CAPSULE BY MOUTH EVERY MORNING 90 Capsule 1 10/03/2023 Active documented as of this encounter (statuses as of 12/07/2023) Active Problems Problem Noted Date Diagnosed Date Osteomyelitis of left foot 07/01/2023 Calcaneal osteochondritis 06/28/2023 MSSA (methicillin susceptibl e Staphylococcus aureus) infection 06/28/2023 Pseudomonas aeruginosa infection 06/28/2023 Diabetic polyneuropathy asso ciated with type 2 diabetes mellitus 06/27/2023 Hypertension 06/27/2023 Type 2 diabetes mellitus with foot ulcer (CODE) 06/26/2023 PAD (peripheral artery disease) 05/24/2021 Acute osteomyelitis of left ankle or foot 2020 Cellulitis of left lower leg 02/02/2021 Secondary polycythemia 12/09/2019 Type 2 diabetes mellitus wit h mild nonproliferative diabetic retinopathy without macular edema, bilateral 05/02/2019 Chronic constrictive idiopathic pericarditis Pericardial effusion without cardiac tamponade 1 10/17/2016 Splenomegaly 07/26/2017 CLL (chronic lymphocytic leukemia) 07/26/2017 S/P splenectomy 07/24/2017 Chemotherapy-induced neutropenia 01/17/2017 Hemolytic anemia 07/28/2016 Encounter for antineoplastic chemotherapy 2015 Type 2 diabetes mellitus wit h hemoglobin A1c goal of less than 7.0% 02/04/2011 Overview: ICD-10 update of inactive term Dyslipidemia, goal to be determined 02/03/2011 HTN, goal below 140/90 10/08/2007 Family history of GI malignancy 01/02/2007 Hypothyroidism 01/02/2007 CLL (chronic lymphocytic leukemia) documented as of this encounter (statuses as of 12/07/2023) Resolved Problems Problem Noted Date Diagnosed Date Resolved Date Pancytopenia 06/26/2023 06/26/2023 Age-related nuclear cataract, bilateral 02/02/2021 11/30/2021 HZV (herpes zoster virus) po st herpetic neuralgia 06/27/2018 11/30/2021 Iron overload, transfusional 2017 11/30/2021 Pure red cell anemia, chronic 09/05/2017 11/30/2021 Pleural effusion, right 08/16/201711/19 Acute renal failure (ARF) 08/16/2017 Hemolytic anemia 07/26/2017 06/26/2023 Reaction, drug, adverse 07/28/2016 01/0 11/2017 CLL (chronic lymphocytic leukemia) 07/27/2015 08/24/2017 Splenomegaly 06/22/2015 08/24/2017 Obesity, morbid (more than 1 00 lbs over ideal weight or BMI > 40) 02/02/2010 08/24/2017 Overview: Per Obesity Protocol, #19 ICD-10 update of inactive term documented as of this encounter (statuses as of 12/07/2023) Immunizations Name Administration Dates Next Due HIB Booster (Hiberix) 07/20/2017 HIB PRP-T, 4 dose (ActHib) 07/25/2017 Hepatitis B, 20+ yrs 11/01/2019,08/24/2017 Meningococcal B, 2/3-Dose Se gualberto (TRUMENBA) 07/25/2017 Meningococcal Conjugate Vacc ine (Menactra/Menveo) 07/20/2017 PPD 06/17/2014,05/06/2009 Pneumococcal Conjugate Vacc, 13 Valent (Prevnar) 07/25/2017 Pneumococcal Polysaccharide PPV23 (Pneumovax) 07/18/2017 Seasonal Influenza, PF, 6 M & above, IM , (FluLaval or Fluzone) 05/25/2022,06/09/2020,11/01/2019,08/01 TD, Preservative Free 11/01/2019 TDAP (age 11 and older)(Adacel) 01/30/2009 Zoster Vaccine Recombinant (Shingrix) 04/05/2021 ,07/28/2020 documented as of this encounter Social History Tobacco Use Types Packs/Day Years Used Date Smoking Tobacco: Former Cigarettes 0.5 25 1 - 05/21/2006 Smokeless Tobacco: Never Comments:Quit Alcohol Use Standard Drinks/Week Comments No 0 (1 standard drink = 0.6 oz pur e alcohol) PHQ-2 Answer Date Recorded PHQ-2 Score 0 01/15/2019 Hunger Vital Sign Answer Date Recorded Within the past 12 months, y ou worried that your food would run out before you got the money to buy more. Never true 07/28/20 20 Within the past 12 months, t he food you bought just didn't last and you didn't have money to get more. Never true 07/28/2020 Sex and Gender Information Value Date Recorded Sex Assigned at Male 01/15/2019 10:21 AM EDT Gender Identity Male 01/15/2019 10:21 AM EDT Sexual Orientation [place] 01/15/2019 10 :21 AM EDT Job Start Date Occupation Industry Not on file Not on file Not on file documented as of this encounter Functional Status Functional Status Response Date of Assess ment Are you deaf or do you have serious difficulty h earing? No 06/26/2023 Are you blind or do you have serious difficulty seeing, even when wearing glasses? No 06/26/2023 Do you have serious difficul ty walking or climbing stairs? (5 years old or older) No 06/26/2023 Do you have difficulty dress ing or bathing? (5 years old or older) No 06/26/2023 Because of a physical, menta l, or emotional condition, do you have difficulty doing errands alone such as visiting a doctor s office or shopping? (15 years old or older) No 06/26/20 Cognitive Status Response Date of Assessm ent Because of a physical, menta l, or emotional condition, do you have serious difficulty concentrating, remembering, or making decisions? (5 years old or older) No 06/26/2023 documented as of this encounter Miscellaneous Notes * Telephone Encounter - Marilia Fuentes OSA - 12/07/2023 9:51 AM EDT LMOM to schedule hand picker documented in this encounter Plan of Treatment Upcoming Encounters Date Type Department Care Team (Late st Contact Info) Description 12/14/2023 8:00 AM EDT Office Visit General Internal Medicine [facility] [place] [address] [place], [place] [address] Nara Baron MD [address] [place] [address] 12/20/2023 9:30 AM EDT Office Visit Orthotics [address] [address] Joe Tobar, [place] [address] [place] [address] 02/05/2024 2:30 PM EDT Office Visit Hematology/Oncology [facility] [address] [place] [address] Lilly Inman, [place] [address] [place] [address] 02/13/2024 8:30 AM EDT Office Visit Orthopaedics [address] [address] Alexandre Dee MD [address] [place], [place] [id number] Scheduled Procedures Name Priority Associated Diagnoses Date/Ti me ESOPHAGOGASTRODUODENOSCOPY ( EGD), FLEXIBLE, TRANSORAL, DIAGNOSTIC Recall Arora esophagus Health Maintenance Due Date Last Done Comments COVID-19 Vaccine (#1) 1965 Meningitis B Vaccine (Bexsero/Trumemba) (2 of 5 - Increased Risk Trumenba 3-dose series) 08/22/2017 07/25/2017 MENINGOCOCCAL (MENACTRA/MENVEO) (2 - Risk 2-dose series) 09/14/2017 07/20/2017 Hepatitis B (3 of 3 - 19+ 3-dose series) 12/27/2019 11/01/2019, 08/24/2017 Depression Screening 07/28/2021 07/28/2020, 11/03/2014 (Discussed) Diabetic Foot Exam 04/05/2022 04/05/2021, 0 11/01/2019, 10/26/2018, Additional history exists Pneumococcal Vaccine: Pediatrics (0 to 5 Years) and At-Risk Patients (6 to 64 Years) (3 of 3 - PPSV23 or PCV20) 07/18/2022 07/25/2017, 07/18/2017 HbA1c 12/26/2023 06/27/2023, 06/0 03/2023, 07/27/2022, Additional history exists Diabetic Eye Exam 12/28/2023 12/27/2022, , 12/27/2022, Additional history exists Albumin/Creatinine Ratio 01/27/2024 023, 04/19/2022, 11/01/2019, Additional history exists Influenza Vaccine (FLU shot) (Season Ended) 2024 05/25/2022, 06/09/2020, 11/01/2019, Additional history exists B-12 06/05/2024 06/05/2023, 01/19, 02/26/2019, Additional history exists TSH 06/05/2024 06/05/2023, 03/23, 02/01/2021, Additional history exists GFR 08/07/2024 08/07/2023, 07/21, 07/25/2023, Additional history exists COLONOSCOPY-EVERY 5 YRS AGES 18-100 09/03/2026 09/03/2021, 09/03/2021, 11/14/2017, Additional history exists Lipid Panel 01/27/2028 01/26/2023, 01/19, 08/04/2021, Additional history exists DTaP,Tdap,and Td Vaccines (3 - Td or Tdap) 10/31/2029 11/01/2019, 01/30/2009 Zoster Vaccines Completed 04/05/2021, 07/28/2020 COLONOSCOPY-EVERY 3 YRS AGES 18-100 Discontinued 09/03/2021, 09/03/2021, 11/14/2017, Additional history exists GARDASIL-HPV IMMUNIZATION SERIES Aged Out No longer eligible based on patient's age to complete this topic documented as of this encounter Medical Devices Not on filedocumented as of this encounter Advance Directives Latest Code Status on File Code Status Date Activated Date Inactivated Comments Full Code 06/26/2023 2:43 PM 07/01/2023 2:32 PM This order reflects the patients wishes and were consensually agreed upon. Question Answer Comments Discussion of Advance Directives occurred with: Patient Code Status History Code Status Date Activated Date Inactivated Comments Full Code 07/05/2022 6:06 PM 07/06/2022 1:14 AM Thi s order reflects the patients wishes and were consensually agreed upon. Question Answer Comments Discussion of Advance Directives occurred with: Not Discussed due to patient's condition Full Code 08/15/2017 5:52 PM 08/18/2017 11:01 PM Th is order reflects the patients wishes and were consensually agreed upon. Question Answer Comments Discussion of Advance Directives occurred with: Patient Does the patient have a Living Will? No Full Code 07/24/2017 4:36 PM 07/26/2017 6:40 PM Full Code 07/24/2017 1:01 PM 07/24/2017 4:36 PM Question Answer Comments Discussion of Advance Directives occurred with: Not Discussed Care Teams Food Production Associate Relationship Specialty Start Date End Date Nara Baron MD [address] [facility] [place] [address] PCP - General Internal Medicine 01/15/19 documented as of this encounter
--- OUTSIDE RECORDS SUMMARY | 2023-12-16 05:21 | External Medical Summary | Summary of Care ---
Author Name Unknown Organization [facility] Address [address] [facility] [place] [address] Phone [phone] Care Team Providers Care Sexual Assault Social Worker Name Role Phone Keshawn Baron MD Primary Care Provider + Reason for Visit * Reason Comments eRx-Medication Refill Encounter Details Date Type Department Care Team (Late st Contact Info) Description 12/07/2023 Refill General Internal Medicine [facility] [place] [address] [facility] [place] [address] Keshawn Baron MD [address] [facility] [place] [address] Allergies Active Allergy Reactions Criticality Noted Date Comments Statins Muscle pain 06/06/2023 Have tried every statin documented as of this encounter (statuses as of 12/08/2023) Medications Medication Sig Dispensed Refills Start Date End Date Status Aspirin 81 MG Tablet Take 1 Tablet by mouth in the morning. 0 Active omeprazole (PRILOSEC) 20 MG CPDR take 1 capsule by mouth once daily 30 Cap 0 9 Active ONETOUCH DELICA LANCETS 33G MISC Use to test blood sugar 2-3 times per day and as needed. 300 Each 3 9 Active LORazepam 1 MG Oral Tablet (Ativan) take 1 tablet by mouth if needed 30 MINUTES PRIOR TO TREATMENT 0 1 Active OneTouch Verio In Vitro Strip (Glucose Blood)Indication s:Type 2 diabetes mellitus with hemoglobin A1c goal of less than 7.0% (HCC) TEST 3 TIMES DAILY AND IF NEEDED 300 Strip 3 3 Active metFORMIN HCl 500 MG Oral Tablet (Glucophage)Veronica cations:Type 2 diabetes mellitus with hemoglobin A1c goal of less than 7.0% ([facility]) take 2 tablets by mouth twice a day with MORNING AND EVENING MEALS 360 Tablet 3 3 Active Levothyroxine Sodium 150 MCG Oral Tablet (Levoxyl) take 1 tablet by mouth daily FIRST THING IN THE MORNING (AT LEAST 30 MINUTES PRIOR TO BREAKFAST OR OTHER MEDICATIONS) 90 Tablet 1 3 Active Folic Acid 1 MG Oral TabletIndication s:CLL (chronic lymphocytic leukemia) ([facility]),Splenomega ly,Acquired hemolytic anemia ([facility]) take 2 tablets by mouth once daily 180 Tablet 3 3 Active oxyCODONE HCl 5 MG Oral Tablet (Oxy IR) Take 1 Tablet by mouth every 4 hours as needed for moderate or severe pain 20 Tablet 0 3 Active Gabapentin 300 MG Oral Capsule (Neurontin)Indic ations:CLL (chronic lymphocytic leukemia) ([facility]),S/P splenectomy Take 1 Capsule by mouth in the morning and 1 Capsule at noon and 1 Capsule before bedtime. 270 Capsule 3 3 Active valACYclovir HCl 1 GM Oral Tablet (Valtrex)Indicat ions:CLL (chronic lymphocytic leukemia) (HCC) Take 1 Tablet by mouth in the morning. 90 Tablet 3 3 Active Ezetimibe 10 MG Oral Tablet (Zetia) TAKE 1 TABLET BY MOUTH EVERY MORNING 90 Tablet 1 4 Active Trulicity 0.75 MG/0.5ML Subcutaneous Solution Pen-injector (Dulaglutide)Ind ications:Type 2 diabetes mellitus with hemoglobin A1c goal of less than 7.0% ([facility]) INJECT 0.5 MILLILITERS ( 0.75 MILLIGRAMS ) SUBCUTANEOUSLY EVERY 7 DAYS IN THE ABDOMEN THIGHS OR OUTER AREA OF UPPER ARM ROTATE INJECTION SITES 2 mL 5 4 Active Allopurinol 100 MG Oral Tablet (Zyloprim)Indica tions:CLL (chronic lymphocytic leukemia) ([facility]),Erythrocyt osis,Elevated uric acid in blood TAKE 1 TABLET BY MOUTH ONCE DAILY 30 Tablet 5 4 Active hydroCHLOROthiaz haim 12.5 MG Oral Capsule (Hydrodiuril)Ind ications:HTN, goal below 140/90 TAKE 1 CAPSULE BY MOUTH EVERY MORNING 90 Capsule 1 4 Active Lisinopril 30 MG Oral Tablet TAKE 1 TABLET BY MOUTH DAILY 90 Tablet 1 4 Active Lisinopril 30 MG Oral Tablet take 1 tablet by mouth daily 90 Tablet 1 3 12/08/19 24 Discontinued documented as of this encounter (statuses as of 12/08/2023) Active Problems Problem Noted Date Diagnosed Date [...] as of this encounter (statuses as of 12/08/2023) Resolved Problems Problem Noted Date Diagnosed Date Resolved Date Pancytopenia 06/26/2023 06/26/2023 Age-related nuclear cataract, bilateral 02/02/2021 11/30/2021 HZV (herpes zoster virus) po st herpetic neuralgia 06/27/2018 11/30/2021 Iron overload, transfusional 2017 11/30/2021 Pure red cell anemia, chronic 09/05/2017 11/30/2021 Pleural effusion, right 08/16/201711/19 Acute renal failure (ARF) 08/16/2017 Hemolytic anemia 07/26/2017 06/26/2023 Reaction, drug, adverse 07/28/201611/2017 CLL (chronic lymphocytic leukemia) 07/27/2015 08/24/2017 Splenomegaly 06/22/2015 08/24/2017 Obesity, morbid (more than 1 00 lbs over ideal weight or BMI > 40) 02/02/2010 08/24/2017 Overview: Per Obesity Protocol, #19 ICD-10 update of inactive term documented as of this encounter (statuses as of 12/08/2023) Immunizations Name Administration Dates Next Due HIB [...] (15 years old or older) No 06/26/20 23 Cognitive Status Response Date of Assessm ent Because of a physical, menta l, or emotional condition, do you have serious difficulty concentrating, remembering, or making decisions? (5 years old or older) No 06/26/2023 documented as of this encounter Miscellaneous Notes * Telephone Encounter - Ruby Queen, [facility] - 12/08/2023 9:59 AM EDT Signed Prescriptions: Disp Refills Lisinopril 30 MG Oral Tablet 90 Tab*1 Sig: TAKE 1 TABLET BY MOUTH DAILYAuthorizing Provider: KESHAWN BARON User: RUBY QUEEN documented in this encounter Plan of Treatment Upcoming Encounters Date Type Department Care Team (Late st Contact Info) Description 12/14/2023 8:00 AM EDT Office Visit General Internal Medicine [facility] [address] [facility] [place] [address] Keshawn Baron MD [address] [facility] [place] [address] 12/20/2023 9:30 AM EDT Office Visit Orthotics [address] [id number] [place], [place] [address] [place], [place] [id number] 02/05/2024 2:30 PM EDT Office Visit Hematology/Oncology [facility] [address] [facility] [place] [phone] Lilly Inman CRNP [address] [place], [place] [phone] 02/13/2024 8:30 AM EDT Office Visit Orthopaedics [address] [phone] Alexandre Dee MD [address] [place], [place] [id number] Scheduled Procedures Name Priority Associated Diagnoses Date/Ti [...] PCV20) 07/18/2022 07/25/2017, 07/18/2017 HbA1c 12/26/2023 06/27/2023, 06/03/2023, 07/27/2022, Additional history exists Diabetic Eye Exam [...] Directives occurred with: Not Discussed Care Teams Sexual Assault Social Worker Relationship Specialty Start Date End Date Keshawn Baron MD 200 [facility] [place] [address] PCP - General Internal Medicine 01/15/19 documented as of this encounter
--- OUTSIDE RECORDS SUMMARY | 2023-12-16 05:21 | External Medical Summary | Summary of Care ---
Author Name Unknown Organization [facility] Address [address] [facility] [place] [address] Phone [phone] Care Team Providers Care Distribution Center Manager Name Role Phone Keshawn Baron MD Primary Care Provider + Reason for Visit * Reason Comments eRx-Medication Refill Encounter Details Date Type Department Care Team (Late st Contact Info) Description 12/12/2023 Refill General Internal Medicine [facility] [place] [address] [facility] [place] [address] Keshawn Baron MD [address] [facility] [place] [address] Allergies Active Allergy Reactions Criticality Noted Date Comments Statins Muscle pain 06/06/2023 Have tried every statin documented as of this encounter (statuses as of 12/13/2023) Medications Medication Sig Dispensed Refills Start Date [...] hemoglobin A1c goal of less than 7.0% ([facility]) take 2 tablets by mouth twice a day with MORNING AND EVENING MEALS 360 Tablet 3 3 Active Folic Acid 1 MG Oral TabletIndication s:CLL (chronic lymphocytic leukemia) ([facility]),Splenomega ly,Acquired hemolytic anemia ([facility]) take 2 tablets by mouth once daily 180 Tablet 3 3 Active oxyCODONE HCl 5 MG Oral Tablet (Oxy IR) Take 1 Tablet by mouth every 4 hours as needed for moderate or severe pain 20 Tablet 0 3 Active Gabapentin 300 MG Oral Capsule (Neurontin)Indic ations:CLL (chronic lymphocytic leukemia) (HCC),S/P splenectomy Take 1 [...] hemoglobin A1c goal of less than 7.0% ([facility]) INJECT 0.5 MILLILITERS ( 0.75 MILLIGRAMS ) SUBCUTANEOUSLY EVERY 7 DAYS IN THE ABDOMEN THIGHS OR OUTER AREA OF UPPER ARM ROTATE INJECTION SITES 2 mL 5 4 Active Allopurinol 100 MG Oral Tablet (Zyloprim)Indica tions:CLL (chronic lymphocytic leukemia) (HCC),Erythrocyt osis,Elevated uric acid in blood TAKE 1 TABLET BY MOUTH ONCE DAILY 30 Tablet 5 4 Active hydroCHLOROthiaz haim 12.5 MG Oral Capsule (Hydrodiuril)Ind ications:HTN, goal below 140/90 TAKE 1 CAPSULE BY MOUTH EVERY MORNING 90 Capsule 1 4 Active Lisinopril 30 MG Oral Tablet TAKE 1 TABLET BY MOUTH DAILY 90 Tablet 1 4 Active Levothyroxine Sodium 150 MCG Oral Tablet (Levoxyl) TAKE 1 TABLET BY MOUTH DAILY FIRST THING IN THE MORNING (AT LEAST 30 MINUTES PRIOR TO BREAKFAST OR OTHER MEDICATIONS) 90 Tablet 1 4 Active Levothyroxine Sodium 150 MCG Oral Tablet (Levoxyl) take 1 tablet by mouth daily FIRST THING IN THE MORNING (AT LEAST 30 MINUTES PRIOR TO BREAKFAST OR OTHER MEDICATIONS) 90 Tablet 1 3 12/13/19 24 Discontinued documented as of this encounter (statuses as of 12/13/2023) Active Problems Problem Noted Date Diagnosed Date [...] as of this encounter (statuses as of 12/13/2023) Resolved Problems Problem Noted Date Diagnosed Date Resolved Date Pancytopenia 06/26/2023 06/26/2023 Age-related nuclear cataract, bilateral 02/02/2021 11/30/2021 HZV (herpes zoster virus) po st herpetic neuralgia 06/27/2018 11/30/2021 Iron overload, transfusional 2017 11/30/2021 Pure red cell anemia, chronic 09/05/2017 11/30/2021 Pleural effusion, right 08/16/2017 04/1 09/2021 Acute renal failure (ARF) 08/16/2017 Hemolytic anemia 07/26/2017 06/26/2023 Reaction, drug, adverse 07/28/2016 01/0 11/2017 CLL (chronic lymphocytic leukemia) 07/27/2015 08/24/2017 Splenomegaly 06/22/2015 08/24/2017 Obesity, morbid (more than 1 00 lbs over ideal weight or BMI > 40) 02/02/2010 08/24/2017 Overview: Per Obesity Protocol, #19 ICD-10 update of inactive term documented as of this encounter (statuses as of 12/13/2023) Immunizations Name Administration Dates Next Due HIB [...] encounter Miscellaneous Notes * Telephone Encounter - Amanda Styles [facility] - 12/13/2023 3:32 PM EDTSigned Prescriptions: Disp Refills Levothyroxine Sodium 150 MCG Oral Tablet (*90 Tab*1 Sig: TAKE 1 TABLET BY MOUTH DAILY FIRST THING IN THE MORNING (AT LEAST 30 MINUTES PRIOR TO BREAKFAST OR OTHER MEDICATIONS)Authorizing Provider: KESHAWN BARON User: AMANDA STYLES documented in this encounter Plan of Treatment Upcoming Encounters Date Type Department Care Team (Late st Contact Info) Description 12/14/2023 8:00 AM EDT Office Visit General Internal Medicine [facility] [address] [place] [address] Keshawn Baron MD [address] [place] [address] 12/20/2023 9:30 AM EDT Office Visit Orthotics [address] [phone] [place], [place] [address] [place] [address] 02/05/2024 2:30 PM EDT Office Visit Hematology/Oncology [facility] [address] [place] [phone] Lilly Inman CRNP [address] [place], [place] [phone] 02/13/2024 8:30 AM EDT Office Visit Orthopaedics [address] [phone] Alexandre Dee MD [address] [place] [address] Scheduled Procedures Name Priority Associated Diagnoses Date/Ti [...] Directives occurred with: Not Discussed Care Teams Distribution Center Manager Relationship Specialty Start Date End Date Keshawn Baron MD [address] [place] [address] PCP - General Internal Medicine 01/15/19 documented as of this encounter
--- OUTSIDE RECORDS SUMMARY | 2023-12-16 05:22 | External Medical Summary | Summary of Care ---
Author Name Unknown Organization [facility] Address [address] [place] [address] Phone [phone] Care Team Providers Care Inside Outside Sales Representative Name Role Phone Nara Baron MD Primary Care Provider + Reason for Visit * Reason Comments Follow Up Left foot follow up Encounter Details Date Type Department Care Team (Late st Contact Info) Description 10/31/2023 10:30 AM EDT Office Visit Orthopaedics [facility] [address] [place] [address] Alexandre Dee MD [address] [place] [address] Aftercare following surgery of the musculoskeletal system*; Diabetic polyneuropathy associated with type 2 diabetes mellitus (HCC) Allergies Active Allergy Reactions Criticality Noted Date Comments Statins Muscle pain 06/06/2023 Have tried every statin documented as of this encounter (statuses as of 10/31/2023) Medications Medication Sig Dispensed Refills Start Date [...] hemoglobin A1c goal of less than 7.0% ([facility]) TEST 3 TIMES DAILY AND IF NEEDED 300 Strip 3 11/09/2022 Active metFORMIN HCl 500 MG Oral Tablet (Glucophage)Indica tions:Type 2 diabetes mellitus with hemoglobin A1c goal of less than 7.0% ([facility]) take 2 tablets by mouth twice a [...] MG Oral TabletIndications: CLL (chronic lymphocytic leukemia) ([facility]),Splenomegaly ,Acquired hemolytic anemia ([facility]) take 2 tablets by mouth once daily [...] Oral Tablet (Valtrex)Indicatio ns:CLL (chronic lymphocytic leukemia) (HCC) Take 1 Tablet by mouth in the morning. 90 Tablet 3 07/28/2023 Active Ezetimibe 10 MG Oral Tablet (Zetia) TAKE 1 TABLET BY MOUTH EVERY MORNING 90 Tablet 1 09/12/2023 Active Trulicity 0.75 MG/0.5ML Subcutaneous Solution Pen-injector (Dulaglutide)Indic ations:Type 2 diabetes mellitus with hemoglobin A1c goal of less than 7.0% ([facility]) INJECT 0.5 MILLILITERS ( 0.75 MILLIGRAMS ) [...] as of this encounter (statuses as of 10/31/2023) Active Problems Problem Noted Date Diagnosed Date [...] as of this encounter (statuses as of 10/31/2023) Resolved Problems Problem Noted Date Diagnosed Date Resolved Date Pancytopenia 06/26/2023 06/26/2023 Age-related nuclear cataract, bilateral 02/02/2021 11/30/2021 HZV (herpes zoster virus) po st herpetic neuralgia 06/27/2018 11/30/2021 Iron overload, transfusional 2017 11/30/2021 Pure red cell anemia, chronic 09/05/2017 11/30/2021 Pleural effusion, right 08/16/201711/19 Acute renal failure (ARF) 08/16/2017 Hemolytic anemia 07/26/2017 06/26/2023 Reaction, drug, adverse 07/28/2016 0111/2017 CLL (chronic lymphocytic leukemia) 07/27/2015 08/24/2017 Splenomegaly 06/22/2015 08/24/2017 Obesity, morbid (more than 1 00 lbs over ideal weight or BMI > 40) 02/02/2010 08/24/2017 Overview: Per Obesity Protocol, #19 ICD-10 update of inactive term documented as of this encounter (statuses as of 10/31/2023) Immunizations Name Administration Dates Next Due HIB [...] No 06/26/2023 documented as of this encounter Progress Notes * Fatemeh Lopez PA-C - 10/31/2023 10:22 AM EDT CC: post op 10/31/2023 S: 63 y/o male s/p left partial calcanectomy on 06/26/23. - doing well today. WB in regular shoes. Did have a callus over the wound that he trimmed down himself. Has no pain, drainage or issues. Seeing [facility] today for his orthotics. He is very very happy with his results thus far. PE: LLE - incision closed. There is a small red area where he removed the callus, no drainage though. Intact active plantar flexion and dorsiflexion. Foot warm and well perfused. Imaging: none new today. Prior images Obtained and interpreted to show status post partial calcanectomy with no evidence of bony destruction. A/P: 63 y/o male s/p left partial calcanectomy on 06/26/23. - continue working with caro for orthotics - continue walking - keep area clean and dry - massage with lotions to help with dryness but stay away from any wounds/irritations. - stop picking the wound - return in 3 months. Will call with any concerns/issues. - Patient was seen and examined by Dr. Dee who formulated the plan of care. Fatemeh Sellers PA-C 10/31/2023 10:34 AM documented in this encounter Plan of Treatment Upcoming Encounters Date Type Department Care Team (Late st Contact Info) Description 10/31/2023 11:00 AM EDT Office Visit Orthotics [facility] [address] [place] [address] [place], [place] [address] [place] [address] Arrived 12/14/2023 8:00 AM EDT Office Visit General Internal Medicine [address] [place] [address] Nara Baron MD [address] [place] [address] [place] [address] 02/02/2024 8:45 AM EDT Office Visit Hematology/Oncology [facility] [address] [place] [phone] Ephraim Baron MD [address] [place] [address] [place] [address] Scheduled Procedures Name Priority Associated Diagnoses Date/Ti [...] - PPSV23 or PCV20) 07/18/2022 07/25/2017, 07/18/2017 Influenza Vaccine (FLU shot) (#1) 2023 05/25/2022, 06/09/2020, 11/01/2019, Additional history exists HbA1c 12/26/2023 06/27/2023, 06/0 03/2023, 07/27/2022, Additional history exists Diabetic Eye Exam 12/28/2023 12/27/2022, , 12/27/2022, Additional history exists Albumin/Creatinine Ratio 01/27/2024 023, 04/19/2022, 11/01/2019, Additional history exists B-12 06/05/2024 06/05/2023, [...] Not on filedocumented as of this encounter Visit Diagnoses Diagnosis Aftercare following surgery of the musculoskeletal system- Primary Aftercare following surgery of the musculoskeletal system, NEC Diabetic polyneuropathy associated with type 2 diabetes mellitus (HCC) documented in this encounter Advance Directives Latest Code Status [...] Directives occurred with: Not Discussed Care Teams Inside Outside Sales Representative Relationship Specialty Start Date End Date Nara Baron MD [address] [place] [address] PCP - General Internal Medicine 01/15/19 documented as of this encounter
--- OUTSIDE RECORDS SUMMARY | 2023-12-16 05:22 | External Medical Summary | Summary of Care ---
Author Name Unknown Organization [facility] Address [address] [place] [address] Phone [phone] Care Team Providers Care Light Fixture Servicer Name Role Phone Nara Baron MD Primary Care Provider + Reason for Visit * Reason Onset Date Comments Appointment 10/03/2023 recall Encounter Details Date Type Department Care Team (Late st Contact Info) Description 10/03/2023 Telephone Vascular Surg [facility] [address] [place], [place] [phone] Mikie Sin MD [address] [place] [address] Appointment (recall) Allergies Active Allergy Reactions Criticality Noted Date Comments Statins Muscle pain 06/06/2023 Have tried every statin documented as of this encounter (statuses as of 10/09/2023) Medications Medication Sig Dispensed Refills Start Date [...] hemoglobin A1c goal of less than 7.0% ([facility]) TEST 3 TIMES DAILY AND IF NEEDED 300 Strip 3 3 Active metFORMIN HCl 500 MG Oral Tablet (Glucophage)Veronica cations:Type 2 diabetes mellitus with hemoglobin A1c goal of less than 7.0% ([facility]) take 2 tablets by mouth twice a day with MORNING AND EVENING MEALS 360 Tablet 3 3 Active Lisinopril 30 MG Oral Tablet take 1 tablet by mouth daily 90 Tablet 1 3 Active Levothyroxine Sodium 150 MCG Oral Tablet (Levoxyl) take 1 tablet by mouth daily FIRST THING IN THE MORNING (AT LEAST 30 MINUTES PRIOR TO BREAKFAST OR OTHER MEDICATIONS) 90 Tablet 1 3 Active Folic Acid 1 MG Oral TabletIndication s:CLL (chronic lymphocytic leukemia) ([facility]),Splenomega ly,Acquired hemolytic anemia ([facility]) take 2 tablets by mouth once daily 180 Tablet 3 3 Active oxyCODONE HCl 5 MG Oral Tablet (Oxy IR) Take 1 Tablet by mouth every 4 hours as needed for moderate or severe pain 20 Tablet 0 3 Active Gabapentin 300 MG Oral Capsule (Neurontin)Indic ations:CLL (chronic lymphocytic leukemia) ([facility]),S/P splenectomy Take 1 Capsule by mouth in the morning and 1 Capsule at noon and 1 Capsule before bedtime. 270 Capsule 3 3 Active valACYclovir HCl 1 GM Oral Tablet (Valtrex)Indicat ions:CLL (chronic lymphocytic leukemia) ([facility]) Take 1 Tablet by mouth in the morning. 90 Tablet 3 3 Active Ezetimibe 10 MG Oral Tablet (Zetia) TAKE 1 TABLET BY MOUTH EVERY MORNING 90 Tablet 1 4 Active Trulicity 0.75 MG/0.5ML Subcutaneous Solution Pen-injector (Dulaglutide)Ind ications:Type 2 diabetes mellitus with hemoglobin A1c goal of less than 7.0% ([facility]) INJECT 0.5 MILLILITERS ( 0.75 MILLIGRAMS [...] Oral Capsule (Hydrodiuril)Ind ications:HTN, goal below 140/90 take 1 capsule by mouth every morning 30 Capsule 5 3 10/03/19 24 Discontinued documented as of this encounter (statuses as of 10/09/2023) Active Problems Problem Noted Date Diagnosed Date [...] as of this encounter (statuses as of 10/09/2023) Resolved Problems Problem Noted Date Diagnosed Date [...] as of this encounter (statuses as of 10/09/2023) Immunizations Name Administration Dates Next Due HIB [...] encounter Miscellaneous Notes * Telephone Encounter - Jacquelin Yeh OSA - 10/09/2023 8:59 AM EST Sent letter [facility] * Telephone Encounter - Rhonda Harrell OSA - 10/05/2023 2:10 PM EST Left message x2 for patient to return call to made DUSTIN and LLE arterial dulplex then Dr. Yang * Telephone Encounter - Jacquelin Yeh OSA - 10/03/2023 9:24 AM EST RTC in 1 yr DUSTIN and LLE arterial duplex or sooner prn Called patient and left message for him to schedule his year return rrh documented in this encounter Plan of Treatment Upcoming Encounters Date Type Department Care Team (Late st Contact Info) Description 10/31/2023 10:30 AM EDT Office Visit Orthopaedics [address] [phone] Alexandre Dee MD [address] [place], [place] [phone] 10/31/2023 11:00 AM EDT Office Visit Orthotics [address] [phone] [place], [place] [address] [place] [address] 12/14/2023 8:00 AM EDT Office Visit General Internal Medicine [facility] [address] [facility] [address] [place] [address] Nara Baron MD [address] [facility] [place] [address] 02/02/2024 8:45 AM EDT Office Visit Hematology/Oncology [facility] [place] [address] Ephraim Baron MD [address] [facility] [place] [address] Scheduled Procedures Name Priority Associated Diagnoses Date/Ti [...] Directives occurred with: Not Discussed Care Teams Light Fixture Servicer Relationship Specialty Start Date End Date Nara Baron MD [address] [facility] [place] [address] PCP - General Internal Medicine 01/15/19 documented as of this encounter
--- OUTSIDE RECORDS SUMMARY | 2023-12-16 05:22 | External Medical Summary | Summary of Care ---
Author Name Unknown Organization [facility] Address [address] [place] [address] Phone [phone] Care Team Providers Care Enrobing Machine Corder Name Role Phone Nara Baron MD Primary Care Provider + Reason for Visit * Reason Comments Follow Up Orthotics Encounter Details Date Type Department Care Team (Latest Contact Info) Description 10/31/2023 11:00 AM EDT Office Visit Orthotics [place] [address] [place], [place] [phone] Joe Tobar, [place] [address] [place], [place] [phone] Diabetic polyneuropathy associated with type 2 diabetes mellitus (HCC)* Allergies Active Allergy Reactions Criticality Noted Date [...] than 7.0% ([facility]) TEST 3 TIMES DAILY AND IF [...] MG Oral TabletIndications: CLL (chronic lymphocytic leukemia) ([facility]),Splenomegaly ,Acquired hemolytic anemia (HCC) take 2 tablets by mouth once daily [...] as of this encounter Progress Notes * Joe Tobar, [place] - 10/31/2023 11:49 AM EDT The patient was seen for the evaluation and measured of off the shelf diabetic shoes and inserts. He is a referral from Dr. Evelio dee. The patient has had diabetic shoes in the past. The patient doeshave skin issues with their feet today. The patient needs Diabetic shoes because heel ulcer and calluses. The patient needs custom desmond tri-landers insoles due to heel ulcer on left side with surg with calcaneous removed. Adequate casts/measurments were taken for the shoes and inserts today. The patientchose model 613 Lava GR size RT 10.5-w & LT 9.5-w shoes from [employer] . The inserts will be custom and there will be 3 pairs of them. Will fit and deliver the shoes and inserts as soon as possible. 2-A5500 3-RT A5513 3-LT A5513 and we need to order mismatch shoes and if we can't we will ordertwo different shoes.QUIRINO Casey 10/31/2023 11:54 AM documented in this encounter Plan of Treatment Upcoming Encounters Date Type Department Care Team (Late st Contact Info) Description 12/14/2023 8:00 AM EDT Office Visit General Internal Medicine [facility] [address] [place] [address] Nara Baron MD [address] [place] [address] 02/02/2024 8:45 AM EDT Office Visit Hematology/Oncology [facility] [address] [place] [phone] Ephriam Baron MD [address] [place] [address] 02/13/2024 8:30 AM EDT Office Visit Orthopaedics [facility] [address] [place] [address] Alexandre Dee MD [address] [place] [address] Scheduled Procedures Name Priority Associated [...] as of this encounter Visit Diagnoses Diagnosis Diabetic polyneuropathy associated with type 2 diabetes mellitus (HCC)- Primary documented in this encounter Advance Directives Latest [...] Directives occurred with: Not Discussed Care Teams Enrobing Machine Corder Relationship Specialty Start Date End Date Nara Baron MD [address] [place] [address] PCP - General Internal Medicine 01/15/19 documented as of this encounter
--- OUTSIDE RECORDS SUMMARY | 2023-12-16 05:22 | External Medical Summary | Summary of Care ---
Author Name Unknown Organization [facility] Address [address] [place] [address] Phone [phone] Care Team Providers Care Billet Driller Name Role Phone Nara Baron MD Primary Care Provider + Reason for Visit * Reason Comments Follow Up Left foot follow up Encounter Details Date Type Department Care Team (Late st Contact Info) Description 10/31/2023 10:30 AM EDT Office Visit Orthopaedics [facility] [address] [place] [address] Alexandre Dee MD [address] [place] [address] Aftercare following surgery of the [...] hemoglobin A1c goal of less than 7.0% ([facility]) TEST 3 TIMES DAILY AND IF NEEDED 300 Strip 3 11/09/2022 Active metFORMIN HCl 500 MG Oral Tablet (Glucophage)Indica tions:Type 2 diabetes mellitus with hemoglobin A1c goal of less than 7.0% ([facility]) take 2 tablets by mouth twice a [...] MG Oral TabletIndications: CLL (chronic lymphocytic leukemia) ([facility]),Splenomegaly ,Acquired hemolytic anemia ([facility]) take 2 tablets by mouth once daily [...] hemoglobin A1c goal of less than 7.0% ([facility]) INJECT 0.5 MILLILITERS ( 0.75 MILLIGRAMS ) [...] as of this encounter Progress Notes * Alexandre Dee MD - 10/31/2023 12:08 PM EDT I have reviewed the advanced practitioner's documentation on the date of service referenced in note, and I agree with, and take responsibility for the plan of care. 63-year-old male known to me status post partial calcanectomy. Overall doing well. He did have a scab that he cut himself and now has a small superficial wound from that. No signs of infection. He isseeing orthotics today for discussion of shoes. We will continue with this and follow him in 2 months for re-evaluation. * Fatemeh Lopez PA-C - 10/31/2023 10:22 [...] AM EDT Office Visit General Internal Medicine [facility] [address] [place] [address] Nara Baron MD [address] [place] [address] 02/02/2024 8:45 AM EDT Office [facility] [address] [place] [phone] Ephraim Baron MD [address] [place], [place] [address] 02/13/2024 8:30 AM EDT Office Visit [address] [phone] Alexandre Dee MD [address] [place] [address] Scheduled Procedures Name Priority Associated [...] 11/01/2019, Additional history exists HbA1c 12/26/2023 06/27/2023, 06/03/2023, 07/27/2022, Additional history [...] Directives occurred with: Not Discussed Care Teams Billet Driller Relationship Specialty Start Date End Date Nara Baron MD [address] [facility] [place] [address] PCP - General Internal Medicine 01/15/19 documented as of this encounter
--- OUTSIDE RECORDS SUMMARY | 2023-12-16 05:22 | External Medical Summary | Summary of Care ---
Author Name Unknown Organization [facility] Address [address] [place] [address] Phone [phone] Care Team Providers Care Cash Management Clerk Name Role Phone Nara Baron MD Primary Care Provider + Reason for Visit * Reason Onset Date Comments Appointment 10/03/2023 recall Encounter Details Date Type Department Care Team (Late st Contact Info) Description 10/03/2023 Telephone Vascular Surg [facility] [place] [address] [place], [place] [phone] Mikie Sin MD [address] [place] [address] Appointment (recall) Allergies Active Allergy Reactions Criticality Noted Date Comments Statins Muscle pain 06/06/2023 Have tried every statin documented as of this encounter (statuses as of 10/05/2023) Medications Medication Sig Dispensed Refills Start Date [...] A1c goal of less than 7.0% ([facility]) TEST 3 TIMES DAILY AND IF NEEDED 300 Strip 3 3 Active metFORMIN HCl 500 MG Oral Tablet (Glucophage)Veronica cations:Type 2 diabetes mellitus with hemoglobin A1c goal of less than 7.0% ([facility]) take 2 tablets by mouth twice a [...] MG Oral TabletIndication s:CLL (chronic lymphocytic leukemia) ([facility]),Splenomega ly,Acquired hemolytic anemia ([facility]) take 2 tablets by mouth once daily 180 Tablet 3 3 Active oxyCODONE HCl 5 MG Oral Tablet (Oxy IR) Take 1 Tablet by mouth every 4 hours as needed for moderate or severe pain 20 Tablet 0 3 Active Gabapentin 300 MG Oral Capsule (Neurontin)Indic ations:CLL (chronic lymphocytic leukemia) ([facility]),S/P splenectomy Take 1 Capsule by mouth in the morning and 1 Capsule at noon and 1 Capsule before bedtime. 270 Capsule 3 3 Active valACYclovir HCl 1 GM Oral Tablet (Valtrex)Indicat ions:CLL (chronic lymphocytic leukemia) ([facility]) Take 1 Tablet by mouth in the morning. 90 Tablet 3 3 Active Ezetimibe 10 MG Oral Tablet (Zetia) TAKE 1 TABLET BY MOUTH EVERY MORNING 90 Tablet 1 4 Active Trulicity 0.75 MG/0.5ML Subcutaneous Solution Pen-injector (Dulaglutide)Ind ications:Type 2 diabetes mellitus with hemoglobin A1c goal of less than 7.0% ([facility]) INJECT 0.5 MILLILITERS ( 0.75 MILLIGRAMS ) [...] as of this encounter (statuses as of 10/05/2023) Active Problems Problem Noted Date Diagnosed Date [...] as of this encounter (statuses as of 10/05/2023) Resolved Problems Problem Noted Date Diagnosed Date [...] as of this encounter (statuses as of 10/05/2023) Immunizations Name Administration Dates Next Due HIB [...] Date Smoking Tobacco: Former Cigarettes 0.5 25 Q uit: 05/21/2006 Smokeless Tobacco: Never Comments:Quit Alcohol Use [...] encounter Miscellaneous Notes * Telephone Encounter - Rhonda Harrell OSA [...] for him to schedule his year return [facility] documented in this encounter Plan of Treatment Upcoming Encounters Date Type Department Care Team (Late st Contact Info) Description 10/31/2023 10:30 AM EDT Office Visit Orthopaedics [address] [phone] Alexandre Dee MD [address] [place], [place] [phone] 10/31/2023 11:00 AM EDT Office Visit Orthotics [address] [phone] Joe Tobar, [place] [address] [place], [place] [phone] 12/14/2023 8:00 AM EDT Office Visit General Internal Medicine [facility] [address] [facility] [place] [address] Nara Baron MD [address] [facility] [place] [address] 02/02/2024 8:45 AM EDT Office Visit Hematology/Oncology [facility] [address] [facility] [place] [address] Ephraim Baron MD [address] [facility] [place] [address] Scheduled Procedures Name Priority Associated Diagnoses Date/Ti me ESOPHAGOGASTRODUODENOSCOPY ( EGD), FLEXIBLE, TRANSORAL, DIAGNOSTIC Recall Arora esophagus Health Maintenance Due Date Last Done Comments COVID-19 Vaccine (#1) 1965 Meningitis B Vaccine (Bexsero/Trumemba) (2 of 5 - Increased Risk Trumenba 3-dose series) 08/22/2017 07/25/2017 MENINGOCOCCAL (MENACTRA/MENVEO) (2 - Risk 2-dose series) 09/14/2017 07/20/2017 Hepatitis B (3 of 3 - Risk 3-dose series) 12/27/2019 11/01/2019, 08/24/2017 Depression Screening 07/28/2021 07/28/2020, 11/03/2014 (Discussed) Diabetic Foot Exam 04/05/2022 04/05/2021, 0 11/01/2019, 10/26/2018, Additional history exists Pneumococcal Vaccine: Pediatrics (0 to 5 Years) and At-Risk Patients (6 to 64 Years) (3 - PPSV23 or PCV20) 07/18/2022 07/25/2017, 07/18/2017 Influenza Vaccine (FLU shot) (#1) 2023 05/25/2022, 06/09/2020, 11/01/2019, Additional history exists HbA1c 12/26/2023 06/27/2023, 0603/2023, 07/27/2022, Additional history exists Diabetic Eye Exam [...] Directives occurred with: Not Discussed Care Teams Cash Management Clerk Relationship Specialty Start Date End Date Nara Baron MD [address] [facility] [place] [address] PCP - General Internal Medicine 01/15/19 documented as of this encounter
--- OUTSIDE RECORDS SUMMARY | 2023-12-16 05:22 | External Medical Summary | Summary of Care ---
Author Name Unknown Organization [facility] Address [address] [place] [address] Phone [phone] Care Team Providers Care Hot Blast Worker Name Role Phone Nara Baron MD Primary Care Provider + Reason for Visit * Reason Onset Date Comments Appointment 10/03/2023 recall Encounter Details Date Type Department Care Team (Late st Contact Info) Description 10/03/2023 Telephone Vascular Surg [facility] [address] [place], [place] [phone] Mikie Sin MD [address] [place] [address] Appointment (recall) Allergies Active Allergy Reactions Criticality [...] hemoglobin A1c goal of less than 7.0% ([facility]) TEST 3 TIMES DAILY AND IF NEEDED 300 Strip 3 3 Active metFORMIN HCl 500 MG Oral Tablet (Glucophage)Veronica cations:Type 2 diabetes mellitus with hemoglobin A1c goal of less than 7.0% ([facility]) take 2 tablets by mouth [...] MG Oral TabletIndication s:CLL (chronic lymphocytic leukemia) ([facility]),Splenomega ly,Acquired hemolytic anemia ([facility]) take 2 tablets by mouth once daily 180 Tablet 3 3 Active oxyCODONE HCl 5 MG Oral Tablet (Oxy IR) Take 1 Tablet by mouth every 4 hours as needed for moderate or severe pain 20 Tablet 0 3 Active Gabapentin 300 MG Oral Capsule (Neurontin)Indic ations:CLL (chronic lymphocytic leukemia) ([facility]),S/P splenectomy Take 1 Capsule by mouth in the morning and 1 Capsule at noon and 1 Capsule before bedtime. 270 Capsule 3 3 Active valACYclovir HCl 1 GM Oral Tablet (Valtrex)Indicat ions:CLL (chronic lymphocytic leukemia) ([facility]) Take 1 Tablet by mouth in the morning. 90 Tablet 3 3 Active Ezetimibe 10 MG Oral Tablet (Zetia) TAKE 1 TABLET BY MOUTH EVERY MORNING 90 Tablet 1 4 Active Trulicity 0.75 MG/0.5ML Subcutaneous Solution Pen-injector (Dulaglutide)Ind ications:Type 2 diabetes mellitus with hemoglobin A1c goal of less than 7.0% ([facility]) INJECT 0.5 MILLILITERS ( 0.75 [...] - 10/09/2023 8:59 AM EST Sent letter [facility] * Telephone Encounter - Rhonda Harrell OSA - 10/05/2023 2:10 PM EST Left message x2 for patient to return call to made DUSTIN and LLE arterial dulplex then Dr. Ynag * Telephone Encounter - Jacquelin Yeh OSA - 10/03/2023 9:24 AM EST RTC in 1 yr DUSTIN and LLE arterial duplex or sooner prn Called patient and left message for him to schedule his year return [facility] documented in this encounter Plan of Treatment Upcoming Encounters Date Type Department Care Team (Late st Contact Info) Description 10/31/2023 10:30 AM EDT Office Visit Orthopaedics [address] [phone] Alexandre Dee MD [address] [place], [place] [phone] 10/31/2023 11:00 AM EDT Office Visit Orthotics [address] [phone] Joe Tobar, [place] [address] [place] [address] 12/14/2023 8:00 AM EDT Office Visit General Internal Medicine [facility] [address] [facility] [address] [place] [address] Nara Baron MD [address] [facility] [place] [address] 02/02/2024 8:45 AM EDT Office Visit Hematology/Oncology [facility] [address] [facility] [place] [address] Ephraim Baron MD [address] [facility] [place] [address] Scheduled Procedures Name Priority Associated Diagnoses Date/Ti [...] Directives occurred with: Not Discussed Care Teams Hot Blast Worker Relationship Specialty Start Date End Date Nara Baron MD [address] [facility] [place] [address] PCP - General Internal Medicine 01/15/19 documented as of this encounter
--- OUTSIDE RECORDS SUMMARY | 2023-12-16 05:23 | External Medical Summary | Summary of Care ---
Author Name Unknown Organization [facility] Address [address] [place] [address] Phone [phone] Care Team Providers Care Music Copyist Name Role Phone Nara Baron MD Primary Care Provider + Reason for Visit * Reason Onset Date Comments Appointment 10/03/2023 recall Encounter Details Date Type Department Care Team (Late st Contact Info) Description 10/03/2023 Telephone Vascular Surg [facility] [address] [place], [place] [phone] Mikie Sin MD [address] [place] [address] Appointment (recall) Allergies Active Allergy Reactions Criticality Noted Date Comments Statins Muscle pain 06/06/2023 Have tried every statin documented as of this encounter (statuses as of 10/03/2023) Medications Medication Sig Dispensed Refills Start Date [...] hemoglobin A1c goal of less than 7.0% ([facility]) TEST 3 TIMES DAILY AND IF NEEDED 300 Strip 3 11/09/2022 Active metFORMIN HCl 500 MG Oral Tablet (Glucophage)Indica tions:Type 2 diabetes mellitus with hemoglobin A1c goal of less than 7.0% ([facility]) take 2 tablets by mouth twice a day with MORNING AND EVENING MEALS 360 Tablet 3 02/22/2023 Active hydroCHLOROthiazid e 12.5 MG Oral Capsule (Hydrodiuril)Indic ations:HTN, goal below 140/90 take 1 capsule by mouth every morning 30 Capsule 5 03/30/2023 Active Lisinopril 30 MG Oral Tablet take 1 tablet by mouth daily 90 Tablet 1 05/30/2023 Active Levothyroxine Sodium 150 MCG Oral Tablet (Levoxyl) take 1 tablet by mouth daily FIRST THING IN THE MORNING (AT LEAST 30 MINUTES PRIOR TO BREAKFAST OR OTHER MEDICATIONS) 90 Tablet 1 06/12/2023 Active Folic Acid 1 MG Oral TabletIndications: CLL (chronic lymphocytic leukemia) ([facility]),Splenomegaly ,Acquired hemolytic anemia ([facility]) take 2 tablets by mouth once daily 180 Tablet 3 06/19/2023 Active oxyCODONE HCl 5 MG Oral Tablet (Oxy IR) Take 1 Tablet by mouth every 4 hours as needed for moderate or severe pain 20 Tablet 0 06/26/2023 Active Gabapentin 300 MG Oral Capsule (Neurontin)Indicat ions:CLL (chronic lymphocytic leukemia) ([facility]),S/P splenectomy Take 1 Capsule by mouth in the morning and 1 Capsule at noon and 1 Capsule before bedtime. 270 Capsule 3 07/28/2023 Active valACYclovir HCl 1 GM Oral Tablet (Valtrex)Indicatio ns:CLL (chronic lymphocytic leukemia) ([facility]) Take 1 Tablet by mouth in the morning. 90 Tablet 3 07/28/2023 Active Ezetimibe 10 MG Oral Tablet (Zetia) TAKE 1 TABLET BY MOUTH EVERY MORNING 90 Tablet 1 09/12/2023 Active Trulicity 0.75 MG/0.5ML Subcutaneous Solution Pen-injector (Dulaglutide)Indic ations:Type 2 diabetes mellitus with hemoglobin A1c goal of less than 7.0% ([facility]) INJECT 0.5 MILLILITERS ( 0.75 MILLIGRAMS ) SUBCUTANEOUSLY EVERY 7 DAYS IN THE ABDOMEN THIGHS OR OUTER AREA OF UPPER ARM ROTATE INJECTION SITES 2 mL 5 10/02/2023 Active Allopurinol 100 MG Oral Tablet (Zyloprim)Indicati ons:CLL (chronic lymphocytic leukemia) (H[facility]),Erythrocytos is,Elevated uric acid in blood TAKE 1 TABLET BY MOUTH ONCE DAILY 30 Tablet 5 10/02/2023 Active documented as of this encounter (statuses as of 10/03/2023) Active Problems Problem Noted Date Diagnosed Date [...] as of this encounter (statuses as of 10/03/2023) Resolved Problems Problem Noted Date Diagnosed Date [...] as of this encounter (statuses as of 10/03/2023) Immunizations Name Administration Dates Next Due HIB [...] for him to schedule his year return [facility] documented in this encounter Plan of Treatment Upcoming Encounters Date Type Department Care Team (Late st Contact Info) Description 10/31/2023 10:30 AM EDT Office Visit Orthopaedics [facility] [address] [place], [place] [address] [place] [phone] Alexandre Dee MD [address] [place] [address] 10/31/2023 11:00 AM EDT Office Visit Orthotics [place] [address] [place] [address] Joe Tobar, [place] [address] [place] [address] 12/14/2023 8:00 AM EDT Office Visit General Internal Medicine [facility] 200 [facility] [place] [address] Nara Baron MD [address] [facility] [place] [address] 02/02/2024 8:45 AM EDT Office Visit Hematology/Oncology [facility] [address] [facility] [place] [address] Ephraim Baron MD [address] [facility] [place] [address] Scheduled Procedures Name Priority Associated Diagnoses Date/Ti [...] Directives occurred with: Not Discussed Care Teams Music Copyist Relationship Specialty Start Date End Date Nara Baron MD 200 [facility] [place] [address] PCP - General Internal Medicine 01/15/19 documented as of this encounter
--- OUTSIDE RECORDS SUMMARY | 2023-12-16 05:23 | External Medical Summary | Summary of Care ---
Author Name Unknown Organization [facility] Address [address] [facility] [place] [address] Phone [phone] Care Team Providers Care Mushroom Farmer Name Role Phone Nara Baron MD Primary Care Provider + Reason for Visit * Reason Comments eRx-Medication Refill Encounter Details Date Type Department Care Team (Late st Contact Info) Description 10/02/2023 Refill Hematology/Oncology [facility] [place] 200 [facility] [place] [address] Ephraim Baron MD 200 [facility] [place] [address] CLL (chronic lymphocytic leukemia) (HCC); Erythrocytosis; Elevated uric acid in blood Allergies Active Allergy Reactions Criticality Noted Date Comments Statins Muscle pain 06/06/2023 Have tried every statin documented as of this encounter (statuses as of 10/02/2023) Medications Medication Sig Dispensed Refills Start Date [...] Active OneTouch Verio In Vitro Strip (Glucose Blood)Indications :Type 2 diabetes mellitus with hemoglobin A1c goal of less than 7.0% ([facility]) TEST 3 TIMES DAILY AND IF NEEDED 300 Strip 3 11/09/2022 Active metFORMIN HCl 500 MG Oral Tablet (Glucophage)Indic ations:Type 2 diabetes mellitus with hemoglobin A1c goal of less than 7.0% ([facility]) take 2 tablets by mouth twice a day with MORNING AND EVENING MEALS 360 Tablet 3 02/22/2023 Active hydroCHLOROthiazi de 12.5 MG Oral Capsule (Hydrodiuril)Veronica cations:HTN, goal below 140/90 take 1 capsule by [...] 06/12/2023 Active Folic Acid 1 MG Oral TabletIndications :CLL (chronic lymphocytic leukemia) ([facility]),Splenomegal y,Acquired hemolytic anemia ([facility]) take 2 tablets by mouth once daily 180 Tablet 3 06/19/2023 Active oxyCODONE HCl 5 MG Oral Tablet (Oxy IR) Take 1 Tablet by mouth every 4 hours as needed for moderate or severe pain 20 Tablet 0 06/26/2023 Active Gabapentin 300 MG Oral Capsule (Neurontin)Indica tions:CLL (chronic lymphocytic leukemia) ([facility]),S/P splenectomy Take 1 Capsule by mouth in the morning and 1 Capsule at noon and 1 Capsule before bedtime. 270 Capsule 3 07/28/2023 Active valACYclovir HCl 1 GM Oral Tablet (Valtrex)Indicati ons:CLL (chronic lymphocytic leukemia) ([facility]) Take 1 Tablet by mouth in the morning. 90 Tablet 3 07/28/2023 Active Ezetimibe 10 MG Oral Tablet (Zetia) TAKE 1 TABLET BY MOUTH EVERY MORNING 90 Tablet 1 09/12/2023 Active Allopurinol 100 MG Oral Tablet (Zyloprim)Indicat ions:CLL (chronic lymphocytic leukemia) (HCC),Erythrocyto sis,Elevated uric acid in blood TAKE 1 TABLET BY MOUTH ONCE DAILY 30 Tablet 5 10/02/2023 Active Allopurinol 100 MG Oral Tablet (Zyloprim)Indicat ions:CLL (chronic lymphocytic leukemia) (HCC),Erythrocyto sis,Elevated uric acid in blood take 1 tablet by mouth once daily 30 Tablet 5 03/30/2023 Discontinued documented as of this encounter (statuses as of 10/02/2023) Active Problems Problem Noted Date Diagnosed Date [...] as of this encounter (statuses as of 10/02/2023) Resolved Problems Problem Noted Date Diagnosed Date [...] as of this encounter (statuses as of 10/02/2023) Immunizations Name Administration Dates Next Due HIB [...] encounter Miscellaneous Notes * Telephone Encounter - Ephraim Baron MD - 10/02/2023 12:05 PM EST E-prescribed Ephraim Baron MD Hem/Onc * Telephone Encounter - Angela Peguero RN - 10/02/2023 10:27 AM ESTPending Prescriptions: Disp Refills Allopurinol 100 MG Oral Tablet (Zyloprim) 30 Tab*5 Sig: TAKE 1 TABLET BY MOUTH ONCE DAILY * Telephone Encounter - Angela Peguero RN - 10/02/2023 10:25 AM EST Uric acid 09/07/20 was 5.2 documented in this encounter Plan of Treatment Upcoming Encounters Date Type Department Care Team (Late st Contact Info) Description 10/31/2023 10:30 AM EDT Office Visit Orthopaedics [address] [phone] Alexandre Dee MD [address] [place] [address] 10/31/2023 11:00 AM EDT Office Visit Orthotics [address] [address] [place], [place] [address] [place], [place] [id number] 12/14/2023 8:00 AM EDT Office Visit General Internal Medicine [facility] [address] [place] [address] Nara Baron MD 200 [facility] [place] [address] 02/02/2024 8:45 AM EDT Office Visit Hematology/Oncology [facility] [address] [place] [address] Ephraim Baron MD 200 [facility] [place] [address] Scheduled Procedures Name Priority Associated Diagnoses Date/Ti [...] as of this encounter Visit Diagnoses Diagnosis CLL (chronic lymphocytic leukemia) (HCC) Chronic lymphoid leukemia, without mention of having achieved remission Erythrocytosis Polycythemia, secondary Elevated uric acid in blood Other abnormal blood chemistry documented in this encounter Advance Directives Latest [...] Directives occurred with: Not Discussed Care Teams Mushroom Farmer Relationship Specialty Start Date End Date Nara Baron MD 200 [facility] [place] [address] PCP - General Internal Medicine 01/15/19 documented as of this encounter
--- OUTSIDE RECORDS SUMMARY | 2023-12-16 05:23 | External Medical Summary | Summary of Care ---
Author Name Unknown Organization [facility] Address [address] [place] [address] Phone [phone] Care Team Providers Care Virginia Line Attendant Name Role Phone Nara Baron MD Primary Care Provider + Reason for Visit * Reason Comments Follow Up Left foot post op Encounter Details Date Type Department Care Team (Late st Contact Info) Description 09/12/2023 12:00 PM EST Office Visit Orthopaedics [place] [address] [place] [address] Alexandre Dee MD [address] [place] [address] Diabetic polyneuropathy associated with type 2 diabetes mellitus (HCC)* Allergies Active Allergy Reactions Criticality Noted Date Comments Statins Muscle pain 06/06/2023 Have tried every statin documented as of this encounter (statuses as of 09/12/2023) Medications Medication Sig Dispensed Refills Start Date [...] MINUTES PRIOR TO TREATMENT 0 07/12/2021 Active Trulicity 0.75 MG/0.5ML Subcutaneous Solution Pen-injector (Dulaglutide)Indic ations:Type 2 diabetes mellitus with hemoglobin A1c goal of less than 7.0% ([facility]) inject 0.5 milliliters ( 0.75 milligrams ) subcutaneously every 7 days IN THE ABDOMEN THIGHS OR OUTER AREA OF UPPER ARM ROTATE INJECTION SITES 2 mL 11 10/10/2022 Active OneTouch Verio In Vitro Strip (Glucose Blood)Indications: Type 2 diabetes mellitus with hemoglobin A1c goal of less than 7.0% ([facility]) TEST 3 TIMES DAILY AND IF NEEDED 300 Strip 3 11/09/2022 Active metFORMIN HCl 500 MG Oral Tablet (Glucophage)Indica tions:Type 2 diabetes mellitus with hemoglobin A1c goal of less than 7.0% ([facility]) take 2 tablets by mouth twice a day with MORNING AND EVENING MEALS 360 Tablet 3 02/22/2023 Active Ezetimibe 10 MG Oral Tablet (Zetia) Take 1 Tablet by mouth in the morning. 90 Tablet 1 02/22/2023 Active hydroCHLOROthiazid e 12.5 MG Oral Capsule (Hydrodiuril)Indic ations:HTN, goal below 140/90 take 1 capsule by mouth every morning 30 Capsule 5 03/30/2023 Active Allopurinol 100 MG Oral Tablet (Zyloprim)Indicati ons:CLL (chronic lymphocytic leukemia) (HCC),Erythrocytos is,Elevated uric acid in blood take 1 tablet by mouth once daily 30 Tablet 5 03/30/2023 Active Lisinopril 30 MG Oral Tablet take 1 tablet by mouth daily 90 Tablet 1 05/30/2023 Active Levothyroxine Sodium 150 MCG Oral Tablet (Levoxyl) take 1 tablet by mouth daily FIRST THING IN THE MORNING (AT LEAST 30 MINUTES PRIOR TO BREAKFAST OR OTHER MEDICATIONS) 90 Tablet 1 06/12/2023 Active Folic Acid 1 MG Oral TabletIndications: CLL (chronic lymphocytic leukemia) (HCC),Splenomegaly ,Acquired hemolytic anemia (HCC) take 2 tablets [...] Oral Tablet (Valtrex)Indicatio ns:CLL (chronic lymphocytic leukemia) ([facility]) Take 1 Tablet by mouth in the morning. 90 Tablet 3 07/28/2023 Active documented as of this encounter (statuses as of 09/12/2023) Active Problems Problem Noted Date Diagnosed Date [...] as of this encounter (statuses as of 09/12/2023) Resolved Problems Problem Noted Date Diagnosed Date [...] as of this encounter (statuses as of 09/12/2023) Immunizations Name Administration Dates Next Due HIB [...] on file documented as of this encounter Last Filed Vital Signs Vital Sign Reading Time Taken Comments Blood Pressure - - Pulse - - Temperature - - Respiratory Rate - - Oxygen Saturation - - Inhaled Oxygen Concentration - - Weight 109 kg (240 lb 3.2 oz) 09/12/2023 12:00 P M EST Height - - Body Mass Index 35.47 07/28/2023 7:47 AM EST documented in this encounter Functional Status Functional Status Response [...] Progress Notes * Alexandre Dee MD - 09/12/2023 1:37 PM EST I have reviewed the advanced practitioner's documentation, and I agree with, and take responsibility for the plan of care. 62-year-old male status post partial calcanectomy for infection. Ambulating in boot. Doing well. Skin not completely healed but known deep wound. No signs of infection. We will progress his ambulation and see him back in a month. Gel heel cup. Discussed possibility for orthotics in the future. We will continue to clinically monitor. Alexandre Dee MD * Keon Mar PA-C - 09/12/2023 12:12 PM EST Images from the original note were not included. CC: post op 09/12/2023 S: 62 y/o male s/p left partial calcanectomy on 06/26/23. - doing well today. He is wbat in cam boot. No pain. He admits to occasional clear drainage, admits to walking out of boot at times. but no exudate denies f/c. When he stands, states foot feels flat PE: LLE - incision mostly closed with some maceration. No drainage or erythema. No tenderness to palpation.Intact active plantar flexion and dorsiflexion. Foot warm and well perfused. Imaging: none new today. Prior images Obtained and interpreted to show status post partial calcanectomy with no evidence of bony destruction. A/P: 62 y/o male s/p left partial calcanectomy on 06/26/23. - continue daily hygiene/washing and showering. Dry dressings. Wound observation. Ok to transition to regular shoes. DM shoes and inserts today Gel heel cup F/u in 4-6 weeks for clinical evaluation Keon Mar PA-C 09/12/2023 Patient was seen/discussed with attending physician Dr. Dee. documented in this encounter Plan of Treatment Upcoming Encounters Date Type Department Care Team (Late st Contact Info) Description 09/19/2023 8:15 AM EST Office Visit Orthopaedics [address] [phone] Alexandre Dee MD [address] [place] [address] 10/31/2023 10:30 AM EDT Office Visit Orthopaedics [address] [phone] Alexandre Dee MD [address] [place] [address] 10/31/2023 11:00 AM EDT Office Visit Orthotics [address] [address] [place], [place] [address] [place] [address] 12/14/2023 8:00 AM EDT Office Visit General Internal Medicine [facility] 200 [facility] [address] Nara Baron MD 200 [facility] [address] 02/02/2024 8:45 AM EDT Office Visit Hematology/Oncology [facility] 200 [facility] [address] Ephraim Baron MD 200 [place] [address] Scheduled Procedures Name Priority Associated Diagnoses Date/Ti [...] exists Diabetic Eye Exam 12/28/2023 12/27/2022, , 12/13/2017, Additional history exists Albumin/Creatinine Ratio 01/27/2024 023, [...] Directives occurred with: Not Discussed Care Teams Virginia Line Attendant Relationship Specialty Start Date End Date Nara Baron MD [address] [place] [address] PCP - General Internal Medicine 01/15/19 documented as of this encounter
--- OUTSIDE RECORDS SUMMARY | 2023-12-16 05:23 | External Medical Summary | Summary of Care ---
Author Name Unknown Organization [facility] Address [address] [facility] [place] [address] Phone [phone] Care Team Providers Care Program Development Specialist Name Role Phone Keshawn Baron MD Primary Care Provider + Reason for Visit * Reason Comments eRx-Medication Refill Encounter Details Date Type Department Care Team (Late st Contact Info) Description 09/11/2023 Refill General Internal Medicine [facility] [place] 200 [facility] [place] [address] Daniel Martínez MD 200 [place] [address] Allergies Active Allergy Reactions Criticality Noted Date [...] MINUTES PRIOR TO TREATMENT 0 1 Active Trulicity 0.75 MG/0.5ML Subcutaneous Solution Pen-injector (Dulaglutide)Ind ications:Type 2 diabetes mellitus with hemoglobin A1c goal of less than 7.0% ([facility]) inject 0.5 milliliters ( 0.75 milligrams ) subcutaneously every 7 days IN THE ABDOMEN THIGHS OR OUTER AREA OF UPPER ARM ROTATE INJECTION SITES 2 mL 11 3 Active OneTouch Verio In Vitro Strip (Glucose Blood)Indication s:Type 2 diabetes mellitus with hemoglobin A1c goal of less than 7.0% ([facility]) TEST 3 TIMES DAILY AND IF NEEDED 300 Strip 3 3 Active metFORMIN HCl 500 MG Oral Tablet (Glucophage)Veronica cations:Type 2 diabetes mellitus with hemoglobin A1c goal of less than 7.0% ([facility]) take 2 tablets by mouth twice a day with MORNING AND EVENING MEALS 360 Tablet 3 3 Active hydroCHLOROthiaz haim 12.5 MG Oral Capsule (Hydrodiuril)Ind ications:HTN, goal below 140/90 take 1 capsule by mouth every morning 30 Capsule 5 3 Active Allopurinol 100 MG Oral Tablet (Zyloprim)Indica tions:CLL (chronic lymphocytic leukemia) ([facility]),Erythrocyt osis,Elevated uric acid in blood take 1 tablet by mouth once daily 30 Tablet 5 3 Active Lisinopril 30 MG Oral Tablet take 1 tablet by mouth daily 90 Tablet 1 3 Active Levothyroxine Sodium 150 MCG Oral Tablet (Levoxyl) take 1 tablet by mouth daily FIRST THING IN THE MORNING (AT LEAST 30 MINUTES PRIOR TO BREAKFAST OR OTHER MEDICATIONS) 90 Tablet 1 3 Active Folic Acid 1 MG Oral TabletIndication s:CLL (chronic lymphocytic leukemia) ([facility]),Splenomega ly,Acquired hemolytic anemia ([facility]) take 2 tablets by mouth once daily 180 Tablet 3 3 Active oxyCODONE HCl 5 MG Oral Tablet (Oxy IR) Take 1 Tablet by mouth every 4 hours as needed for moderate or severe pain 20 Tablet 0 3 Active Gabapentin 300 MG Oral Capsule (Neurontin)Indic ations:CLL (chronic lymphocytic leukemia) ([facility]),S/P splenectomy Take 1 Capsule by mouth in the morning and 1 Capsule at noon and 1 Capsule before bedtime. 270 Capsule 3 3 Active valACYclovir HCl 1 GM Oral Tablet (Valtrex)Indicat ions:CLL (chronic lymphocytic leukemia) ([facility]) Take 1 Tablet by mouth in the morning. 90 Tablet 3 3 Active Ezetimibe 10 MG Oral Tablet (Zetia) TAKE 1 TABLET BY MOUTH EVERY MORNING 90 Tablet 1 4 Active Ezetimibe 10 MG Oral Tablet (Zetia) Take 1 Tablet by mouth in the morning. 90 Tablet 1 3 09/12/19 24 Discontinued documented as of this encounter [...] encounter Miscellaneous Notes * Telephone Encounter - Shantanu Richter, [facility] - 09/12/2023 3:50 PM ESTSigned Prescriptions: Disp Refills Ezetimibe 10 MG Oral Tablet (Zetia) 90 Tab*1 Sig: TAKE 1 TABLET BY MOUTH EVERY MORNINGAuthorizing Provider: KESHAWN BARON User: SHANTANU RICHTER----- documented in this encounter Plan of Treatment Upcoming Encounters Date Type Department Care Team (Late st Contact Info) Description 10/31/2023 10:30 AM EDT Office Visit Orthopaedics [address] [phone] Alexandre Dee MD [address] [place], [place] [phone] 10/31/2023 11:00 AM EDT Office Visit Orthotics [address] [phone] [place], [place] [address] [place], [place] [address] 12/14/2023 8:00 AM EDT Office Visit General Internal Medicine [facility] 200 [facility] [place] [address] Keshawn Baron MD 200 [facility] [place] [address] 02/02/2024 8:45 AM EDT Office Visit Hematology/Oncology [facility] 200 [facility] [place] [address] Ephraim Baron MD 200 [place] [address] Scheduled Procedures Name Priority Associated Diagnoses Date/Ti [...] Directives occurred with: Not Discussed Care Teams Program Development Specialist Relationship Specialty Start Date End Date Keshawn Baron MD [address] [place] [address] PCP - General Internal Medicine 01/15/19 documented as of this encounter
--- OUTSIDE RECORDS SUMMARY | 2023-12-16 05:23 | External Medical Summary | Summary of Care ---
Author Name Unknown Organization [facility] Address [address] [facility] [place] [address] Phone [phone] Care Team Providers Care Barn Boss Name Role Phone Keshawn Baron MD Primary Care Provider + Reason for Visit * Reason Comments eRx-Medication Refill Encounter Details Date Type Department Care Team (Late st Contact Info) Description 10/02/2023 Refill [facility] [place] [address] [place] [address] Keshawn Baron MD 200 [facility] [place] [address] HTN, goal below 140/90 Allergies Active Allergy Reactions Criticality Noted Date [...] A1c goal of less than 7.0% ([facility]) TEST 3 TIMES DAILY AND IF NEEDED 300 Strip 3 3 Active metFORMIN HCl 500 MG Oral Tablet (Glucophage)Veronica cations:Type 2 diabetes mellitus with hemoglobin A1c goal of less than 7.0% ([facility]) take 2 tablets by mouth twice a [...] Oral TabletIndication s:CLL (chronic lymphocytic leukemia) ([facility]),Splenomega ly,Acquired hemolytic anemia ([facility]) take 2 tablets by mouth once daily 180 Tablet 3 3 Active oxyCODONE HCl 5 MG Oral Tablet (Oxy IR) Take 1 Tablet by mouth every 4 hours as needed for moderate or severe pain 20 Tablet 0 3 Active Gabapentin 300 MG Oral Capsule (Neurontin)Indic ations:CLL (chronic lymphocytic leukemia) ([facility]),S/P splenectomy Take 1 Capsule by mouth in the morning and 1 Capsule at noon and 1 Capsule before bedtime. 270 Capsule 3 3 Active valACYclovir HCl 1 GM Oral Tablet (Valtrex)Indicat ions:CLL (chronic lymphocytic leukemia) ([facility]) Take 1 Tablet by mouth in the morning. 90 Tablet 3 3 Active Ezetimibe 10 MG Oral Tablet (Zetia) TAKE 1 TABLET BY MOUTH EVERY MORNING 90 Tablet 1 4 Active Trulicity 0.75 MG/0.5ML Subcutaneous Solution Pen-injector (Dulaglutide)Ind ications:Type 2 diabetes mellitus with hemoglobin A1c goal of less than 7.0% ([facility]) INJECT 0.5 MILLILITERS ( 0.75 MILLIGRAMS ) [...] EVERY MORNING 90 Capsule 1 4 Active hydroCHLOROthiaz haim 12.5 MG Oral [...] chronic 09/05/2017 11/30/2021 Pleural effusion, right 08/16/2017 04/09/2021 Acute renal failure (ARF) 08/16/2017 Hemolytic anemia [...] 20+ yrs 11/01/2019,08/24/2017 Meningococcal B, 2/3-Dose Se gualbreto (TRUMENBA) 07/25/2017 Meningococcal Conjugate Vacc ine (Menactra/Menveo) [...] encounter Miscellaneous Notes * Telephone Encounter - Prerna Crystal, [facility] - 10/03/2023 1:14 PM ESTSigned Prescriptions: Disp Refills hydroCHLOROthiazide 12.5 MG Oral Capsule (*90 Cap*1 Sig: TAKE 1 CAPSULE BY MOUTH EVERY MORNINGAuthorizing Provider: KESHAWN BARON User: PRERNA CRYSTAL documented in this encounter Plan of Treatment Upcoming Encounters Date Type Department Care Team (Late st Contact Info) Description 10/31/2023 10:30 AM EDT Office Visit Orthopaedics [address] [phone] Alexandre Dee MD [address] [place] [address] 10/31/2023 11:00 AM EDT Office Visit Orthotics [address] [address] [place], [place] [address] [place] [address] 12/14/2023 8:00 AM EDT Office Visit General Internal Medicine [facility] [address] [place] [address] Keshawn Baron MD [address] [place] [address] [place] [address] 02/02/2024 8:45 AM EDT Office Visit Hematology/Oncology [facility] [address] [place] [address] Ephraim Baron MD 200 [facility] [place] [address] Scheduled Procedures Name Priority Associated Diagnoses Date/Ti [...] as of this encounter Visit Diagnoses Diagnosis HTN, goal below 140/90 Unspecified essential hypertension documented in this encounter Advance Directives Latest [...] Directives occurred with: Not Discussed Care Teams Barn Boss Relationship Specialty Start Date End Date Keshawn Baron MD [address] [place] [address] PCP - General Internal Medicine 01/15/19 documented as of this encounter
--- OUTSIDE RECORDS SUMMARY | 2023-12-16 05:23 | External Medical Summary | Summary of Care ---
Author Name Unknown Organization [facility] Address [address] [place] [address] Phone [phone] Care Team Providers Care Fitness Club Manager Name Role Phone Nara Baron MD Primary Care Provider + Reason for Visit * Reason Onset Date Comments MyCode Nonconsent - Personal Reasons 09/12/2023 Encounter Details Date Type Department Care Team (Late st Contact Info) Description 09/12/2023 Orders Only Outcomes Research Department [address] [place] [address] Quinton Gray CHRA MyCode Nonconsent Documentation Allergies Active Allergy Reactions Criticality Noted Date [...] goal of less than 7.0% ([facility]) inject 0.5 milliliters ( 0.75 milligrams ) subcutaneously every 7 days IN THE ABDOMEN THIGHS OR OUTER AREA OF UPPER ARM ROTATE INJECTION SITES 2 mL 11 10/10/2022 Active Ollie Bobby In Vitro Strip (Glucose Blood)Indications: Type 2 diabetes mellitus with hemoglobin A1c goal of less than 7.0% ([facility]) TEST 3 TIMES DAILY AND IF NEEDED 300 Strip 3 11/09/2022 Active metFORMIN HCl 500 MG Oral Tablet (Glucophage)Indica tions:Type 2 diabetes mellitus with hemoglobin A1c goal of less than 7.0% ([facility]) take 2 tablets by mouth twice [...] as of this encounter Progress Notes * Quinton Gray CHRA - 09/12/2023 11:50 AM EST MyCode Nonconsent Documentation Mario Valentin was approached in the clinic regarding participation in the MyCode Project and did not consent. documented in this encounter Plan of Treatment Upcoming Encounters Date Type Department Care Team (Late st Contact Info) Description 09/19/2023 8:15 AM EST Office Visit Orthopaedics [facility] [address] [facility] [place] [phone] Alexandre Dee MD [address] [facility] [place] [address] 12/14/2023 8:00 AM EDT Office Visit General Internal Medicine [facility] 200 [facility] [place], [place] [address] Nara Baron MD 200 [facility] [place] [address] 02/02/2024 8:45 AM EDT Office Visit Hematology/Oncology [facility] 200 [facility] [place] [address] Ephraim Baron MD 200 [facility] [place] [address] Scheduled Procedures Name Priority Associated Diagnoses Date/Ti [...] Directives occurred with: Not Discussed Care Teams Fitness Club Manager Relationship Specialty Start Date End Date Nara Baron MD [address] [place] [address] PCP - General Internal Medicine 01/15/19 documented as of this encounter
--- OUTSIDE RECORDS SUMMARY | 2023-12-16 05:23 | External Medical Summary | Summary of Care ---
Author Name Unknown Organization [facility] Address [address] [place] [address] Phone [phone] Care Team Providers Care Terrazzo Installer Name Role Phone Nara Baron MD Primary Care Provider + Reason for Visit * Reason Comments Follow Up Fu Encounter Details Date Type Department Care Team (Late st Contact Info) Description 08/08/2023 8:00 AM EST Office Visit Orthopaedics [facility] [address] [place] [address] Alexandre Dee MD [address] [place] [address] Aftercare following surgery of the musculoskeletal system* Allergies Active Allergy Reactions Criticality Noted Date Comments Statins Muscle pain 06/06/2023 Have tried every statin documented as of this encounter (statuses as of 08/08/2023) Medications Medication Sig Dispensed Refills Start Date [...] goal of less than 7.0% ([facility]) inject 0.5 milliliters ( 0.75 milligrams ) [...] goal of less than 7.0% ([facility]) take 2 tablets by mouth twice a [...] as of this encounter (statuses as of 08/08/2023) Active Problems Problem Noted Date Diagnosed Date [...] as of this encounter (statuses as of 08/08/2023) Resolved Problems Problem Noted Date Diagnosed Date [...] as of this encounter (statuses as of 08/08/2023) Immunizations Name Administration Dates Next Due HIB [...] Progress Notes * Alexandre Dee MD - 08/08/2023 9:41 AM EST CC: 6 weeks post op 08/08/2023 S: 62 y/o male s/p left partial calcanectomy on 06/26/23. - doing well today. Since we last saw him he has decreased dressing changes. He has 0 drainage fromhis incision. He is 1 small area that is scabbed in the central aspect. He has not been washing andhas significant dry skin throughout. No foul smell. Finished his last dose of IV antibiotics yesterday. No pain in admits that despite our recommendations he has walked on it around the house. Uses [employer] for balance PE: LLE - incision closed with 1 small central area scab. No drainage or erythema. No tenderness to palpation. Intact active plantar flexion and dorsiflexion. Foot warm and well perfused. Imaging: Obtained today my interpretation is status post partial calcanectomy with no evidence of bony destruction. A/P: 62 y/o male s/p left partial calcanectomy on 06/26/23. - begin daily hygiene/washing and showering. Begin weight-bearing in Cam boot provided to him todaywith the assistance of walker. Discontinue antibiotics per Infectious Disease. Follow up in 4 weeksfor clinical re-evaluation. Alexandre Dee MD documented in this encounter Plan of Treatment Upcoming Encounters Date Type Department Care Team (Late st Contact Info) Description 09/12/2023 12:00 PM EST Office Visit Orthopaedics [address] [address] Alexandre Dee MD [address] [place] [address] 09/19/2023 8:15 AM EST Office Visit Orthopaedics [address] [address] Alexandre Dee MD [address] [place] [address] 12/14/2023 8:00 AM EDT Office Visit General Internal Medicine [facility] [place] [address] [place] [address] Nara aBron MD [address] [facility] [place] [address] 02/02/2024 8:45 AM EDT Office Visit Hematology/Oncology [facility] [place] [address] [place] [address] Ephraim Baron MD 200 [facility] [place] [address] Pending Results Name Type Priority Associated Diagnoses Date /Time XR HEEL 2 OR MORE VIEWS Medical Imaging Routine Aftercare following surgery of the musculoskeletal system 08/08/2023 8:12 AM EST Scheduled Procedures Name Priority Associated Diagnoses Date/Ti [...] following surgery of the musculoskeletal system, NEC documented in this encounter Advance Directives Latest [...] Directives occurred with: Not Discussed Care Teams Terrazzo Installer Relationship Specialty Start Date End Date Nara Baron MD [address] [place] [address] PCP - General Internal Medicine 01/15/19 documented as of this encounter
--- OUTSIDE RECORDS SUMMARY | 2023-12-16 05:23 | External Medical Summary | Summary of Care ---
Author Name Unknown Organization [facility] Address [address] [place] [address] Phone [phone] Care Team Providers Care Auto Servicer Name Role Phone Nara Baron MD Primary Care Provider + Encounter Details Date Type Department Care Team (Late st Contact Info) Description 08/08/2023 8:30 AM EST Orders Only Orthotics [place] [address] [place] [address] [place] [address] [place] [address] Aftercare following surgery of the musculoskeletal system [Z47.89]* Allergies Active Allergy Reactions Criticality Noted Date Comments Statins Muscle pain 06/06/2023 Have tried every statin documented as of this encounter (statuses as of 08/23/2023) Medications Medication Sig Dispensed Refills Start Date [...] A1c goal of less than 7.0% ([facility]) inject 0.5 milliliters ( 0.75 milligrams ) [...] A1c goal of less than 7.0% (HCC) take 2 tablets by mouth twice a [...] as of this encounter (statuses as of 08/23/2023) Active Problems Problem Noted Date Diagnosed Date [...] as of this encounter (statuses as of 08/23/2023) Resolved Problems Problem Noted Date Diagnosed Date [...] as of this encounter (statuses as of 08/23/2023) Immunizations Name Administration Dates Next Due HIB [...] as of this encounter Progress Notes * Tip Rowell TECH - 08/23/2023 11:42 AM EST Pt was fitted for a size large CAM boot for the left foot secondary to Aftercare following surgery of the musculoskeletal system as requested by Alexandre Dee MD. The orthosis was inspected for structural integrity and voice network engineer guidelines were followed. Donning, doffing, precautions, and wearing instructions were provided verbally and written voice network engineer information was given to the Pt.Will follow as needed. Location: [place] Accompanied by: Adult Questions: No Nursing staff informed: None JORGE [place] 08/23/2023 11:43 AM documented in this encounter Plan of Treatment Upcoming Encounters Date Type Department Care Team (Late st Contact Info) Description 09/12/2023 12:00 PM EST Office Visit Orthopaedics [place] [place] [address] [place] [address] Alexandre Dee MD [address] [place] [address] 09/19/2023 8:15 AM EST Office Visit Orthopaedics [place] [place] [address] [place] [phone] Alexandre Dee MD [address] [place], [place] [phone] 12/14/2023 8:00 AM EDT Office Visit General Internal Medicine [facility] 200 [facility] [place] [address] Nara Baron MD 200 [place] [address] 02/02/2024 8:45 AM EDT Office Visit Hematology/Oncology [facility] 200 [facility] [place] [address] Ephraim Baron MD 200 [place] [address] Scheduled Procedures Name Priority Associated Diagnoses Date/Ti [...] Diagnosis Aftercare following surgery of the musculoskeletal system [Z47.89]- Primary Aftercare following surgery of the musculoskeletal [...] Directives occurred with: Not Discussed Care Teams Auto Servicer Relationship Specialty Start Date End Date Nara Baron MD 200 [facility] [place] [address] PCP - General Internal Medicine 01/15/19 documented as of this encounter
--- OUTSIDE RECORDS SUMMARY | 2023-12-16 05:23 | External Medical Summary | Summary of Care ---
Author Name Unknown Organization [facility] Address [address] [facility] [place] [address] Phone [phone] Care Team Providers Care Mysql Developer Name Role Phone Keshawn Baron MD Primary Care Provider + Reason for Visit * Reason Comments eRx-Medication Refill Encounter Details Date Type Department Care Team (Late st Contact Info) Description 09/30/2023 Refill General Internal Medicine [facility] [place] 200 [facility] [place] [address] Keshawn Baron MD 200 [facility] [place] [address] Type 2 diabetes mellitus with hemoglobin A1c goal of less than 7.0% ([facility]) Allergies Active Allergy Reactions Criticality Noted Date [...] goal of less than 7.0% ([facility]) TEST 3 TIMES DAILY AND IF NEEDED 300 Strip 3 3 Active metFORMIN HCl 500 MG Oral Tablet (Glucophage)Veronica cations:Type 2 diabetes mellitus with hemoglobin A1c goal of less than 7.0% ([facility]) take 2 tablets by mouth twice a day with MORNING AND EVENING MEALS 360 Tablet 3 3 Active hydroCHLOROthiaz haim 12.5 MG Oral Capsule (Hydrodiuril)Ind ications:HTN, goal below 140/90 take 1 capsule by mouth every morning 30 Capsule 5 3 Active Allopurinol 100 MG Oral Tablet (Zyloprim)Indica tions:CLL (chronic lymphocytic leukemia) ([facility]),Erythrocyt osis,Elevated uric acid in blood [...] TabletIndication s:CLL (chronic lymphocytic leukemia) ([facility]),Splenomega ly,Acquired hemolytic anemia ([facility]) take 2 tablets by mouth [...] (Valtrex)Indicat ions:CLL (chronic lymphocytic leukemia) ([facility]) Take 1 Tablet by mouth in the morning. 90 Tablet 3 3 Active Ezetimibe 10 MG Oral Tablet (Zetia) TAKE 1 TABLET BY MOUTH EVERY MORNING 90 Tablet 1 4 Active Trulicity 0.75 MG/0.5ML Subcutaneous Solution Pen-injector (Dulaglutide)Ind ications:Type 2 diabetes mellitus with hemoglobin A1c goal of less than 7.0% (HCC) INJECT 0.5 MILLILITERS ( 0.75 MILLIGRAMS ) SUBCUTANEOUSLY EVERY 7 DAYS IN THE ABDOMEN THIGHS OR OUTER AREA OF UPPER ARM ROTATE INJECTION SITES 2 mL 5 4 Active Trulicity 0.75 MG/0.5ML Subcutaneous Solution Pen-injector (Dulaglutide)Ind ications:Type 2 diabetes mellitus with hemoglobin A1c goal of less than 7.0% (HCC) inject 0.5 milliliters ( 0.75 milligrams ) subcutaneously every 7 days IN THE ABDOMEN THIGHS OR OUTER AREA OF UPPER ARM ROTATE INJECTION SITES 2 mL 11 3 10/02/19 24 Discontinued documented as of this encounter [...] encounter Miscellaneous Notes * Telephone Encounter - Gretel Mijares [facility] - 10/02/2023 10:33 AM ESTSigned Prescriptions: Disp Refills Trulicity 0.75 MG/0.5ML Subcutaneous Solut*2 mL 5 Sig: INJECT 0.5 MILLILITERS ( 0.75 MILLIGRAMS ) SUBCUTANEOUSLY EVERY 7 DAYS IN THE ABDOMEN THIGHS OR OUTER AREA OF UPPER ARM ROTATE INJECTION SITES Authorizing Provider: KESHAWN BARON Ordering User: GRETEL MIJARES * Telephone Encounter - Interface, [facility] In[facility] - 10/02/2023 6:05 AM EST Pending Prescriptions: Disp Refills Trulicity 0.75 MG/0.5ML Subcutaneous Solut*2 mL 0 Sig: inject 0.5 milliliters ( 0.75 milligrams ) subcutaneously every 7 days IN THE ABDOMEN THIGHS OR OUTER AREA OF UPPER ARM ROTATE INJECTION SITES documented in this encounter Plan of Treatment Upcoming Encounters Date Type Department Care Team (Late st Contact Info) Description 10/31/2023 10:30 AM EDT Office Visit Orthopaedics [address] [phone] Alexandre Dee MD [address] [place] [address] 10/31/2023 11:00 AM EDT Office Visit Orthotics [address] [address] [place], [place] [address] [place] [address] 12/14/2023 8:00 AM EDT Office Visit General Internal Medicine [facility] 200 [facility] [place] [address] Keshawn Baron MD 200 [facility] [place], [place] [address] 02/02/2024 8:45 AM EDT Office Visit Hematology/Oncology [facility] 200 [facility] [place] [address] Ephraim Baron MD 200 [facility] [place], [place] [address] Scheduled Procedures Name Priority Associated Diagnoses Date/Ti [...] as of this encounter Visit Diagnoses Diagnosis Type 2 diabetes mellitus with hemoglobin A1c goal of less than 7.0% (HCC) documented in this encounter Advance Directives [...] Directives occurred with: Not Discussed Care Teams Mysql Developer Relationship Specialty Start Date End Date Keshawn Baron MD [address] [place] [address] [place] [address] PCP - General Internal Medicine 01/15/19 documented as of this encounter
--- OUTSIDE RECORDS SUMMARY | 2023-12-16 05:23 | External Medical Summary | Summary of Care ---
Author Name Unknown Organization [facility] Address [address] [place] [address] Phone [phone] Care Team Providers Care Service Department Manager Name Role Phone Nara Baron MD Primary Care Provider + Reason for Visit * Reason Comments Follow Up Left foot post op Encounter Details Date Type Department Care Team (Late st Contact Info) Description 09/12/2023 12:00 PM EST Office Visit Orthopaedics [facility] [place] [address] [place] [address] Alexandre Dee MD [address] [place] [address] Diabetic polyneuropathy associated with type [...] hemoglobin A1c goal of less than 7.0% ([facility]) inject 0.5 milliliters ( 0.75 milligrams ) subcutaneously every 7 days IN THE ABDOMEN THIGHS OR OUTER AREA OF UPPER ARM ROTATE INJECTION SITES 2 mL 11 10/10/2022 Active OneTouch Verio In Vitro Strip (Glucose Blood)Indications: Type 2 diabetes mellitus with hemoglobin A1c goal of less than 7.0% ([facility]) TEST 3 TIMES DAILY AND IF NEEDED 300 Strip 3 11/09/2022 Active metFORMIN HCl 500 MG Oral Tablet (Glucophage)Indica tions:Type 2 diabetes mellitus with hemoglobin A1c goal of less than 7.0% ([facility]) take 2 tablets by mouth [...] Oral Tablet (Valtrex)Indicatio ns:CLL (chronic lymphocytic leukemia) ([facility]) Take 1 Tablet by mouth [...] money to buy more. Never true 07/28/20 Within the past 12 months, t he [...] as of this encounter Progress Notes * Keon Mar PA-C - 09/12/2023 12:12 PM EST Images from the original note were not included. CC: post op 09/12/2023 S: 62 y/o male s/p left partial calcanectomy on 06/26/23. - doing well today. He is wbat in cam boot. No pain. He admits to occasional clear drainage, admitsto walking out of boot at times. but [...] 09/19/2023 8:15 AM EST Office Visit Orthopaedics [address] [address] Alexandre Dee MD [address] [place] [address] 10/31/2023 10:30 AM EDT Office Visit Orthopaedics [address] [address] Alexandre Dee MD [address] [place], [place] [phone] 10/31/2023 11:00 AM EDT Office Visit Orthotics [address] [phone] [place], [place] [address] [place], [place] [phone] 12/14/2023 8:00 AM EDT Office Visit General Internal Medicine [facility] 200 [facility] [place] [address] Nara Baron MD 200 [facility] [place], [place] [address] 02/02/2024 8:45 AM EDT Office Visit Hematology/Oncology [facility] [place] 200 [facility] [place] [address] Ephraim Baron MD 200 [facility] [place], [place] [address] Scheduled Procedures Name Priority Associated Diagnoses Date/Ti [...] Directives occurred with: Not Discussed Care Teams Service Department Manager Relationship Specialty Start Date End Date Nara Baron MD 200 [facility] [place] [address] PCP - General Internal Medicine 01/15/19 documented as of this encounter
--- OUTSIDE RECORDS SUMMARY | 2023-12-16 05:23 | External Medical Summary | Summary of Care ---
Author Name Unknown Organization [facility] Address [address] [facility] [address] Phone [phone] Care Team Providers Care Roentgenology Teacher Name Role Phone Nara Baron MD Primary Care Provider + Encounter Details Date Type Department Care Team (Latest Contact Info) Description 08/08/2023 8:02 AM EST - 08/08/2023 11:59 PM EST Hospital Encounter Radiology [place] [place] [address] [place] [address] Arrived Discharge Disposition: Home - Self Care Allergies Active Allergy Reactions Criticality Noted Date Comments Statins Muscle pain 06/06/2023 Have tried every statin documented as of this encounter (statuses as of 08/09/2023) Medications Medication Sig Dispensed Refills Start Date [...] SITES 2 mL 11 10/10/2022 Active OneTouch Verlong In Vitro Strip (Glucose Blood)Indications: Type 2 diabetes mellitus with hemoglobin A1c goal of less than 7.0% ([facility]) TEST 3 TIMES DAILY AND IF NEEDED 300 Strip 3 11/09/2022 Active metFORMIN HCl 500 MG Oral Tablet (Glucophage)Indica tions:Type 2 diabetes mellitus with hemoglobin A1c goal of less than 7.0% ([facility]) take 2 tablets by mouth [...] as of this encounter (statuses as of 08/09/2023) Active Problems Problem Noted Date Diagnosed Date [...] as of this encounter (statuses as of 08/09/2023) Resolved Problems Problem Noted Date Diagnosed Date [...] as of this encounter (statuses as of 08/09/2023) Immunizations Name Administration Dates Next Due HIB [...] No 06/26/2023 documented as of this encounter Plan of Treatment Upcoming Encounters Date Type Department Care Team (Late st Contact Info) Description 09/12/2023 12:00 PM EST [facility] [place] [facility] [address] [place] [phone] Alexandre Dee MD [address] [place] [address] 09/19/2023 8:15 AM EST [facility] [place] [address] [place] [phone] Alexandre Dee MD [address] [place] [address] 12/14/2023 8:00 AM EDT Office Visit General Internal Medicine [facility] [place] 200 [place] [address] Nara Baron MD 200 [facility] [place] [address] 02/02/2024 8:45 AM EDT Office Visit Hematology/Oncology [facility] [place] 200 [facility] [place] [address] Ephraim Baron MD 200 [facility] [place], [place] [address] Pending Results Name Type Priority Associated Diagnoses [...] Directives occurred with: Not Discussed Care Teams Roentgenology Teacher Relationship Specialty Start Date End Date Nara Baron MD [address] [place] [address] PCP - General Internal Medicine 01/15/19 documented as of this encounter
--- OUTSIDE RECORDS SUMMARY | 2023-12-16 05:23 | External Medical Summary | Summary of Care ---
Author Name Unknown Organization [facility] Address [address] [place] [address] Phone [phone] Care Team Providers Care Battery Charger Name Role Phone Nara Baron MD Primary Care Provider + Reason for Visit * Reason Onset Date Comments Test Results 08/09/2023 Encounter Details Date Type Department Care Team (Late st Contact Info) Description 08/09/2023 Telephone Infectious Disease [facility] [address] [place] [address] Bhavya Nicole MD [address] [place] [address] Test Results Allergies Active Allergy Reactions Criticality Noted Date [...] A1c goal of less than 7.0% ([facility]) inject 0.5 milliliters ( 0.75 milligrams ) subcutaneously every 7 days IN THE ABDOMEN THIGHS OR OUTER AREA OF UPPER ARM ROTATE INJECTION SITES 2 mL 11 10/10/2022 Active BillieTouch Verlong In Vitro Strip (Glucose Blood)Indications: Type 2 diabetes mellitus with hemoglobin A1c goal of less than 7.0% (HCC) TEST 3 TIMES DAILY AND IF NEEDED 300 Strip 3 11/09/2022 Active metFORMIN HCl 500 MG Oral Tablet (Glucophage)Indica tions:Type 2 diabetes mellitus with hemoglobin A1c goal of less than 7.0% ([facility]) take 2 tablets by mouth twice [...] encounter Miscellaneous Notes * Telephone Encounter - Bhavya Nicole MD - 08/09/2023 3:48 PM EST Called and discussed labs with patient and he has completed his antibiotics and so will repeat BMP documented in this encounter Plan of Treatment Upcoming Encounters Date Type Department Care Team (Late st Contact Info) Description 09/12/2023 12:00 PM EST Office Visit Orthopaedics [place] [address] [place] [phone] Alexandre Dee MD [address] [place] [address] 09/19/2023 8:15 AM EST Office Visit Orthopaedics [place] 16 [facility] [place] [address] Alexandre Dee MD [address] [place] [address] 12/14/2023 8:00 AM EDT Office Visit General Internal Medicine [facility] [address] [place] [address] Nara Baron MD 200 [place] [address] 02/02/2024 8:45 AM EDT Office Visit Hematology/Oncology [facility] [address] [place] [address] Ephraim Baron MD 200 [place] [address] Scheduled Orders Name Type Priority Associated Diagnoses Orde r Schedule BASIC METABOLIC PANEL Lab Routine Osteomyelitis of ankle or foot, left, acute (HCC) Hyperkalemia Expected: 08/16/2023, Expires: 09/09/2023 Scheduled Procedures Name Priority Associated Diagnoses Date/Ti [...] as of this encounter Visit Diagnoses Diagnosis Osteomyelitis of ankle or foot, left, acute (HCC)- Primary Acute osteomyelitis, ankle and foot Hyperkalemia Hyperpotassemia documented in this encounter Advance Directives Latest [...] Directives occurred with: Not Discussed Care Teams Battery Charger Relationship Specialty Start Date End Date Nara Baron MD [address] [place] [address], [place] [address] PCP - General Internal Medicine 01/15/19 documented as of this encounter
--- OUTSIDE RECORDS SUMMARY | 2023-12-16 05:24 | External Medical Summary | Summary of Care ---
Author Name Unknown Organization [facility] Address [address] [place] [address] Phone [phone] Care Team Providers Care Heavy Forger Name Role Phone Nara Baron MD Primary Care Provider + Encounter Details Date Type Department Care Team (Late st Contact Info) Description 08/07/2023 Orders Only Infectious Disease, [place] [address] [place], [place] [phone] Bhavya Nicole MD [address] [place], [place] [id number] Allergies Active Allergy Reactions Criticality Noted Date Comments Statins Muscle pain 06/06/2023 Have tried every statin documented as of this encounter (statuses as of 08/07/2023) Medications Medication Sig Dispensed Refills Start Date [...] INJECTION SITES 2 mL 11 10/10/2022 Active OneEri Verlong In Vitro Strip (Glucose Blood)Indications: Type [...] severe pain 20 Tablet 0 06/26/2023 Active cefepime IV IJ (AMBULATORY) Administer 2 g intravenously in the morning and 2 g at noon and 2 g before bedtime. 180 g 1 06/30/2023 Active Heparin Na (Pork) Lock Flsh PF 100 UNIT/ML Intravenous Solution Inject 3 mL intravenously in the morning. 114 mL 0 06/30/2023 Active Gabapentin 300 MG Oral Capsule (Neurontin)Indicat [...] as of this encounter (statuses as of 08/07/2023) Active Problems Problem Noted Date Diagnosed Date [...] as of this encounter (statuses as of 08/07/2023) Resolved Problems Problem Noted Date Diagnosed Date Resolved Date Pancytopenia 06/26/2023 06/26/2023 Age-related nuclear cataract, bilateral 02/02/2021 11/30/2021 HZV (herpes zoster virus) po st herpetic neuralgia 06/27/2018 11/30/2021 Iron overload, transfusional 2017 11/30/2021 Pure red cell anemia, chronic 09/05/2017 11/30/2021 Pleural effusion, right 08/16/2017 041 09/2021 Acute renal failure (ARF) 08/16/2017 Hemolytic anemia 07/26/2017 06/26/2023 Reaction, drug, adverse 07/28/2016 010 11/2017 CLL (chronic lymphocytic leukemia) 07/27/2015 08/24/2017 Splenomegaly 06/22/2015 08/24/2017 Obesity, morbid (more than 1 00 lbs over ideal weight or BMI > 40) 02/02/2010 08/24/2017 Overview: Per Obesity Protocol, #19 ICD-10 update of inactive term documented as of this encounter (statuses as of 08/07/2023) Immunizations Name Administration Dates Next Due HIB [...] 08/08/2023 8:00 AM EST Office Visit Orthopaedics [facility] [address] [facility] [address] Alexandre Dee MD [address] [place], [place] [phone] 09/19/2023 8:15 AM EST Office Visit Orthopaedics [place] [address] [place] [address] Alexandre Dee MD [address], [place] [phone] 12/14/2023 8:00 AM EDT Office Visit General Internal Medicine [facility] [address] [facility] [place] [address] Nara Baron MD [address] [facility] [place] [address] 02/02/2024 8:45 AM EDT Office Visit Hematology/Oncology [facility] [address] [place] [address] Ephraim Baron MD [address] [place] [address] Scheduled Procedures Name Priority Associated Diagnoses Date/Ti [...] 06/05/2023, 03/23, 02/01/2021, Additional history exists GFR 08/01/2024 08/07/2023, 07/21, 07/25/2023, Additional history exists COLONOSCOPY-EVERY [...] Not on filedocumented as of this encounter Procedures Procedure Name Priority Date/Time Associated Diagnosis Comments CHEMISTRY-OUTSIDE Routine 08/07/2023 documented in this encounter Results * (ABNORMAL) CHEMISTRY-OUTSIDE (08/07/2023) Not all results display below - see scan for full detail OUTSIDE LAB (SEE SCANNED REPORT) Comment:SEE SCAN: CMP CREATININE-OUTSID E LAB 1.16 0.6 - 1.4 MG/DL OUTSIDE LAB (SEE SCANNED REPORT) EGFR-OUTSIDE LAB 67.1 ML/MIN/1.7 3M2 OUTSIDE LAB (SEE SCANNED REPORT) POTASSIUM-OUTSIDE LAB 5.4(H) 3.5 - 5.1 MMOL/L OUTSIDE LAB (SEE SCANNED REPORT) GLUCOSE-OUTSIDE LAB 114(H) 70 - 99 MG/DL OUTSIDE LAB (SEE SCANNED REPORT) HOURS FASTING OUTSID E LAB (SEE SCANNED REPORT) TRIGLYCERIDES-OUT SIDE LAB OUTSIDE LAB (SEE SCANNED REPORT) CHOLESTEROL-OUTSI DE LAB OUTSIDE LAB (SEE SCANNED REPORT) HDL-OUTSIDE LAB OUTS [facility] (SEE SCANNED REPORT) CHOL/HDL RATIO-OUTSIDE LAB OUTSIDE LA B (SEE SCANNED REPORT) LDL (CALCULATED)-OUTS [facility] LAB OUTSIDE LAB (SEE SCANNED REPORT) LDL (DIRECT MEASURE)-OUTSIDE LAB OUTSIDE LAB (SEE SCANNED REPORT) HEMOGLOBIN, A1S-IINVHFP LAB OUTSIDE LAB (SEE SCANNED REPORT) PHOSPHORUS-OUTSID E LAB OUTSIDE LAB (SEE SCANNED REPORT) PTH-OUTSIDE LAB OUTS [facility] LAB (SEE SCANNED REPORT) MICROALBUMIN RATIO-OUTSIDE LAB OUTSIDE LA B (SEE SCANNED REPORT) PROTEIN, UA-OUTSIDE LAB OUTSIDE LAB (SEE SCANNED REPORT) HEMOGLOBIN-OUTSID E LAB OUTSIDE LAB (SEE SCANNED REPORT) 08/07/2023 Bhavya Nicole MD LABORATORY OUTSIDE LAB (SEE SCANNED REPORT) documented in this encounter Advance Directives Latest [...] Directives occurred with: Not Discussed Care Teams Heavy Forger Relationship Specialty Start Date End Date Nara Baron MD [address] [place] [address] PCP - General Internal Medicine 01/15/19 documented as of this encounter
--- OUTSIDE RECORDS SUMMARY | 2023-12-16 05:24 | External Medical Summary | Summary of Care ---
Author Name Unknown Organization [facility] Address [address] [place] [address] Phone [phone] Care Team Providers Care Inshore Undersea Warfare Officer Name Role Phone Nara Baron MD Primary Care Provider + Encounter Details Date Type Department Care Team (Late st Contact Info) Description 08/08/2023 Orders Only Infectious Disease, [place] [address] [place], [place] [phone] Bhavya Nicole MD [address] [place], [place] [phone] Allergies Active Allergy Reactions Criticality Noted Date [...] hemoglobin A1c goal of less than 7.0% ([facility]) TEST 3 TIMES DAILY AND IF NEEDED 300 Strip 3 11/09/2022 Active metFORMIN HCl 500 MG Oral Tablet (Glucophage)Indica tions:Type 2 diabetes mellitus with hemoglobin A1c goal of less than 7.0% ([facility]) take 2 tablets by mouth [...] Oral Tablet (Valtrex)Indicatio ns:CLL (chronic lymphocytic leukemia) ([facility]) Take 1 Tablet by mouth [...] anemia, chronic 09/05/2017 11/30/2021 Pleural effusion, right 08/16/2017/09/2021 Acute renal failure (ARF) 08/16/2017 Hemolytic anemia [...] 08/08/2023 8:00 AM EST Office Visit Orthopaedics [address] [phone] Alexandre Dee MD [address] [place] [address] 09/19/2023 8:15 AM EST Office Visit Orthopaedics [address] [phone] Alexandre Dee MD [address] [place] [address] 12/14/2023 8:00 AM EDT Office Visit General Internal Medicine [place], [place] [address] [place] [address] Nara Baron MD [address] [facility] [place], [place] [address] 02/02/2024 8:45 AM EDT Office Visit Hematology/Oncology [facility] [address] [facility] [place] [address] Ephraim Baron MD [address] [facility] [place], [place] [address] Scheduled Procedures Name Priority Associated Diagnoses Date/Ti [...] 08/07/2023 documented in this encounter Results * CHEMISTRY-OUTSIDE (08/07/2023) Not all results display below - see scan for full detail OUTSIDE LAB (SEE SCANNED REPORT) Comment:SEE SCAN: CBCD CREATININE-OUTSID E LAB OUTSIDE LAB (SEE SCANNED REPORT) EGFR-OUTSIDE LAB OUT SIDE LAB (SEE SCANNED REPORT) POTASSIUM-OUTSIDE LAB OUTSIDE LAB (SEE SCANNED REPORT) GLUCOSE-OUTSIDE LAB OUTSIDE LAB (SEE SCANNED REPORT) HOURS FASTING [...] LAB OUTSIDE LAB (SEE SCANNED REPORT) HEMOGLOBIN, [id number] LAB OUTSIDE LAB (SEE SCANNED REPORT) PHOSPHORUS-OUTSID E LAB OUTSIDE LAB (SEE SCANNED REPORT) PTH-OUTSIDE LAB OUTS [facility] LAB (SEE SCANNED REPORT) MICROALBUMIN RATIO-OUTSIDE LAB OUTSIDE LA B (SEE SCANNED REPORT) PROTEIN, UA-OUTSIDE LAB OUTSIDE LAB (SEE SCANNED REPORT) HEMOGLOBIN-OUTSID E LAB 17.1 14.0 - 18.0 G/DL OUTSIDE LAB (SEE SCANNED REPORT) 08/07/2023 Bhavya [...] Directives occurred with: Not Discussed Care Teams Inshore Undersea Warfare Officer Relationship Specialty Start Date End Date Nara Baron MD [address] [place] [address] [place] [address] PCP - General Internal Medicine 01/15/19 documented as of this encounter
[2023-12-16 06:39] LABS: Hematocrit (blood only) 23.9 % (42.0-52.0); Hemoglobin 7.8 g/dl (14.0-18.0); Mean Corpuscular Hgb Conc 32.6 g/dL (32.0-36.0); Mean Corpuscular Volume 107.2 fL (80.0-100.0); Mean Platelet Volume 9.8 fL (9.4-12.4); Platelet Count 540 K/uL (130-400); RDW Coefficient of Variation 16.8 % (11.5-14.5); Red Blood Count 2.23 M/uL (4.70-6.10); White Blood Count 26.52 K/ul (4.8-10.8)
[2023-12-16 07:00] LABS: BUN Creatinine Ratio 18.1 (10-20); Calcium 7.6 mg/dl (8.6-10.3); Creatinine Clr Calc Pharmacy 55.7 ml/min; Est GFR (African American) 48.3 ml/min; Est GFR (Non-African American) 41.7 ml/min; Magnesium 2.1 mg/dl (1.7-2.4); Phosphorus 3.5 mg/dl (2.5-4.9); Potassium 4.2 mmol/L (3.5-5.1)
[2023-12-16 07:17] LABS: Estimated Average Glucose 217 mg/dl; Hemoglobin A1C 9.2 % (4.5-5.6)
[2023-12-16 07:24] LABS: Basophils # (auto) 0.08 K/uL (0.00-0.20); Basophils % (auto) 0.3 %; Dohle Bodies 1+; Eosinophils # (auto) 0.02 K/uL (0.00-0.50); Eosinophils % (auto) 0.1 %; Immature Granulocytes % (auto) 0.8 %; Lymphocytes # (auto) 12.92 K/uL (1.20-3.40); Lymphocytes % (auto) 48.7 %; Monocytes # (auto) 2.21 K/uL (0.11-0.59); Monocytes % (auto) 8.3 %; Neutrophils # (auto) 11.09 K/uL (1.40-6.50); Neutrophils % (auto) 41.8 %
--- NOTE | 2023-12-16 08:08 | Hospitalist Progress Note ---
Date of Service December 16, 2023 Assessment & Plan (1) Foot abscess, left: Plan: Mr. Valentin is a 63-year-old male with past medical history significant for type 2 diabetes, hypothyroidism, hyperlipidemia, diabetic retinopathy, diabetic foot ulcer, peripheral artery disease, chronic constrictive idiopathic pericarditis, pericardial effusion without cardiac tamponade, hypertension, history of osteomyelitis of the left ankle, cellulitis of left lower leg, calcaneal costochondritis, history of CLL, history of chemotherapy induced neutropenia, history of hemolytic anemia, history of splenomegaly, s/p splenectomy, history of secondary polycythemia, history of MSSA infection, history of Pseudomonas infection, who is admitted for sepsis 2/2 left heel abscess. Patient is now s/p I&D performed by Podiatry on 12/14. #IZABELLA on CKD III Cr. ~1.0-1.1, now 1.71 Likely prerenal 2/2 sepsis Gentle LR bolus, encourage PO Repeat BMP in am Monitor I/Os #Sepsis 2/2 LLE cellulitis/abscess #Left lower extremity infection #s/p left partial calcanectomy #Chronic osteomyelitis c/b MSSA and pseudomonas surgery was 06/26/23 and treated with IV abx, until 08/07 (cefepime therapy) Podiatry evaluated -s/p ID 12/14 with a total of 75mls of purulent exudate was drained. A wound cultures pending, bone biopsy pending -Will ensure follow up with physicians in [place] for further management upon stabilization -woun care consult Continue Cefepime -MRSA nare negative, d/c dapto Blood cultures NGTD Infectious disease consult-- given complex history of DM, PAD, prior OM to same LLE with IV abx course as above, requesting recommended regimen of either IV v PO agent, and recommended duration #Diabetic polyneuropathy associated with type 2 diabetes mellitus Hold metformin and trulicity A1C 9.2 Continue gabapentin Insulin SSI #sinus tachycardia *improved iso infection, CTM on telemetry Treat underlying cause #PAD s/p angiogram with revascularization by 2020 (left leg done in 06/2021 and right leg done in 09/2020); no OP report available 1 yr DUSTIN and LLE arterial duplex or sooner prn Continue aspirin 81 mg daily for atherosclerosis Statin intolerant #HTN hold hold regimen in interim 2/2 hypotension #Gout Continue allopurinol #Acute on chronic macrocytic anemia #CLL s/p splenectomy diagnosed in July,, underwent splenectomy in July, Significant reticulocytopenia in July, 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 History of thrombocytosis - no evidence of PNH noted in the flow cytometry. -lymphocytosis noted With absolute lymphocyte count around 4000 - 5000 range. Continue folic acid Trend CBC, EBL ~50cc, CTM #History of herpes zoster involving left leg, has post herpetic neuralgia, Continue Neurontin, continue valacyclovir prophylaxis. #Hypothyroidism On Synthyroid DVT prophylaxis SCDs for now until hgb stabilization Admission and Anticipated Discharge Date Admission Date: December 15, 2023 Subjective s/p ID last evening Reports feeling significantly improved since drainage--states he feels "fabulous" this morning and understands the next step includes awaiting for proper antibiotic regimen Denies chest pain, further fevers, nausea, vomiting, or other acute concerns Physical Exam Constitutional: WD/WN, vitals as above Respiratory: normal respiratory effort, lungs clear to auscultation Cardiovascular: RRR, no murmur, no edema Musculoskeletal: left lower extremity wrapped in cleaning bandages with without drainage or strike through noted Results & Data Results & Data Vital Signs (Past 12 Hours) Vital Signs Temp Pulse Pulse Resp BP Pulse Ox O2 Del Method 12/16/23 03:11 36.6 C 72 16 106/68 98 Nasal Cannula 12/16/23 03:00 36.6 C 72 16 106/68 98 Nasal Cannula 12/15/23 23:00 103 H 20 108/64 98 Nasal Cannula 12/15/23 22:40 101 H 12/15/23 21:00 37 C 94 H 18 107/66 100 Nasal Cannula 12/15/23 20:28 36.4 C L 78 16 102/68 95 Nasal Cannula O2 Flow Rate 12/16/23 03:11 12/16/23 03:00 12/15/23 23:00 12/15/23 22:40 12/15/23 21:00 2 12/15/23 20:28 2 Laboratory Results Short CBC 12/15/23 12/16/23 Range/Units 12:44 05:28 WBC 26.52 H (4.8-10.8) K/ul Hgb 8.6 L 7.8 L (14.0-18.0) g/dl Hct 25.2 L 23.9 L (42.0-52.0) % Plt Count 540 H (130-400) K/uL BMP 12/16/23 05:28 Sodium 137 Potassium 4.2 Chloride 107 Carbon Dioxide 24 BUN 31 H Creatinine 1.71 H Glucose 186 H Calcium 7.6 L Medications Administered Home Medications Medication Instructions Recorded Confirmed Last Taken allopurinol 100 mg tablet 100 mg PO DAILY 12/15/23 12/15/23 Unknown aspirin 81 mg tablet,delayed 81 mg PO DAILY 12/15/23 12/15/23 Unknown release dulaglutide 0.75 mg/0.5 mL 0.75 mg subcut WK 12/15/23 12/15/23 Unknown subcutaneous pen injector (Trulicity) ezetimibe 10 mg tablet 10 mg PO DAILY 12/15/23 12/15/23 Unknown folic acid 1 mg tablet 1 mg PO DAILY 12/15/23 12/15/23 Unknown gabapentin 300 mg capsule 300 mg PO TID 12/15/23 12/15/23 Unknown hydrochlorothiazide 12.5 mg capsule 12.5 mg PO DAILY 12/15/23 12/15/23 Unknown levothyroxine 150 mcg tablet 150 mcg PO DAILY 12/15/23 12/15/23 Unknown lisinopril 30 mg tablet 30 mg PO DAILY 12/15/23 12/15/23 Unknown metformin 500 mg tablet 1,000 mg PO BID 12/15/23 12/15/23 Unknown valacyclovir 1 gram tablet 1,000 mg PO DAILY 12/15/23 12/15/23 Unknown Active Medications Generic Name Dose Route Start Last Admin Trade Name Freq PRN Reason Stop Dose Admin Acetaminophen 650 mg 12/15/23 07:43 12/15/23 18:55 Acetaminophen 325 Mg Tab PO 01/14/24 07:42 650 mg Q4H PRN Administration Pain or Fever Allopurinol 100 mg 12/15/23 09:00 12/15/23 10:41 Allopurinol 100 Mg Tab PO 01/14/24 08:59 100 mg DAILY REBEL Administration Aspirin 81 mg 12/15/23 09:00 12/15/23 10:40 Aspirin 81 Mg Ectab PO 01/14/24 08:59 81 mg DAILY REBEL Administration Ezetimibe 10 mg 12/15/23 09:00 12/15/23 10:40 Ezetimibe 10 Mg Tab PO 01/14/24 08:59 10 mg DAILY REBEL Administration Folic Acid 1 mg 12/15/23 09:00 12/15/23 10:40 Folic Acid 1 Mg Tab PO 01/14/24 08:59 1 mg DAILY REBEL Administration Gabapentin 300 mg 12/15/23 09:00 12/15/23 21:49 Gabapentin 300 Mg Cap PO 01/14/24 08:59 300 mg TID REBEL Administration Cefepime HCl 2,000 mg/ Syringe 20 mls @ 5 mls/min 12/15/23 10:00 12/16/23 06:11 IV 12/22/23 09:59 5 mls/min Q8H REBEL Administration Protocol Insulin Aspart 0 units 12/15/23 07:43 12/15/23 21:26 Insulin Aspart Per Unit Charge SC 01/14/24 07:42 1 units ACHS REBEL Administration Levothyroxine Sodium 150 mcg 12/15/23 09:00 12/16/23 06:42 Levothyroxine Sodium 150 Mcg Tablet PO 01/14/24 08:59 150 mcg DAILYBB REBEL Administration Valacyclovir HCl 1,000 mg 12/15/23 09:00 12/15/23 10:39 Valacyclovir Hcl 500 Mg Tablet PO 01/14/24 08:59 1,000 mg DAILY REBEL Administration
[2023-12-16] MEDS: LACTATED RINGER'S 500 ML IV ONE (08:16)
--- NOTE | 2023-12-16 08:24 | Operative Report ---
Post Operative Report Pre & Post Diagnosis Operation Date: 12/15/23 10:05 Pre-Op Diagnosis: Left heel abscess Post-Op Diagnosis: Left heel abscess I identified the patient and participated in the time-out.: Yes Procedure Operation Date: 12/15/23 10:05 Actual Procedures p Left Heel Incision and Drainage(Left) - Brian Saez DPM Surgeon Tayla Saez, [employer] Designer none Estimated Blood Loss 50 Findings Consistent with Post-Op Diagnosis Specimens 1. swab culture from left heel abscess. 2. deep wound tissues from left heel sent for aerobic and anaerobic cultures. 3. bone biopsy from left calcaneus sent to pathology Anesthesia Type MAC Complications none Disposition Accompanied Patient To Recovery: Yes Indications This patient is a 63-year-old male with a recent onset of left heel pain. He has a complex history of a left heel ulceration that led to osteomyelitis for which he had a partial calcanectomy. He states this initially began in June and July of last year but did resolve completely over that time, with this prior surgical intervention and IV antibiotics. Now, since Monday, he has developed acute worsening pain, swelling, warmth, and redness. He was admitted this morning for this ulceration after a CT scan revealed a large underlying abscess, along with evidence of worsening sepsis. We were consulted for evaluation and treatment of the left heel concerns. I recommend incision and drainage of left heel abscess with deep cultures and possible bone biopsy. For the planned procedures, I discussed the risks of the procedure which include, but are not limited to infection, nerve injury, non-healing wound, recurrence of the problem being treated, no improvement, failure or procedure, worsening of the problem, deep venous thrombosis, pulmonary embolism, need for further surgery, loss of limb, and loss of life. I outlined the risks, benefits and expected recovery. No guarantee or warranty was given or implied as to the results of the surgery. Patient states he understands and wants to proceed. Description of Procedure The patient was brought back into the operating and placed on the operative table in supine position. A timeout was performed in order to correctly identify the patient, planned procedure, and correct side. Following administration of IV sedation, 20 cc of half percent Marcaine plain was admin istered to the left ankle in an ankle block fashion under aseptic technique. The left lower extremity was then scrubbed prepped and draped in usual aseptic manner. No tourniquet was utilized. Attention was then directed to the plantar left heel at the area of the abscess. The plantar skin overlying the abscess was incised with a 15 blade. Excessive purulent exudate was drained. A swab culture was obtained. The devitalized tissue was excised and passed from the operative field. The wound was explored, and further purulent exudate was drained. A small hematoma was removed. Approximately, a total of 75mls of purulent exudate was drained. A copious amount of saline was used to irrigate the surgical wound. The wound was inspected and devitalized, nonviable wound tissue was noted to the level of the bone. After satisfactory debridement of the wound, copious amount of saline was utilized to irrigate the wound. Then a new, clean instrument was utilized to obtain a deep soft tissue wound culture that was sent for aerobic and anaerobic cultures. Then a rongeur was utilized to obtain bone specimen from the plantar calcaneus and this was sent to pathology. Again, copious amounts of saline were utilized to irrigate the surgical wound. No further purulent drainage could be identified noted. Post debridement wound measurements were 1cm x 1.5cm x 2.2cm. Minimal bleeding was noted throughout the procedure. Hemostasis was achieved with pressure. The wound was packed open with inch iodoform packing strip, Xeroform, gauze, abd pad, Kerlix, and stockinette. Patient tolerated the procedure and anesthesia well with all signs stable and vascular status intact to the left foot. The patient was transferred to recovery for brief postoperative monitoring and will be admitted to the floor for medical management and IV antibiotics. I will place an order for wound care consult to evaluate the wound and consider a wound vac for assisted wound closure. I attest to the content of the Intraoperative Record and any orders documented therein. Any exceptions are noted below.
--- NOTE | 2023-12-16 14:42 | Podiatry Progress Note ---
Date of Service December 16, 2023 Assessment & Plan (1) Foot abscess, left: (2) Diabetic foot ulcer with osteomyelitis: (3) Chronic osteomyelitis of left foot: (4) PAD (peripheral artery disease): (5) Diabetic ulcer of left foot: Plan Patient examined and evaluated. We discussed at length etiology and treatment of his left heel infection. - I&D Performed. Cultures, bone biopsy obtained, pending. - Can change dressing if drainage noted or soiled. - Will remove packing on Monday. Can avoid wound vac, though this is more beneficial than packing or aquacel, in general. - May require flaps/grafts with plastics to close if he continues to deny vac placement. - Has appointment with doctors in [place] on Monday. Can d/c home sooner if he continues to improve. No further surgical intervention for heel planned for now. Admission and Anticipated Discharge Date Admission Date: December 15, 2023 Subjective Pt seen at bedside. States he is doing amazing; no pain to heel. Feels great after surgical I&D. No new concerns today. Of note, he adamantly refuses wound vac at this time. States he has had one for years prior to surgery and did not enjoy it. Will not opt for one now. Denies any new s/s of infection. Review of Systems Constitutional: no fever, no chills and no fatigue Eyes: no problem reported Ear, Nose, Mouth, Throat: no problem reported Respiratory: no problem reported Cardiovascular: + edema; no problem reported Gastrointestinal: no nausea, no vomiting and no problem reported Musculoskeletal: no problem reported Integumentary: + skin ulcer, + wounds and + erythema Neurologic: + loss of sensation, + numbness and + pa resthesia; no generalized weakness Psychiatric: no problem reported Physical Exam Physical Exam: Left lower extremity physical exam: Dressing clean, dry, intact. No pain on palpation of heel. Extensive purulent drainage/hematoma formation able to be excised from heel last night. Wound did extend to bone. Waiting on cultures and biopsy results. Minimal active bleeding otherwise. Constitutional: WD/WN, vitals as above + ill appearing and + obese Eyes: PERRL, conjunctivae normal, anicteric sclerae ENMT: external ear and nose normal, oropharynx normal Neck: trachea midline, no thyromegaly normal visual inspection Respiratory: normal respiratory effort; no respiratory distress Cardiovascular: Rate/Rhythm: regular rate and regular rhythm Extremities: normal capillary refill, + pedal edema and + edema; no calf tenderness Chest (Breasts): Chest: normal inspection of chest Gastrointestinal (Abdomen): Inspection/Auscultation: abdomen normal to inspection Percussion/Palpation: + abdomen tender and abdomen soft Musculoskeletal: no cyanosis or clubbing, extremities motor strength 5/5 Head/Neck/Chest: normocephalic and head atraumatic Extremities: extremities normal to inspection and + foot abnormality (Prior partial calcanectomy noted) Skin: + ulcer (Preulcerative skin lesion to pl [place]az[place] left heel), + erythema, + hair abnormality and + nails dystrophic Neurologic: awake; + abnormal sensation to monofilament and no focal motor deficits Psychiatric: A+Ox3, euthymic affect Results & Data Results & Data Vital Signs (Past 12 Hours) Vital Signs Temp Pulse Pulse Resp BP Pulse Ox O2 Del Method 12/16/23 12:17 37.1 C 86 20 132/71 96 Room Air 12/16/23 08:02 36.6 C 88 18 112/68 95 Room Air 12/16/23 08:00 86 12/16/23 03:11 36.6 C 72 16 106/68 98 Nasal Cannula 12/16/23 03:00 36.6 C 72 16 106/68 98 Nasal Cannula (5) Diabetic ulcer of left foot Diabetic foot ulcer location: heel Diabetes mellitus type: type 2 Non- pressure ulcer stage: unspecified non-pressure ulcer stage Qualified Code(s): E11.621 - Type 2 diabetes mellitus with foot ulcer; L97.429 - Non-pressure chronic ulcer of left heel and midfoot with unspecified severity
[2023-12-16] MEDS: CYANOCOBALAMIN (B-12) 500 MCG TABLET PO SCH (17:35)
[2023-12-17 06:18] LABS: Hematocrit (blood only) 21.1 % (42.0-52.0); Hemoglobin 7.3 g/dl (14.0-18.0); Mean Corpuscular Hemoglobin 35.4 pg (25.0-34.0); Mean Corpuscular Hgb Conc 34.6 g/dL (32.0-36.0); Mean Corpuscular Volume 102.4 fL (80.0-100.0); Mean Platelet Volume 9.9 fL (9.4-12.4); Platelet Count 528 K/uL (130-400); RDW Coefficient of Variation 16.7 % (11.5-14.5); RDW Standard Deviation 63.1 fL (36.4-46.3); Red Blood Count 2.06 M/uL (4.70-6.10); White Blood Count 17.36 K/ul (4.8-10.8)
[2023-12-17 06:42] LABS: BUN Creatinine Ratio 19.4 (10-20); Calcium 7.5 mg/dl (8.6-10.3); Creatinine Clr Calc Pharmacy 71.2 ml/min; Est GFR (African American) 64.9 ml/min; Magnesium 2.1 mg/dl (1.7-2.4); Potassium 4.4 mmol/L (3.5-5.1)
--- NOTE | 2023-12-17 09:29 | Hospitalist Progress Note ---
Date of Service December 17, 2023 Assessment & Plan (1) Foot abscess, left: Plan: Mr. Valentin is a 63-year-old male with past medical history significant for type 2 diabetes, hypothyroidism, hyperlipidemia, diabetic retinopathy, diabetic foot ulcer, peripheral artery disease, chronic constrictive idiopathic pericarditis, pericardial effusion without cardiac tamponade, hypertension, history of osteomyelitis of the left ankle, cellulitis of left lower leg, calcaneal costochondritis, history of CLL, history of chemotherapy induced neutropenia, history of hemolytic anemia, history of splenomegaly, s/p splenectomy, history of secondary polycythemia, history of MSSA infection, history of Pseudomonas infection, who is admitted for sepsis 2/2 left heel abscess. Patient is now s/p I&D performed by Podiatry on 12/14. #IZABELLA on CKD III *improving Cr. ~1.0-1.1, peaked 1.71, downtrending Likely prerenal 2/2 sepsis Encourage PO Repeat BMP in am Monitor I/Os Holding HCTZ #Sepsis 2/2 LLE cellulitis/abscess #Left lower extremity infection #s/p left partial calcanectomy #Chronic osteomyelitis c/b MSSA and pseudomonas surgery was 06/26/23 and treated with IV abx, until 08/07 (cefepime therapy) 12/14 wound/fluid cx No pseudomonas on culture, staph species, MSSA Podiatry evaluated -s/p ID 12/14 with a total of 75mls of purulent exudate was drained. A wound cultures pending, bone biopsy pending -Will ensure follow up with physicians in [place] for further management upon stabilization -woun care consult -Plan to remove packing on Monday. Per podiatry note "Can avoid wound vac, though this is more beneficial than packing or aquacel, in general" D/C Cefepime Transition to Cefazolin -MRSA nare negative, d/c dapto Blood cultures NGTD Infectious disease consult-- given complex history of DM, PAD, prior OM to same LLE with IV abx course as above, requesting recommended regimen of either IV v PO agent, and recommended duration #Diabetic polyneuropathy associated with type 2 diabetes mellitus Hold metformin and fabrice A1C 9.2 Continue gabapentin Insulin SSI tobacco prevention health educator consult Reports Fabrice not working for him at this time Consider low dose insulin basal upon d/c Ensure MTM clinic for follow up and mgmt #sinus tachycardia *RESOLVED iso infection, CTM on telemetry Treat underlying cause #PAD s/p angiogram with revascularization by 2020 (left leg done in 06/2021 and right leg done in 09/2020); no OP report available 1 yr DUSTIN and LLE arterial duplex or sooner prn Continue aspirin 81 mg daily for atherosclerosis Statin intolerant #HTN hold hold regimen in interim 2/2 hypotension & izabella (Home HCTZ 12.5) #Gout Continue allopurinol #Acute on chronic macrocytic anemia #b12 deficiency #CLL s/p splenectomy diagnosed in July,, underwent splenectomy in July, Significant reticulocytopenia in July, 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 History of thrombocytosis - no evidence of PNH noted in the flow cytometry. -lymphocytosis noted With absolute lymphocyte count around 4000 - 5000 range. Continue folic acid Add B12 supplementation, continue Trend CBC, EBL ~50cc, CTM #History of herpes zoster involving left leg, has post herpetic neuralgia, Continue Neurontin, continue valacyclovir prophylaxis. #Hypothyroidism On Synthyroid DVT prophylaxis SCDs for now until hgb stabilization Admission and Anticipated Discharge Date Admission Date: December 15, 2023 Subjective NAEO Patient reports feeling great He denies fevers, chills or acute concerns He is eager for dispo but understands the need for antibiotics and follow up on wound Physical Exam Constitutional: WD/WN, vitals as above Respiratory: normal respiratory effort, lungs clear to auscultation Cardiovascular: RRR, no murmur, no edema Skin: left ankle with clean dressing in place, no strike through or drainage; surrounding exposed tissue with notable less edema of toes and leg Results & Data Results & Data Vital Signs (Past 12 Hours) Vital Signs Temp Pulse Pulse Resp BP Pulse Ox O2 Del Method 12/17/23 07:45 36.9 C 86 18 124/70 92 Room Air 12/17/23 03:00 36.6 C 79 18 99/65 L 95 Room Air 12/16/23 23:00 36.8 C 78 21 108/68 94 Room Air 12/16/23 22:00 80 Laboratory Results Short CBC 12/17/23 Range/Units 05:18 WBC 17.36 H (4.8-10.8) K/ul Hgb 7.3 L (14.0-18.0) g/dl Hct 21.1 L (42.0-52.0) % Plt Count 528 H (130-400) K/uL BMP 12/17/23 05:18 Sodium 135 L Potassium 4.4 Chloride 104 Carbon Dioxide 24 BUN 26 H Creatinine 1.34 D Glucose 208 H Calcium 7.5 L Medications Administered Home Medications Medication Instructions Recorded Confirmed Last Taken allopurinol 100 mg tablet 100 mg PO DAILY 12/15/23 12/15/23 Unknown aspirin 81 mg tablet,delayed 81 mg PO DAILY 12/15/23 12/15/23 Unknown release dulaglutide 0.75 mg/0.5 mL 0.75 mg subcut WK 12/15/23 12/15/23 Unknown subcutaneous pen injector (Trulicity) ezetimibe 10 mg tablet 10 mg PO DAILY 12/15/23 12/15/23 Unknown folic acid 1 mg tablet 1 mg PO DAILY 12/15/23 12/15/23 Unknown gabapentin 300 mg capsule 300 mg PO TID 12/15/23 12/15/23 Unknown hydrochlorothiazide 12.5 mg capsule 12.5 mg PO DAILY 12/15/23 12/15/23 Unknown levothyroxine 150 mcg tablet 150 mcg PO DAILY 12/15/23 12/15/23 Unknown lisinopril 30 mg tablet 30 mg PO DAILY 12/15/23 12/15/23 Unknown metformin 500 mg tablet 1,000 mg PO BID 12/15/23 12/15/23 Unknown valacyclovir 1 gram tablet 1,000 mg PO DAILY 12/15/23 12/15/23 Unknown Active Medications Generic Name Dose Route Start Last Admin Trade Name Freq PRN Reason Stop Dose Admin Acetaminophen 650 mg 12/15/23 07:43 12/15/23 18:55 Acetaminophen 325 Mg Tab PO 01/14/24 07:42 650 mg Q4H PRN Administration Pain or Fever Allopurinol 100 mg 12/15/23 09:00 12/17/23 08:20 Allopurinol 100 Mg Tab PO 01/14/24 08:59 100 mg DAILY REBEL Administration Aspirin 81 mg 12/15/23 09:00 12/17/23 08:20 Aspirin 81 Mg Ectab PO 01/14/24 08:59 81 mg DAILY REBEL Administration Cyanocobalamin 1,000 mcg 12/16/23 15:45 12/17/23 08:20 Cyanocobalamin (B-12) 500 Mcg Tablet PO 01/15/24 15:44 1,000 mcg QAM REBEL Administration Ezetimibe 10 mg 12/15/23 09:00 12/17/23 08:20 Ezetimibe 10 Mg Tab PO 01/14/24 08:59 10 mg DAILY REBEL Administration Folic Acid 1 mg 12/15/23 09:00 12/17/23 08:20 Folic Acid 1 Mg Tab PO 01/14/24 08:59 1 mg DAILY REBEL Administration Gabapentin 300 mg 12/15/23 09:00 12/17/23 08:20 Gabapentin 300 Mg Cap PO 01/14/24 08:59 300 mg TID REBEL Administration Insulin Aspart 0 units 12/15/23 07:43 12/17/23 08:19 Insulin Aspart Per Unit Charge SC 01/14/24 07:42 6 units ACHS REBEL Administration Levothyroxine Sodium 150 mcg 12/15/23 09:00 12/17/23 06:10 Levothyroxine Sodium 150 Mcg Tablet PO 01/14/24 08:59 150 mcg DAILYBB REBEL Administration Valacyclovir HCl 1,000 mg 12/15/23 09:00 12/17/23 08:19 Valacyclovir Hcl 500 Mg Tablet PO 01/14/24 08:59 1,000 mg DAILY REBEL Administration
[2023-12-17] MEDS: CALCIUM 600MG + VIT D 400 IU TAB PO SCH (12:33)
[2023-12-17] MEDS: ceFAZolin 2000MG 2,000 MG/15 ML SYR IV SCH (15:08)
[2023-12-18 06:20] LABS: Hematocrit (blood only) 22.6 % (42.0-52.0); Hemoglobin 7.5 g/dl (14.0-18.0); Mean Corpuscular Hemoglobin 34.4 pg (25.0-34.0); Mean Corpuscular Hgb Conc 33.2 g/dL (32.0-36.0); Mean Corpuscular Volume 103.7 fL (80.0-100.0); Mean Platelet Volume 9.8 fL (9.4-12.4); Platelet Count 556 K/uL (130-400); RDW Coefficient of Variation 16.6 % (11.5-14.5); RDW Standard Deviation 63.1 fL (36.4-46.3); Red Blood Count 2.18 M/uL (4.70-6.10); White Blood Count 14.98 K/ul (4.8-10.8)
[2023-12-18 06:55] LABS: BUN Creatinine Ratio 20.3 (10-20); Calcium 8.7 mg/dl (8.6-10.3); Creatinine Clr Calc Pharmacy 76.8 ml/min; Est GFR (Non-African American) 62.1 ml/min; Phosphorus 3.1 mg/dl (2.5-4.9); Potassium 4.7 mmol/L (3.5-5.1)
--- NOTE | 2023-12-18 12:27 | Infectious Disease Consult ---
Date of Service December 18, 2023 Telehealth Information I performed this visit using a real-time telehealth connection between my location and the patients location ([facility]). After connecting through interactive tele-video, patient was identified by name and date of and/or wristband check.Patient (or authorized healthcare patient care representative) was informed that this was a telemedicine visit and it was being conducted confidentially over secure lines. My office door was closed and no on e else was present in the room with me.Patient (or authorized healthcare patient care representative) provided consent to proceed with the visit, expressed an understanding of privacy and security of the telemedicine visit, and gave permission to have a hospital patient care representative in the room in order to assist with the visit and to conduct portions of the visit, as needed. I informed the patient (or authorized healthcare patient care representative) that I reviewed their record and presented the opportunity for them to ask any questions regarding the visit today. The patient agreed to participate. Assessment & Plan (1) Abscess of left foot: (2) Chronic osteomyelitis of left foot: Plan: Assessment: Sepsis L heel abscess w/ calcaneal OM Prior hx of a partial L calcanectomy for L heel ulcer and OM 12/15/23 - L heel I&D (down to bone) Recommendations: - I agree w/ cefazolin 2 gm iv q8 hours - Anticipate total 6 weeks of cefazolin, ending on 01/25/24. - Check CRP today for baseline and every other week while on cefazolin - Check weekly CBC w/ differential and CMP while on cefazolin - Obtain PICC for long-term abx therapy - Need aggressive outpatient f/u w/ podiatry - F/u w/ ID outpatient clinic w/in 3-5 weeks Given the depth of the infection involving the calcalneum on surgical I&D, I agree w/ 6 weeks of cefazolin for the MSSA found on multiple OR cultures. However, I have informed the patient that this long-term abx may fail and the patient may need a more drastic surgical intervention such as BKA for recurrent infection. He voiced understanding. More than 50% of [id number] visit was spent counseling and coordinating care pertaining to the patient's infection diagnosis, additional work-up, and treatment option(s) as well as potential adverse events of the treatment. (3) Bacterial septicemia: History of Present Illness History of Present Illness This is a 63 y/o male (Mario) w/ hx of a partial L calcanectomy (06/2023) for L heel ulcer and OM, PAD, and DM2. The patient presented w/ acute onset of L heel pain (I could not walk on it because of pain: high 9) since last Monday. Swelling, warmth and redness were also noted. He did not take any abx prior to admission. He On presentation, fever on admission w/ tachycardia, significant leukocytosis and CT LE showing a large abscess in the L heel w/ a small focus of erosion in the inferior aspect of the calcaneus. Had L heel I&D (12/15/23: excessive purulent exudate drained w/ a small hematoma and devitalized, nonviable wound tissues noted at the level of the bone). OR cu ltures grew MSSA. Currently on cefazolin. Allergies Allergy/AdvReac Type Severity Reaction Status Date / Time No Known Allergies Allergy Verified 05/24/22 07:51 Home Medications Medication Instructions Recorded Confirmed Type allopurinol 100 mg tablet 100 mg PO DAILY 12/15/23 12/15/23 History aspirin 81 mg tablet,delayed 81 mg PO DAILY 12/15/23 12/15/23 History release dulaglutide 0.75 mg/0.5 mL 0.75 mg subcut WK 12/15/23 12/15/23 History subcutaneous pen injector (Trulicity) ezetimibe 10 mg tablet 10 mg PO DAILY 12/15/23 12/15/23 History folic acid 1 mg tablet 1 mg PO DAILY 12/15/23 12/15/23 History gabapentin 300 mg capsule 300 mg PO TID 12/15/23 12/15/23 History hydrochlorothiazide 12.5 mg capsule 12.5 mg PO DAILY 12/15/23 12/15/23 History levothyroxine 150 mcg tablet 150 mcg PO DAILY 12/15/23 12/15/23 History lisinopril 30 mg tablet 30 mg PO DAILY 12/15/23 12/15/23 History metformin 500 mg tablet 1,000 mg PO BID 12/15/23 12/15/23 History valacyclovir 1 gram tablet 1,000 mg PO DAILY 12/15/23 12/15/23 History Patient History Medical History CKD (chronic kidney disease) per records Osteomyelitis PICC (peripherally inserted central catheter) in place Diabetic ulcer of left foot PAD (peripheral artery disease) Successful angioplasty of proximal/mid left SFA with 2 drug-eluting balloons on 05/07/21- recommend DAPT with ASA and Plavix x 1 month History of anesthesia reaction combative, "i come out of it mean." DM type 2 (diabetes mellitus, type 2) Hypothyroidism CLL (chronic lymphocytic leukemia) Dx'ed 2014; chemo, sx Peripheral neuropathy Anemia HTN (hypertension) Dyslipidemia Surgical History History of angiography 05/07/21 [facility] - angioplasty of proximal/mid left SFA with 2 drug-eluting balloons (6 x 60 mm, 6 x 150 mm Lutonix). 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 Required: No Beliefs That Will Affect Care: None marital status: Single Current Living Situation: Alone current occupational status: employed current occupation: [employer] How many Children do You have: 0 Other Information That Helps Us Care for You: No Feels Safe at Home: Yes Safety Concerns: Feels Safe At This Time Diet: regular caffeine: Yes (pot of coffee every AM) during the past year weight has: decreased > 10 lbs Dental Care, Regularly: No Physical Activity Frequency: 1-2 Times per Week Seatbelt Use: always Assistive Devices: None Review of Systems The patient is currently resting comfortably in chair, reporting complete resolution of L heel pain. Denies f/c, n/v, abd pain, diarrhea, coughing, cp, sob, or urinary symptoms. All others negative Physical Exam General: no acute distress Lungs: breathing comfortably on room air Neuro: alert and oriented times 3, fully conversant, insightful Results & Data Vital Signs (Past 12 Hours) Vital Signs Temp Pulse Resp BP Pulse Ox O2 Del Method 12/18/23 12:14 36.5 C 65 20 149/73 H 96 Room Air 12/18/23 08:05 36.7 C 64 18 148/74 H 97 Room Air 12/18/23 02:50 36.5 C 63 16 126/68 97 Room Air Laboratory Results WBC 21.5K ->-> 14.98K H 7.5 Plt 556K Cr 1.7 ->-> 1.23 (CrCl 76.8) LFT WNL PCT 1.07 MRSA screen (12/14): neg Blood cx (12/14): NGTD CXR (12/14): 1. Mild cardiomegaly. 2. Small focal density within the left lateral lung base. This may represent atelectasis. A small focus of inflammatory/infectious change is not excluded. Diagnostic Findings L heel fluid (12/14): MSSA (S to clinda, dapto, oxa, bact, vanco; I to tetra) L heel tissue (12/14): MSSA CT foot (12/14): The bones are osteopenic. No acute fracture or dislocation. There appears to have been previous resection of the posterior tuberosity of the calcaneus. There is a small area of erosion of the inferior aspect of the calcaneus. There is an abnormal soft tissue fluid collection in the region of the heel. This measures up to 10.0 x 2.6 x 4.0 cm. This is likely represents an abscess. This appears to extend to the skin surface inferiorly. Medications Administered Cefazolin
[2023-12-18 14:09] LABS: C Reactive Protein 12.33 mg/dl (0-0.5)
--- NOTE | 2023-12-18 18:08 | Hospitalist Progress Note ---
Date of Service December 18, 2023 Assessment & Plan (1) Foot abscess, left: Plan: Mr. Valentin is a 63-year-old male with past medical history significant for type 2 diabetes, hypothyroidism, hyperlipidemia, diabetic retinopathy, diabetic foot ulcer, peripheral artery disease, chronic constrictive idiopathic pericarditis, pericardial effusion without cardiac tamponade, hypertension, history of osteomyelitis of the left ankle, cellulitis of left lower leg, calcaneal costochondritis, history of CLL, history of chemotherapy induced neutropenia, history of hemolytic anemia, history of splenomegaly, s/p splenectomy, history of secondary polycythemia, history of MSSA infection, history of Pseudomonas infection, who is admitted for sepsis 2/2 left heel abscess. Patient is now s/p I&D performed by Podiatry on 12/14. IZABELLA on CKD III Cr. ~1.0-1.1 Cr 1.7>>1.2 Likely prerenal due to sepsis Monitor BMP Monitor I/Os Resume HCTZ as able Avoid nephrotoxic agents as able Sepsis due to LLE cellulitis/abscess Left heel abscess with calcaneal osteomyelitis Left lower extremity infection s/p left partial calcanectomy Chronic osteomyelitis c/b MSSA and pseudomonas--surgery was 06/26/23 and treated with IV abx, until 08/07 (cefepime therapy) 12/14 wound/fluid cx No pseudomonas on culture, staph species, MSSA Appreciate Podiatry and ID Input -s/p Left Heel Incision and Drainage by Dr. Saez on 12/16/2023 --Wound cultures grew MSSA --Blood cultures negative to date --Appreciate ID input --Cefepime, daptomycin discontinued Plan to continue cefazolin 2 g IV every 8 until 01/25/2024 Needs weekly CBC, CMP, CRP while on antibiotics PICC line placement requested today Needs follow-up with ID in 3 to 5 weeks Also needs follow-up with podiatry As per prior provider Diabetic polyneuropathy associated with type 2 diabetes mellitus Hold metformin and naina A1C 9.2 Continue gabapentin Insulin SSI volunteer services manager consult Reports Naina not working for him at this time Consider low dose insulin basal upon d/c Ensure MTM clinic for follow up and mgmt sinus tachycardia--resolved Monitor PAD s/p angiogram with revascularization by 2020 (left leg done in 06/2021 and right leg done in 09/2020); no OP report available 1 yr DUSTIN and LLE arterial duplex or sooner prn Continue aspirin 81 mg daily for atherosclerosis Statin intolerant HTN Resume home HCTZ as able Monitor Gout Continue allopurinol As per prior provider Acute on chronic macrocytic anemia B 12 deficiency H/O CLL s/p splenectomy diagnosed in July,, underwent splenectomy in July, Significant reticulocytopenia in July, 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 History of thrombocytosis - no evidence of PNH noted in the flow cytometry. -lymphocytosis noted With absolute lymphocyte count around 4000 - 5000 range. Continue folic acid Add B12 supplementation, continue Trend CBC, EBL ~50cc, CTM H/O Herpes zoster involving left leg, has post herpetic neuralgia Continue Neurontin, continue valacyclovir prophylaxis. Hypothyroidism Continue levothyroxine DVT prophylaxis SCDs for now CODE STATUS Full code Admission and Anticipated Discharge Date Admission Date: December 15, 2023 Subjective Patient is seen and examined at bedside Offers no new complaints Denies any leg pain Was evaluated by infectious disease today Also denies any chest pain, dyspnea, nausea, vomiting, abdominal pain Review of Systems Review of Systems: All systems reviewed & are unremarkable except as noted in Subjective Physical Exam Physical Exam: Physical Exam: Vitals signs as noted above General Appearance:Obese, no apparent distress Head: normocephalic, Atraumatic Eyes: normal inspection, EOMI Neck: supple, Trachea midline Respiratory/Chest: Normal breath sounds, CTA, No accessory muscle use Cardiovascular: S1, S2, No murmur Abdomen/GI:Soft, Non tender, Bowel sounds present Extremities/Musculoskeletal:normal inspection, LLE edema, +Left Heel in dressing Neurologic/Psych:AAOX3, grossly no focal neurological deficits Skin: normal color, warm Results & Data Results & Data Vital Signs (Past 12 Hours) Vital Signs Temp Pulse Resp BP Pulse Ox O2 Del Method 12/18/23 16:01 36.6 C 63 20 133/79 97 Room Air 12/18/23 12:14 36.5 C 65 20 149/73 H 96 Room Air 12/18/23 08:05 36.7 C 64 18 148/74 H 97 Room Air Laboratory Results Short CBC 12/18/23 Range/Units 05:18 WBC 14.98 H (4.8-10.8) K/ul Hgb 7.5 L (14.0-18.0) g/dl Hct 22.6 L (42.0-52.0) % Plt Count 556 H (130-400) K/uL [facility] 12/18/23 05:18 Sodium 139 Potassium 4.7 Chloride 104 Carbon Dioxide 30 BUN 25 H Creatinine 1.23 Glucose 139 H Calcium 8.7
--- NOTE | 2023-12-18 22:26 | Podiatry Progress Note ---
Date of Service December 18, 2023 Assessment & Plan (1) Foot abscess, left: (2) Diabetic foot ulcer with osteomyelitis: (3) Chronic osteomyelitis of left foot: (4) PAD (peripheral artery disease): (5) Diabetic ulcer of left foot: Plan Patient examined and evaluated. We discussed at length etiology and treatment of his left heel infection. - I&D Performed. Cultures, bone biopsy obtained, pending. - Dressing changed, packing removed. - Would still benefit most from wound vac to fill the deficit left by the abscess. - Without this, may require plastic surgery intervention or long wall mining machine helper outpatient wound care. - He is stable from the foot perspective for now. Can likely d/c home with antibiotics, pending ID recs. Admission and Anticipated Discharge Date Admission Date: December 15, 2023 Subjective Pt seen at bedside this morning. No new complaints. States he is doing great with no pain and no new s/s of systemic infection. Interested in d/c home when possible, so he can get to his PCP team in [place]. Review of Systems Constitutional: no fever, no chills and no fatigue Eyes: no problem reported Ear, Nose, Mouth, Throat: no problem reported Respiratory: no problem reported Cardiovascular: + edema; no problem reported Gastrointestinal: no nausea, no vomiting and no problem reported Musculoskeletal: no problem reported Integumentary: + skin ulcer, + wounds and + erythema Neurologic: + loss of sensation, + numbness and + pa resthesia; no generalized weakness Psychiatric: no problem reported Physical Exam Physical Exam: Left lower extremity physical exam: Dressing clean, dry, intact. No pain on palpation of heel. Small central wound noted, with no new purulence. Packing removed uneventfully without new pain. Potential space remains within heel, with no soft tissue filling this deficit for now, created by the prior abscess. Remaining periwound skin may prove non-viable without underlying soft tissue. Constitutional: WD/WN, vitals as above + ill appearing and + obese Eyes: PERRL, conjunctivae normal, anicteric sclerae ENMT: external ear and nose normal, oropharynx normal Neck: trachea midline, no thyromegaly normal visual inspection Respiratory: normal respiratory effort; no respiratory distress Cardiovascular: Rate/Rhythm: regular rate and regular rhythm Extremities: normal capillary refill, + pedal edema and + edema; no calf tenderness Chest (Breasts): Chest: normal inspection of chest Gastrointestinal (Abdomen): Inspection/Auscultation: abdomen normal to inspection Percussion/Palpation: + abdomen tender and abdomen soft Musculoskeletal: no cyanosis or clubbing, extremities motor strength 5/5 Head/Neck/Chest: normocephalic and head atraumatic Extremities: extremities normal to inspection and + foot abnormality (Prior partial calcanectomy noted) Skin: + ulcer (Preulcerative skin lesion to pl nazia left heel), + erythema, + hair abnormality and + nails dystrophic Neurologic: awake; + abnormal sensation to monofilament and no focal motor deficits Psychiatric: A+Ox3, euthymic affect Results & Data Results & Data Vital Signs (Past 12 Hours) Vital Signs Temp Pulse Resp BP Pulse Ox O2 Del Method 12/18/23 19:40 36.6 C 64 18 170/78 H 98 Room Air 12/18/23 16:01 36.6 C 63 20 133/79 97 Room Air 12/18/23 12:14 36.5 C 65 20 149/73 H 96 Room Air (5) Diabetic ulcer of left foot Diabetic foot ulcer location: heel Diabetes mellitus type: type 2 Non- pressure ulcer stage: unspecified non-pressure ulcer stage Qualified Code(s): E11.621 - Type 2 diabetes mellitus with foot ulcer; L97.429 - Non-pressure chronic ulcer of left heel and midfoot with unspecified severity
[2023-12-19 06:22] LABS: Hematocrit (blood only) 24.1 % (42.0-52.0); Hemoglobin 8.2 g/dl (14.0-18.0); Mean Corpuscular Hemoglobin 35.3 pg (25.0-34.0); Mean Corpuscular Volume 103.9 fL (80.0-100.0); Platelet Count 602 K/uL (130-400); Red Blood Count 2.32 M/uL (4.70-6.10); White Blood Count 16.05 K/ul (4.8-10.8)
[2023-12-19 06:46] LABS: BUN Creatinine Ratio 21.7 (10-20); Calcium 9.2 mg/dl (8.6-10.3); Creatinine Clr Calc Pharmacy 78.7 ml/min; Est GFR (African American) 74.1 ml/min; Magnesium 1.8 mg/dl (1.7-2.4); Potassium 4.7 mmol/L (3.5-5.1)
--- NOTE | 2023-12-19 13:03 | Hospitalist Progress Note ---
Date of Service December 19, 2023 Assessment & Plan (1) Foot abscess, left: Plan: Mr. Valentin is a 63-year-old male with past medical history significant for type 2 diabetes, hypothyroidism, hyperlipidemia, diabetic retinopathy, diabetic foot ulcer, peripheral artery disease, chronic constrictive idiopathic pericarditis, pericardial effusion without cardiac tamponade, hypertension, history of osteomyelitis of the left ankle, cellulitis of left lower leg, calcaneal costochondritis, history of CLL, history of chemotherapy induced neutropenia, history of hemolytic anemia, history of splenomegaly, s/p splenectomy, history of secondary polycythemia, history of MSSA infection, history of Pseudomonas infection, who is admitted for sepsis 2/2 left heel abscess. Patient is now s/p I&D performed by Podiatry on 12/14. IZABELLA on CKD III Cr. ~1.0-1.1 Cr 1.7>>1.2 Likely prerenal due to sepsis Monitor BMP Monitor I/Os Resume HCTZ as able Avoid nephrotoxic agents as able Renal function stable Sepsis due to LLE cellulitis/abscess Left heel abscess with calcaneal osteomyelitis Left lower extremity infection s/p left partial calcanectomy Chronic osteomyelitis c/b MSSA and pseudomonas--surgery was 06/26/23 and treated with IV abx, until 08/07 (cefepime therapy) 12/14 wound/fluid cx No pseudomonas on culture, staph species, MSSA Appreciate Podiatry and ID Input -s/p Left Heel Incision and Drainage by Dr. Saez on 12/16/2023 --Wound cultures grew MSSA, Finegoldia magna --Blood cultures negative to date --Appreciate ID input --Pathology pending --Cefepime, daptomycin discontinued Plan to continue cefazolin 2 g IV every 8 until 01/25/2024 Needs weekly CBC, CMP, CRP while on antibiotics PICC line placement requested today Needs follow-up with ID in 3 to 5 weeks Also needs follow-up with podiatry Discussed with infectious disease Dr. Schneider on 12/19/2023 regarding wound cultures growing both MSSA, Finedilialdfawad razo Recommended to add Flagyl for 100 mg every 8 hours to be continued until 01/25/2024. As per prior provider Diabetic polyneuropathy associated with type 2 diabetes mellitus Hold metformin and Trulicity A1C 9.2 Continue gabapentin Insulin SSI unit educator consult Reports Trulicity not working for him at this time Consider low dose insulin basal upon d/c Ensure MTM clinic for follow up and mgmt Patient prefers to follow-up with primary care physician for further management of his diabetes. 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 History of thrombocytosis - no evidence of PNH noted in the flow cytometry. -lymphocytosis noted With absolute lymphocyte count around 4000 - 5000 range. Continue folic acid Add B12 supplementation, continue Trend CBC, EBL ~50cc, CTM H/O Herpes zoster involving left leg, has post herpetic neuralgia Continue Neurontin, continue valacyclovir prophylaxis. Hypothyroidism Continue levothyroxine DVT prophylaxis SCDs for now CODE STATUS Full code Disposition Home Admission and Anticipated Discharge Date Admission Date: December 15, 2023 Subjective Patient is seen and examined at bedside States feeling well No new complaints Denies any chest pain, dyspnea, nausea, vomiting, abdominal pain Plan to be discharged home today Review of Systems Review of Systems: All systems reviewed & are unremarkable except as noted in Subjective Physical Exam Physical Exam: Physical Exam: Vitals signs as noted above General Appearance:Obese, no apparent distress Head: normocephalic, Atraumatic Eyes: normal inspection, EOMI Neck: supple, Trachea midline Respiratory/Chest: Normal breath sounds, CTA, No accessory muscle use Cardiovascular: S1, S2, No murmur Abdomen/GI:Soft, Non tender, Bowel sounds present Extremities/Musculoskeletal:normal inspection, LLE edema, +Left Heel in dressing Neurologic/Psych:AAOX3, grossly no focal neurological deficits Skin: normal color, warm Results & Data Results & Data Vital Signs (Past 12 Hours) Vital Signs Temp Pulse Pulse Resp BP Pulse Ox O2 Del Method 12/19/23 12:31 36.6 C 93 H 18 126/82 96 Room Air 12/19/23 08:23 36.6 C 54 L 18 150/71 H 97 Room Air 12/19/23 08:00 57 L 12/19/23 02:57 36.5 C 55 L 18 123/74 97 Room Air Laboratory Results Short CBC 12/19/23 Range/Units 05:19 WBC 16.05 H (4.8-10.8) K/ul Hgb 8.2 L (14.0-18.0) g/dl Hct 24.1 L (42.0-52.0) % Plt Count 602 H (130-400) K/uL BMP 12/19/23 05:19 Sodium 140 Potassium 4.7 Chloride 101 Carbon Dioxide 31 BUN 26 H Creatinine 1.20 Glucose 135 H Calcium 9.2
--- NOTE | 2023-12-19 13:45 | Infectious Disease Progress Nt ---
Date of Service December 19, 2023 Telehealth Information This is a non-billable note completed for communication after chart review. Assessment & Plan (1) Chronic osteomyelitis of left foot: Plan: Culture is growing Finegoldia as well as the previously noted MSSA. I have advised Dr. Santiago to add metronidazole 500 mg po q8 hours on top of cefazolin w/ the same abx end date. Results & Data Vital Signs (Past 12 Hours) Vital Signs Temp Pulse Pulse Resp BP Pulse Ox O2 Del Method 12/19/23 13:35 36.6 C 93 H 18 126/82 96 12/19/23 12:31 36.6 C 93 H 18 126/82 96 Room Air 12/19/23 08:23 36.6 C 54 L 18 150/71 H 97 Room Air 12/19/23 08:00 57 L 12/19/23 02:57 36.5 C 55 L 18 123/74 97 Room Air
--- NOTE | 2023-12-19 13:50 | Discharge Summary ---
Date of Service December 19, 2023 Admission HPI Per Admitting Provider 63-year-old male with past medical history significant for type 2 diabetes, hypothyroidism, hyperlipidemia, diabetic retinopathy, diabetic foot ulcer, peripheral artery disease, chronic constrictive idiopathic pericarditis, pericardial effusion without cardiac tamponade, hypertension, history of osteomyelitis of the left ankle, cellulitis of left lower leg, calcaneal costochondritis, history of CLL, history of chemotherapy induced neutropenia, history of hemolytic anemia, history of splenomegaly, s/p splenectomy, history of secondary polycythemia, history of MSSA infection, history of Pseudomonas infection, presents with left foot infection. Patient states since last Monday noticed some pain in the left foot. Also noted some swelling. And got progressively worse. He is not able to put any weight on the leg. He denies any fevers. But having chills. Later in the ER had temp spike. Denies any headache. No dizziness. No runny nose or sore throat. No cough. No chest pain or shortness of breath. No nausea or vomiting. No abdominal pain. Normal bowel and bladder movements. Past medical history. As mentioned above Past surgical history. Bilateral bone marrow aspiration. Colonoscopy. EGD. Femoropopliteal artery revascularization with stent and angioplasty. Laparoscopic splenectomy. Incisional drainage of the left foot. Social history. Quit smoking 2005. Smoked half pack a day for 25 years. No alcohol use. No drug use. Family history. Father had colon cancer. Diabetes. Mother had heart disorder. Brother had thyroid disorder. Principal Diagnosis Sepsis Left heel abscess with calcaneal osteomyelitis IZABELLA on CKD stage III Left leg cellulitis Uncontrolled diabetes mellitus Vitamin D deficiency Vitamin B12 deficiency Discharge Data Allergies Allergy/AdvReac Type Severity Reaction Status Date / Time No Known Allergies Allergy Verified 05/24/22 07:51 Consultations 12/15/23 04:28 ED Decision to Admit Stat 12/15/23 08:00 Consult Orthopedic Surgery Routine 12/15/23 08:36 Consult Podiatry Routine 12/16/23 07:58 Consult Infectious Diseases Routine Procedures Performed Operation Date: 12/15/23 10:05 Actual Procedures p Left Heel Incision and Drainage(Left) - Brian Saez DPM Ordered Studies Laboratory Results WBC 16.05 K/ul (4.8-10.8) H 12/19/23 05:19 RBC 2.32 M/uL (4.70-6.10) L 12/19/23 05:19 Hgb 8.2 g/dl (14.0-18.0) L 12/19/23 05:19 Hct 24.1 % (42.0-52.0) L 12/19/23 05:19 MCV 103.9 fL (80.0-100.0) H 12/19/23 05:19 MCH 35.3 pg (25.0-34.0) H 12/19/23 05:19 MCHC 34.0 g/dL (32.0-36.0) 12/19/23 05:19 RDW Std Deviation 61.0 fL (36.4-46.3) H 12/19/23 05:19 RDW Coeff of Luis Alfredo 16.0 % (11.5-14.5) H 12/19/23 05:19 Plt Count 602 K/uL (130-400) H 12/19/23 05:19 MPV 10.0 fL (9.4-12.4) 12/19/23 05:19 Immature Gran % (Auto) 0.8 % 12/16/23 05:28 Neut % (Auto) 41.8 % 12/16/23 05:28 Lymph % (Auto) 48.7 % 12/16/23 05:28 Day % (Auto) 8.3 % 12/16/23 05:28 Eos % (Auto) 0.1 % 12/16/23 05:28 Baso % (Auto) 0.3 % 12/16/23 05:28 Neut # (Auto) 11.09 K/uL (1.40-6.50) H 12/16/23 05:28 Lymph # (Auto) 12.92 K/uL (1.20-3.40) H 12/16/23 05:28 Day # (Auto) 2.21 K/uL (0.11-0.59) H 12/16/23 05:28 Eos # (Auto) 0.02 K/uL (0.00-0.50) 12/16/23 05:28 Baso # (Auto) 0.08 K/uL (0.00-0.20) 12/16/23 05:28 Immature Gran # (Auto) 0.20 K/uL (0.01-0.20) 12/16/23 05:28 Dohle Bodies 1+ 12/16/23 05:28 Sodium 140 mmol/L (136-145) 12/19/23 05:19 Potassium 4.7 mmol/L (3.5-5.1) 12/19/23 05:19 Chloride 101 mmol/L (98-107) 12/19/23 05:19 Carbon Dioxide 31 mmol/L (21-32) 12/19/23 05:19 Anion Gap 8 (3-11) 12/19/23 05:19 BUN 26 mg/dl (6-23) H 12/19/23 05:19 Creatinine 1.20 mg/dl (0.6-1.4) 12/19/23 05:19 Est Cr Clr Drug Dosing 78.7 ml/min 12/19/23 05:19 Est GFR ( Amer) 74.1 ml/min 12/19/23 05:19 Est GFR (Non-Af Amer) 64.0 ml/min 12/19/23 05:19 BUN/Creatinine Ratio 21.7 (10-20) H 12/19/23 05:19 Glucose 135 mg/dl (70-99(Fasting)) H 12/19/23 05:19 POC Glucose 138 mg/dl (70-99) H 12/19/23 12:03 Estimat Average Glucose 217 mg/dl 12/16/23 05:28 Hemoglobin A1c 9.2 % (4.5-5.6) H 12/16/23 05:28 Lactate 1.3 mmol/L (0.4-2.0) 12/15/23 02:53 Calcium 9.2 mg/dl (8.6-10.3) 12/19/23 05:19 Phosphorus 3.1 mg/dl (2.5-4.9) 12/18/23 05:18 Magnesium 1.8 mg/dl (1.7-2.4) 12/19/23 05:19 Iron 110 mcg/dl (35-175) 12/17/23 07:21 TIBC 179 mcg/dl (250-450) L 12/17/23 07:21 Unsaturated IBC 69 mcg/dl (155-355) L 12/17/23 07:21 Transferrin % Sat 61 % (20-50) H 12/17/23 07:21 Ferritin 674.0 ng/ml (8-388) H 12/17/23 07:21 Total Bilirubin 0.5 mg/dl (0.2-1.0) 12/15/23 01:52 Direct Bilirubin 0.1 mg/dl (0-0.2) 12/15/23 01:52 AST 11 U/L (13-39) L 12/15/23 01:52 ALT 12 U/L (7-52) 12/15/23 01:52 Alkaline Phosphatase 84 U/L (34-104) 12/15/23 01:52 Troponin I High Sens 7.9 pg/ml (0-20) 12/15/23 01:52 C-Reactive Protein 12.33 mg/dl (0-0.5) H 12/18/23 05:18 Total Protein 6.0 gm/dl (6.0-8.3) 12/15/23 01:52 Albumin 3.7 gm/dl (3.4-5.0) 12/15/23 01:52 Vitamin B12 158 pg/ml (180-914) L 12/15/23 02:53 25-OH Vitamin D Total 23.9 ng/ml (30-100) L 12/17/23 07:21 Folate > 22.30 ng/ml (>5.38) 12/15/23 02:53 Procalcitonin 1.07 ng/ml (0-0.5) H 12/15/23 01:52 Nasal Screen MRSA (PCR) Negative (Negative) 12/15/23 14:37 Impressions Chest X-Ray 12/15/23 02:11 XR chest 1V portable HISTORY: Sepsis COMPARISON: Chest 06/16/2021. FINDINGS: The cardiac silhouette is mildly enlarged. There are calcifications within the aortic knob. No pneumothorax. No pleural effusions. No evidence for pulmonary edema. The right lung is clear. Small focal density within the left lateral lung base. IMPRESSION: 1. Mild cardiomegaly. 2. Small focal density within the left lateral lung base. This may represent atelectasis. A small focus of inflammatory/infectious change is not excluded. ACT 112: Negative or not required by law. Electronically signed by: Kavon Jordan M.D. 12/15/2023 7:[address] 12/15/23 02:11 Exam(s): CT LEFT FOOT With Contrast IV Amt: 92 cc opti 320 EXAM: CT Left Lower Extremity With Intravenous Contrast, Foot CLINICAL HISTORY: Reason for exam: edema, plantar abscess. TECHNIQUE: Axial computed tomography images of the left foot with intravenous contrast. CTDI is 25 mGy and DLP is 565 mGy-cm. Automated exposure control was utilized for the study. A dose lowering technique was utilized adhering to the principles of ALARA. CONTRAST: Patient received 92 cc opti 320 of IV contrast COMPARISON: No relevant prior studies available. FINDINGS: The bones are osteopenic. No acute fracture or dislocation. There appears to have been previous resection of the posterior tuberosity of the calcaneus. There is a small area of erosion of the inferior aspect of the calcaneus. There is an abnormal soft tissue fluid collection in the region of the heel. This measures up to 10.0 x 2.6 x 4.0 cm. This is likely represents an abscess. This appears to extend to the skin surface inferiorly. No foreign body. No soft tissue gas. IMPRESSION: Large abscess in the region of the heel. Electronically signed by: Arley Holden MD 12/15/23 05:16 AM Diabetes Follow up Diabetes Follow-up Needed for HgbA1c >9% Hospital Course (1) Foot abscess, left: Mr. Valentin is a 63-year-old male with past medical history significant for type 2 diabetes, hypothyroidism, hyperlipidemia, diabetic retinopathy, diabetic foot ulcer, peripheral artery disease, chronic constrictive idiopathic pericarditis, pericardial effusion without cardiac tamponade, hypertension, history of osteomyelitis of the left ankle, cellulitis of left lower leg, calcaneal costochondritis, history of CLL, history of chemotherapy induced neutropenia, history of hemolytic anemia, history of splenomegaly, s/p splenectomy, history of secondary polycythemia, history of MSSA infection, history of Pseudomonas infection, who is admitted for sepsis 2/2 left heel abscess. Patient is now s/p I&D performed by Podiatry on 12/14. IZABELLA on CKD III Cr. ~1.0-1.1 Cr 1.7>>1.2 Likely prerenal due to sepsis Monitor BMP Monitor I/Os Resume HCTZ as able Avoid nephrotoxic agents as able Renal function stable Sepsis due to LLE cellulitis/abscess Left heel abscess with calcaneal osteomyelitis Left lower extremity infection s/p left partial calcanectomy Chronic osteomyelitis c/b MSSA and pseudomonas--surgery was 06/26/23 and treated with IV abx, until 08/07 (cefepime therapy) 12/14 wound/fluid cx No pseudomonas on culture, staph species, MSSA Appreciate Podiatry and ID Input -s/p Left Heel Incision and Drainage by Dr. Saez on 12/16/2023 --Wound cultures grew MSSA, Finegoldia magna --Blood cultures negative to date --Appreciate ID input --Pathology pending --Cefepime, daptomycin discontinued Plan to continue cefazolin 2 g IV every 8 until 01/25/2024 Needs weekly CBC, CMP, CRP while on antibiotics PICC line placement requested today Needs follow-up with ID in 3 to 5 weeks Also needs follow-up with podiatry Discussed with infectious disease Dr. Schneider on 12/19/2023 regarding wound cultures growing both MSSA, Peewee razo Recommended to add Flagyl for 500 mg every 8 hours to be continued until 01/25/2024. As per prior provider Diabetic polyneuropathy associated with type 2 diabetes mellitus Hold metformin and Trulicity A1C 9.2 Continue gabapentin Insulin SSI telehealth nurse educator consult Reports Trulicity not working for him at this time Consider low dose insulin basal upon d/c Ensure MTM clinic for follow up and mgmt Patient prefers to follow-up with primary care physician for further management of his diabetes. 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 History of thrombocytosis - no evidence of PNH noted in the flow cytometry. -lymphocytosis noted With absolute lymphocyte count around 4000 - 5000 range. Continue folic acid Add B12 supplementation, continue Trend CBC, EBL ~50cc, CTM H/O Herpes zoster involving left leg, has post herpetic neuralgia Continue Neurontin, continue valacyclovir prophylaxis. Hypothyroidism Continue levothyroxine DVT prophylaxis SCDs for now CODE STATUS Full code Disposition Home Total Time Total Time Spent Total Time Spent (In Minutes): 59 minutes Discharge Plan Discharge Items Patient Disposition: Home - Self-Care Reason For Visit: SEPSIS, LEFT HEEL ABSCESS Discharge Diagnosis: Sepsis Left heel abscess with calcaneal osteomyelitis IZABELLA on CKD stage III Left leg cellulitis Uncontrolled diabetes mellitus Vitamin D deficiency Vitamin B12 deficiency Activity: Per Instructions section Exercise/Sports: Wait until after follow-up appointment Non-emergency contact: Primary Care Provider, Surgeon and Specialist Call non-emergency contact if: you have any medication questions, your symptoms worsen, your pain is concerning for you and you have a fever Follow-up/Referrals: Nara Baron MD [Primary Care Provider] - (Date & Time 12/26/2023 2:00 PM Provider Nara Baron MD Department General Internal Medicine [facility] ) Bhavya Paredes MD [Physician] - (Date & Time 01/23/2024 11:00 AM Provider Bhavya Paredes MD Department Infectious Disease [facility] ) Diet: Carb Consistent or DM2 and Heart Healthy Addtl Attending Provider Instructions: Follow-up with your primary care physician Dr. Baron on 12/26/2023 2:00 PM Follow-up with your infectious disease Dr. Paredes on 01/23/2024 11:00 AM Follow-up with your improvement rn Dr. Saez as recommended -- Your final blood cultures, wound cultures and pathology are pending at the time of discharge. Follow-up with your physician for results. --Complete the antibiotic course IV cefazolin 2 g IV every 8H and metronidazole 500 mg Q8H until 01/25/2024 as recommended by infectious disease --Discuss with your primary care physician for further adjustment of your medications to manage her diabetes mellitus. --Continue wound care care left heel as recommended by your improvement rn Seek immediate medical attention if your symptoms reoccur or worsen Please take all medications as instructed on discharge list below. Please call if you have any questions or problems. You can reach a [facility] hospitalist on duty at [facility] 24 hours a day by calling [phone] Pending Studies at Discharge: Yes Studies:: Blood, wound cultures, pathology Stand-Alone Forms: My [facility], Smoking Cessation Medications and DC Order Prescriptions: New cyanocobalamin (vitamin B-12) 500 mcg Tablet 1,000 mcg PO QAM Qty: 30 0RF Caltrate 600-D Plus Minerals 600 mg calcium- 800 unit-50 mg Tablet 1 tab PO BID Qty: 60 0RF cefazolin 2 gram recon soln 2 g IV Q8H Qty: 1 0RF metronidazole 500 mg tablet 500 mg PO Q8H 38 Days Qty: 114 0RF Continued metformin 500 mg tablet 1,000 mg PO BID valacyclovir 1 gram tablet 1,000 mg PO DAILY allopurinol 100 mg tablet 100 mg PO DAILY aspirin 81 mg Tablet,Delayed Release (Dr/Ec) 81 mg PO DAILY levothyroxine 150 mcg tablet 150 mcg PO DAILY hydrochlorothiazide 12.5 mg capsule 12.5 mg PO DAILY lisinopril 30 mg tablet 30 mg PO DAILY gabapentin 300 mg capsule 300 mg PO TID folic acid 1 mg tablet 1 mg PO DAILY ezetimibe 10 mg tablet 10 mg PO DAILY Trulicity 0.75 mg/0.5 mL pen injector 0.75 mg SUBCUT WK Discharge Orders: Discharge Order (Routine); Ordered 12/19/23 Ordered By: Matthieu Gomes/Other Patient Handouts: Nutrition for Wound Healing, Managing Type 2 Diabetes, Healthy Meals for Diabetes, Giving IV Antibiotics Dc Admission Data Admit Date/Time: 12/15/23 07:04 Attending Provider: Matthieu Santiago Admit Provider: Daniel Davidson Primary Care Provider: Nara Baron Other Providers: Daniel Davidson; Antonino Singleton; Demetrio Leung; Everett Barlow; Marilia Chew; Storm Perkins; Amanda Myers; Boo Whaley; Qamar Heart; Whitney Ojeda Andrew J.; Qamar Ji; Colby Doherty; James Julian; Teo Rosales; Domingo Jones; Amanda Garcia; Farooq Davenport; Filemon Araiza; Vlad Chan; Shobha Santiago; Mikie Morgan; Michael Tomas; Yuridia Quiroz; Trae Munoz; Toshia Garcia; Brian Saez; Kris Flores; Martell Schneider; Juan A Rose I.; Shane Mcclellan II; Bhavya Paredes; Frankie Magana; Arley Batista.; Christian Vazquez; Romain Meng.; Domingo العلي; [facility] Other Interventions: Discharge Summary Assessment (RN) Last Done: 12/19/23 13:35
== END 2023-12-19 14:42 | disposition home or self-care (01) | DRG 854 ==
LOC: ED 01:12 → EDINP 07:04 → SUATTDRO 07:04 → EDINP 16:51 → 4W 19:35

== ENCOUNTER 2024-01-09 14:34 | Inpatient (IN) ==
--- NOTE | 2024-01-09 14:51 | ED Triage Note ---
Date of Service January 09, 2024 Provider in Triage Author: Radha Calhoun History of Present Illness This patient was briefly evaluated while in triage. An abbreviated physical exam was performed. This patient is a 63-year-old Male who presents to the ED for evaluation told to come by PCP for abnormal bloodwork hx of sepsis from infected left heel has standing labs weekly, and was told today to come in for "low hemoglobin" no symptoms-L/D/weakness +dark stools since left heel surgery Hemoglobin 6.0 on labs done here yesterday Physical Exam GENERAL: NAD, VSS CARDIOVASCULAR: RRR RESPIRATORY: CTA ABDOMEN: BS x 4. Nontender to palpation. Initial orders for labs and / or imaging were placed and patient was placed in the waiting area until a bed is available. Please see further documentation for the full ED course.
[2024-01-09 15:42] LABS: Hematocrit (blood only) 17.4 % (42.0-52.0); Hemoglobin 5.9 g/dl (14.0-18.0); Mean Corpuscular Hemoglobin 34.9 pg (25.0-34.0); Mean Corpuscular Hgb Conc 33.9 g/dL (32.0-36.0); Mean Platelet Volume 10.1 fL (9.4-12.4); Platelet Count 454 K/uL (130-400); RDW Coefficient of Variation 15.9 % (11.5-14.5); RDW Standard Deviation 59.7 fL (36.4-46.3); Red Blood Count 1.69 M/uL (4.70-6.10); White Blood Count 19.07 K/ul (4.8-10.8)
[2024-01-09 15:47] LABS: Anion Gap 10 (3-11); BUN Creatinine Ratio 26.2 (10-20); Blood Urea Nitrogen 38 mg/dl (6-23); Calcium 9.7 mg/dl (8.6-10.3); Carbon Dioxide 24 mmol/L (21-32); Chloride 103 mmol/L (98-107); Creatinine Clr Calc Pharmacy 64.9 ml/min; Est GFR (Non-African American) 50.9 ml/min; Glucose 228 mg/dl (70-99(Fasting)); Potassium 4.3 mmol/L (3.5-5.1); Sodium 137 mmol/L (136-145)
[2024-01-09] MEDS ORDERED: SODIUM CHLORIDE 0.9% 250 ML IV PRN (15:51)
[2024-01-09 15:53] LABS: Alanine Aminotransferase < 3 U/L (7-52); Albumin Globulin Ratio 1.5 (0.9-2); Albumin Level 3.7 gm/dl (3.4-5.0); Alkaline Phosphatase 58 U/L (34-104); Aspartate Aminotransferase 9 U/L (13-39); Bilirubin,Total 0.2 mg/dl (0.2-1.0); Globulin 2.4 gm/dl (2.5-4.0); Total Protein 6.1 gm/dl (6.0-8.3)
[2024-01-09] MEDS: metroNIDAZOLE 500 MG TAB PO STA (15:55)
[2024-01-09] MEDS: ceFAZolin 2000MG 2,000 MG/15 ML SYR IV STA (15:56)
[2024-01-09 15:58] LABS: Partial Thromboplastin Time 28 Seconds (21-31); Prothrombin Time 10.6 Seconds (9.0-12.0)
[2024-01-09 16:11] LABS: Basophils # (auto) 0.07 K/uL (0.00-0.20); Basophils % (auto) 0.4 %; Eosinophils # (auto) 0.09 K/uL (0.00-0.50); Eosinophils % (auto) 0.5 %; Hypochromasia Present; Immature Granulocytes # (auto) 0.18 K/uL (0.01-0.20); Immature Granulocytes % (auto) 0.9 %; Lymphocytes # (auto) 10.99 K/uL (1.20-3.40); Lymphocytes % (auto) 57.6 %; Monocytes % (auto) 5.8 %; Neutrophils # (auto) 6.64 K/uL (1.40-6.50); Neutrophils % (auto) 34.8 %; Polychromasia 1+; Target Cells 1+
--- NOTE | 2024-01-09 16:35 | Electrocardiogram Report ---
Test Reason : Blood Pressure : / mmHG Vent. Rate : 090 BPM Atrial Rate : 090 BPM P-R Int : 134 ms QRS Dur : 074 ms QT Int : 344 ms P-R-T Axes : 072 045 014 degrees QTc Int : 420 ms Normal sinus rhythm Low voltage QRS Borderline ECG When compared with ECG of 15-DEC-2023 03:37, No significant change was found Confirmed by Ferny Cedillo ([id number]) on 01/09/2024 4:35:10 PM Referred By: Confirmed By:Ferny Cedillo
--- NOTE | 2024-01-09 16:48 | History & Physical Report ---
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 ~1.0-1.1 Cr 1.45 Hold HCTZ, lisinopril Avoid nephrotoxic agents as able Renal function stable IV fluids as above Left heel abscess with calcaneal osteomyelitis Left lower extremity infection s/p left partial calcanectomy Chronic osteomyelitis c/b MSSA and pseudomonas 12/14 wound/fluid cx No pseudomonas on culture, staph species, MSSA -S/P Left Heel Incision and Drainage by Dr. Saez on 12/16/2023 --Was evaluated by podiatry and ID last admission --Wound cultures from 12/15/23 grew MSSA, Finegoldia magna Continue cefazolin 2 g IV Q8H and Flagyl until 01/25/2024 as recommended by ID last admission Given erythema, left lower extremity swelling, will obtain Dopplers to rule out DVT DM II Diabetic polyneuropathy Hold metformin and Trulicity Last A1C 9.2 Continue gabapentin Insulin SSI, Lantus per protocol Monitor BGs PAD s/p angiogram with revascularization by 2020 (left leg done in 06/2021 and right leg done in 09/2020); no OP report available 1 yr DUSTIN and LLE arterial duplex or sooner prn Continue aspirin 81 mg daily for atherosclerosis H/O Statin intolerant HTN Hold HCTZ, lisinopril for now Monitor BP Gout Continue allopurinol H/O CLL s/p splenectomy diagnosed in July,, underwent splenectomy in July, Significant reticulocytopenia in July, 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 H/O Thrombocytosis - no evidence of PNH noted in the flow cytometry. May benefit from following up with hematology as outpatient on discharge H/O Herpes zoster involving left leg, has post herpetic neuralgia Continue Neurontin, valacyclovir prophylaxis. Hypothyroidism Continue levothyroxine DVT prophylaxis SCDs Re: Melena CODE STATUS Full code History of Present Illness Chief Complaint: Melena Primary Care Provider: Nara Baron MD Patient is a 63-year-old male with history of CLL, diabetes mellitus, hypothyroidism, hyperlipidemia, diabetic retinopathy, diabetic foot ulcer, peripheral artery disease, chronic constrictive idiopathic pericarditis, hypertension, H/O osteomyelitis left ankle, hemolytic anemia, polycythemia, GERD and other medical problems presents for evaluation of low hemoglobin. Patient was recently discharged from [facility] after being treated for sepsis secondary to left heel abscess with calcaneal osteomyelitis and IZABELLA presents with history of black stools. Patient had outpatient blood work which showed low hemoglobin and as recommendations by his PCP he was sent to ED for further evaluation. Patient is on aspirin for peripheral vascular disease but otherwise not on any blood thinners. He reports having black stools since 1 week duration. He denies any recent NSAID use. He denies any bright red blood per rectum. Also denies any prior GI bleeding issues in the past. States having some bloating sensation in his abdomen but otherwise no significant pain. Admits to have some dyspnea on exertion lately. Denies any history of chest pain, dyspnea at rest, palpitations, dizziness, diaphoresis, cough, fever, chills, headache, weakness, nausea, vomiting, diarrhea,change in appetite, dysuria, hematuria, recent change in medications. Allergies Allergy/AdvReac Type Severity Reaction Status Date / Time No Known Allergies Allergy Verified 01/09/24 17:45 Home Medications Medication Instructions Recorded Confirmed Type allopurinol 100 mg tablet 100 mg PO DAILY 12/15/23 01/09/24 History aspirin 81 mg tablet,delayed 81 mg PO DAILY 12/15/23 01/09/24 History release dulaglutide 0.75 mg/0.5 mL 0.75 mg subcut WK 12/15/23 01/09/24 [facility] ezetimibe 10 mg tablet 10 mg PO DAILY 12/15/23 01/09/24 History folic acid 1 mg tablet 1 mg PO DAILY 12/15/23 01/09/24 History gabapentin 300 mg capsule 300 mg PO TID 12/15/23 01/09/24 History hydrochlorothiazide 12.5 mg capsule 12.5 mg PO DAILY 12/15/23 01/09/24 History levothyroxine 150 mcg tablet 150 mcg PO DAILY 12/15/23 01/09/24 History lisinopril 30 mg tablet 30 mg PO DAILY 12/15/23 01/09/24 History metformin 500 mg tablet 1,000 mg PO BID 12/15/23 01/09/24 History valacyclovir 1 gram tablet 1,000 mg PO DAILY 12/15/23 01/09/24 History calcium 600 mg-D3 800 unit-mag11 1 tab PO BID #60 tabs 12/19/23 01/09/24 Rx 50 ug-ahzh-jywssm-genaro-s.borat tablet (Caltrate 600-D Plus Minerals) cefazolin 2 gram solution for 2 g IV Q8H #1 ea 12/19/23 01/09/24 Rx injection cyanocobalamin (vitamin B-12) 500 1,000 mcg (2 x 500 mcg) PO QAM #30 12/19/23 01/09/24 Rx mcg tablet tabs metronidazole 500 mg tablet 500 mg PO Q8H 38 days #114 tabs 12/19/23 01/09/24 Rx cyanocobalamin (vitamin B-12) 1,000 mcg IM DIRECTED 01/09/24 01/09/24 History 1,000 mcg/mL injection solution Past Med/Surg History Problem List (Updated 01/09/24 @ 17:59 by Matthieu Santiago MD) Melena Bacterial septicemia Hypomagnesemia (Acute) Abscess of left foot (Acute) Foot abscess, left Acute pain of left foot (Acute) Diabetic foot ulcer with osteomyelitis Chronic osteomyelitis of left foot (Chronic) Encounter for pre-operative examination Dyslipidemia (Chronic) Dyspnea (Acute) Chest pain (Acute) HTN (hypertension) (Chronic) Splenomegaly (Acute) CLL (chronic lymphocytic leukemia) (Chronic) Pancytopenia Anemia DM type 2 (diabetes mellitus, type 2) (Chronic) Chemotherapy induced neutropenia (Chronic) Obesity (BMI 30-39.9) (Chronic) Hypothyroidism (Chronic) Benign neoplasm of colon (Chronic) "villous" H/O colonoscopy with polypectomy (Chronic) Anemia (Acute) Pericarditis Severe anemia (Acute) Diabetic ulcer of left foot (Acute) Acute osteomyelitis (Acute) PAD (peripheral artery disease) (Acute) Medical History CKD (chronic kidney disease) per records Osteomyelitis PICC (peripherally inserted central catheter) in place Diabetic ulcer of left foot PAD (peripheral artery disease) Successful angioplasty of proximal/mid left SFA with 2 drug-eluting balloons on 05/07/21- recommend DAPT with ASA and Plavix x 1 month History of anesthesia reaction combative, "i come out of it mean." DM type 2 (diabetes mellitus, type 2) Hypothyroidism CLL (chronic lymphocytic leukemia) Dx'ed 2014; chemo, sx Peripheral neuropathy Anemia HTN (hypertension) Surgical History History of angiography 05/07/21 [facility] - angioplasty of proximal/mid left SFA with 2 drug-eluting balloons (6 x 60 mm, 6 x 150 mm Lutonix). 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- no leukemia or lymphoma noted Family History Other No family history of adverse response to anesthesia Social History Smoking Status: Never smoker Second Hand Exposure: No; Do You Dip or Chew Tobacco: No; Hx Alcohol Use: No Hx Substance Use: No Preferred Language: Kuwaiti Communication Ability: Effective Recruiter Specialist Required: No Beliefs That Will Affect Care: None marital status: Single Current Living Situation: Alone current occupational status: employed current occupation: [employer] How many Children do You have: 0 Feels Safe at Home: Yes Diet: regular caffeine: Yes (pot of coffee every AM) during the past year weight has: decreased > 10 lbs Dental Care, Regularly: No Physical Activity Frequency: 1-2 Times per Week Seatbelt Use: always Assistive Devices: None Review of Systems Review of Systems: All systems reviewed & are unremarkable except as noted in Subjective Physical Exam Physical Exam: Physical Exam: Vitals signs as noted above General Appearance:Obese, no apparent distress Head: normocephalic, Atraumatic Eyes: normal inspection, EOMI Neck: supple, Trachea midline Respiratory/Chest: Normal breath sounds, CTA, No accessory muscle use Cardiovascular: S1, S2, No murmur Abdomen/GI:Soft, Non tender, Bowel sounds present Extremities/Musculoskeletal:normal inspection, LLE edema, mild erythema, +Left Heel in dressing Neurologic/Psych:AAOX3, grossly no focal neurological deficits Skin: normal color, warm Results & Data Results & Data Vital Signs (Past 12 Hours) Vital Signs Temp Pulse Pulse Resp BP BP Pulse Ox 01/09/24 15:31 98 01/09/24 15:31 77 19 120/65 98 01/09/24 15:28 86 01/09/24 14:50 36.5 C 94 H 18 118/68 100 O2 Del Method 01/09/24 15:31 Room Air 01/09/24 15:31 Room Air 01/09/24 15:28 01/09/24 14:50 Room Air Laboratory Results Short CBC 01/09/24 Range/Units 15:15 WBC 19.07 H (4.8-10.8) K/ul Hgb 5.9 L* (14.0-18.0) g/dl Hct 17.4 L* (42.0-52.0) % Plt Count 454 H (130-400) K/uL BMP 01/09/24 15:15 Sodium 137 Potassium 4.3 Chloride 103 Carbon Dioxide 24 BUN 38 H Creatinine 1.45 H Glucose 228 H Calcium 9.7 Liver Function 01/09/24 Range/Units 15:15 Total Bilirubin 0.2 (0.2-1.0) mg/dl AST 9 L (13-39) U/L ALT < 3 L (7-52) U/L Alkaline Phosphatase 58 (34-104) U/L Albumin 3.7 (3.4-5.0) gm/dl
--- NOTE | 2024-01-09 16:49 | Emergency Department Note ---
Impression & Plan Acute blood loss anemia, GIB (gastrointestinal bleeding) ED Provider Note NAME: ELISSA ARANDA AGE: 63 SEX: M : 1960 ARRIVES VIA: Walk-In INFORMANT: Patient, ED PROVIDER(S): Panda Braon MD CHIEF COMPLAINT: Anemia HPI: This is a 63-year-old male with history of recent left foot abscess last surgery/sepsis presenting for low hemoglobin. Patient was told that he had low hemoglobin in the outpatient setting, it was 6. He was advised come to the ER for this. For the past few days/weeks he has noticed that he had black stools when having bowel movements. He denies has been going on since he had recent foot surgery. Currently not on a blood thinners otherwise. Reports no nausea, vomiting, diarrhea. Does note fullness in his abdomen otherwise. ROS: See above HPI for pertinent positives & negatives. A total of 10 systems reviewed and were otherwise negative. PHYSICAL EXAMINATION: General: resting comfortably in no acute distress Head: Normocephalic and atraumatic Eyes: Normal inspection, extraocular muscles intact Ear, nose, throat: Normal external exam Neck: Normal range of motion Respiratory: lungs clear to auscultation bilaterally Cardiovascular: Regular rate/rhythm, no murmur GI: soft, nontender, no guarding or rebound Extremities: nontender, moves all extremities Neuro: The patient awake and alert, appropriately conversive, no focal deficits, symmetric faces Skin: Warm, dry, and intact MEDICAL DECISION MAKING: This is a 63-year-old male presenting for low hemoglobin. -Patient is clinically well, is in no acute distress. -Block is reviewed showing a leukocytosis 19.07, likely consistent with patient's infection. He otherwise has a hemoglobin of 5.9. His electrolytes are otherwise within normal limits. Creatinine 1.45. -Will give patient his units of blood at this time. -He has no stool on rectal exam for Hemoccult testing -Patient require admission for his elevated leukocytosis, anemia and GI bleed requiring scoping. Will give Protonix at this time. Differential diagnosis: Upper or lower GI bleed, but infection, gastric ulcer ER treatment provided: See below Diagnostics interpreted by me: ECG: ECG independently interpreted by me with normal sinus rhythm, rate of 90, normal axis, normal ME, normal QRS, normal QTc, no ST segment elevations consistent with STEMI criteria Cardiac Monitoring: An order was placed for continuous cardiac monitoring. The monitor shows a rate of 62 with sinus rhythm. Laboratory studies: As stated above and show below. Imaging studies: See below. Past Med/Surg History Problem List (Updated 01/09/24 @ 22:02 by Panda Baron MD) GIB (gastrointestinal bleeding) (Acute) Acute blood loss anemia (Acute) Melena Bacterial septicemia Hypomagnesemia (Acute) Abscess of left foot (Acute) Foot abscess, left Acute pain of left foot (Acute) Diabetic foot ulcer with osteomyelitis Chronic osteomyelitis of left foot (Chronic) Encounter for pre-operative examination Dyslipidemia (Chronic) Dyspnea (Acute) Chest pain (Acute) HTN (hypertension) (Chronic) Splenomegaly (Acute) CLL (chronic lymphocytic leukemia) (Chronic) Pancytopenia Anemia DM type 2 (diabetes mellitus, type 2) (Chronic) Chemotherapy induced neutropenia (Chronic) Obesity (BMI 30-39.9) (Chronic) Hypothyroidism (Chronic) Benign neoplasm of colon (Chronic) "villous" H/O colonoscopy with polypectomy (Chronic) Anemia (Acute) Pericarditis Severe anemia (Acute) Diabetic ulcer of left foot (Acute) Acute osteomyelitis (Acute) PAD (peripheral artery disease) (Acute) Medical History CKD (chronic kidney disease) per records Osteomyelitis PICC (peripherally inserted central catheter) in place Diabetic ulcer of left foot PAD (peripheral artery disease) Successful angioplasty of proximal/mid left SFA with 2 drug-eluting balloons on 05/07/21- recommend DAPT with ASA and Plavix x 1 month History of anesthesia reaction combative, "i come out of it mean." DM type 2 (diabetes mellitus, type 2) Hypothyroidism CLL (chronic lymphocytic leukemia) Dx'ed 2014; chemo, sx Peripheral neuropathy Anemia HTN (hypertension) Surgical History History of angiography 05/07/21 [facility] - angioplasty of proximal/mid left SFA with 2 drug-eluting balloons (6 x 60 mm, 6 x 150 mm Lutonix). 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- no leukemia or lymphoma noted Family History Other No family history of adverse response to anesthesia Social History Smoking Status: Never smoker Second Hand Exposure: No; Do You Dip or Chew Tobacco: No; Hx Alcohol Use: No Hx Substance Use: No Preferred Language: Zimbabwean Communication Ability: Effective Trauma Nurse Required: No Beliefs That Will Affect Care: None marital status: Single Current Living Situation: Alone current occupational status: employed current occupation: [employer] How many Children do You have: 0 Feels Safe at Home: Yes Diet: regular caffeine: Yes (pot of coffee every AM) during the past year weight has: decreased > 10 lbs Dental Care, Regularly: No Physical Activity Frequency: 1-2 Times per Week Seatbelt Use: always Assistive Devices: None Allergies Allergies Allergy/AdvReac Type Severity Reaction Status Date / Time No Known Allergies Allergy Verified 01/09/24 17:45 Home Meds Home Medications Medication Instructions Recorded Confirmed allopurinol 100 mg tablet 100 mg PO DAILY 12/15/23 01/09/24 aspirin 81 mg tablet,delayed 81 mg PO DAILY 12/15/23 01/09/24 release dulaglutide 0.75 mg/0.5 mL 0.75 mg subcut WK 12/15/23 01/09/24 subcutaneous pen injector (Fabrice) ezetimibe 10 mg tablet 10 mg PO DAILY 12/15/23 01/09/24 folic acid 1 mg tablet 1 mg PO DAILY 12/15/23 01/09/24 gabapentin 300 mg capsule 300 mg PO TID 12/15/23 01/09/24 hydrochlorothiazide 12.5 mg capsule 12.5 mg PO DAILY 12/15/23 01/09/24 levothyroxine 150 mcg tablet 150 mcg PO DAILY 12/15/23 01/09/24 lisinopril 30 mg tablet 30 mg PO DAILY 12/15/23 01/09/24 metformin 500 mg tablet 1,000 mg PO BID 12/15/23 01/09/24 valacyclovir 1 gram tablet 1,000 mg PO DAILY 12/15/23 01/09/24 cyanocobalamin (vitamin B-12) 1,000 mcg IM DIRECTED 01/09/24 01/09/24 1,000 mcg/mL injection solution Previous Rx's Medication Instructions Recorded calcium 600 mg-D3 800 unit-mag11 1 tab PO BID #60 tabs 12/19/23 50 ub-gjbm-itnadg-genaro-s.borat tablet (Caltrate 600-D Plus Minerals) cefazolin 2 gram solution for 2 g IV Q8H #1 ea 12/19/23 injection cyanocobalamin (vitamin B-12) 500 1,000 mcg (2 x 500 mcg) PO QAM #30 12/19/23 mcg tablet tabs metronidazole 500 mg tablet 500 mg PO Q8H 38 days #114 tabs 12/19/23 Results & Data (ED) Vital Signs Vital Signs - 24 hr 01/09/24 14:50 01/09/24 15:28 01/09/24 15:31 Temperature 36.5 C Temperature Source Temporal Artery Scan Pulse Rate 94 H 86 Pulse Rate [Apical] 77 Pulse Rhythm Regular Pulse Strength Normal Respiratory Rate 18 19 Respiratory Effort / Characteristics Non-Labored Spontaneous Respiratory Depth Normal Respiratory Pattern Regular Blood Pressure 118/68 Blood Pressure [Left Arm] 120/65 Blood Pressure Mean 84 Blood Pressure Mean [Left Arm] 83 Blood Pressure Position Sitting Pulse Oximetry 100 98 Oxygen Delivery Method Room Air Room Air Sepsis Recent Fever Within 48 Hours No Sepsis New/Unexplained Change in Mental Status No Sepsis Action Taken by Nursing No Action Required 01/09/24 15:31 Temperature Temperature Source Pulse Rate Pulse Rate [Apical] Pulse Rhythm Pulse Strength Respiratory Rate Respiratory Effort / Characteristics Respiratory Depth Respiratory Pattern Blood Pressure Blood Pressure [Left Arm] Blood Pressure Mean Blood Pressure Mean [Left Arm] Blood Pressure Position Pulse Oximetry 98 Oxygen Delivery Method Room Air Sepsis Recent Fever Within 48 Hours Sepsis New/Unexplained Change in Mental Status Sepsis Action Taken by Nursing Laboratory Data 01/09/24 15:15 01/09/24 15:15 Lab Results 01/09/24 01/09/24 Range/Units 15:15 15:16 WBC 19.07 H (4.8-10.8) K/ul RBC 1.69 L (4.70-6.10) M/uL Hgb 5.9 L* (14.0-18.0) g/dl Hct 17.4 L* (42.0-52.0) % MCV 103.0 H (80.0-100.0) fL MCH 34.9 H (25.0-34.0) pg MCHC 33.9 (32.0-36.0) g/dL RDW Std Deviation 59.7 H (36.4-46.3) fL RDW Coeff of Luis Alfredo 15.9 H (11.5-14.5) % Plt Count 454 H (130-400) K/uL MPV 10.1 (9.4-12.4) fL Immature Gran % (Auto) 0.9 % Neut % (Auto) 34.8 % Lymph % (Auto) 57.6 % Hinds % (Auto) 5.8 % Eos % (Auto) 0.5 % Baso % (Auto) 0.4 % Neut # (Auto) 6.64 H (1.40-6.50) K/uL Lymph # (Auto) 10.99 H (1.20-3.40) K/uL Hinds # (Auto) 1.10 H (0.11-0.59) K/uL Eos # (Auto) 0.09 (0.00-0.50) K/uL Baso # (Auto) 0.07 (0.00-0.20) K/uL Immature Gran # (Auto) 0.18 (0.01-0.20) K/uL Polychromasia 1+ Hypochromasia Present Target Cells 1+ PT 10.6 (9.0-12.0) Seconds INR 1.0 (0.9-1.1) APTT 28 (21-31) Seconds PTT Ratio 1.0 Sodium 137 (136-145) mmol/L Potassium 4.3 (3.5-5.1) mmol/L Chloride 103 (98-107) mmol/L Carbon Dioxide 24 (21-32) mmol/L Anion Gap 10 (3-11) BUN 38 H (6-23) mg/dl Creatinine 1.45 H (0.6-1.4) mg/dl Est Cr Clr Drug Dosing 64.9 ml/min Est GFR ( Amer) 59.0 ml/min Est GFR (Non-Af Amer) 50.9 ml/min BUN/Creatinine Ratio 26.2 H (10-20) Glucose 228 H (70-99(Fasting)) mg/dl Calcium 9.7 (8.6-10.3) mg/dl Total Bilirubin 0.2 (0.2-1.0) mg/dl AST 9 L (13-39) U/L ALT < 3 L (7-52) U/L Alkaline Phosphatase 58 (34-104) U/L Total Protein 6.1 (6.0-8.3) gm/dl Albumin 3.7 (3.4-5.0) gm/dl Globulin 2.4 L (2.5-4.0) gm/dl Albumin/Globulin Ratio 1.5 (0.9-2) Blood Type O Positive Antibody Screen NEGATIVE Crossmatch See Detail Administered Medications Pantoprazole Sodium 40 mg/ (Dextrose) 100 mls @ 20 mls/hr IV Q5H REBEL Stop: 02/08/24 19:14 Last Admin: 01/09/24 20:09 Dose: 8 mg/hr, 20 mls/hr Documented By: ARIANNE Lactated Ringer's (Lr) 1,000 mls @ 80 mls/hr IV .[id number] REBEL Stop: 02/08/24 18:59 Last Admin: 01/09/24 19:47 Dose: 80 mls/hr Documented By: ARIANNE Insulin Aspart (Insulin Aspart Per Unit Charge) 0 units SC Q6 REBEL Stop: 02/08/24 19:14 Last Admin: 01/09/24 19:35 Dose: Not Given Documented By: ARIANNE Co-signed By: TAMMIE Discontinued Medications Cefazolin Sodium (Ancef 2000mg) 2,000 mg in 15 mls @ 3.75 mls/min IV NOW STA Stop: 01/09/24 15:53 Last Admin: 01/09/24 15:56 Dose: 3.75 mls/min Documented By: ARIANNE Pantoprazole Sodium 40 mg/ (Syringe) 10 mls @ 5 mls/min IV NOW ONE Stop: 01/09/24 16:51 Last Admin: 01/09/24 17:02 Dose: 5 mls/min Documented By: ARIANNE Pantoprazole Sodium 80 mg/ (Dextrose) 120 mls @ 480 mls/hr IV NOW ONE Stop: 01/09/24 19:14 Last Infusion: 01/09/24 20:23 Dose: Infused Documented By: Admin: 01/09/24 19:47 Dose: 480 mls/hr Documented By: ARIANNE Insulin Glargine (Lantus Per Unit Charge) 10 units SQ ONE ONE Stop: 01/09/24 19:16 Last Admin: 01/09/24 20:09 Dose: 10 units Documented By: ARIANNE Co-signed By: ANJU Metronidazole (Metronidazole 500 Mg Tab) 500 mg PO NOW STA; Protocol Stop: 01/09/24 15:49 Last Admin: 01/09/24 15:55 Dose: 500 mg Documented By: ARIANNE Discharge Plan Visit Data Chief Complaint: Referred by Doctor Stated Complaint: LOW HEMOGLOBIN ED Provider: Panda Baron Discharge Problem: Acute blood loss anemia, GIB (gastrointestinal bleeding) Patient Disposition: Admitted As Inpatient Discharge Instructions Interventions: ED Discharge Assessment Last Done: 01/09/24 18:37
[2024-01-09] MEDS: PANTOprazole 40 MG in SYRINGE 0 ML IV ONE (17:02)
[2024-01-09] MEDS ORDERED: ONDANSETRON INJ 2 MG/ML 2 ML VIAL IV PRN (18:36)
[2024-01-09] MEDS ORDERED: PANTOPRAZOLE BOLUS/DRIP IV ONE (18:36)
[2024-01-09] MEDS ORDERED: GLUCAGON FOR INJ 1 MG VIAL SQ PRN (18:36)
[2024-01-09] MEDS ORDERED: CEFAZOLIN 2 GM IV SCH (18:36)
[2024-01-09] MEDS ORDERED: ACETAMINOPHEN 325 MG TAB PO PRN (18:36)
[2024-01-09] MEDS ORDERED: CARBOHYDRATES FOR HYPOGLYCEMIA PO PRN (18:36)
[2024-01-09] MEDS ORDERED: DEXTROSE 50% 50 ML SYRINGE IV PRN (18:36)
[2024-01-09] MEDS ORDERED: GLUCOSE 40% GEL 15 GM TUBE PO PRN (18:36)
[2024-01-09] MEDS ORDERED: POLYETHYLENE (MIRALAX) 17 GM PACK PO PRN (18:36)
[2024-01-09] MEDS ORDERED: GLUCOSE 10 TAB/TUBE PO PRN (18:36)
[2024-01-09] MEDS ORDERED: PHARMACY GLYCEMIC MGMT CONSULT PRN (18:36)
[2024-01-09] MEDS: INSULIN ASPART PER UNIT CHARGE SC SCH (19:35)
[2024-01-09] MEDS: PANTOprazole 80 MG in DEXTROSE 5% 100 ML IV ONE (19:47)
[2024-01-09] MEDS: LACTATED RINGER'S 1,000 ML IV SCH (19:47)
[2024-01-09] MEDS: PANTOprazole 40 MG in DEXTROSE 5% MINI-B 100 ML IV SCH (20:09)
[2024-01-09] MEDS: LANTUS PER UNIT CHARGE SQ ONE (20:09)
[2024-01-09] MEDS: GABAPENTIN 300 MG CAP PO SCH (22:06)
[2024-01-10] MEDS: ceFAZolin 2000MG 2,000 MG/15 ML SYR IV SCH (00:16)
[2024-01-10] MEDS: metroNIDAZOLE 500 MG/100 ML BAG IV SCH (00:17)
[2024-01-10 00:26] LABS: Hemoglobin 6.5 g/dl (14.0-18.0)
[2024-01-10] MEDS: LEVOTHYROXINE SODIUM 150 MCG TABLET PO SCH (06:01)
--- NOTE | 2024-01-10 06:49 | Ultrasound Report ---
BILATERAL LOWER EXTREMITY VENOUS DOPPLER HISTORY: Leg swelling, R/O DVT COMPARISON STUDY: None. FINDINGS: There is normal compressibility, flow, and augmentation within the bilateral lower extremit y deep venous systems. IMPRESSION: No DVT within the right or left lower extremity. ACT 112: Negative or not required by law. Electronically signed by: Kavon Jordan M.D. 01/10/2024 6:46 AM
[2024-01-10 06:56] LABS: Hematocrit (blood only) 22.3 % (42.0-52.0); Hemoglobin 7.8 g/dl (14.0-18.0); Mean Corpuscular Hemoglobin 33.8 pg (25.0-34.0); Mean Corpuscular Volume 96.5 fL (80.0-100.0); Platelet Count 377 K/uL (130-400); RDW Coefficient of Variation 17.4 % (11.5-14.5); RDW Standard Deviation 60.1 fL (36.4-46.3); Red Blood Count 2.31 M/uL (4.70-6.10)
[2024-01-10 07:20] LABS: Est GFR (African American) 74.9 ml/min; Est GFR (Non-African American) 64.6 ml/min; Potassium 4.3 mmol/L (3.5-5.1)
[2024-01-10 07:21] LABS: BUN Creatinine Ratio 21.8 (10-20); Calcium 8.9 mg/dl (8.6-10.3); Creatinine Clr Calc Pharmacy 79.1 ml/min; Magnesium 1.5 mg/dl (1.7-2.4)
[2024-01-10 07:22] LABS: Basophils # (auto) 0.05 K/uL (0.00-0.20); Basophils % (auto) 0.3 %; Eosinophils # (auto) 0.03 K/uL (0.00-0.50); Eosinophils % (auto) 0.2 %; Immature Granulocytes # (auto) 0.17 K/uL (0.01-0.20); Immature Granulocytes % (auto) 1.1 %; Lymphocytes # (auto) 9.71 K/uL (1.20-3.40); Lymphocytes % (auto) 64.7 %; Monocytes # (auto) 0.94 K/uL (0.11-0.59); Monocytes % (auto) 6.3 %; Neutrophils % (auto) 27.4 %; Polychromasia 1+; Target Cells 1+
[2024-01-10] MEDS: valACYclovir HCL 500 MG TABLET PO SCH (08:58)
[2024-01-10] MEDS: CYANOCOBALAMIN (B-12) 500 MCG TABLET PO SCH (08:58)
[2024-01-10] MEDS: allopurinoL 100 MG TAB PO SCH (08:58)
[2024-01-10] MEDS: FOLIC ACID 1 MG TAB PO SCH (08:58)
--- NOTE | 2024-01-10 09:19 | Gastrointestinal Consultation ---
Date of Consultation January 10, 2024 Assessment & Plan (1) Melena: Patient is a 63 year old male with a reported 1 week history of melena. He presented to the ED with a hgb of 6. This improved with 2 units of PRBC and hgb improved to 7.8. He is NPO. - set up EGD today to further evaluate melena. - follow hgb/hct, transfuse as needed. - continue with PPI drip. Supervising Physician Co-Signing Physician Notes Agree with GUIDO Ashley as above Interviewed and examined patient and agree with above Abd: Soft, NT, ND, +BS Continue current therapy and supportive care. Proceed with EGD today History of Present Illness Reason for Consultation: melena Requesting Physician: Matthieu Santiago MD Attending Physician: Stephanie Jolley MD History of Present Illness Patient is a 63 year old male with history of CLL, diabetes mellitus, hypothyroidism, hyperlipidemia, diabetic retinopathy, diabetic foot ulcer, peripheral artery disease, chronic constrictive idiopathic pericarditis, hypertension, osteomyelitis left ankle, hemolytic anemia, polycythemia, GERD and other medical problems presents for evaluation of low hemoglobin. Patient was recently discharged from [facility] after being treated for sepsis secondary to left heel abscess with calcaneal osteomyelitis and IZABELLA. Patient had outpatient blood work which showed low hemoglobin and as recommendations by his PCP he was sent to ED for further evaluation. Patient is on aspirin for peripheral vascular disease but otherwise not on any blood thinners. he admits to rare nsaid use. He reports having black stools since 1 week duration. He moves bowels once daily. no brbpr. 01/08/24 hgb 6 01/09/24 hgb 5.9 He was given 2 units of prbc and hgb improved to 7.8 today. previous colonoscopy and egd were done through [facility] 3 years ago per patient. he tells me other than colon polyps there were unremarkable. I do not have these records. Allergies Allergy/AdvReac Type Severity Reaction Status Date / Time No Known Allergies Allergy Verified 01/09/24 17:45 Home Medications Medication Instructions Recorded Confirmed Type allopurinol 100 mg tablet 100 mg PO DAILY 12/15/23 01/09/24 History aspirin 81 mg tablet,delayed 81 mg PO DAILY 12/15/23 01/09/24 History release dulaglutide 0.75 mg/0.5 mL 0.75 mg subcut WK 12/15/23 01/09/24 History subcutaneous pen injector (Trulicity) ezetimibe 10 mg tablet 10 mg PO DAILY 12/15/23 01/09/24 History folic acid 1 mg tablet 1 mg PO DAILY 12/15/23 01/09/24 History gabapentin 300 mg capsule 300 mg PO TID 12/15/23 01/09/24 History hydrochlorothiazide 12.5 mg capsule 12.5 mg PO DAILY 12/15/23 01/09/24 History levothyroxine 150 mcg tablet 150 mcg PO DAILY 12/15/23 01/09/24 History lisinopril 30 mg tablet 30 mg PO DAILY 12/15/23 01/09/24 History metformin 500 mg tablet 1,000 mg PO BID 12/15/23 01/09/24 History valacyclovir 1 gram tablet 1,000 mg PO DAILY 12/15/23 01/09/24 History calcium 600 mg-D3 800 unit-mag11 1 tab PO BID #60 tabs 12/19/23 01/09/24 Rx 50 ug-hvqh-axqvhf-genaro-s.borat tablet (Caltrate 600-D Plus Minerals) cefazolin 2 gram solution for 2 g IV Q8H #1 ea 12/19/23 01/09/24 Rx injection cyanocobalamin (vitamin B-12) 500 1,000 mcg (2 x 500 mcg) PO QAM #30 12/19/23 01/09/24 Rx mcg tablet tabs metronidazole 500 mg tablet 500 mg PO Q8H 38 days #114 tabs 12/19/23 01/09/24 Rx cyanocobalamin (vitamin B-12) 1,000 mcg IM DIRECTED 01/09/24 01/09/24 History 1,000 mcg/mL injection solution Patient History Medical History (Updated 01/10/24 @ 09:51 by Domingo Monsalve MD) GIB (gastrointestinal bleeding) Diabetic foot ulcer with osteomyelitis Pancytopenia CKD (chronic kidney disease) per records Osteomyelitis PICC (peripherally inserted central catheter) in place Diabetic ulcer of left foot PAD (peripheral artery disease) Successful angioplasty of proximal/mid left SFA with 2 drug-eluting balloons on 05/07/21- recommend DAPT with ASA and Plavix x 1 month History of anesthesia reaction combative, "i come out of it mean." DM type 2 (diabetes mellitus, type 2) Hypothyroidism CLL (chronic lymphocytic leukemia) Dx'ed 2015; chemo, sx Peripheral neuropathy Anemia HTN (hypertension) Surgical History History of angiography 05/07/21 [facility] - angioplasty of proximal/mid left SFA with 2 drug-eluting balloons (6 x 60 mm, 6 x 150 mm Lutonix). 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- no leukemia or lymphoma noted Family History Other No family history of adverse response to anesthesia Social History Smoking Status: Never smoker Second Hand Exposure: No; Do You Dip or Chew Tobacco: No; Tobacco Cessation Education Requested by Patient: No Hx Alcohol Use: No Hx Substance Use: No Preferred Language: Burmese Communication Ability: Effective Document Photographer Required: No Beliefs That Will Affect Care: None marital status: Single Current Living Situation: Alone current occupational status: employed current occupation: [employer] How many Children do You have: 0 Other Information That Helps Us Care for You: No Feels Safe at Home: Yes Safety Concerns: Feels Safe At This Time Diet: regular caffeine: Yes (pot of coffee every AM) during the past year weight has: decreased > 10 lbs Dental Care, Regularly: No Physical Activity Frequency: 1-2 Times per Week Seatbelt Use: always Assistive Devices: Cane, Crutches and Walker Review of Systems Review of Systems: All systems reviewed & are unremarkable except as noted in HPI & below Physical Exam Constitutional: WD/WN, vitals as above Respiratory: normal respiratory effort, lungs clear to auscultation Cardiovascular: RRR, no murmur, no edema Gastrointestinal (Abdomen): normal bowel sounds, soft, nontender, no hepatosplenomegaly Psychiatric: Orientation: alert and oriented x 3 Affect: euthymic affect Results & Data Vital Signs (Past 12 Hours) Vital Signs Temp Pulse Pulse Resp BP BP Pulse Ox 01/10/24 07:07 58 L 01/10/24 06:02 57 L 15 120/66 97 01/10/24 05:21 64 16 98 01/10/24 04:24 59 L 16 116/58 L 97 01/10/24 04:15 87/63 L 01/10/24 04:15 78 26 H 96 01/10/24 04:00 85/48 L 01/10/24 04:00 56 L 15 98 01/10/24 03:45 84/56 L 01/10/24 03:45 60 15 94 01/10/24 03:39 63 17 99/57 L 96 01/10/24 03:30 64 18 94/54 L 97 01/10/24 03:25 72 19 99/57 L 95 01/10/24 03:03 60 16 95 01/10/24 03:00 91/62 L 01/10/24 02:56 57 L 17 96 01/10/24 02:45 88/56 L 01/10/24 02:45 61 16 97 01/10/24 02:39 57 L 17 88/56 L 96 01/10/24 02:15 112/59 L 01/10/24 02:15 57 L 16 98 01/10/24 02:06 01/10/24 02:00 70 23 119/84 98 01/10/24 01:55 63 22 112/51 L 97 01/10/24 01:45 63 16 01/10/24 01:45 100/52 L 01/10/24 01:39 98.2 F 61 18 113/62 97 01/10/24 01:30 63 17 01/10/24 01:30 113/62 01/10/24 01:15 111/67 01/10/24 01:15 59 L 16 01/10/24 01:09 98.4 F 59 L 19 121/61 97 01/10/24 01:00 64 18 01/10/24 01:00 121/61 01/10/24 00:54 98.1 F 70 19 122/68 98 01/10/24 00:48 98.4 F 62 19 122/68 96 01/10/24 00:45 122/68 01/10/24 00:45 67 26 H 98 01/10/24 00:33 98.4 F 71 16 101/55 L 98 01/10/24 00:30 62 16 01/10/24 00:30 101/55 L 01/10/24 00:15 68 14 01/10/24 00:15 104/58 L 01/10/24 00:00 100/60 01/10/24 00:00 64 18 01/09/24 23:45 66 16 01/09/24 23:45 97/58 L 01/09/24 23:30 64 17 01/09/24 23:30 115/63 01/09/24 23:15 68 15 01/09/24 23:15 106/64 01/09/24 23:01 76 20 01/09/24 23:01 114/58 L 01/09/24 23:00 62 18 01/09/24 22:59 67 01/09/24 22:45 109/68 01/09/24 22:45 81 26 H 01/09/24 22:30 107/63 01/09/24 22:30 62 16 01/09/24 22:15 64 21 01/09/24 22:15 114/63 01/09/24 22:00 122/68 01/09/24 22:00 64 18 01/09/24 21:45 71 19 01/09/24 21:45 123/70 01/09/24 21:30 72 29 H 01/09/24 21:30 125/73 Pulse Ox O2 Del Method O2 Del Method O2 Flow Rate 01/10/24 07:07 01/10/24 06:02 01/10/24 05:21 Room Air 01/10/24 04:24 01/10/24 04:15 01/10/24 04:15 01/10/24 04:00 01/10/24 04:00 01/10/24 03:45 01/10/24 03:45 01/10/24 03:39 01/10/24 03:30 Room Air 01/10/24 03:25 Room Air 01/10/24 03:03 01/10/24 03:00 01/10/24 02:56 01/10/24 02:45 01/10/24 02:45 01/10/24 02:39 01/10/24 02:15 01/10/24 02:15 01/10/24 02:06 97 Room Air 01/10/24 02:00 Room Air 01/10/24 01:55 Room Air 01/10/24 01:45 01/10/24 01:45 01/10/24 01:39 0 05/22/24 01:30 01/10/24 01:30 01/10/24 01:15 01/10/24 01:15 01/10/24 01:09 0 01/10/24 01:00 01/10/24 01:00 01/10/24 00:54 0 01/10/24 00:48 Room Air 01/10/24 00:45 01/10/24 00:45 01/10/24 00:33 01/10/24 00:30 01/10/24 00:30 01/10/24 00:15 01/10/24 00:15 01/10/24 00:00 01/10/24 00:00 01/09/24 23:45 01/09/24 23:45 01/09/24 23:30 01/09/24 23:30 01/09/24 23:15 01/09/24 23:15 01/09/24 23:01 01/09/24 23:01 01/09/24 23:00 01/09/24 22:59 01/09/24 22:45 01/09/24 22:45 01/09/24 22:30 01/09/24 22:30 01/09/24 22:15 01/09/24 22:15 01/09/24 22:00 01/09/24 22:00 01/09/24 21:45 01/09/24 21:45 01/09/24 21:30 01/09/24 21:30 Coding Level of Care Code 67013 IN/OBS CONSULT LVL 4,60M Diagnoses Melena K92.1
--- NOTE | 2024-01-10 09:51 | Hospitalist Progress Note ---
Date of Service January 10, 2024 Assessment & Plan (1) Melena: Plan: Mr. Valentin is a 63-year-old male with past medical history significant for type 2 diabetes, hypothyroidism, hyperlipidemia, diabetic retinopathy, diabetic foot ulcer, peripheral artery disease, chronic constrictive idiopathic pericarditis, pericardial effusion without cardiac tamponade, hypertension, history of osteomyelitis of the left ankle, cellulitis of left lower leg, calcaneal costochondritis, history of CLL, history of chemotherapy induced neutropenia, history of hemolytic anemia, history of splenomegaly, s/p splenectomy, history of secondary polycythemia, history of MSSA infection, history of Pseudomonas infection, who is admitted for acute on chronic anemia. Patient is now s/p I&D performed by Podiatry on 12/14 who was discharged with IV antibiotic for chronic OM. EOT 01/24 Patient discharged home on 12/18, however, noted 1 week of melanotic stool prompting presentation to ED. 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 ~1.0-1.1 Cr 1.45 Hold HCTZ, lisinopril Avoid nephrotoxic agents as able Renal function stable IV fluids as above #Left heel abscess with calcaneal osteomyelitis s/p left partial calcanectomy #Chronic osteomyelitis c/b MSSA and pseudomonas 12/14 wound/fluid cx No pseudomonas on culture, staph species, MSSA -S/P Left Heel Incision and Drainage by Dr. Saez on 12/16/2023 --Was evaluated by podiatry and ID last admission --Wound cultures from 12/15/23 grew MSSA, Finegoldia magna Continue cefazolin 2 g IV Q8H and Flagyl until 01/25/2024 as recommended by ID last admission Given erythema, left lower extremity swelling, prior physician ordered dopplers: negative for DVT #DM II Diabetic polyneuropathy Hold metformin and Trulicity Last A1C 9.2 Continue gabapentin Insulin SSI, Lantus per protocol Monitor BGs #PAD s/p angiogram with revascularization by 2020 (left leg done in 06/2021 and right leg done in 09/2020); no OP report available 1 yr DUSTIN and LLE arterial duplex or sooner prn Continue aspirin 81 mg daily for atherosclerosis H/O Statin intolerant #HTN Hold HCTZ, Resume lisinopril im am Monitor BP Gout Continue allopurinol #H/O CLL s/p splenectomy diagnosed in July,, underwent splenectomy in July, Significant reticulocytopenia in July, 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 H/O Thrombocytosis - no evidence of PNH noted in the flow cytometry. May benefit from following up with hematology as outpatient on discharge #H/O Herpes zoster involving left leg, has post herpetic neuralgia Continue Neurontin, valacyclovir prophylaxis. #Hypothyroidism Continue levothyroxine DVT prophylaxis SCDs Re: Melena CODE STATUS Full code Admission and Anticipated Discharge Date Admission Date: January 09, 2024 Subjective Evaluated post EGD and reports feeling "great" Denies any new concerns and states he is eager for a diet No vomiting of blood or further melena noted Physical Exam Constitutional: WD/WN, vitals as above Respiratory: normal respiratory effort, lungs clear to auscultation Cardiovascular: RRR, no murmur, no edema Gastrointestinal (Abdomen): normal bowel sounds, soft, nontender, no hepatosplenomegaly Skin: left foot with tc bandage in place Results & Data Results & Data Vital Signs (Past 12 Hours) Vital Signs Temp Pulse Pulse Resp BP BP Pulse Ox 01/10/24 07:07 58 L 01/10/24 06:02 57 L 15 120/66 97 01/10/24 05:21 64 16 98 01/10/24 04:24 59 L 16 116/58 L 97 01/10/24 04:15 87/63 L 01/10/24 04:15 78 26 H 96 01/10/24 04:00 85/48 L 01/10/24 04:00 56 L 15 98 01/10/24 03:45 84/56 L 01/10/24 03:45 60 15 94 01/10/24 03:39 63 17 99/57 L 96 01/10/24 03:30 64 18 94/54 L 97 01/10/24 03:25 72 19 99/57 L 95 01/10/24 03:03 60 16 95 01/10/24 03:00 91/62 L 01/10/24 02:56 57 L 17 96 01/10/24 02:45 88/56 L 01/10/24 02:45 61 16 97 01/10/24 02:39 57 L 17 88/56 L 96 01/10/24 02:15 112/59 L 01/10/24 02:15 57 L 16 98 01/10/24 02:06 01/10/24 02:00 70 23 119/84 98 01/10/24 01:55 63 22 112/51 L 97 01/10/24 01:45 63 16 01/10/24 01:45 100/52 L 01/10/24 01:39 36.8 C 61 18 113/62 97 01/10/24 01:30 63 17 01/10/24 01:30 113/62 01/10/24 01:15 111/67 01/10/24 01:15 59 L 16 01/10/24 01:09 36.9 C 59 L 19 121/61 97 01/10/24 01:00 64 18 01/10/24 01:00 121/61 01/10/24 00:54 36.7 C 70 19 122/68 98 01/10/24 00:48 36.9 C 62 19 122/68 96 01/10/24 00:45 122/68 01/10/24 00:45 67 26 H 98 01/10/24 00:33 36.9 C 71 16 101/55 L 98 01/10/24 00:30 62 16 01/10/24 00:30 101/55 L 01/10/24 00:15 68 14 01/10/24 00:15 104/58 L 01/10/24 00:00 100/60 01/10/24 00:00 64 18 01/09/24 23:45 66 16 01/09/24 23:45 97/58 L 01/09/24 23:30 64 17 01/09/24 23:30 115/63 01/09/24 23:15 68 15 01/09/24 23:15 106/64 01/09/24 23:01 76 20 01/09/24 23:01 114/58 L 01/09/24 23:00 62 18 01/09/24 22:59 67 01/09/24 22:45 109/68 01/09/24 22:45 81 26 H 01/09/24 22:30 107/63 01/09/24 22:30 62 16 01/09/24 22:15 64 21 01/09/24 22:15 114/63 01/09/24 22:00 122/68 01/09/24 22:00 64 18 Pulse Ox O2 Del Method O2 Del Method O2 Flow Rate 01/10/24 07:07 01/10/24 06:02 01/10/24 05:21 Room Air 01/10/24 04:24 01/10/24 04:15 01/10/24 04:15 01/10/24 04:00 01/10/24 04:00 01/10/24 03:45 01/10/24 03:45 01/10/24 03:39 01/10/24 03:30 Room Air 01/10/24 03:25 Room Air 01/10/24 03:03 01/10/24 03:00 01/10/24 02:56 01/10/24 02:45 01/10/24 02:45 01/10/24 02:39 01/10/24 02:15 01/10/24 02:15 01/10/24 02:06 97 Room Air 01/10/24 02:00 Room Air 01/10/24 01:55 Room Air 01/10/24 01:45 01/10/24 01:45 01/10/24 01:39 0 01/10/24 01:30 01/10/24 01:30 01/10/24 01:15 01/10/24 01:15 01/10/24 01:09 0 01/10/24 01:00 01/10/24 01:00 01/10/24 00:54 0 01/10/24 00:48 Room Air 01/10/24 00:45 01/10/24 00:45 01/10/24 00:33 01/10/24 00:30 01/10/24 00:30 01/10/24 00:15 01/10/24 00:15 01/10/24 00:00 01/10/24 00:00 01/09/24 23:45 01/09/24 23:45 01/09/24 23:30 01/09/24 23:30 01/09/24 23:15 01/09/24 23:15 01/09/24 23:01 01/09/24 23:01 01/09/24 23:00 01/09/24 22:59 01/09/24 22:45 01/09/24 22:45 01/09/24 22:30 01/09/24 22:30 01/09/24 22:15 01/09/24 22:15 01/09/24 22:00 01/09/24 22:00 Laboratory Results Short CBC 01/09/24 01/10/24 Range/Units 23:28 06:32 WBC 15.00 H (4.8-10.8) K/ul Hgb 6.5 L* 7.8 L (14.0-18.0) g/dl Hct 19.0 L* 22.3 L (42.0-52.0) % Plt Count 377 (130-400) K/uL BMP 01/10/24 06:32 Sodium 140 Potassium 4.3 Chloride 106 Carbon Dioxide 28 BUN 26 H Creatinine 1.19 Glucose 134 H Calcium 8.9 Medications Administered Home Medications Medication Instructions Recorded Confirmed Last Taken allopurinol 100 mg tablet 100 mg PO DAILY 12/15/23 01/09/24 01/09/24 aspirin 81 mg tablet,delayed 81 mg PO DAILY 12/15/23 01/09/24 01/09/24 release dulaglutide 0.75 mg/0.5 mL 0.75 mg subcut WK 12/15/23 01/09/24 01/08/24 subcutaneous pen injector (Fabrice) ezetimibe 10 mg tablet 10 mg PO DAILY 12/15/23 01/09/24 01/09/24 folic acid 1 mg tablet 1 mg PO DAILY 12/15/23 01/09/24 01/09/24 gabapentin 300 mg capsule 300 mg PO TID 12/15/23 01/09/24 01/09/24 08:00 hydrochlorothiazide 12.5 mg capsule 12.5 mg PO DAILY 12/15/23 01/09/24 01/09/24 levothyroxine 150 mcg tablet 150 mcg PO DAILY 12/15/23 01/09/24 01/09/24 lisinopril 30 mg tablet 30 mg PO DAILY 12/15/23 01/09/24 01/09/24 metformin 500 mg tablet 1,000 mg PO BID 12/15/23 01/09/24 01/09/24 08:00 valacyclovir 1 gram tablet 1,000 mg PO DAILY 12/15/23 01/09/24 01/09/24 calcium 600 mg-D3 800 unit-mag11 1 tab PO BID #60 tabs 12/19/23 01/09/24 01/09/24 08:00 50 ak-mlwc-mkokox-genaro-s.borat tablet (Caltrate 600-D Plus Minerals) cefazolin 2 gram solution for 2 g IV Q8H #1 ea 12/19/23 01/09/24 01/09/24 injection cyanocobalamin (vitamin B-12) 500 1,000 mcg (2 x 500 mcg) PO QAM #30 12/19/23 01/09/24 01/09/24 mcg tablet tabs metronidazole 500 mg tablet 500 mg PO Q8H 38 days #114 tabs 12/19/23 01/09/24 01/09/24 08:00 cyanocobalamin (vitamin B-12) 1,000 mcg IM DIRECTED 01/09/24 01/09/24 01/08/24 1,000 mcg/mL injection solution Active Medications Generic Name Dose Route Start Last Admin Trade Name Antony PRN Reason Stop Dose Admin Allopurinol 100 mg 01/10/24 09:00 01/10/24 08:58 Allopurinol 100 Mg Tab PO 02/09/24 08:59 100 mg DAILY REBEL Administration Cyanocobalamin 1,000 mcg 01/10/24 09:00 01/10/24 08:58 Cyanocobalamin (B-12) 500 Mcg Tablet PO 02/09/24 08:59 1,000 mcg QAM REBEL Administration Folic Acid 1 mg 01/10/24 09:00 01/10/24 08:58 Folic Acid 1 Mg Tab PO 02/09/24 08:59 1 mg DAILY REBEL Administration Gabapentin 300 mg 01/09/24 21:00 01/10/24 14:59 Gabapentin 300 Mg Cap PO 02/08/24 20:59 300 mg TID REBEL Administration Pantoprazole Sodium 40 mg/ 100 mls @ 20 mls/hr 01/09/24 19:15 01/10/24 15:33 Dextrose IV 02/08/24 19:14 8 mg/hr Q5H REBEL 20 mls/hr Administration 8 MG/HR Lactated Ringer's 1,000 mls @ 80 mls/hr 01/09/24 19:00 01/10/24 10:45 Lr IV 02/08/24 18:59 0 mls/hr .[id number] REBEL Infusion Metronidazole 500 mg in 100 mls @ 100 mls/hr 01/10/24 00:00 01/10/24 17:21 Flagyl IV 02/21/24 00:00 100 mls/hr Q8H REBEL Administration Protocol Cefazolin Sodium 2,000 mg in 15 mls @ 3.75 mls/min 01/10/24 00:00 01/10/24 17:22 Ancef 2000mg IV 02/21/24 00:00 3.75 mls/min Q8H REBEL Administration Protocol Insulin Aspart 0 units 01/10/24 16:30 01/10/24 17:15 Insulin Aspart Per Unit Charge SC 02/09/24 16:29 Not Given ACHS REBEL Levothyroxine Sodium 150 mcg 01/10/24 06:30 01/10/24 06:01 Levothyroxine Sodium 150 Mcg Tablet PO 02/09/24 06:29 Not Given DAILYBB REBEL Valacyclovir HCl 1,000 mg 01/10/24 09:00 01/10/24 08:58 Valacyclovir Hcl 500 Mg Tablet PO 02/09/24 08:59 1,000 mg DAILY REBEL Administration
--- NOTE | 2024-01-10 09:51 | Anesthesiology Consultation ---
Date of Service January 10, 2024 Assessment & Plan (1) Encounter for pre-operative examination: Chart Review Chart Review: Acceptable Risk for Surgery (received 2 units PRBC's this admission) History Surgery Operation Date: 01/10/24 17:25 Proposed Procedures p Esophagogastroduodenoscopy Dr Woods - Armaan Linton Case, DO Height/Weight Height: 5 ft 9 in Weight: 113.9 kg Allergies Allergy/AdvReac Type Severity Reaction Status Date / Time No Known Allergies Allergy Verified 01/09/24 17:45 Medications Home Medications Medication Instructions Recorded Confirmed Last Taken allopurinol 100 mg tablet 100 mg PO DAILY 12/15/23 01/09/24 01/09/24 aspirin 81 mg tablet,delayed 81 mg PO DAILY 12/15/23 01/09/24 01/09/24 release dulaglutide 0.75 mg/0.5 mL 0.75 mg subcut WK 12/15/23 01/09/24 01/08/24 [facility] ezetimibe 10 mg tablet 10 mg PO DAILY 12/15/23 01/09/24 01/09/24 folic acid 1 mg tablet 1 mg PO DAILY 12/15/23 01/09/24 01/09/24 gabapentin 300 mg capsule 300 mg PO TID 12/15/23 01/09/24 01/09/24 08:00 hydrochlorothiazide 12.5 mg capsule 12.5 mg PO DAILY 12/15/23 01/09/24 01/09/24 levothyroxine 150 mcg tablet 150 mcg PO DAILY 12/15/23 01/09/24 01/09/24 lisinopril 30 mg tablet 30 mg PO DAILY 12/15/23 01/09/24 01/09/24 metformin 500 mg tablet 1,000 mg PO BID 12/15/23 01/09/24 01/09/24 08:00 valacyclovir 1 gram tablet 1,000 mg PO DAILY 12/15/23 01/09/24 01/09/24 calcium 600 mg-D3 800 unit-mag11 1 tab PO BID #60 tabs 12/19/23 01/09/24 01/09/24 08:00 50 [id number]-[id number]-genaro-s.borat tablet (Caltrate 600-D Plus Minerals) cefazolin 2 gram solution for 2 g IV Q8H #1 ea 12/19/23 01/09/24 01/09/24 injection cyanocobalamin (vitamin B-12) 500 1,000 mcg (2 x 500 mcg) PO QAM #30 12/19/23 01/09/24 01/09/24 mcg tablet tabs metronidazole 500 mg tablet 500 mg PO Q8H 38 days #114 tabs 12/19/23 01/09/24 01/09/24 08:00 cyanocobalamin (vitamin B-12) 1,000 mcg IM DIRECTED 01/09/24 01/09/24 01/08/24 1,000 mcg/mL injection solution Active Medications Generic Name Dose Route Start Last Admin Trade Name Freq PRN Reason Stop Dose Admin Allopurinol 100 mg 01/10/24 09:00 01/10/24 08:58 Allopurinol 100 Mg Tab PO 02/09/24 08:59 100 mg DAILY REBEL Administration Cyanocobalamin 1,000 mcg 01/10/24 09:00 01/10/24 08:58 Cyanocobalamin (B-12) 500 Mcg Tablet PO 02/09/24 08:59 1,000 mcg QAM REBEL Administration Folic Acid 1 mg 01/10/24 09:00 01/10/24 08:58 Folic Acid 1 Mg Tab PO 02/09/24 08:59 1 mg DAILY REBEL Administration Gabapentin 300 mg 01/09/24 21:00 01/10/24 09:15 Gabapentin 300 Mg Cap PO 02/08/24 20:59 300 mg TID REBEL Administration Pantoprazole Sodium 40 mg/ 100 mls @ 20 mls/hr 01/09/24 19:15 01/10/24 07:36 Dextrose IV 02/08/24 19:14 8 mg/hr Q5H REBEL 20 mls/hr Administration 8 MG/HR Lactated Ringer's 1,000 mls @ 80 mls/hr 01/09/24 19:00 01/09/24 19:47 Lr IV 02/08/24 18:59 80 mls/hr .[id number] REBEL Administration Metronidazole 500 mg in 100 mls @ 100 mls/hr 01/10/24 00:00 01/10/24 08:58 Flagyl IV 02/21/24 00:00 Infused Q8H REBEL Infusion Protocol Cefazolin Sodium 2,000 mg in 15 mls @ 3.75 mls/min 01/10/24 00:00 01/10/24 07:32 Ancef 2000mg IV 02/21/24 00:00 3.75 mls/min Q8H REBEL Administration Protocol Insulin Aspart 0 units 01/09/24 19:15 01/10/24 05:58 Insulin Aspart Per Unit Charge SC 02/08/24 19:14 Not Given Q6 REBEL Levothyroxine Sodium 150 mcg 01/10/24 06:30 01/10/24 06:01 Levothyroxine Sodium 150 Mcg Tablet PO 02/09/24 06:29 Not Given DAILYBB REBEL Valacyclovir HCl 1,000 mg 01/10/24 09:00 01/10/24 08:58 Valacyclovir Hcl 500 Mg Tablet PO 02/09/24 08:59 1,000 mg DAILY REBEL Administration Past Medical History Medical History (Updated 01/10/24 @ 09:51 by Domingo Monsalve MD) GIB (gastrointestinal bleeding) Diabetic foot ulcer with osteomyelitis Pancytopenia CKD (chronic kidney disease) per records Osteomyelitis PICC (peripherally inserted central catheter) in place Diabetic ulcer of left foot PAD (peripheral artery disease) Successful angioplasty of proximal/mid left SFA with 2 drug-eluting balloons on 05/07/21- recommend DAPT with ASA and Plavix x 1 month History of anesthesia reaction combative, "i come out of it mean." DM type 2 (diabetes mellitus, type 2) Hypothyroidism CLL (chronic lymphocytic leukemia) Dx'ed 2014; chemo, sx Peripheral neuropathy Anemia HTN (hypertension) Past Family History Family History Other No family history of adverse response to anesthesia Past Surgical History Surgical History History of angiography 05/07/21 [facility] - angioplasty of proximal/mid left SFA with 2 drug-eluting balloons (6 x 60 mm, 6 x 150 mm Lutonix). 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- no leukemia or lymphoma noted Social History Smoking Status: Never smoker Do You Dip or Chew Tobacco: No Hx Alcohol Use: No Hx Substance Use: No substance use type: does not use Physical Exam Vital Signs Last Vital Signs Temp 36.8 C 01/10/24 01:39 Pulse 58 L 01/10/24 07:07 Resp 15 01/10/24 06:02 BP 120/66 01/10/24 06:02 Pulse Ox 97 01/10/24 06:02 O2 Del Method Room Air 01/10/24 05:21 O2 Flow Rate 0 01/10/24 01:39 Testing Laboratory Results 01/10/24 06:32 01/10/24 06:32 PT 10.6 Seconds (9.0-12.0) 01/09/24 15:15 INR 1.0 (0.9-1.1) 01/09/24 15:15 APTT 28 Seconds (21-31) 01/09/24 15:15 Blood Type O Positive 01/09/24 15:16 Antibody Screen NEGATIVE 01/09/24 15:16 01/10/24 01/10/24 05:52 01:34 POC Glucose 129 H 124 H Electrocardiogram Date: 01/09/24 Findings: + NSR @ (90) Echocardiogram Date: 06/16/21 EF: 60-65% LV Function: normal Valvular Disease: + no significant valvular disease
--- NOTE | 2024-01-10 12:17 | GI REPORT ---
Patient Name: Mario Valentin Procedure Date: 01/10/2024 11:41 AM Date of : 1960 Admit Type: Inpatient Age: 63 Gender: Male Attending MD: Armaan Woods DO, Procedure: Upper GI endoscopy Providers: Armaan Woods DO Referring MD: Stephanie Jolley Md Indications: Acute post hemorrhagic anemia, Melena Medicines: Monitored Anesthesia Care Complications: No immediate complications. Estimated Blood Loss: Estimated blood loss: none. Procedure: Pre-Anesthesia Assessment: - Prior to the procedure, a History and Physical was performed, and patient medications and allergies were reviewed. The patient's tolerance of previous anesthesia was also reviewed. The risks and benefits of the procedure and the sedation options and risks were discussed with the patient. All questions were answered, and informed consent was obtained. Prior Anticoagulants: The patient has taken no anticoagulant or antiplatelet agents except for aspirin. ASA Grade Assessment: III - A patient with severe systemic disease. After reviewing the risks and benefits, the patient was deemed in satisfactory condition to undergo the procedure. After obtaining informed consent, the endoscope was passed under direct vision. Throughout the procedure, the patient's blood pressure, pulse, and oxygen saturations were monitored continuously. The Endoscope was introduced through the mouth, and advanced to the third part of duodenum. The upper GI endoscopy was accomplished without difficulty. The patient tolerated the procedure well. Findings: The esophagus was normal. Localized mild inflammation characterized by erythema was found in the gastric antrum. Biopsies were taken with a cold forceps for histology. Localized mild inflammation characterized by erythema was found in the duodenal bulb and in the second portion of the duodenum. Impression: - Normal esophagus. - Gastritis. Biopsied. - Duodenitis. Recommendation: - Return patient to [facility] for [facility] care. - Resume previous diet. - Continue Protonix but stop gtt and place on 40 mg IV BID. - Await pathology results. Armaan Woods DO 01/10/2024 12:16:44 PM This report has been signed electronically. Note Initiated On: 01/10/2024 11:41 AM Number of Addenda: 0 I attest to the content of the Intraoperative Record and orders documented therein, exceptions below {[id number]}
--- NOTE | 2024-01-10 12:25 | Anesthesiology Progress Note ---
Date of Service January 10, 2024 Anesthesia Post Procedure Vital Signs Vital Signs: Temp Pulse Pulse Resp BP BP Pulse Ox 01/10/24 12:22 62 16 105/73 96 01/10/24 12:07 36 C L 66 14 112/57 L 96 01/10/24 10:49 36.5 C 64 16 142/85 H 98 01/10/24 07:07 58 L 01/10/24 06:02 57 L 15 120/66 97 01/10/24 05:21 64 16 98 01/10/24 04:24 59 L 16 116/58 L 97 01/10/24 04:15 87/63 L 01/10/24 04:15 78 26 H 96 01/10/24 04:00 85/48 L 01/10/24 04:00 56 L 15 98 01/10/24 03:45 84/56 L 01/10/24 03:45 60 15 94 01/10/24 03:39 63 17 99/57 L 96 01/10/24 03:30 64 18 94/54 L 97 01/10/24 03:25 72 19 99/57 L 95 01/10/24 03:03 60 16 95 01/10/24 03:00 91/62 L 01/10/24 02:56 57 L 17 96 01/10/24 02:45 88/56 L 01/10/24 02:45 61 16 97 01/10/24 02:39 57 L 17 88/56 L 96 01/10/24 02:15 112/59 L 01/10/24 02:15 57 L 16 98 01/10/24 02:06 01/10/24 02:00 70 23 119/84 98 01/10/24 01:55 63 22 112/51 L 97 01/10/24 01:45 63 16 01/10/24 01:45 100/52 L 01/10/24 01:39 36.8 C 61 18 113/62 97 01/10/24 01:30 63 17 01/10/24 01:30 113/62 01/10/24 01:15 111/67 01/10/24 01:15 59 L 16 01/10/24 01:09 36.9 C 59 L 19 121/61 97 01/10/24 01:00 64 18 01/10/24 01:00 121/61 01/10/24 00:54 36.7 C 70 19 122/68 98 01/10/24 00:48 36.9 C 62 19 122/68 96 01/10/24 00:45 122/68 01/10/24 00:45 67 26 H 98 01/10/24 00:33 36.9 C 71 16 101/55 L 98 01/10/24 00:30 62 16 01/10/24 00:30 101/55 L 01/10/24 00:15 68 14 01/10/24 00:15 104/58 L 01/10/24 00:00 100/60 01/10/24 00:00 64 18 01/09/24 23:45 66 16 01/09/24 23:45 97/58 L 01/09/24 23:30 64 17 01/09/24 23:30 115/63 01/09/24 23:15 68 15 01/09/24 23:15 106/64 01/09/24 23:01 76 20 01/09/24 23:01 114/58 L 01/09/24 23:00 62 18 01/09/24 22:59 67 01/09/24 22:45 109/68 01/09/24 22:45 81 26 H 01/09/24 22:30 107/63 01/09/24 22:30 62 16 01/09/24 22:15 64 21 01/09/24 22:15 114/63 01/09/24 22:00 122/68 01/09/24 22:00 64 18 01/09/24 21:45 71 19 01/09/24 21:45 123/70 01/09/24 21:30 72 29 H 01/09/24 21:30 125/73 01/09/24 21:15 74 24 01/09/24 21:15 114/54 L 01/09/24 21:00 62 17 130/61 01/09/24 21:00 36.9 C 66 19 130/61 98 01/09/24 20:45 79 19 111/50 L 99 01/09/24 20:43 37.1 C 68 19 117/61 99 01/09/24 20:41 117/61 01/09/24 15:31 98 01/09/24 15:31 77 19 120/65 98 01/09/24 15:28 86 01/09/24 14:50 36.5 C 94 H 18 118/68 100 Pulse Ox O2 Del Method O2 Del Method O2 Flow Rate 01/10/24 12:22 Room Air 01/10/24 12:07 Room Air 01/10/24 10:49 Room Air 01/10/24 07:07 01/10/24 06:02 01/10/24 05:21 Room Air 01/10/24 04:24 01/10/24 04:15 01/10/24 04:15 01/10/24 04:00 01/10/24 04:00 01/10/24 03:45 01/10/24 03:45 01/10/24 03:39 01/10/24 03:30 Room Air 01/10/24 03:25 Room Air 01/10/24 03:03 01/10/24 03:00 01/10/24 02:56 01/10/24 02:45 01/10/24 02:45 01/10/24 02:39 01/10/24 02:15 01/10/24 02:15 01/10/24 02:06 97 Room Air 01/10/24 02:00 Room Air 01/10/24 01:55 Room Air 01/10/24 01:45 01/10/24 01:45 01/10/24 01:39 0 01/10/24 01:30 01/10/24 01:30 01/10/24 01:15 01/10/24 01:15 01/10/24 01:09 0 01/10/24 01:00 01/10/24 01:00 01/10/24 00:54 0 01/10/24 00:48 Room Air 01/10/24 00:45 01/10/24 00:45 01/10/24 00:33 01/10/24 00:30 01/10/24 00:30 01/10/24 00:15 01/10/24 00:15 01/10/24 00:00 01/10/24 00:00 01/09/24 23:45 01/09/24 23:45 01/09/24 23:30 01/09/24 23:30 01/09/24 23:15 01/09/24 23:15 01/09/24 23:01 01/09/24 23:01 01/09/24 23:00 01/09/24 22:59 01/09/24 22:45 01/09/24 22:45 01/09/24 22:30 01/09/24 22:30 01/09/24 22:15 01/09/24 22:15 01/09/24 22:00 01/09/24 22:00 01/09/24 21:45 01/09/24 21:45 01/09/24 21:30 01/09/24 21:30 01/09/24 21:15 01/09/24 21:15 01/09/24 21:00 01/09/24 21:00 01/09/24 20:45 01/09/24 20:43 01/09/24 20:41 01/09/24 15:31 Room Air 01/09/24 15:31 Room Air 01/09/24 15:28 01/09/24 14:50 Room Air Pain Intensity Abdomen: Pain Intensity: 2 Transfer of Care Handoff Completed per policy Notes Mental Status: alert / awake / arousable Patient Amnestic to Procedure: Yes Nausea / Vomiting: adequately controlled Pain: adequately controlled Airway Patency, RR, SpO2: stable & adequate BP & HR: stable & adequate Hydration State: stable & adequate Anesthetic Complications: no major complications apparent
--- OUTSIDE RECORDS SUMMARY | 2024-01-10 13:01 | External Medical Summary | Summary of Care ---
Author Name Unknown Organization [facility] Address [address] [place] [address] Phone [phone] Care Team Providers Care Simplex Printer Installer Name Role Phone Nara Baron MD Primary Care Provider + Reason for Referral * Evaluate & Treat - Unlimited Visits (Within 10 days (routine)) - Authorized Specialty Diagnoses / Procedures Referred By Contac t Referred To Contact Pharmacist / Pharmacy Diagnoses Type 2 diabetes mellitus with hemoglobin A1c goal of less than 7.0% ([facility]ERLY [facility]) Nara Baorn MD [address] [facility], [place] [address] Referral ID Status Reason Start Date Expiration Date Visits Requested Visits Authorized [id number] Authorized Specialty Services Required 01/09/2024 99 99 Question Answer Referral Priority Within 10 days (routine) Where should this appointment be scheduled? [facility] Referring Provider Role: Primary Care Reason for Referral: DM - Assist with getting Dexcom or Frida Target A1c: < 7 Comments Pharmacist Medication Therapy Management: Minimum frequency patient should be seen in person for medication management: as appropriate per clinical condition and patient status By my signature, I understand that my patient Mario Valentin will have his medication therapy managed by the [facility] Medication Therapy Disease Management Clinic ([facility]) per established policies, procedures, and protocols. I also certify that this referral may serve as an initiation of service for the management of drug therapy in the above noted patient. [facility] providers will be responsible for scheduling patient visits, obtaining appropriate laboratory studies, and adjusting medication management therapy per patient's need, in addition to those roles spelled out in the clinic policy, procedures, and drug management protocols. I understand that the service provided by the [facility] is voluntary and have informed patient that they can refuse the service at their discretion. I am aware that the [facility] will provide me with a copy of the patient encounter via my ONEPLE InL8 SmartLightsket. I authorize the [facility] to carry out these activities on my behalf. I consider this program to be a necessary part of the patient's medical care. Ghazal Joseph LPN Reason for Visit * Reason Onset Date Comments Home Health 12/21/2023 Encounter Details Date Type Department Care Team (Late st Contact Info) Description 12/21/2023 Telephone General Internal Medicine [facility] [place] [address] [place], [place] [address] Nara Baron MD 200 [facility] [place], [place] [address] Home Health Allergies Active Allergy Reactions Criticality Noted Date Comments Statins Muscle pain 06/06/2023 Have tried every statin documented as of this encounter (statuses as of 01/09/2024) Medications Medication Sig Dispensed Refills Start Date End Date Status Aspirin 81 MG Tablet Take 1 Tablet by mouth in the morning. Active omeprazole (PRILOSEC) 20 MG CPDR take 1 capsule by mouth once daily 30 Cap 02/27/2019 Active ONETOUCH DELICA LANCETS 33G MISC Use to test blood sugar 2-3 times per day and as needed. 300 Each 3 04/01/2019 Active LORazepam 1 MG Oral Tablet (Ativan) take 1 tablet by mouth if needed 30 MINUTES PRIOR TO TREATMENT 07/12/2021 Active OneTouch Verio In Vitro Strip (Glucose Blood)Indications:T ype 2 diabetes mellitus with hemoglobin A1c goal of less than 7.0% ([facility]ERLY [facility]) TEST 3 TIMES DAILY AND IF NEEDED 300 Strip 3 11/09/2022 Active metFORMIN HCl 500 MG Oral Tablet (Glucophage)Indicat ions:Type 2 diabetes mellitus with hemoglobin A1c goal of less than 7.0% (HCC) take 2 tablets by mouth twice a day with MORNING AND EVENING MEALS 360 Tablet 3 02/22/2023 Active Folic Acid 1 MG Oral TabletIndications:C LL (chronic lymphocytic leukemia) (HCC),Splenomegaly, Acquired hemolytic anemia (HCC) take 2 tablets by mouth once daily 180 Tablet 3 06/19/2023 Active Gabapentin 300 MG Oral Capsule (Neurontin)Indicati ons:CLL (chronic lymphocytic leukemia) (HCC),S/P splenectomy Take 1 Capsule by mouth in the morning and 1 Capsule at noon and 1 Capsule before bedtime. 270 Capsule 3 07/28/2023 Active valACYclovir HCl 1 GM Oral Tablet (Valtrex)Indication s:CLL (chronic lymphocytic leukemia) (HCC) Take 1 Tablet by mouth in the morning. 90 Tablet 3 07/28/2023 Active Ezetimibe 10 MG Oral Tablet (Zetia) TAKE 1 TABLET BY MOUTH EVERY MORNING 90 Tablet 1 09/12/2023 Active Allopurinol 100 MG Oral Tablet (Zyloprim)Indicatio ns:CLL (chronic lymphocytic leukemia) (HCC),Erythrocytosi s,Elevated uric acid in blood TAKE 1 TABLET BY MOUTH ONCE DAILY 30 Tablet 5 10/02/2023 Active hydroCHLOROthiazide 12.5 MG Oral Capsule (Hydrodiuril)Indica tions:HTN, goal below 140/90 TAKE 1 CAPSULE BY MOUTH EVERY MORNING 90 Capsule 1 10/03/2023 Active Lisinopril 30 MG Oral Tablet TAKE 1 TABLET BY MOUTH DAILY 90 Tablet 1 12/08/2023 Active Levothyroxine Sodium 150 MCG Oral Tablet (Levoxyl) TAKE 1 TABLET BY MOUTH DAILY FIRST THING IN THE MORNING (AT LEAST 30 MINUTES PRIOR TO BREAKFAST OR OTHER MEDICATIONS) 90 Tablet 1 12/13/2023 Active documented as of this encounter (statuses as of 01/09/2024) Active Problems Problem Noted Date Diagnosed Date 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 12/26/2023 Other chronic osteomyelitis, left ankle and foot 12/26/2023 Acquired hemolytic anemia 12/26/2023 Gastro-esophageal reflux disease without esophag itis 12/26/2023 Open wound of left foot 12/20/2023 Osteomyelitis of left foot 07/01/2023 Calcaneal osteochondritis [...] as of this encounter (statuses as of 01/09/2024) Resolved Problems Problem Noted Date Diagnosed Date [...] as of this encounter (statuses as of 01/09/2024) Immunizations Name Administration Dates Next Due HIB [...] Miscellaneous Notes * Telephone Encounter - Amanda Inman MED ASSIST - 01/09/2024 9:34 AM EDT Spoke to Stormy from [facility]. She stated pt is already on - the note below was from 12/20. Attempted to call the 800 number provided below and it didn't ring. * Telephone Encounter - Nara Baron MD - 01/09/2024 7:48 AM EDT referral signed. Can manage lab results. * Telephone Encounter - Ghazal Joseph LPN - 12/21/2023 8:28 AM EDT Admission/Start of Care Admission/Start of Care: Stormy HAHN, Calling from: [facility] Patient was Admitted to: [facility], for: Left heel abscess, osteomyelitis and I&D (12/14) from 12/15/23 to 12/19/23 Referral ordered by: Case Management Referral received for: Retirement Start of care completed on: 12/20/23 Report/Concerns of: Blood Sugar Symptoms: See below Vitals: T 98.0 P 92 RR 16 BP 92/62 SP O2 96% R/A Lung sounds - Clear Weight - N/A Narrative: [facility] HH (prison) is seeing patient for IV therapy (PICC Line) and wound care. Patients wound care is being managed by Ortho (Dr. Dee). Patient was seen by Dr. Dee yesterday - will be having out patient procedure on Monday to clean out the wound. [facility] is managing patients IV antibiotic and advised to send lab results to Dr. Baron. Blood sugar - Patient is diabetic, has not been checking his blood sugars because he does not have a glucometer. Patient use to be followed by [facility] (Jaquelin). Patient reported that his BS had been high during his [facility] admission A1C 9.2 on [facility] admission labs Stormy is requesting a referral for [facility] for patient to get Dexcom or Frida Next Nursing visit(s) on 12/21/23 They will call with any updates or additional concerns from the upcoming HH visit. Last Office Visit: 06/06/2023 Has patient been scheduled or seen in the office for a follow up visit: Yes- on12/26/23 Stormy is asking [address] Dr[address] Baron is willing to sign home health orders and manage lab results (weekly CBC, CMP and CRP), IV antibiotic and PICC Line Call back [facility] HH with advice or orders at [facility] Home Health documented in this encounter Plan of Treatment Upcoming Encounters Date Type Department Care Team (Late st Contact Info) Description 01/17/2024 1:00 PM EDT [place] [phone] Alexandre Dee MD [address] [place] [address] 01/23/2024 11:00 AM EDT Office Visit Infectious Disease [address] [phone] Bhavya Nicole MD [address] [place] [address] 02/05/2024 2:00 PM EDT Office Visit Pharmacy, [facility] [address] [facility] [place] [address] Pharmacist1, [facility] [address] [place] [address] 02/05/2024 2:30 PM EDT Office Visit Hematology/Oncology [facility] [address] [facility] [place] [phone] Lilly Inman CRNP [address] [place] [address] 02/13/2024 8:30 AM EDT Office Visit Orthopaedics [facility] [address] [place] [phone] Alexandre Dee MD [address] [place] [address] 04/18/2024 9:40 AM EDT Office Visit General Internal Medicine [facility] [address] [facility] [place] [address] Nara Baron MD [address] [facility] [place] [address] Scheduled Procedures Name Priority Associated Diagnoses Date/Ti me ESOPHAGOGASTRODUODENOSCOPY ( EGD), FLEXIBLE, TRANSORAL, DIAGNOSTIC Recall Arora esophagus Scheduled Referrals Name Type Priority Associated Diagnoses Orde r Schedule PHARMACIST MEDS THERAPY MGMT REFERRAL OP Referral Within 10 days (routine) Type 2 diabetes mellitus with hemoglobin A1c goal of less than 7.0% (HCC) Ordered: 01/09/2024 Health Maintenance Due Date Last Done Comments COVID-19 Vaccine (#1) 1965 Cologuard 2005 Sigmoidoscopy 2005 Meningitis B Vaccine (Bexsero/Trumemba) (2 of 5 - Increased Risk Trumenba 3-dose series) 08/22/2017 07/25/2017 MENINGOCOCCAL (MENACTRA/MENVEO) (2 - Risk 2-dose series) 09/14/2017 07/20/2017 Fecal Occult Blood Test 10/02/2018 10/02/19 18, 10/01/2017, 09/30/2017 Hepatitis B (3 of 3 - 19+ 3-dose series) 12/27/2019 11/01/2019, 08/24/2017 Depression Screening 07/28/2021 07/28/2020, 11/03/2014 (Discussed) Diabetic Foot Exam 04/05/2022 04/05/2021, 0 11/01/2019, 10/26/2018, Additional history exists Pneumococcal Vaccine: Pediatrics (0 to 5 Years) and At-Risk Patients (6 to 64 Years) (3 of 3 - PPSV23 or PCV20) 07/18/2022 07/25/2017, 07/18/2017 Albumin/Creatinine Ratio 01/27/2024 023, 04/19/2022, 11/01/2019, Additional history exists Influenza Vaccine (FLU shot) (Season Ended) 2024 05/25/2022, 06/09/2020, 11/01/2019, Additional history exists B-12 06/05/2024 06/05/2023, 01/19, 02/26/2019, Additional history exists TSH 06/05/2024 06/05/2023, 03/23, 02/01/2021, Additional history exists HbA1c 06/16/2024 12/16/2023, 11/0 02/2023, 01/26/2023, Additional history exists Diabetic Eye Exam 12/25/2024 12/26/2023, , 12/27/2022, Additional history exists GFR 12/31/2024 01/01/2024, 0501/2024, 08/07/2023, Additional history exists Colonoscopy 09/03/2026 09/03/2021, 08/21, 11/14/2017, Additional history exists Colorectal Cancer Screening 09/03/2026 Lipid Panel 01/27/2028 01/26/2023, 01/19, 08/04/2021, Additional history exists DTaP,Tdap,and Td Vaccines (3 - Td or Tdap) 10/31/2029 11/01/2019, 01/30/2009 Zoster Vaccines Completed 04/05/2021, 07/28/2020 RETIRED - COLONOSCOPY-EVERY 5 YRS AGES 18-100 Discontinued 09/03/2021, 09/03/2021, 11/14/2017, Additional history exists GARDASIL-HPV IMMUNIZATION SERIES Aged Out No longer eligible based on patient's age to complete this topic documented as of this encounter Medical Devices Implanted Type Area Dredge Captain Device Identifier Shelf Expiration Date Model / Serial / Lot Stimulan Rapid Cure Implanted:Qty: 1 on 12/22/2023 by Alexandre Dee MD at OR [facility] Left: Foot [employer] 08/20/2026 620-005 / / [id number] documented as of this encounter Visit Diagnoses Diagnosis Type 2 diabetes mellitus with hemoglobin A1c goal of less than 7.0% (FORMERLY [facility])- Primary documented in this encounter Advance Directives * Full Code (Latest Code Status on File) Date Activated Date Inactivated Comments 12/22/2023 11:08 AM 12/22/2023 4:15 PM This order re flects the patients wishes and were consensually agreed upon. Question Answer Comments Discussion of Advance Directives occurred with: Patient * Full Code Date Activated Date Inactivated Comments 12/22/2023 7:52 AM 12/22/2023 11:08 AM This order re flects the patients wishes and were consensually agreed upon. Question Answer Comments Discussion of Advance Directives occurred with: Patient * Full Code Date Activated Date Inactivated Comments 06/26/2023 2:43 PM 07/01/2023 2:32 PM This order reflects the patients wishes and were consensually agreed upon. Question Answer Comments Discussion of Advance Directives occurred with: Patient * Full Code Date Activated Date Inactivated Comments 07/05/2022 6:06 PM 07/06/2022 1:14 AM This order reflects the patients wishes and were consensually agreed upon. Question Answer Comments Discussion of Advance Direct tosha occurred with: Not Discussed due to patient's condition * Full Code Date Activated Date Inactivated Comments 08/15/2017 5:52 PM 08/18/2017 11:01 PM This orde r reflects the patients wishes and were consensually agreed upon. Question Answer Comments Discussion of Advance Directives occurred with: Patient Does the patient have a Living Will? No Care Teams Simplex Printer Installer Relationship Specialty Start Date End Date Nara Baron MD [address] [facility] [place] [address] PCP - General Internal Medicine 01/15/19 documented as of this encounter
--- OUTSIDE RECORDS SUMMARY | 2024-01-10 13:02 | External Medical Summary | Summary of Care ---
Author Name Unknown Organization [facility] Address [address] [facility] [place] [address] Phone [phone] Care Team Providers Care Staff Editor Name Role Phone Nara Baron MD Primary Care Provider + Reason for Visit * Reason Onset Date Comments Test Results 01/08/2024 Critical labs Encounter Details Date Type Department Care Team (Late st Contact Info) Description 01/08/2024 Telephone General Internal Medicine [facility] [place] [address] [place] [address] Nara Baron MD [address] [facility] [address] Test Results (Critical labs) Allergies Active Allergy Reactions Criticality Noted Date [...] hemoglobin A1c goal of less than 7.0% ([facility]) TEST 3 TIMES DAILY AND IF NEEDED 300 Strip 3 11/09/2022 Active metFORMIN HCl 500 MG Oral Tablet (Glucophage)Indica tions:Type 2 diabetes mellitus with hemoglobin A1c goal of less than 7.0% ([facility]) take 2 tablets by mouth twice a day with MORNING AND EVENING MEALS 360 Tablet 3 02/22/2023 Active Folic Acid 1 MG Oral TabletIndications: CLL (chronic lymphocytic leukemia) ([facility]),Splenomegaly ,Acquired hemolytic anemia ([facility]) take 2 tablets by mouth once daily 180 Tablet 3 06/19/2023 Active Gabapentin 300 MG Oral Capsule (Neurontin)Indicat ions:CLL (chronic lymphocytic leukemia) ([facility]),S/P splenectomy Take 1 Capsule by mouth in the morning and 1 Capsule at noon and 1 Capsule before bedtime. 270 Capsule 3 07/28/2023 Active valACYclovir HCl 1 GM Oral Tablet (Valtrex)Indicatio ns:CLL (chronic lymphocytic leukemia) ([facility]) Take 1 Tablet by mouth in the morning. 90 Tablet 3 07/28/2023 Active Ezetimibe 10 MG Oral Tablet (Zetia) TAKE 1 TABLET BY MOUTH EVERY MORNING 90 Tablet 1 09/12/2023 Active Allopurinol 100 MG Oral Tablet (Zyloprim)Indicati ons:CLL (chronic lymphocytic leukemia) ([facility]),Erythrocytos is,Elevated uric acid in blood TAKE 1 [...] OTHER MEDICATIONS) 90 Tablet 1 12/13/2023 Active oxyCODONE HCl 5 MG Oral Tablet (Oxy IR) Take 1 Tablet by mouth every 6 hours as needed for Pain, Severe (post op pain). 15 Tablet 12/22/2023 Active metroNIDAZOLE 500 MG Oral Tablet (Flagyl) Take 1 Tablet by mouth in the morning and 1 Tablet at noon and 1 Tablet before bedtime. 12/19/2023 Active Calcium Carb-Cholecalcifer ol 600-20 MG-MCG Oral Tablet (Caltrate 600+D3) Take 1 Tablet by mouth in the morning and 1 Tablet before bedtime. Active Dulaglutide 1.5 MG/0.5ML Subcutaneous Solution Pen-injector (Trulicity)Indicat ions:Type 2 diabetes mellitus with hemoglobin A1c goal of less than 7.0% (HCC) Inject 1.5 mg under the skin once a week. 2 mL 11 12/27/2023 Active Facet Solutionsio Flex System DeviceIndications: Type 2 diabetes mellitus with hemoglobin A1c goal of less than 7.0% (HCC) Use to test blood glucose 3 times daily. DX: E11.9 1 Each 12/27/2023 Active Cyanocobalamin 1000 MCG/ML Injection Solution (Cyanocobalamin)In dications:B12 deficiency Start one mg or 1000 mcg subcutaneously once a week for a month then switch to 1000mcg, subcutaneously once a month. 30 mL 3 12/27/2023 Active Insulin Syringe-Needle U-100 30G X 1/2" 1 MLIndications:B12 deficiency Use as directed. 90 Each 3 01/03/2024 Active Hospital, Clinic, or Other Facility Administered Medication Ordered Dose Route Frequency Start Date End Date Status sterile water for injection 20 mL with ceFAZolin 2 g INFUSION PERIPH IV Q8H 01/08/2024 01/26/2024 Ac tive documented as of this encounter (statuses as [...] Hemolytic anemia 07/26/2017 06/26/2023 Reaction, drug, adverse 07/28/2016/0 11/2017 CLL (chronic lymphocytic leukemia) 07/27/2015 08/24/2017 [...] encounter Miscellaneous Notes * Telephone Encounter - Nakia Tinajero LPN - 01/09/2024 8:09 AM EDT Patient aware and verbalized understanding, will comply * Telephone Encounter - Ila Mesa LPN - 01/08/2024 5:34 PM EDT LMOM for patient to return the call. Please advise the patient of Dr. Ellis's message below. * Telephone Encounter - Makenna Ellis MD - 01/08/2024 5:[address] send to Er for eval as Hb has dropped to 6 Hemoglobin Results: Lab Results Component Value Date/Time HGB 7.5 (A) 01/01/2024 12:00 AM HGB 7.9 (A) 12/25/2023 12:00 AM HGB 17.1 08/07/2023 12:00 AM HGB 16.9 (H) 09/07/2020 02:14 PM HGB 17.0 (H) 07/28/2020 03:07 PM HGB 17.6 (H) 07/15/2020 11:17 AM * Telephone Encounter - Ila Mesa LPN - 01/08/2024 5:03 PM EDT I received a call about the patient's HGB and Hematocrit having critical levels. His HGB was 6.0 His Hematocrit was 18.2 Please advise. * Telephone Encounter - Nia Ordonez OSA - 01/08/2024 4:54 PM EDT Reason for patient's call: Radha Seals [facility] lab Caller was transferred to [place] at the nurse line. documented in this encounter Plan of Treatment Upcoming Encounters Date Type Department Care Team (Late st Contact Info) Description 01/17/2024 1:00 PM EDT Office Visit Orthopaedics [facility] [address] [place] [phone] Alexandre Dee MD [address] [place] [address] 01/23/2024 11:00 AM EDT Office Visit Infectious Disease [address] [address] Bhavya Nicole MD [address] [place] [address] 02/05/2024 2:00 PM EDT Office Visit Pharmacy, [facility] [place] [address] [place] [address] Pharmacist1, [facility] [address] [place] [address] 02/05/2024 2:30 PM EDT Office Visit Hematology/Oncology [facility] [place] [address] [facility] [place] [address] Lilly Hankins CRNP [address] [place] [address] 02/13/2024 8:30 AM EDT Office Visit Orthopaedics [facility] [address] [place] [address] Alexandre Dee MD [address], [place] [id number] 04/18/2024 9:40 AM EDT Office Visit General Internal Medicine [facility] [address] [facility] [place] [address] Nara Baron MD [address] [facility] [place] [address] Scheduled Procedures Name Priority Associated Diagnoses Date/Ti [...] 12/27/2022, Additional history exists GFR 12/31/2024 01/01/2024, 05/0 01/2024, 08/07/2023, Additional history exists Colonoscopy 09/03/2026 09/03/2021, [...] this encounter Medical Devices Implanted Type Area Studio Camera Operator Device Identifier Shelf Expiration Date Model / Serial / Lot Stimulan Rapid Cure Implanted:Qty: 1 on 12/22/2023 by Alexandre Dee MD at OR [facility] Left: [facility] [employer] 08/20/2026 620-005 / / [id number] documented as of this encounter Advance Directives * Full Code [...] have a Living Will? No Care Teams Staff Editor Relationship Specialty Start Date End Date Nara Baron MD [address] [facility] [place] [address] PCP - General Internal Medicine 01/15/19 documented as of this encounter
--- OUTSIDE RECORDS SUMMARY | 2024-01-10 13:02 | External Medical Summary | Summary of Care ---
Author Name Unknown Organization [facility] Address [address] [facility] [place] [address] Phone [phone] Care Team Providers Care Wedding Day Coordinator Name Role Phone Nara Baron MD Primary Care Provider + Reason for Visit * Reason Onset Date Comments Test Results 01/08/2024 Critical labs Encounter Details Date Type Department Care Team (Late st Contact Info) Description 01/08/2024 Telephone General Internal Medicine [facility] [place] [address] [place] [address] Nara Baron MD [address] [facility] [address] Test Results (Critical labs) Allergies Active Allergy Reactions Criticality Noted Date Comments Statins Muscle pain 06/06/2023 Have tried every statin documented as of this encounter (statuses as of 01/08/2024) Medications Medication Sig Dispensed Refills Start Date [...] hemoglobin A1c goal of less than 7.0% ([facility]) TEST 3 TIMES DAILY AND IF NEEDED 300 Strip 3 11/09/2022 Active metFORMIN HCl 500 MG Oral Tablet (Glucophage)Indica tions:Type 2 diabetes mellitus with hemoglobin A1c goal of less than 7.0% ([facility]) take 2 tablets by mouth twice a day with MORNING AND EVENING MEALS 360 Tablet 3 02/22/2023 Active Folic Acid 1 MG Oral TabletIndications: CLL (chronic lymphocytic leukemia) ([facility]),Splenomegaly ,Acquired hemolytic anemia ([facility]) take 2 tablets by mouth once daily 180 Tablet 3 06/19/2023 Active Gabapentin 300 MG Oral Capsule (Neurontin)Indicat ions:CLL (chronic lymphocytic leukemia) ([facility]),S/P splenectomy Take 1 Capsule by mouth in the morning and 1 Capsule at noon and 1 Capsule before bedtime. 270 Capsule 3 07/28/2023 Active valACYclovir HCl 1 GM Oral Tablet (Valtrex)Indicatio ns:CLL (chronic lymphocytic leukemia) ([facility]) Take 1 Tablet by mouth in the morning. 90 Tablet 3 07/28/2023 Active Ezetimibe 10 MG Oral Tablet (Zetia) TAKE 1 TABLET BY MOUTH EVERY MORNING 90 Tablet 1 09/12/2023 Active Allopurinol 100 MG Oral Tablet (Zyloprim)Indicati ons:CLL (chronic lymphocytic leukemia) ([facility]),Erythrocytos is,Elevated uric acid in blood [...] a week. 2 mL 11 12/27/2023 Active CloudSwayio Flex System DeviceIndications: Type 2 diabetes mellitus [...] as of this encounter (statuses as of 01/08/2024) Active Problems Problem Noted Date Diagnosed Date [...] as of this encounter (statuses as of 01/08/2024) Resolved Problems Problem Noted Date Diagnosed Date [...] as of this encounter (statuses as of 01/08/2024) Immunizations Name Administration Dates Next Due HIB [...] encounter Miscellaneous Notes * Telephone Encounter - Ila Mesa LPN [...] PM EDT Reason for patient's call: [facility] lab Caller was transferred to [place] at the nurse line. documented in this encounter Plan of Treatment Upcoming Encounters Date Type Department Care Team (Late st Contact Info) Description 01/17/2024 1:00 PM EDT Office Visit [address] [phone] Alexandre Dee MD [address] [place], [place] [id number] 01/23/2024 11:00 AM EDT Office Visit Infectious Disease [address] [phone] Bhavya Nicole MD [address] [place] [address] 02/05/2024 2:00 PM EDT Office Visit Pharmacy, [facility] [address] [facility] [place] [address] Pharmacist1, [facility] [address] [place] [address] 02/05/2024 2:30 PM EDT Office Visit Hematology/Oncology [facility] [address] [facility] [place] [address] Lilly Inman CRNP [address] [place] [address] 02/13/2024 8:30 AM EDT Office Visit Orthopaedics [address] [phone] Alexandre Dee MD [address] [place], [place] [id number] 04/18/2024 9:40 AM EDT Office Visit General Internal Medicine [facility] [place] [address] [facility] [place] [address] Nara Baron MD [address] [facility] [place], [place] [address] Scheduled Procedures Name Priority Associated Diagnoses Date/Ti [...] this encounter Medical Devices Implanted Type Area Cage Clerk Device Identifier Shelf Expiration Date Model / Serial / Lot Stimulan Rapid Cure Implanted:Qty: 1 on 12/22/2023 by Alexandre Dee MD at [place] [facility] [place] Left: [employer] 08/20/2026 620-005 / / [id number] documented as of this encounter Advance Directives [...] have a Living Will? No Care Teams Wedding Day Coordinator Relationship Specialty Start Date End Date Nara Baron MD [address] [place] [address] PCP - General Internal Medicine 01/15/19 documented as of this encounter
--- OUTSIDE RECORDS SUMMARY | 2024-01-10 13:02 | External Medical Summary | Summary of Care ---
Author Name Unknown Organization [facility] Address [address] [place] [address] Phone [phone] Care Team Providers Care Clothing Examiner Name Role Phone Nara Baron MD Primary Care Provider + Encounter Details Date Type Department Care Team (Latest Contact Info) Description 12/20/2023 9:30 AM EDT Office [place] [address] Joe Tobar, [place] [address] [place] [address] Diabetic polyneuropathy associated with type [...] capsule by mouth once daily 30 Cap 02/28/20 19 Active ONETOUCH DELICA LANCETS 33G MISC Use to test blood sugar 2-3 times per day and as needed. 300 Each 3 04/01/20 19 Active LORazepam 1 MG Oral Tablet (Ativan) take 1 tablet by mouth if needed 30 MINUTES PRIOR TO TREATMENT 07/12/20 21 Active OneTouch Verio In Vitro Strip (Glucose Blood)Indication s:Type 2 diabetes mellitus with hemoglobin A1c goal of less than 7.0% ([facility]) TEST 3 TIMES DAILY AND IF NEEDED 300 Strip 3 11/10/19 23 Active metFORMIN HCl 500 MG Oral Tablet (Glucophage)Veronica cations:Type 2 diabetes mellitus with hemoglobin A1c goal of less than 7.0% ([facility]) take 2 tablets by mouth twice a day with MORNING AND EVENING MEALS 360 Tablet 3 02/23/20 23 Active Folic Acid 1 MG Oral TabletIndication s:CLL (chronic lymphocytic leukemia) ([facility]),Splenomega ly,Acquired hemolytic anemia ([facility]) take 2 tablets by mouth once daily 180 Tablet 3 06/19/20 23 Active Gabapentin 300 MG Oral Capsule (Neurontin)Indic ations:CLL (chronic lymphocytic leukemia) ([facility]),S/P splenectomy Take 1 Capsule by mouth in the morning and 1 Capsule at noon and 1 Capsule before bedtime. 270 Capsule 3 07/28/20 23 Active valACYclovir HCl 1 GM Oral Tablet (Valtrex)Indicat ions:CLL (chronic lymphocytic leukemia) ([facility]) Take 1 Tablet by mouth in the morning. 90 Tablet 3 07/28/20 23 Active Ezetimibe 10 MG Oral Tablet (Zetia) TAKE 1 TABLET BY MOUTH EVERY MORNING 90 Tablet 1 09/12/19 24 Active Allopurinol 100 MG Oral Tablet (Zyloprim)Indica tions:CLL (chronic lymphocytic leukemia) ([facility]),Erythrocyt osis,Elevated uric acid in blood TAKE 1 TABLET BY MOUTH ONCE DAILY 30 Tablet 5 10/02/19 24 Active hydroCHLOROthiaz haim 12.5 MG Oral Capsule (Hydrodiuril)Ind ications:HTN, goal below 140/90 TAKE 1 CAPSULE BY MOUTH EVERY MORNING 90 Capsule 1 10/03/19 24 Active Lisinopril 30 MG Oral Tablet TAKE 1 TABLET BY MOUTH DAILY 90 Tablet 1 12/08/19 24 Active Levothyroxine Sodium 150 MCG Oral Tablet (Levoxyl) TAKE 1 TABLET BY MOUTH DAILY FIRST THING IN THE MORNING (AT LEAST 30 MINUTES PRIOR TO BREAKFAST OR OTHER MEDICATIONS) 90 Tablet 1 12/13/19 24 Active oxyCODONE HCl 5 MG Oral Tablet (Oxy IR) Take 1 Tablet by mouth every 4 hours as needed for moderate or severe pain 20 Tablet 06/26/20 23 024 Discontinued Trulicity 0.75 MG/0.5ML Subcutaneous Solution Pen-injector (Dulaglutide)Ind ications:Type 2 diabetes mellitus with hemoglobin A1c goal of less than 7.0% ([facility]) INJECT 0.5 MILLILITERS ( 0.75 MILLIGRAMS ) SUBCUTANEOUSLY EVERY 7 DAYS IN THE ABDOMEN THIGHS OR OUTER AREA OF UPPER ARM ROTATE INJECTION SITES 2 mL 5 10/02/19 24 024 Discontinued(Me dication/Dose Changed) documented as of this encounter (statuses as [...] Progress Notes * Joe Tobar, [place] - 01/08/2024 5:34 PM EDT The patient was seen for the fit and delivery of his extra-depth shoes and 3 pairs of custom diabetic inserts. The shoes are model 613 Lava GR from ortho feet size RT 10.5-W and LT 9.5-W shoe. The inserts are desmond tri-landers from [employer]. The shoes fit within specifications without modifications to the inserts for fit. All care and use instructions were discussed today and they were understood by the patient. The patient did not ambulate in the shoes and inserts today and he also had a LT heel ulcer and I ask Dr Evelio Dee and his team to look at him before I send him out today and after hour or so he going to have procedure done. There were signs of undue pressure at this time. Patient will be followed through Dr. Evelio Dee clinic. If any problems are encountered or our services needed before her next scheduled visit, we will be notified.we fit shoes and karo diabetic inserts and taken a few steps with shoes on.seen him back about one with Dr. Evelio Dee team [id number] 3-RT [id number] 3-LT [id number] documented in this encounter Plan of Treatment Upcoming Encounters Date Type Department Care Team (Late st Contact Info) Description 01/17/2024 1:00 PM EDT Office Visit Orthopaedics [facility] [address] [place] [address] Alexandre Dee MD [address] [place] [address] 01/23/2024 11:00 AM EDT Office Visit Infectious Disease [address] [phone] Bhavya Nicole MD [address] [place] [address] 02/05/2024 2:00 PM EDT Office Visit Pharmacy, [facility] [place] [address] [facility] [place], [place] [address] Pharmacist1, [facility] [address] [facility] [place] [address] 02/05/2024 2:30 PM EDT Office Visit Hematology/Oncology [facility] [address] [facility] [place] [phone] Lilly Inman CRNP [address] [place] [address] 02/13/2024 8:30 AM EDT Office Visit Orthopaedics [facility] [address] [place] [address] Alexandre Dee MD [address] [place] [address] 04/18/2024 9:40 AM EDT Office Visit General Internal Medicine [facility] [address] [facility] [place] [address] Nara Baron MD [address] [facility] [place] [address] Scheduled Procedures Name Priority Associated Diagnoses Date/Ti [...] 02/01/2021, Additional history exists HbA1c 06/16/2024 12/16/2023, 110 02/2023, 01/26/2023, Additional history exists Diabetic Eye [...] this encounter Medical Devices Implanted Type Area Pharmacy Technician Assistant Device Identifier Shelf Expiration Date Model / Serial / Lot Stimulan Rapid Cure Implanted:Qty: 1 on 12/22/2023 by Alexandre Dee MD at OR [facility] Left: [facility] [employer] 08/20/2026 620-005 / / [id number] documented as of this encounter Visit Diagnoses [...] have a Living Will? No Care Teams Clothing Examiner Relationship Specialty Start Date End Date Nara Baron MD [address] [place] [address] PCP - General Internal Medicine 01/15/19 documented as of this encounter
--- NOTE | 2024-01-10 14:50 | Pharmacy Report ---
Pharmacy Glycemic Short Note 2 - Date of Service January 10, 2024 - Glycemic Short BSG Results (Last 24 hours): 01/09/24 01/09/24 01/10/24 15:15 19:11 01:34 Glucose 228 H POC Glucose 128 H 124 H 01/10/24 01/10/24 01/10/24 05:52 06:32 13:38 Glucose 134 H POC Glucose 129 H 135 H OUTPATIENT ANTIDIABETIC REGIMEN: * metformin 500 mg bid, trulicity ASSESSMENT: * 63 year old male here for GI workup/anemia. Pharmacy consulted for glycemic management. A1c ~9% - Received 10 units of basal insulin yesterday. Fasting BSG 129 mg/dL - will continue with basal at HS. Patient NPO this AM, but now resuming diet for lunch. Will likely need to titrate basal as PO intake improves PLAN FOR INPATIENT GLYCEMIC CONTROL: * Hold outpatient oral diabetes medications * Basal insulin * Lantus 0-10 units HS * Bolus insulin * NovoLog per scale ACHS or Q6hrs while NPO * Goal Range: Low 110 mg/dL - High 140 mg/dL * Correction Factor: 20 mg/dL/unit * Nutritional / Prandial insulin per carb ratio of 1 unit per 7 grams CHO consumed
[2024-01-10] MEDS: LIDOCAINE 2% 2 ML VIAL/AMP(20MG/ML) INFIL ONE (15:33)
[2024-01-10] MEDS: PROPOFOL IV EMULSION 10 MG/ML 20 ML VIAL IV ONE (15:33)
[2024-01-10] MEDS: INSULIN ASPART PER UNIT CHARGE SC SCH (17:15)
--- OUTSIDE RECORDS SUMMARY | 2024-01-10 19:22 | External Medical Summary | Summary of Care ---
Author Name Unknown Organization [facility] Address [address] [facility] [address] Phone [phone] Care Team Providers Care Sizing Machine Tender Name Role Phone Nara Baron MD Primary Care Provider + Encounter Details Date Type Department Care Team (Late st Contact Info) Description 01/09/2024 Orders Only General Internal Medicine [facility] [address] [place] [address] Nara Baron MD [address] [place] [facility] [place] [address] Allergies Active Allergy Reactions Criticality Noted Date [...] hemoglobin A1c goal of less than 7.0% ([facility]) take 2 tablets by mouth twice a day with MORNING AND EVENING MEALS 360 Tablet 3 02/22/2023 Active Folic Acid 1 MG Oral TabletIndications: CLL (chronic lymphocytic leukemia) ([facility]),Splenomegaly ,Acquired hemolytic anemia ([facility]) take 2 tablets by mouth once daily 180 Tablet 3 06/19/2023 Active Gabapentin 300 MG Oral Capsule (Neurontin)Indicat ions:CLL (chronic lymphocytic leukemia) ([facility]),S/P splenectomy Take 1 Capsule by mouth in the morning and 1 Capsule at noon and 1 Capsule before bedtime. 270 Capsule 3 07/28/2023 Active valACYclovir HCl 1 GM Oral Tablet (Valtrex)Indicatio ns:CLL (chronic lymphocytic leukemia) ([facility]) Take 1 Tablet by mouth in the morning. 90 Tablet 3 07/28/2023 Active Ezetimibe 10 MG Oral Tablet (Zetia) TAKE 1 TABLET BY MOUTH EVERY MORNING 90 Tablet 1 09/12/2023 Active Allopurinol 100 MG Oral Tablet (Zyloprim)Indicati ons:CLL (chronic lymphocytic leukemia) ([facility]),Erythrocytos is,Elevated uric acid in blood [...] hemoglobin A1c goal of less than 7.0% ([facility]) Inject 1.5 mg under the skin once a week. 2 mL 11 12/27/2023 Active [email or web address] Verio Flex System DeviceIndications: Type 2 diabetes mellitus with hemoglobin A1c goal of less than 7.0% ([facility]) Use to test blood glucose 3 times [...] Description 01/17/2024 1:00 PM EDT Office Visit [address] [phone] Alexandre Dee MD [address] [place] [address] 01/23/2024 11:00 AM EDT Office Visit Infectious Disease [facility] [address] [place] [address] Bhavya Nicole MD [address] [place], [place] [phone] 02/05/2024 2:00 PM EDT Office Visit Pharmacy, [facility] [address] [place] [address] Pharmacist1, [facility] [address] [place] [address] 02/05/2024 2:30 PM EDT Office Visit Hematology/Oncology [facility] [address] [place] [phone] Lilly Inman CRNP [address] [place] [address] 02/13/2024 8:30 AM EDT Office Visit Orthopaedics [address] [address] Alexandre Dee MD [address] [place] [address] 04/18/2024 9:40 AM EDT Office Visit General Internal Medicine [facility] [address] [place] [address] Nara Baron MD [address] [place] [address] Scheduled Procedures Name Priority Associated Diagnoses Date/Ti [...] , 12/27/2022, Additional history exists GFR 12/31/2024 01/08/2024, 12/19, 12/25/2023, Additional history exists Colonoscopy 09/03/2026 09/03/2021, 08/21, [...] this encounter Medical Devices Implanted Type Area Pill Coater Device Identifier Shelf Expiration Date Model / Serial / Lot Stimulan Rapid Cure Implanted:Qty: 1 on 12/22/2023 by Alexandre Dee MD at OR [facility] Left: [facility] [employer] 08/20/2026 620-005 / / [id number] documented as of this encounter Procedures Procedure Name Priority Date/Time Associated Diagnosis Comments CHEMISTRY-OUTSIDE Routine 01/08/2024 documented in this encounter Results * (ABNORMAL) CHEMISTRY-OUTSIDE (01/08/2024) Not all results display below - see scan for full detail OUTSIDE LAB (SEE SCANNED REPORT) Comment:SCAN INCLUDES: CMP, CRP, CBC CREATININE-OUTSID E LAB 1.37 0.6 - 1.4 MG/DL OUTSIDE LAB (SEE SCANNED REPORT) EGFR-OUTSIDE LAB 54.5 ML/MIN OUT SIDE LAB (SEE SCANNED REPORT) POTASSIUM-OUTSIDE LAB 4.3 3.5 - 5.1 MMOL/L OUTSIDE LAB (SEE SCANNED REPORT) GLUCOSE-OUTSIDE LAB 130(A) 70 - 99 MG/DL OUTSIDE LAB (SEE [...] LAB OUTSIDE LAB (SEE SCANNED REPORT) HEMOGLOBIN, [id number] LAB OUTSIDE LAB (SEE SCANNED REPORT) PHOSPHORUS-OUTSID E LAB OUTSIDE LAB (SEE SCANNED REPORT) PTH-OUTSIDE LAB OUTS RADHA LAB (SEE SCANNED REPORT) MICROALBUMIN RATIO-OUTSIDE LAB OUTSIDE LA B (SEE SCANNED REPORT) PROTEIN, UA-OUTSIDE LAB OUTSIDE LAB (SEE SCANNED REPORT) HGB 6.0(A) 14 - 18 G/DL OUTSIDE LAB (SEE SCANNED REPORT) 01/08/2024 Nara Baron MD LABORATORY OUTSIDE LAB (SEE SCANNED REPORT) documented in this encounter Advance Directives * [...] have a Living Will? No Care Teams Sizing Machine Tender Relationship Specialty Start Date End Date Nara Baron MD [address] [place] [address] PCP - General Internal Medicine 01/15/19 documented as of this encounter
[2024-01-10] MEDS: LANTUS PER UNIT CHARGE SQ SCH (21:25)
[2024-01-11 07:52] LABS: Hematocrit (blood only) 23.5 % (42.0-52.0); Hemoglobin 8.2 g/dl (14.0-18.0); Mean Corpuscular Hemoglobin 33.6 pg (25.0-34.0); Mean Corpuscular Hgb Conc 34.9 g/dL (32.0-36.0); Mean Corpuscular Volume 96.3 fL (80.0-100.0); Platelet Count 413 K/uL (130-400); RDW Coefficient of Variation 17.9 % (11.5-14.5); RDW Standard Deviation 61.7 fL (36.4-46.3); Red Blood Count 2.44 M/uL (4.70-6.10); White Blood Count 18.59 K/ul (4.8-10.8)
[2024-01-11 08:05] LABS: BUN Creatinine Ratio 11.7 (10-20); Creatinine Clr Calc Pharmacy 84.4 ml/min; Est GFR (African American) 81.5 ml/min; Est GFR (Non-African American) 70.3 ml/min; Magnesium 1.5 mg/dl (1.7-2.4); Potassium 4.2 mmol/L (3.5-5.1)
[2024-01-11 08:46] LABS: Basophils # (auto) 0.09 K/uL (0.00-0.20); Basophils % (auto) 0.5 %; Eosinophils # (auto) 0.03 K/uL (0.00-0.50); Eosinophils % (auto) 0.2 %; Immature Granulocytes # (auto) 0.18 K/uL (0.01-0.20); Lymphocytes # (auto) 11.27 K/uL (1.20-3.40); Lymphocytes % (auto) 60.6 %; Monocytes # (auto) 1.37 K/uL (0.11-0.59); Monocytes % (auto) 7.4 %; Neutrophils # (auto) 5.65 K/uL (1.40-6.50); Neutrophils % (auto) 30.3 %
[2024-01-11] MEDS: MAGNESIUM SULFATE / D5W 1 GM/100 ML BAG IV SCH (09:23)
[2024-01-11] MEDS: lisinopril 10 MG TAB PO SCH (09:24)
--- NOTE | 2024-01-11 12:49 | Hospitalist Progress Note ---
Date of Service January 11, 2024 Assessment & Plan (1) Melena: Plan: Mr. Valentin is a 63-year-old male with past medical history significant for type 2 diabetes, hypothyroidism, hyperlipidemia, diabetic retinopathy, diabetic foot ulcer, peripheral artery disease, chronic constrictive idiopathic pericarditis, pericardial effusion without cardiac tamponade, hypertension, history of osteomyelitis of the left ankle, cellulitis of left lower leg, calcaneal costochondritis, history of CLL, history of chemotherapy induced neutropenia, history of hemolytic anemia, history of splenomegaly, s/p splenectomy, history of secondary polycythemia, history of MSSA infection, history of Pseudomonas infection, who is admitted for acute on chronic anemia. Patient is now s/p I&D performed by Podiatry on 12/14 who was discharged with IV antibiotic for chronic OM. EOT 01/24 Patient discharged home on 12/18, however, noted 1 week of melanotic stool prompting presentation to ED. Patient received 2 U PRBCS. EGD with esophagitis and duodenitis. Biopsy pending. 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 ~1.0-1.1 Cr 1.45 Hold HCTZ, lisinopril Avoid nephrotoxic agents as able Renal function stable Encourage PO #Left heel abscess with calcaneal osteomyelitis s/p left partial calcanectomy #Chronic osteomyelitis c/b MSSA and pseudomonas 12/14 wound/fluid cx No pseudomonas on culture, staph species, MSSA -S/P Left Heel Incision and Drainage by Dr. Saez on 12/16/2023 --Was evaluated by podiatry and ID last admission --Wound cultures from 12/15/23 grew MSSA, Finegoldia magna Continue cefazolin 2 g IV Q8H and Flagyl until 01/25/2024 as recommended by ID last admission Given erythema, left lower extremity swelling, prior physician ordered dopplers: negative for DVT #DM II Diabetic polyneuropathy Hold metformin and Trulicity Last A1C 9.2 Continue gabapentin Insulin SSI, Lantus per protocol Monitor BGs #PAD s/p angiogram with revascularization by 2020 (left leg done in 06/2021 and right leg done in 09/2020); no OP report available 1 yr DUSTIN and LLE arterial duplex or sooner prn Continue aspirin 81 mg daily for atherosclerosis H/O Statin intolerant #HTN Hold HCTZ, Resume lisinopril im am Monitor BP Gout Continue allopurinol #H/O CLL s/p splenectomy diagnosed in July,, underwent splenectomy in July, Significant reticulocytopenia in July, 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 H/O Thrombocytosis - no evidence of PNH noted in the flow cytometry. May benefit from following up with hematology as outpatient on discharge #H/O Herpes zoster involving left leg, has post herpetic neuralgia Continue Neurontin, valacyclovir prophylaxis. #Hypothyroidism Continue levothyroxine DVT prophylaxis SCDs Re: Melena CODE STATUS Full code Admission and Anticipated Discharge Date Admission Date: January 09, 2024 Subjective NAEO Reports feeling well, states bowel movements are more brown and formed; denies any hematemesis Declines nausea vomiting or other acute concerns Physical Exam Constitutional: WD/WN, vitals as above Respiratory: normal respiratory effort, lungs clear to auscultation Cardiovascular: RRR, no murmur, no edema Gastrointestinal (Abdomen): normal bowel sounds, soft, nontender, no hepatosplenomegaly Skin: clean dressing on left foot, CDI Results & Data Results & Data Vital Signs (Past 12 Hours) Vital Signs Temp Pulse Pulse Resp BP Pulse Ox O2 Del Method 01/11/24 11:25 36.6 C 67 18 108/65 96 Room Air 01/11/24 10:23 61 01/11/24 07:25 36.8 C 64 18 132/73 96 Room Air Laboratory Results Short CBC 01/11/24 Range/Units 07:25 WBC 18.59 H (4.8-10.8) K/ul Hgb 8.2 L (14.0-18.0) g/dl Hct 23.5 L (42.0-52.0) % Plt Count 413 H (130-400) K/uL [facility] 01/11/24 07:25 Sodium 140 Potassium 4.2 Chloride 103 Carbon Dioxide 30 BUN 13 Creatinine 1.11 Glucose 106 H Calcium 9.0 Medications Administered Home Medications Medication Instructions Recorded Confirmed Last Taken allopurinol 100 mg tablet 100 mg PO DAILY 12/15/23 01/09/24 01/09/24 aspirin 81 mg tablet,delayed 81 mg PO DAILY 12/15/23 01/09/24 01/09/24 release dulaglutide 0.75 mg/0.5 mL 0.75 mg subcut WK 12/15/23 01/09/24 01/08/24 subcutaneous pen injector ([facility]) ezetimibe 10 mg tablet 10 mg PO DAILY 12/15/23 01/09/24 01/09/24 folic acid 1 mg tablet 1 mg PO DAILY 12/15/23 01/09/24 01/09/24 gabapentin 300 mg capsule 300 mg PO TID 12/15/23 01/09/24 01/09/24 08:00 hydrochlorothiazide 12.5 mg capsule 12.5 mg PO DAILY 12/15/23 01/09/24 01/09/24 levothyroxine 150 mcg tablet 150 mcg PO DAILY 12/15/23 01/09/24 01/09/24 lisinopril 30 mg tablet 30 mg PO DAILY 12/15/23 01/09/24 01/09/24 metformin 500 mg tablet 1,000 mg PO BID 12/15/23 01/09/24 01/09/24 08:00 valacyclovir 1 gram tablet 1,000 mg PO DAILY 12/15/23 01/09/24 01/09/24 calcium 600 mg-D3 800 unit-mag11 1 tab PO BID #60 tabs 12/19/23 01/09/24 01/09/24 08:00 50 sl-elbn-fjcolx-genaro-s.borat tablet (Caltrate 600-D Plus Minerals) cefazolin 2 gram solution for 2 g IV Q8H #1 ea 12/19/23 01/09/24 01/09/24 injection cyanocobalamin (vitamin B-12) 500 1,000 mcg (2 x 500 mcg) PO QAM #30 12/19/23 01/09/24 01/09/24 mcg tablet tabs metronidazole 500 mg tablet 500 mg PO Q8H 38 days #114 tabs 12/19/23 01/09/24 01/09/24 08:00 cyanocobalamin (vitamin B-12) 1,000 mcg IM DIRECTED 01/09/24 01/09/24 01/08/24 1,000 mcg/mL injection solution Active Medications Generic Name Dose Route Start Last Admin Trade Name Freq PRN Reason Stop Dose Admin Allopurinol 100 mg 01/10/24 09:00 01/11/24 09:23 Allopurinol 100 Mg Tab PO 02/09/24 08:59 100 mg DAILY REBEL Administration Cyanocobalamin 1,000 mcg 01/10/24 09:00 01/11/24 09:31 Cyanocobalamin (B-12) 500 Mcg Tablet PO 02/09/24 08:59 1,000 mcg QAM REBEL Administration Folic Acid 1 mg 01/10/24 09:00 01/11/24 09:28 Folic Acid 1 Mg Tab PO 02/09/24 08:59 1 mg DAILY REBEL Administration Gabapentin 300 mg 01/09/24 21:00 01/11/24 09:29 Gabapentin 300 Mg Cap PO 02/08/24 20:59 300 mg TID REBEL Administration Pantoprazole Sodium 40 mg/ 100 mls @ 20 mls/hr 01/09/24 19:15 01/11/24 12:45 Dextrose IV 02/08/24 19:14 8 mg/hr Q5H REBEL 20 mls/hr Administration 8 MG/HR Metronidazole 500 mg in 100 mls @ 100 mls/hr 01/10/24 00:00 01/11/24 10:22 Flagyl IV 02/21/24 00:00 Infused Q8H [facility] Infusion Protocol Cefazolin Sodium 2,000 mg in 15 mls @ 3.75 mls/min 01/10/24 00:00 01/11/24 09:22 Ancef 2000mg IV 02/21/24 00:00 3.75 mls/min Q8H REBEL Administration Protocol Insulin Aspart 0 units 01/10/24 16:30 05/23/24 09:21 Insulin Aspart Per Unit Charge SC 02/09/24 16:29 9 units ACHS REBEL Administration Levothyroxine Sodium 150 mcg 01/10/24 06:30 01/11/24 06:37 Levothyroxine Sodium 150 Mcg Tablet PO 02/09/24 06:29 150 mcg DAILYBB REBEL Administration Lisinopril 30 mg 01/11/24 09:00 01/11/24 09:24 Lisinopril 10 Mg Tab PO 02/10/24 08:59 30 mg DAILY REBEL Administration Valacyclovir HCl 1,000 mg 01/10/24 09:00 01/11/24 09:29 Valacyclovir Hcl 500 Mg Tablet PO 02/09/24 08:59 1,000 mg DAILY REBEL Administration
[2024-01-11] MEDS: LANTUS PER UNIT CHARGE SQ SCH (21:31)
[2024-01-12 06:38] LABS: Hematocrit (blood only) 22.8 % (42.0-52.0); Hemoglobin 7.7 g/dl (14.0-18.0); Mean Corpuscular Hemoglobin 32.9 pg (25.0-34.0); Mean Corpuscular Hgb Conc 33.8 g/dL (32.0-36.0); Mean Corpuscular Volume 97.4 fL (80.0-100.0); Mean Platelet Volume 10.3 fL (9.4-12.4); Platelet Count 405 K/uL (130-400); RDW Coefficient of Variation 17.3 % (11.5-14.5); RDW Standard Deviation 61.1 fL (36.4-46.3); Red Blood Count 2.34 M/uL (4.70-6.10); White Blood Count 19.92 K/ul (4.8-10.8)
[2024-01-12 07:02] LABS: BUN Creatinine Ratio 13.2 (10-20); Calcium 7.9 mg/dl (8.6-10.3); Creatinine Clr Calc Pharmacy 64.6 ml/min; Est GFR (African American) 59.5 ml/min; Est GFR (Non-African American) 51.3 ml/min; Magnesium 2.1 mg/dl (1.7-2.4); Phosphorus 3.6 mg/dl (2.5-4.9)
[2024-01-12] MEDS: SODIUM CHLORIDE 0.9% 500 ML IV ONE (07:24)
--- NOTE | 2024-01-12 09:16 | Pharmacy Report ---
Pharmacy Glycemic Short Note 2 - Date of Service January 12, 2024 - Glycemic Short BSG Results (Last 24 hours): 01/11/24 01/11/24 01/11/24 11:57 17:03 20:13 Glucose POC Glucose 141 H 139 H 116 H 01/12/24 01/12/24 05:34 07:50 Glucose 178 H POC Glucose 176 H OUTPATIENT ANTIDIABETIC REGIMEN: * metformin 500 mg bid, trulicity ASSESSMENT: 01/11 * Patient received total of 34 units of insulin yesterday, of which 10 units were basal insuin * Fasting BSG 178 mg/dL - PO intake improving yesterday, plan to titrate up basal insulin at HS tonight 01/09 * 63 year old male here for GI workup/anemia. Pharmacy consulted for glycemic management. A1c ~9% - Received 10 units of basal insulin yesterday. Fasting BSG 129 mg/dL - will continue with basal at HS. Patient NPO this AM, but now resuming diet for lunch. Will likely need to titrate basal as PO intake improves PLAN FOR INPATIENT GLYCEMIC CONTROL: * Hold outpatient oral diabetes medications * Basal insulin * Lantus 10-15 units HS * Bolus insulin * NovoLog per scale ACHS or Q6hrs while NPO * Goal Range: Low 110 mg/dL - High 140 mg/dL * Correction Factor: 20 mg/dL/unit * Nutritional / Prandial insulin per carb ratio of 1 unit per 7 grams CHO consumed
--- NOTE | 2024-01-12 13:09 | Discharge Summary ---
Discharge Summary Date of Service January 12, 2024 Notes For Next Care Provider Follow CBC Needs OP C-Scope scheduled with primary GI specialist Medication Changes From Visit Pantoprazole 40mg BID Holding HCTZ 12.5mg daily Admission HPI Per Admitting Provider Patient is a 63-year-old male with history of CLL, diabetes mellitus, hypothyroidism, hyperlipidemia, diabetic retinopathy, diabetic foot ulcer, peripheral artery disease, chronic constrictive idiopathic pericarditis, hypertension, H/O osteomyelitis left ankle, hemolytic anemia, polycythemia, GERD and other medical problems presents for evaluation of low hemoglobin. Patient was recently discharged from [facility] after being treated for sepsis secondary to left heel abscess with calcaneal osteomyelitis and IZABELLA presents with history of black stools. Patient had outpatient blood work which showed low hemoglobin and as recommendations by his PCP he was sent to ED for further evaluation. Patient is on aspirin for peripheral vascular disease but otherwise not on any blood thinners. He reports having black stools since 1 week duration. He denies any recent NSAID use. He denies any bright red blood per rectum. Also denies any prior GI bleeding issues in the past. States having some bloating sensation in his abdomen but otherwise no significant pain. Admits to have some dyspnea on exertion lately. Denies any history of chest pain, dyspnea at rest, palpitations, dizziness, diaphoresis, cough, fever, chills, headache, weakness, nausea, vomiting, diarrhea,change in appetite, dysuria, hematuria, recent change in medications. Admission Exam Per Admitting Provider Physical Exam: Vitals signs as noted above General Appearance:Obese, no apparent distress Head: normocephalic, Atraumatic Eyes: normal inspection, EOMI Neck: supple, Trachea midline Respiratory/Chest: Normal breath sounds, CTA, No accessory muscle use Cardiovascular: S1, S2, No murmur Abdomen/GI:Soft, Non tender, Bowel sounds present Extremities/Musculoskeletal:normal inspection, LLE edema, mild erythema, +Left Heel in dressing Neurologic/Psych:AAOX3, grossly no focal neurological deficits Skin: normal color, warm Principal Dx & Hospital Course #1 = Principal Diagnosis (1) Melena: Mr. Valentin is a 63-year-old male with past medical history significant for type 2 diabetes, hypothyroidism, hyperlipidemia, diabetic retinopathy, diabetic foot ulcer, peripheral artery disease, chronic constrictive idiopathic pericarditis, pericardial effusion without cardiac tamponade, hypertension, history of osteomyelitis of the left ankle, cellulitis of left lower leg, calcaneal costochondritis, history of CLL, history of chemotherapy induced neutropenia, history of hemolytic anemia, history of splenomegaly, s/p splenectomy, history of secondary polycythemia, history of MSSA infection, history of Pseudomonas infection, who is admitted for acute on chronic anemia. Patient is now s/p I&D performed by Podiatry on 12/14 who was discharged with IV antibiotic for chronic OM. EOT 01/24 Patient discharged home on 12/18, however, noted 1 week of melanotic stool prompting presentation to ED. Patient received 2 U PRBCS. EGD with esophagitis and duodenitis. Biopsy without H Pylori. Advanced diet which was well tolerated. On 01/[address] 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 Plan to follow Dr Baron for repeat labs and monitoring. 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 pylori -Continue protonix--transition to PO BID -Follow op GI Avoid anticoagulation Monitor H&H and Transfuse PRBCs as needed Avoids NASIDs Likely chronic anemia exacerbated iso infection; no hemolysis #IZABELLA on CKD III *improved Cr. ~1.0-1.1 Cr 1.45 Hold HCTZ, lisinopril Avoid nephrotoxic agents as able Renal function stable Encourage PO #Left heel abscess with calcaneal osteomyelitis s/p left partial calcanectomy #Chronic osteomyelitis c/b MSSA and pseudomonas 12/14 wound/fluid cx No pseudomonas on culture, staph species, MSSA -S/P Left Heel Incision and Drainage by Dr. Saez on 12/16/2023 --Was evaluated by podiatry and ID last admission --Wound cultures from 12/15/23 grew MSSA, Finegoldia magna Continue cefazolin 2 g IV Q8H and Flagyl until 01/25/2024 as recommended by ID last admission #DM II Diabetic polyneuropathy Resume metformin and Trulicity Last A1C 9.2 Continue gabapentin #PAD s/p angiogram with revascularization by 2020 (left leg done in 06/2021 and right leg done in 09/2020); no OP report available 1 yr DUSTIN and LLE arterial duplex or sooner prn Continue aspirin 81 mg daily for atherosclerosis upon discharge H/O Statin intolerant #HTN Resume home regimen lisinopril, hold HCTZ Monitor BP Gout Continue allopurinol #H/O CLL s/p splenectomy diagnosed in July,, underwent splenectomy in July, Significant reticulocytopenia in July, 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 H/O Thrombocytosis - no evidence of PNH noted in the flow cytometry. May benefit from following up with hematology as outpatient on discharge #H/O Herpes zoster involving left leg, has post herpetic neuralgia Continue Neurontin, valacyclovir prophylaxis. #Hypothyroidism Continue levothyroxine Discharge Exam Constitutional WD/WN, vitals as above Respiratory normal respiratory effort, lungs clear to auscultation Cardiovascular RRR, no murmur, no edema Gastrointestinal (Abdomen) normal bowel sounds, soft, nontender, no hepatosplenomegaly Updated Medication List Medication Instructions Recorded Confirmed Type allopurinol 100 mg tablet 100 mg PO DAILY 12/15/23 01/09/24 History aspirin 81 mg tablet,delayed 81 mg PO DAILY 12/15/23 01/09/24 History release dulaglutide 0.75 mg/0.5 mL 0.75 mg subcut WK 12/15/23 01/09/24 History subcutaneous pen injector (Trulicity) ezetimibe 10 mg tablet 10 mg PO DAILY 12/15/23 01/09/24 History folic acid 1 mg tablet 1 mg PO DAILY 12/15/23 01/09/24 History gabapentin 300 mg capsule 300 mg PO TID 12/15/23 01/09/24 History hydrochlorothiazide 12.5 mg capsule 12.5 mg PO DAILY 12/15/23 01/09/24 History levothyroxine 150 mcg tablet 150 mcg PO DAILY 12/15/23 01/09/24 History lisinopril 30 mg tablet 30 mg PO DAILY 12/15/23 01/09/24 History metformin 500 mg tablet 1,000 mg PO BID 12/15/23 01/09/24 History valacyclovir 1 gram tablet 1,000 mg PO DAILY 12/15/23 01/09/24 History calcium 600 mg-D3 800 unit-mag11 1 tab PO BID #60 tabs 12/19/23 01/09/24 Rx 50 fe-mqom-rxykny-genaro-s.borat tablet (Caltrate 600-D Plus Minerals) cefazolin 2 gram solution for 2 g IV Q8H #1 ea 12/19/23 01/09/24 Rx injection cyanocobalamin (vitamin B-12) 500 1,000 mcg (2 x 500 mcg) PO QAM #30 12/19/23 01/09/24 Rx mcg tablet tabs metronidazole 500 mg tablet 500 mg PO Q8H 38 days #114 tabs 12/19/23 01/09/24 Rx cyanocobalamin (vitamin B-12) 1,000 mcg IM DIRECTED 01/09/24 01/09/24 History 1,000 mcg/mL injection solution pantoprazole 40 mg tablet,delayed 40 mg PO BID 6 weeks #84 tabs 01/12/24 Rx release (Protonix) Hospital Stay Data Consultations 01/09/24 16:50 ED Decision to Admit Stat 01/09/24 18:36 Consult Gastroenterology Routine 01/12/24 07:12 Consult Hematology Routine Procedures Performed Operation Date: 01/10/24 17:25 Actual Procedures p EGD Biopsy Cytology - Armaan Linton Case, DO Diagnostic Imagining Performed 01/09/24 18:36 US venous doppler LE BI Routine Pending Results Patient Have Any Pending Studies at Discharge: No Discharge Instructions Given to Patient (Per Discharging Provider) You were admitted for evaluation of anemia. You were given two blood transfusions. You were noted to have inflammation of your stomach lining. You will continue Protonix 40mg two times daily. Your anemia (low blood count) is worsened by chronic diseases and inflammation ongoing. Please follow up with Dr. Baron for blood work as an outpatient. Please continue your IV cefazolin 2g every 8 hours Please return to taking your Metronidazole 500mg by mouth every 8 hours End date 01/25/2024 You pressures have been on the low-side of normal. Please hold your HCTZ (hydrochlorothiazide) and discuss further with your PCP Total Time Total Time Spent Total Time Spent (In Minutes): 45
[2024-01-12] MEDS ORDERED: LANTUS PER UNIT CHARGE SQ SCH (21:00)
== END 2024-01-12 14:18 | disposition home health service (06) | DRG 378 ==
LOC: ED 14:34 → EDINP 17:38 → SUATTDRO 17:38 → EDINP 18:37 → 4W 01-10 15:30